=== PATIENT | female | born 1950 | race Caucasian/White ===

== ENCOUNTER 2016-04-24 23:00 | Inpatient (IN) | payer OTHER ==
[2016-04-24] VITALS (7 sets, daily range): BP systolic 108–180; BP diastolic 69–85; PULSE 86–94; RESP 24–28; TEMP 97.3–97.8; O2SAT 80–100
[~2016-04-24] VITALS: Ht 157.5 cm; Wt 78.2 kg
[~2016-04-24 23:00] MED LIST: FOLI1 PO; GABA300C3 PO; LACT20SO4 PO; LORA0.5T PO; MIDO5TAB PO; ULTR50TA PO
[2016-04-24] MEDS ORDERED: RESP: ALBUTEROL 2.5 MG/IPRATROPIUM 0.5 MG NEB (SCH) NEB ONE (23:15)
[2016-04-24] MEDS ORDERED: SODIUM CHLORIDE 0.9% FLUSH 5 ML FLUSH IVF PRN (23:15)
[2016-04-24 23:43] LABS: APTT (PATIENT) 22.6 SEC (24.3-30.1); INTERNATIONAL NORMALIZED RATIO 1.2 RATIO; PROTHROMBIN TIME - PATIENT 13.3 SEC (9.8-11.6)
[2016-04-25] VITALS (17 sets, daily range): BP systolic 95–133; BP diastolic 5–82; PULSE 76–107; RESP 16–30; TEMP 94–97.7; O2SAT 89–100
[2016-04-25 00:04] LABS: AUTOMATED NEUTROPHIL # 23.5 TH/MM3 (1.8-7.7); BASOPHIL # 0.1 TH/MM3 (0-0.2); BASOPHIL % 0.3 % (0.0-2.0); BLOOD UREA NITROGEN 73 MG/DL (7-18); GLOMERULAR FILTRATION RATE 8 ML/MIN (>89); HEMATOCRIT 33.3 % (35.0-46.0); LYMPH % 4.1 % (9.0-44.0); LYMPHOCYTE # 1.1 TH/MM3 (1.0-4.8); MEAN CELL VOLUME 67.3 FL (80.0-100.0); MEAN CORPUSCULAR HGB CONC 31.2 % (32.0-36.0); MONO % 7.9 % (0.0-8.0); NEUT % 87.7 % (16.0-70.0); PLATELET COUNT 374 TH/MM3 (150-450); RED BLOOD COUNT 4.95 MIL/MM3 (4.00-5.30); RED CELL DISTRIBUTION WIDTH 20.5 % (11.6-17.2); WHITE BLOOD COUNT 26.8 TH/MM3 (4.0-11.0)
[2016-04-25 00:05] LABS: ALKALINE PHOSPHATASE 140 U/L (45-117); ALT (GPT) 110 U/L (10-53); AST (GOT) 242 U/L (15-37); CHLORIDE 96 MEQ/L (98-107); MAGNESIUM 2.5 MG/DL (1.5-2.5); POTASSIUM 5.9 MEQ/L (3.5-5.1); SODIUM (NA) 130 MEQ/L (136-145); TOTAL BILIRUBIN ADULT 0.4 MG/DL (0.2-1.0)
--- NOTE | 2016-04-25 00:05 | RADRPT ---
EXAM DATE/TIME: 04/24/2016 23:34 [facility] COMPARISON: CHEST SINGLE AP, May 10, 2013, 3:57. CHEST SINGLE AP, May 17, 2013, 2:09. INDICATIONS : Shortness of breath. MEDICAL HISTORY : Carcinoma, breast. Ascitis SURGICAL HISTORY : Tonsillectomy. Cholecystectomy. Right lumpectomy, Infusaport ENCOUNTER: Initial ACUITY: 1 day PAIN SCORE: 0/10 LOCATION: Bilateral chest FINDINGS: A single view of the chest demonstrates the lungs to be symmetrically aerated without evidence of mas s, confluent infiltrate or effusion. Hazy interstitial scarring is again noted. The left subclavian i mplantable port catheter remains in place. There are overlying electrocardiogram leads. The cardiomed iastinal contours are unremarkable. Osseous structures are intact. CONCLUSION: Coarse interstitial opacities most consistent with chronic fibrosis and/or scarring. Sebas Roberts MD on April 25, 2016 at 0:03 Board Certified Radiologist. This report was verified electronically.
[2016-04-25 00:06] LABS: ANION GAP 17 MEQ/L (5-15); BICARBONATE 16.9 MEQ/L (21.0-32.0)
[2016-04-25 00:09] LABS: HEMO FLAGS AUTO DIFF
[2016-04-25 01:22] LABS: BLOOD GAS BASE EXCESS -7.7 mmol/L (-2-2); BLOOD GAS CARBOXYHEMOGLOBIN 4.4 % (0-4); BLOOD GAS HCO3 18 mmol/L (22-26); BLOOD GAS METHEMOGLOBIN 1.6 % (0-2); BLOOD GAS O2 HGB SATURATION 71 % (90-100); BLOOD GAS OXYGEN CONTENT 10.5 Vol % (12.0-20.0); BLOOD GAS PCO2 36 mmHg (38-42); BLOOD GAS PO2 46 mmHG (61-120); BLOOD GAS TOTAL HGB 10.5 G/DL (12.0-16.0); TEMP CORR TO 98.6
[2016-04-25 01:23] LABS: CRITICAL VALUE YES; DRAW SITE RT FEMORAL; FIO2 21 %; NUMBER OF ARTERIAL PUNCTURES 1; OXYGEN DEVICE ROOM AIR; STAT YES
--- NOTE | 2016-04-25 01:27 | PD ---
HPI Chief Complaint: Respiratory Distress Time Seen by Provider: 23:08 Travel History International Travel<30 days: No Contact w/Intl Traveler<30days: No Traveled to known affect area: No History of Present Illness HPI Patient is 65-year-old female presents to emergency department today with shortness of breath. She had apparently has a history of pulmonary fibrosis. EMS was called because she was short of breath at home, greatest at the had in the field was at 70% though unclear as to whether or not it was a good waveform. Patient on arrival is hard of hearing and appears somewhat altered. She is able to follow commands in all 4 extremities. Her history is limited secondary to mental status. PFSH Past Medical History Blood Disorders: No Anxiety: Yes Cancer: Yes (RIGHT BREAST) Cardiovascular Problems: No Chemotherapy: Yes Diminished Hearing: No Endocrine: No Gastrointestinal Disorders: Yes (acsitis) Genitourinary: No Immune Disorder: No Implanted Vascular Access Dvce: Yes Musculoskeletal: No Neurologic: No Psychiatric: Yes Reproductive: No Respiratory: No Radiation Therapy: Yes Past Surgical History Abdominal Surgery: Yes (cholecystectomy) Cardiac Surgery: No Cholecystectomy: Yes Ear Surgery: No Endocrine Surgery: No Eye Surgery: No Genitourinary Surgery: No Gynecologic Surgery: Yes (RT LUMPECTOMY) Oral Surgery: No Thoracic Surgery: No Tonsillectomy: Yes Other Surgery: Yes (INFUSAPORT nonfunctioning) Social History Alcohol Use: No Tobacco Use: Yes (1PPD) Substance Use: No Allergies-Medications (Allergen,Severity, Reaction): Coded Allergies: Morphine (Verified Allergy, Mild, Itching, 04/24/16) pt denies Reported Meds & Prescriptions Reported Meds & Active Scripts Active Lactulose 30 Ml Syrp 30 Ml PO DAILY 10 Days Midodrine Hcl (Midodrine) 5 Mg Tab 5 Mg PO TID 30 Days Reported Folate 1 Mg Tab (Folic Acid) 1 Mg Tab 1 Mg PO DAILY Gabapentin 300 Mg Cap 300 Mg PO TID Ultram (Tramadol HCl) 50 Mg Tab 50 Mg PO Q4H PRN Lorazepam 0.5 Mg Tab 0.5 Mg PO BID Review of Systems ROS Limitations: Altered Mental Status Physical Exam Narrative GENERAL: Well-developed well-nourished, pale and cool. No obvious respiratory distress. SKIN: Warm and dry. HEAD: Atraumatic. Normocephalic. EYES: Pupils equal and round. No scleral icterus. No injection or drainage. ENT: No nasal bleeding or discharge. Mucous membranes pink and moist. NECK: Trachea midline. No JVD. CARDIOVASCULAR: Regular rate and rhythm. No murmur appreciated. RESPIRATORY: No accessory muscle use. Clear to auscultation. Inspiratory and x- ray wheezing throughout all lung oneil. GASTROINTESTINAL: Abdomen soft, non-tender, nondistended. Hepatic and splenic margins not palpable. MUSCULOSKELETAL: No obvious deformities. No clubbing. No cyanosis. No edema. NEUROLOGICAL: Awake and alert. No obvious cranial nerve deficits. Motor grossly within normal limits. Normal speech.Slightly altered, difficult of hearing. PSYCHIATRIC: Unable to assess. Data Data Last Documented VS Vital Signs Date Time Temp Pulse Resp B/P Pulse Ox O2 Delivery O2 Flow Rate FiO2 04/25/16 01:00 80 16 133/82 100 BiPAP 04/25/16 00:00 50 04/24/16 23:39 97.3 04/24/16 23:13 3 Orders Electrocardiogram (04/24/16 23:08) B-Type Natriuretic Peptide (04/24/16 23:08) Complete Blood Count With Diff (04/24/16 23:08) Comprehensive Metabolic Panel (04/24/16 23:08) Magnesium (Mg) (04/24/16 23:08) Prothrombin Time / Inr (Pt) (04/24/16 23:08) Act Partial Throm Time (Ptt) (04/24/16 23:08) Troponin I (04/24/16 23:08) Chest, Single Ap (04/24/16 23:08) Ecg Monitoring (04/24/16 23:08) Bilateral Bp Monitoring (04/24/16 23:08) Iv Access Insert/Monitor (04/24/16 23:08) Oximetry (04/24/16 23:08) Oxygen Administration (04/24/16 23:08) Sodium Chloride 0.9% Flush (Ns Flush) (04/24/16 23:15) Phosphorus (Po4) (04/24/16 23:08) Blood Culture (04/24/16 23:08) Lactic Acid (04/24/16 23:08) Albuterol-Ipratropium Neb (Duoneb Neb) (04/24/16 23:15) Arterial Blood Gas (Abg) (04/24/16 ) Ammonia (04/24/16 23:19) Vancomycin Inj (Vancomycin Inj) (04/25/16 01:30) Arterial Blood Gas (Abg) (04/25/16 01:15) Piperacil-Tazo 2.25 Gm Premix (Zosyn 2.2 (04/25/16 01:30) Sodium Chlor 0.9% 1000 Ml Inj (Ns 1000 M (04/25/16 01:30) Sodium Chlor 0.9% 1000 Ml Inj (Ns 1000 M (04/25/16 01:30) Admit Order (Ed Use Only) (04/25/16 ) Labs Laboratory Tests Test 04/24/16 04/24/16 04/25/16 23:18 23:20 01:15 Prothrombin Time 13.3 SEC Prothromb Time International 1.2 RATIO Ratio Activated Partial 22.6 SEC Thromboplast Time White Blood Count 26.8 TH/MM3 Red Blood Count 4.95 MIL/MM3 Hemoglobin 10.4 GM/DL Hematocrit 33.3 % Mean Corpuscular Volume 67.3 FL Mean Corpuscular Hemoglobin 21.0 PG Mean Corpuscular Hemoglobin 31.2 % Concent Red Cell Distribution Width 20.5 % Platelet Count 374 TH/MM3 Mean Platelet Volume 8.3 FL Neutrophils (%) (Auto) 87.7 % Lymphocytes (%) (Auto) 4.1 % Monocytes (%) (Auto) 7.9 % Eosinophils (%) (Auto) 0.0 % Basophils (%) (Auto) 0.3 % Neutrophils # (Auto) 23.5 TH/MM3 Lymphocytes # (Auto) 1.1 TH/MM3 Monocytes # (Auto) 2.1 TH/MM3 Eosinophils # (Auto) 0.0 TH/MM3 Basophils # (Auto) 0.1 TH/MM3 CBC Comment AUTO DIFF Differential Total Cells 100 Counted Neutrophils % (Manual) 75 % Band Neutrophils % 11 % Lymphocytes % 7 % Monocytes % 5 % Neutrophils # (Manual) 23.6 TH/MM3 Metamyelocytes 2 % Nucleated Red Blood Cells 1 /100 WBC Differential Comment FINAL DIFF MANUAL Platelet Estimate NORMAL Platelet Morphology Comment NORMAL Sodium Level 130 MEQ/L Potassium Level 5.9 MEQ/L Chloride Level 96 MEQ/L Carbon Dioxide Level 16.9 MEQ/L Anion Gap 17 MEQ/L Blood Urea Nitrogen 73 MG/DL Creatinine 5.56 MG/DL Estimat Glomerular Filtration 8 ML/MIN Rate Random Glucose 140 MG/DL Lactic Acid Level 3.8 mmol/L Calcium Level 9.5 MG/DL Phosphorus Level 8.0 MG/DL Magnesium Level 2.5 MG/DL Total Bilirubin 0.4 MG/DL Aspartate Amino Transf 242 U/L (AST/SGOT) Alanine Aminotransferase 110 U/L (ALT/SGPT) Alkaline Phosphatase 140 U/L Ammonia 28 MCMOL/L Troponin I 0.16 NG/ML B-Type Natriuretic Peptide 2812 PG/ML Total Protein 7.9 GM/DL Albumin 3.1 GM/DL Blood Gas Puncture Site RT FEMORAL LT BRACHIAL Blood Gas Patient Temperature 98.6 98.6 Blood Gas HCO3 18 mmol/L 19 mmol/L Blood Gas Base Excess -7.7 mmol/L -6.2 mmol/L Blood Gas Oxygen Saturation 71 % 93 % Arterial Blood pH 7.31 7.33 Arterial Blood Partial 36 mmHg 36 mmHg Pressure CO2 Arterial Blood Partial 46 mmHG 105 mmHg Pressure O2 Arterial Blood Oxygen Content 10.5 Vol % 13.7 Vol % Arterial Blood 4.4 % 3.2 % Carboxyhemoglobin Arterial Blood Methemoglobin 1.6 % 0.8 % Blood Gas Hemoglobin 10.5 G/DL 10.3 G/DL Oxygen Delivery Device ROOM AIR BIPAP Blood Gas Inspired Oxygen 21 % 50 % Blood Gas Ventilator Setting IPAP20/12PS/EPAP8 [facility] Medical Decision Making Medical Screen Exam Complete: Yes Emergency Medical Condition: Yes Differential Diagnosis Hypoxic respiratory failure, ammonia, pulmonary fibrosis, sepsis. Narrative Course Patient was roomed in the emergency department, she is placed on pulse oximetry and telemetry monitoring P she is not tachycardic nor tachypneic. She is pale and cool. Multiple tests were made to obtain saturation monitoring. Finally waveform for only a few moments showed a saturation of 70%. Patient was placed on BiPAP which saturations quickly bethany with good waveform. ABG was obtained prior to placing on BiPAP which confirms a low saturation. PO2 of 45. White blood cell count significant bili elevated, lactic acid of 3.8. Troponin elevated to 0.16 was equivocal value, BNP of 2800, potassium 5.9 sodium 1:30, creatinine of 5.56. Patient is in severe sepsis, she was given multiple fluid boluses, creatinine is significantly elevated over her previous, she is given vancomycin and Zosyn to cover for severe sepsis. She did show some improvement in mental status was still unable to give further history. No family is at bedside in the emergency department. She was discussed with Dr. Mandel for admission to the ICU. Critical Care Narrative Aggregate critical care time was 35 minutes minutes. Time to perform other separately billable procedures was not included in the critical care time. My time did not include minutes spent treating any other patients simultaneously or on activities that did not directly contribute to the patient's treatment. The services I provided to this patient were to treat and/or prevent clinically significant deterioration that could result in: , disability, organ failure. I provided critical care services requiring my management, as noted below: Chart data review, documentation time, medication orders and management, vital sign assessments/reviewing monitor data, ordering and reviewing lab tests, ordering and interpreting/reviewing x-rays and diagnostic studies, care of the patient (including titrating BiPAP) and discussion of the patient with the admitting physicians. Diagnosis Primary Impression: Severe sepsis Additional Impressions: Multi-organ failure with heart failure Pulmonary fibrosis Acute respiratory failure with hypoxia Encephalopathy Admitting Information Admitting Physician Requests: Admit Condition: Delon Crespo MD Apr 25, 2016 01:27
[2016-04-25 01:29] LABS: BANDS 11 % (0-6); CORRECTED NUCLEATED RBC 1 /100 WBC (0-0); METAMYELOCYTES 2 % (0-1); NEUTROPHIL # MANUAL DIFF 23.6 TH/MM3 (1.8-7.7); POLYS (SEG NEUTROPHILS) 75 % (16-70); SCAN/DIFF FINAL DIFF MANUAL; WBC DIFF SAMPLE 100
[2016-04-25 01:30] LABS: PLATELET ESTIMATE SMEAR NORMAL (NORMAL); PLATELET MORPHOLOGY NORMAL (NORMAL)
[2016-04-25] MEDS ORDERED: SODIUM CHLOR 0.9% 1000 ML INJ 1,000 ML IV ONE ×4 (01:30→17:15)
[2016-04-25] MEDS ORDERED: PIPERACIL-TAZO 2.25 GM PREMIX 50 ML IV ONE (01:30)
[2016-04-25] MEDS ORDERED: VANCOMYCIN INJ 1,000 MG in SODIUM CHLOR 0.9% 250 ML INJ 250 ML IV ONE (01:30)
[2016-04-25 01:31] LABS: BLOOD GAS BASE EXCESS -6.2 mmol/L (-2-2); BLOOD GAS CARBOXYHEMOGLOBIN 3.2 % (0-4); BLOOD GAS HCO3 19 mmol/L (22-26); BLOOD GAS METHEMOGLOBIN 0.8 % (0-2); BLOOD GAS O2 HGB SATURATION 93 % (90-100); BLOOD GAS OXYGEN CONTENT 13.7 Vol % (12.0-20.0); BLOOD GAS PCO2 36 mmHg (38-42); BLOOD GAS PO2 105 mmHg (61-120); BLOOD GAS TOTAL HGB 10.3 G/DL (12.0-16.0); CRITICAL VALUE NO; OXYGEN DEVICE BIPAP; TEMP CORR TO 98.6
[2016-04-25 01:32] LABS: DRAW SITE LT BRACHIAL; FIO2 50 %; NUMBER OF ARTERIAL PUNCTURES 2; STAT NO; ULNAR PULSE PRESENT; VENT SETTINGS IPAP20/12PS/EPAP8
[2016-04-25] MEDS ORDERED: ZOLPIDEM TARTRATE 5 MG TAB PO PRN (03:00)
[2016-04-25] MEDS ORDERED: MORPHINE SULFATE 4 MG/ML INJ IV PRN (03:00)
[2016-04-25] MEDS ORDERED: METOCLOPRAMIDE HCL 10 MG/2 ML VIAL IV PRN (03:00)
[2016-04-25] MEDS ORDERED: ONDANSETRON HCL 4 MG/2 ML VIAL IV PRN (03:00)
[2016-04-25] MEDS ORDERED: CHLORHEXIDINE GLUCONATE 2 % 1 PACK (2 CLOTHS) TOP PRN (03:00)
[2016-04-25] MEDS ORDERED: oxyCODONE/ACETAMINOPHEN 5 MG/325 MG TAB PO PRN (03:00)
[2016-04-25] MEDS ORDERED: MISCELLANEOUS NURSING INFORMATION XX SCH (03:00)
[2016-04-25] MEDS ORDERED: SODIUM CHLORIDE 0.9% FLUSH 5 ML FLUSH IV FLUSH PRN (03:00)
--- NOTE | 2016-04-25 03:12 | HHI.HP ---
HPI Service Critical Care Medicine Primary Care Physician Artur Smalls MD Admission Diagnosis Hypoxic Respiratory Failure Diagnosis: Travel History International Travel<30 Days: No Contact w/Intl Traveler <30 Da: No Traveled to Known Affected Are: No History of Present Illness 65 year old female with history of alcohol abuse, history of breast cancer status post lumpectomy radiation and chemotherapy presents with progressively worsening shortness of breath. EMS was called because she was short of breath at home, and was found to have pals oxygen at 70%. Patient is on a BiPAP, seems to be comfortable in no distress. She is able to follow commands in all 4 extremities. Her history is limited secondary to FM BiPAP. Review of Systems ROS Unable to obtain, patient is on a FM BiPAP Past Family Social History Allergies: Coded Allergies: Morphine (Verified Allergy, Mild, Itching, 04/24/16) pt denies Past Medical History Alcoholism History of breast cancer status post lumpectomy radiation and chemotherapy Anxiety Past Surgical History [id number] Laparoscopic cholecystectomy Active Ordered Medications Current Medications Medications (Trade) Dose Ordered Sig/Antione Route PRN Reason Start Time Stop Time Status Last Admin Dose Admin Sodium Chloride (NS 1000 ml Inj) 1,000 ml @ 84 mls/hr [id number] IV 04/25/16 02:56 04/25/16 04:00 IV Flush (NS Flush) 2 ml UNSCH PRN IV FLUSH FLUSH AFTER USING IV ACCESS 04/25/16 03:00 IV Flush (NS Flush) 2 ml BID IV FLUSH 04/25/16 09:00 Acetaminophen (Tylenol) 650 mg Q6H PRN PO PAIN 1-10 AND/OR FEVER >101F 04/25/16 03:00 Oxycodone/ Acetaminophen (Percocet 5-325 Mg) 1 tab Q4H PRN PO PAIN SCALE 1 TO 5 04/25/16 03:00 Morphine Sulfate (Morphine Inj) 2 mg Q2H PRN IV PAIN SCALE 6 TO 10 04/25/16 03:00 Famotidine (Pepcid Inj) 20 mg Q12HR IV PUSH 04/25/16 09:00 Midazolam HCl (Versed Inj) 2 mg Q1H PRN IV SEDATION 04/25/16 03:00 Lorazepam (Ativan Inj) 1 mg Q1H PRN IV Agitation/Sedation 04/25/16 03:00 Ondansetron HCl (Zofran Inj) 4 mg Q6H PRN IV NAUSEA OR VOMITING 04/25/16 03:00 Metoclopramide HCl (Reglan Inj) 10 mg Q6H PRN IV NAUSEA OR VOMITING 04/25/16 03:00 Docusate Sodium (Colace) 100 mg BID PO 04/25/16 09:00 Zolpidem Tartrate (Ambien) 5 mg HS PRN PO INSOMNIA 04/25/16 03:00 Heparin Sodium (Porcine) (Heparin Inj) 5,000 units Q12H SQ 04/25/16 03:00 04/25/16 03:35 Miscellaneous Information 1 [id number] XX 04/25/16 03:00 04/25/16 03:00 Chlorhexidine Gluconate (Chlorhexidine 2% Cloth) 3 pack Taper DAILY@04 TOP 04/25/16 04:00 04/21/17 03:59 04/25/16 04:30 Chlorhexidine Gluconate (Chlorhexidine 2% Cloth) 3 pack UNSCH PRN [facility] 04/25/16 03:00 Folic Acid (Folate) 1 mg DAILY PO 04/25/16 09:00 Gabapentin (Neurontin) 300 mg TID PO 04/25/16 09:00 Tramadol HCl (Ultram) 50 mg Q4H PRN PO PAIN SCALE 1 TO 10 04/25/16 03:15 Lactulose (Lactulose Liq) 30 ml DAILY PO cirrhosis 04/25/16 09:00 Methylprednisolone Sodium Succinate (SoluMEDROL INJ) 60 mg Q12HR IV PUSH 04/25/16 09:00 Family History Noncontributory Social History Smoker Former Drinker Physical Exam Vital Signs Vital Signs Date Time Temp Pulse Resp B/P Pulse Ox O2 Delivery O2 Flow Rate FiO2 04/25/16 03:00 90 18 130/65 99 Non-Rebreather 04/25/16 02:00 90 19 125/62 99 Non-Rebreather 04/25/16 01:52 100 Non-Rebreather 04/25/16 01:30 95 Non-Rebreather 12.00 04/25/16 01:00 80 16 133/82 100 BiPAP 04/25/16 00:00 81 18 131/81 100 BiPAP 50 04/24/16 23:47 86 24 108/71 99 BiPAP 50 04/24/16 23:39 97.3 04/24/16 23:36 87 28 123/69 100 BiPAP 50 04/24/16 23:36 98 BiPAP 50 04/24/16 23:20 97 50 04/24/16 23:14 94 04/24/16 23:13 83 Nasal Cannula 3 04/24/16 23:02 97.8 90 28 180/85 80 Physical Exam GENERAL: Well-nourished, well-developed patient. SKIN: Warm and dry. HEAD: Normocephalic. EYES: No scleral icterus. No injection or drainage. NECK: Supple, trachea midline. No JVD or lymphadenopathy. CARDIOVASCULAR: Regular rate and rhythm without murmurs, gallops, or rubs. RESPIRATORY: Breath sounds equal bilaterally. No accessory muscle use. GASTROINTESTINAL: Abdomen soft, non-tender, nondistended. MUSCULOSKELETAL: No cyanosis, or edema. BACK: Nontender without obvious deformity. No CVA tenderness. Laboratory Laboratory Tests Test 04/24/16 04/24/16 04/25/16 23:18 23:20 01:15 Prothrombin Time 13.3 Prothromb Time International 1.2 Ratio Activated Partial 22.6 Thromboplast Time White Blood Count 26.8 Red Blood Count 4.95 Hemoglobin 10.4 Hematocrit 33.3 Mean Corpuscular Volume 67.3 Mean Corpuscular Hemoglobin 21.0 Mean Corpuscular Hemoglobin 31.2 Concent Red Cell Distribution Width 20.5 Platelet Count 374 Mean Platelet Volume 8.3 Neutrophils (%) (Auto) 87.7 Lymphocytes (%) (Auto) 4.1 Monocytes (%) (Auto) 7.9 Eosinophils (%) (Auto) 0.0 Basophils (%) (Auto) 0.3 Neutrophils # (Auto) 23.5 Lymphocytes # (Auto) 1.1 Monocytes # (Auto) 2.1 Eosinophils # (Auto) 0.0 Basophils # (Auto) 0.1 CBC Comment AUTO DIFF Differential Total Cells 100 Counted Neutrophils % (Manual) 75 Band Neutrophils % 11 Lymphocytes % 7 Monocytes % 5 Neutrophils # (Manual) 23.6 Metamyelocytes 2 Nucleated Red Blood Cells 1 Differential Comment FINAL DIFF MANUAL Platelet Estimate NORMAL Platelet Morphology Comment NORMAL Sodium Level 130 Potassium Level 5.9 Chloride Level 96 Carbon Dioxide Level 16.9 Anion Gap 17 Blood Urea Nitrogen 73 Creatinine 5.56 Estimat Glomerular Filtration 8 Rate Random Glucose 140 Lactic Acid Level 3.8 Calcium Level 9.5 Phosphorus Level 8.0 Magnesium Level 2.5 Total Bilirubin 0.4 Aspartate Amino Transf 242 (AST/SGOT) Alanine Aminotransferase 110 (ALT/SGPT) Alkaline Phosphatase 140 Ammonia 28 Troponin I 0.16 B-Type Natriuretic Peptide 2812 Total Protein 7.9 Albumin 3.1 Blood Gas Puncture Site RT FEMORAL LT BRACHIAL Blood Gas Patient Temperature 98.6 98.6 Blood Gas HCO3 18 19 Blood Gas Base Excess -7.7 -6.2 Blood Gas Oxygen Saturation 71 93 Arterial Blood pH 7.31 7.33 Arterial Blood Partial 36 36 Pressure CO2 Arterial Blood Partial 46 105 Pressure O2 Arterial Blood Oxygen Content 10.5 13.7 Arterial Blood 4.4 3.2 Carboxyhemoglobin Arterial Blood Methemoglobin 1.6 0.8 Blood Gas Hemoglobin 10.5 10.3 Oxygen Delivery Device ROOM AIR BIPAP Blood Gas Inspired Oxygen 21 50 Blood Gas Ventilator Setting IPAP20/12PS/EPAP8 Date/Time Procedure Status Source Growth 04/24/16 23:15 Aerobic Blood Culture Received Blood Peripheral Pending 04/24/16 23:15 Anaerobic Blood Culture Received Blood Peripheral Pending Result Diagram: 04/24/168 04/24/162317 Imaging Last 24 hours Impressions Chest X-Ray 04/24/162307 Signed Impressions: Service Date/Time: Sunday, April 24, 2016 23:34 - CONCLUSION: Coarse interstitial opacities most consistent with chronic fibrosis and/or scarring. Sebas Roberts MD Septic Shock Reassessment Peripheral Pulses: Bounding Right Radial Bounding Left Radial Assessment and Plan Problem List: (1) Acute respiratory failure with hypoxia ICD Code: J96.01 Status: Acute (2) Tobacco use disorder ICD Code: F17.200 Status: Acute (3) HOME (acute kidney injury) ICD Code: N17.9 Status: Acute Assessment and Plan Respiratory failure - underlying pulmonary disease - post-radiation - tobacco use - Steroids - Aerosols - Empiric ATB - improving with BiPAP COPD - exacerbation - i.v. steroids - Empiric Azythro/Zosyn - F/U urine AG and Blood cultures - Duonebs - BiPAP - Repeat ABG History Alcoholism - monitor for withdrawal - CIWA History of breast cancer - status post lumpectomy radiation and chemotherapy - now in remission - supportive care Anxiety - Benzos PRN HOME - volume depletion - aggressive i.v. fluids - monitor electrolytes - strict I&O DVT/GI prophylaxis - Heparin SubQ/Pepcid Critical Care: The total critical care time was 35 minutes. Time to perform other separately billable procedures was not included in the critical care time. Allan Mandel MD Apr 25, 2016 03:11
[2016-04-25] MEDS ORDERED: methylPREDNISolone SOD SUCC 125 MG/2 ML VIAL IV PUSH ONE (03:15)
[2016-04-25] MEDS ORDERED: traMADol HCL 50 MG TAB PO PRN (03:15)
[2016-04-25] MEDS: HEPARIN SODIUM - SQ 10,000 UNITS/ML VIAL SQ SCH ×2 (03:35→14:48)
[2016-04-25] MEDS: RESP: ALBUTEROL 2.5 MG/IPRATROPIUM 0.5 MG NEB (SCH) INH ×6 (03:52→23:40)
[2016-04-25] MEDS: SODIUM CHLOR 0.9% 1000 ML INJ 1,000 ML IV SCH ×3 (04:00→23:35)
[2016-04-25] MEDS: CHLORHEXIDINE GLUCONATE 2 % 1 PACK (2 CLOTHS) TOP SCH (04:30)
[2016-04-25] MEDS: SODIUM CHLORIDE 0.9% FLUSH 5 ML FLUSH IV FLUSH SCH (08:33)
[2016-04-25] MEDS: FOLIC ACID 1 MG TAB PO SCH (08:33)
[2016-04-25] MEDS: DOCUSATE SODIUM 100 MG CAP PO SCH ×2 (08:33→20:48)
[2016-04-25] MEDS: methylPREDNISolone SOD SUCC 125 MG/2 ML VIAL IV PUSH SCH ×2 (08:33→20:48)
[2016-04-25] MEDS: AZITHROMYCIN INJ 500 MG in SODIUM CHLOR 0.9% 250 ML INJ 250 ML IV SCH (08:33)
[2016-04-25] MEDS: LACTULOSE SYRUP 20 GM/30 ML CUP PO SCH (08:33)
[2016-04-25] MEDS ORDERED: FAMOTIDINE 20 MG/2 ML VIAL IV PUSH SCH (09:00)
[2016-04-25] MEDS ORDERED: GABAPENTIN 300 MG CAP PO SCH (09:00)
[2016-04-25] MEDS ORDERED: AMBI5TAB PO (10:33)
[2016-04-25] MEDS ORDERED: VICOTAB4 PO (10:33)
[2016-04-25] MEDS ORDERED: SERT-129 PO (10:33)
[2016-04-25] MEDS ORDERED: SPIR100T PO (10:33)
[2016-04-25] MEDS ORDERED: ROPI5TAB PO (10:33)
[2016-04-25] MEDS ORDERED: FURO1TAB60 PO (10:33)
[2016-04-25] MEDS: PIPERACIL-TAZO 2.25 GM PREMIX 50 ML IV SCH ×2 (11:38→20:48)
[2016-04-25 12:00] LABS: HEMATOCRIT 30.1 % (35.0-46.0); MEAN CELL VOLUME 66.1 FL (80.0-100.0); MEAN CORPUSCULAR HEMOGLOBIN 21.2 PG (27.0-34.0); PLATELET COUNT 300 TH/MM3 (150-450); RED BLOOD COUNT 4.56 MIL/MM3 (4.00-5.30); RED CELL DISTRIBUTION WIDTH 20.7 % (11.6-17.2); WHITE BLOOD COUNT 22.7 TH/MM3 (4.0-11.0)
[2016-04-25 12:03] LABS: REVIEW FLAG FINAL
[2016-04-25] MEDS: LORazepam 2 MG/ML VIAL IV PRN (12:16)
[2016-04-25 13:00] LABS: BICARBONATE 17.5 MEQ/L (21.0-32.0); MAGNESIUM 2.3 MG/DL (1.5-2.5); POTASSIUM 5.5 MEQ/L (3.5-5.1)
[2016-04-25] MEDS: PROPOFOL 1000 MG/100 ML INJ 100 ML IV SCH ×2 (13:00→20:48)
[2016-04-25] MEDS ORDERED: ETOMIDATE 20 MG/10 ML VIAL ONE (13:08)
[2016-04-25] MEDS ORDERED: ROCURONIUM INJ 50 MG/5 ML VIAL ONE (13:08)
--- NOTE | 2016-04-25 13:34 | PD.PROCEDR ---
Procedure Note Procedure Endotracheal Intubation Diagnosis: Hypoxic respiratory failure Indications: Continued hypoxic respiratory failure Consent: Emergent Anesthesia: Etomidate and Rocuronium Description of the Procedure: The patient was positioned in the sniffing position. Pre-oxygenation was performed using a 100% ambu. Anesthesia was induced via rapid sequence. A Glidescope 4 was used for laryngoscopy and a Grade 1 view was obtained. A cuffed endotracheal tube was inserted atraumatically through the vocal cords. Confirmation of correct endotracheal tube placement was made by equal and bilateral breath sounds and colorimetric CO2 detection. The endotracheal tube was secured at 20 cm at the teeth. There were no immediate complications noted. The patient remained hemodynamically stable throughout the procedure. A chest x-ray has been ordered. I personally performed the procedure. Karmen Ferreira MD Apr 25, 2016 13:34
--- NOTE | 2016-04-25 14:20 | RADRPT ---
EXAM DATE/TIME: 04/25/2016 13:47 [facility] COMPARISON: CHEST SINGLE AP, April 24, 2016, 23:34. INDICATIONS : Post Intubation. MEDICAL HISTORY : Carcinoma, breast. Ascitis SURGICAL HISTORY : Tonsillectomy. Cholecystectomy. Right lumpectomy, Infusaport ENCOUNTER: Subsequent ACUITY: 3 days PAIN SCORE: Non-responsive. LOCATION: Bilateral chest FINDINGS: A single portable frontal view of the chest shows coarse bilateral interstitial markings throughout b oth lungs. They are unchanged. No effusions. No intralobular opacities. Heart is normal in size. Endo tracheal tube tip is 4 cm proximal to the ulises. A left-sided Port-A-Cath. CONCLUSION: 1. Bilateral interstitial opacities potentially chronic interstitial fibrotic in nature. 2. Endotracheal tube. Bart Suarez Jr., MD on April 25, 2016 at 14:17 Board Certified Radiologist. This report was verified electronically.
--- NOTE | 2016-04-25 14:49 | PD.PROCEDR ---
Procedure Note Procedure Procedure: Arterial Line Placement Left radial Diagnosis: Hypoxic respiratory failure Indications: Same Consent: Obtained Description of the Procedure: The left wrist was prepped and draped sterilely. 1 % lidocaine was used for local anesthesia. The pulse was located and a needle was advanced into the artery. A 20-gauge gauge, 1/3/4 cm catheter was advanced into the artery using a modified Seldinger technique. The catheter was sutured to the skin and a sterile dressing was applied. The catheter was connected to a pressure transducer and an arterial waveform was noted. There were no immediate complications noted. There was minimal EBL. I personally performed the procedure. Karmen Ferreira MD Apr 25, 2016 14:49
[2016-04-25 15:03] LABS: BLOOD GAS BASE EXCESS -10.4 mmol/L (-2-2); BLOOD GAS CARBOXYHEMOGLOBIN 1.3 % (0-4); BLOOD GAS HCO3 16 mmol/L (22-26); BLOOD GAS METHEMOGLOBIN 0.8 % (0-2); BLOOD GAS O2 HGB SATURATION 83 % (90-100); BLOOD GAS OXYGEN CONTENT 11.1 Vol % (12.0-20.0); BLOOD GAS PCO2 44 mmHg (38-42); BLOOD GAS PO2 65 mmHg (61-120); BLOOD GAS TOTAL HGB 9.5 G/DL (12.0-16.0); TEMP CORR TO 98.6
[2016-04-25 15:05] LABS: CRITICAL VALUE YES; OXYGEN DEVICE VENTILATOR
[2016-04-25 15:06] LABS: DRAW SITE RT RADIAL; FIO2 50 %; NUMBER OF ARTERIAL PUNCTURES 1; STAT NO; ULNAR PULSE PRESENT
[2016-04-25 15:10] LABS: BLOOD GAS BASE EXCESS -10.7 mmol/L (-2-2); BLOOD GAS CARBOXYHEMOGLOBIN 1.3 % (0-4); BLOOD GAS HCO3 16 mmol/L (22-26); BLOOD GAS METHEMOGLOBIN 0.9 % (0-2); BLOOD GAS O2 HGB SATURATION 89 % (90-100); BLOOD GAS OXYGEN CONTENT 12.1 Vol % (12.0-20.0); BLOOD GAS PCO2 44 mmHg (38-42); BLOOD GAS PO2 79 mmHg (61-120); BLOOD GAS TOTAL HGB 9.6 G/DL (12.0-16.0); CRITICAL VALUE YES; DRAW SITE RT RADIAL; FIO2 100 %; LITER FLOW 15 L/M; NUMBER OF ARTERIAL PUNCTURES 1; STAT YES; TEMP CORR TO 98.6; ULNAR PULSE PRESENT
[2016-04-25] MEDS ORDERED: MIDAZOLAM HCL 5 MG/ML VIAL (1 ML) ONE (15:39)
[2016-04-25] MEDS ORDERED: MIDAZOLAM HCL 5 MG/5 ML VIAL IV PUSH ONE (15:45)
[2016-04-25] MEDS: RESP: ALBUTEROL 2.5 MG/IPRATROPIUM 0.5 MG NEB (PRN) INH (16:15)
--- NOTE | 2016-04-25 16:16 | PD.PROCEDR ---
Central Line Procedure REASON FOR PROCEDURE Central venous access PROCEDURE PERFORMED Central line placement: Left IJ CONSENT Informed consent for procedure was obtained from sister, ANTIONE. The risks and benefits of the procedure were discussed to include but limited to bleeding, clot formation, infection, and even . ANESTHESIA Local injection of 1% Lidocaine DESCRIPTION OF THE PROCEDURE The patient was placed in supine, mild Trendelenburg position. The area was exposed and cleansed with ChloraPrep, times two. Large sterile drape was used to cover the patient, with the site exposed, under sterile conditions including cap, face mask, sterile gown, and sterile gloves. On single attempt, the introducer needle was inserted with negative pressure in syringe and venous flash was obtained. The guide wire was then advanced without any restriction and the needle was removed. The dilator was used without any complications. Using Seldinger technique the 7Fcatheter was advanced over the guide wire to a depth of 18 centimeters. The guide wire was removed. All ports were aspirated with dark venous blood return and flushed easily with sterile saline. All ports were capped. Antibiotic disc was placed around central line at puncture site. The central line was secured to the skin with two interrupted 2.0 silk sutures. The area was bandaged with sterile see-through central line bandage. RADIOLOGICAL DATA Ultrasound guidance was used to locate left IJ. Doppler/color flow was used to confirm venous flow. COMPLICATIONS: No apparent complications ESTIMATED BLOOD LOSS: Less than 1 cc. Karmen Ferreira MD Apr 25, 2016 16:16
--- NOTE | 2016-04-25 17:01 | RADRPT ---
EXAM DATE/TIME: 04/25/2016 16:18 [facility] COMPARISON: CHEST SINGLE AP, April 25, 2016, 13:47. INDICATIONS : Right jugular line placement. MEDICAL HISTORY : Carcinoma, breast. ascites, anxiety, SURGICAL HISTORY : Tonsillectomy. Cholecystectomy. right breast lumpectomy ENCOUNTER: Initial ACUITY: 1 day PAIN SCORE: Non-responsive. LOCATION: Bilateral chest FINDINGS: Single view of the chest shows bilateral mixed interstitial opacities. These are unchanged from the p rior study. No effusions. Heart is normal in size. Endotracheal tube tip is 4 cm cephalad to the stan na. Left sided Port-A-Cath. Right-sided central line. Tip is at the cavoatrial junction. No pneumotho rax. Nasogastric tube courses off the inferior margin of the film. CONCLUSION: 1. Right internal jugular vein central venous line in good position without pneumothorax. 2. Unchanged interstitial infiltrates. Potentially chronic in nature. Bart Suarez Jr., MD on April 25, 2016 at 16:55 Board Certified Radiologist. This report was verified electronically.
[2016-04-25 17:16] LABS: BLOOD GAS BASE EXCESS -11.7 mmol/L (-2-2); BLOOD GAS CARBOXYHEMOGLOBIN 1.3 % (0-4); BLOOD GAS HCO3 14 mmol/L (22-26); BLOOD GAS METHEMOGLOBIN 0.7 % (0-2); BLOOD GAS O2 HGB SATURATION 97 % (90-100); BLOOD GAS OXYGEN CONTENT 12.3 Vol % (12.0-20.0); BLOOD GAS PCO2 31 mmHg (38-42); BLOOD GAS PO2 204 mmHg (61-120); BLOOD GAS TOTAL HGB 8.7 G/DL (12.0-16.0); CRITICAL VALUE YES; OXYGEN DEVICE VENTILATOR; TEMP CORR TO 98.6
[2016-04-25 17:17] LABS: DRAW SITE ART LINE; FIO2 65 %; NUMBER OF ARTERIAL PUNCTURES 0; STAT NO; ULNAR PULSE PRESENT; VENT SETTINGS PRVC/AC
[2016-04-25] MEDS: fentaNYL DRIP 250 ML IV SCH (17:25)
[2016-04-25 18:45] LABS: BLOOD, URINE NEG (NEG); COMMENT (UR) CULT NOT INDICATED; CULTURE IF INDICATED CULT NOT INDICATED; GLUCOSE,URINE NEG (NEG); HYALINE CAST, URINE 2 /lpf (RARE); KETONE, URINE NEG (NEG); MUCUS URINE FEW /lpf (OCC); NITRITE,URINE NEG (NEG); PH, URINE 5.5 (5.0-8.5); SQUAMOUS EPITHELIAL CELL URINE <1 /hpf (0-5); URINE COLOR YELLOW (YELLW/STRAW)
[2016-04-25] MEDS: FAMOTIDINE 20 MG/2 ML VIAL IV PUSH SCH (20:48)
[2016-04-25] MEDS: GABAPENTIN 300 MG CAP PO SCH (20:48)
[2016-04-25] MEDS ORDERED: ALBUMIN HUMAN 5% 25 GM/500 ML BOTTLE IV ONE (22:45)
[2016-04-25] MEDS ORDERED: TERBUTALINE INJ 1 MG/ML AMP SQ PRN (22:45)
[2016-04-25] MEDS: NOREPINEPHRINE-DEXTROSE DRIP 250 ML IV SCH (23:03)
[2016-04-26] VITALS (14 sets, daily range): BP systolic 98–110; BP diastolic 50–64; PULSE 85–95; RESP 18–19; TEMP 97.5–98.8; O2SAT 95–100
[2016-04-26] MEDS: SODIUM CHLORIDE 0.9% FLUSH 5 ML FLUSH IV FLUSH SCH ×3 (01:29→20:56)
[2016-04-26] MEDS: CHLORHEXIDINE GLUCONATE 2 % 1 PACK (2 CLOTHS) TOP SCH (03:12)
[2016-04-26] MEDS: PIPERACIL-TAZO 2.25 GM PREMIX 50 ML IV SCH ×3 (03:12→20:55)
[2016-04-26] MEDS: HEPARIN SODIUM - SQ 10,000 UNITS/ML VIAL SQ SCH ×2 (03:12→14:41)
[2016-04-26] MEDS: RESP: ALBUTEROL 2.5 MG/IPRATROPIUM 0.5 MG NEB (SCH) INH ×5 (03:27→20:50)
[2016-04-26 03:49] LABS: AUTOMATED NEUTROPHIL # 18.1 TH/MM3 (1.8-7.7); BASOPHIL # 0.1 TH/MM3 (0-0.2); BASOPHIL % 0.3 % (0.0-2.0); HEMATOCRIT 27.5 % (35.0-46.0); LYMPHOCYTE # 0.2 TH/MM3 (1.0-4.8); MEAN CELL VOLUME 66.4 FL (80.0-100.0); MEAN CORPUSCULAR HEMOGLOBIN 20.8 PG (27.0-34.0); MEAN CORPUSCULAR HGB CONC 31.3 % (32.0-36.0); MONO % 4.3 % (0.0-8.0); NEUT % 94.4 % (16.0-70.0); PLATELET COUNT 282 TH/MM3 (150-450); RED BLOOD COUNT 4.14 MIL/MM3 (4.00-5.30); RED CELL DISTRIBUTION WIDTH 21.9 % (11.6-17.2); WHITE BLOOD COUNT 19.2 TH/MM3 (4.0-11.0)
[2016-04-26 04:09] LABS: HEMO FLAGS AUTO DIFF
[2016-04-26 04:24] LABS: ALKALINE PHOSPHATASE 102 U/L (45-117); ALT (GPT) 77 U/L (10-53); ANION GAP 13 MEQ/L (5-15); AST (GOT) 92 U/L (15-37); BICARBONATE 15.5 MEQ/L (21.0-32.0); BLOOD UREA NITROGEN 71 MG/DL (7-18); CHLORIDE 110 MEQ/L (98-107); GLOMERULAR FILTRATION RATE 13 ML/MIN (>89); MAGNESIUM 2.1 MG/DL (1.5-2.5); POTASSIUM 5.1 MEQ/L (3.5-5.1); SODIUM (NA) 138 MEQ/L (136-145); TOTAL BILIRUBIN ADULT 0.4 MG/DL (0.2-1.0)
--- NOTE | 2016-04-26 05:24 | RADRPT ---
EXAM DATE/TIME: 04/26/2016 04:15 [facility] COMPARISON: CHEST SINGLE AP, April 25, 2016, 16:18. INDICATIONS : Respiratory disease MEDICAL HISTORY : Carcinoma, breast. ascites, anxiety SURGICAL HISTORY : Cholecystectomy. Infus a port ENCOUNTER: Subsequent ACUITY: 3 days PAIN SCORE: Non-responsive. LOCATION: Bilateral chest FINDINGS: 2 AP semierect views of the chest were obtained and again demonstrated an endotracheal tube in place with the tip approximately 4 cm above the ulises. A nasogastric tube is seen coursing through the eso phagus into the stomach. The right internal jugular central venous line remains in place. The left armando bclavian implantable port catheter remains in place as well. Mild interstitial opacities are again no jose with no focal consolidation or effusion. The heart size is at the upper limits of normal. CONCLUSION: No significant change. Sebas Roberts MD on April 26, 2016 at 5:21 Board Certified Radiologist. This report was verified electronically.
--- NOTE | 2016-04-26 07:55 | EKG ---
Date Performed: 04/24/2016 Time Performed: 23:31:10 PTAGE: 65 years EKG: Sinus rhythm RIGHT BUNDLE BRANCH BLOCK ABNORMAL ECG PREVIOUS TRACING : 01/27/2015 17.57 DOCTOR: Miguel Frey Interpretating Date/Time 04/26/2016 07:49:07
[2016-04-26] MEDS: AZITHROMYCIN INJ 500 MG in SODIUM CHLOR 0.9% 250 ML INJ 250 ML IV SCH (08:00)
[2016-04-26 08:56] LABS: CALCIUM-PROTEIN CORRECTED 8.1 MG/DL (8.5-10.1)
[2016-04-26 09:03] LABS: KERATOCYTES OCC (NORMAL); SCAN/DIFF AUTO DIFF CONFIRMED
[2016-04-26] MEDS: DOCUSATE SODIUM 100 MG CAP PO SCH ×2 (09:06→20:55)
[2016-04-26] MEDS: methylPREDNISolone SOD SUCC 125 MG/2 ML VIAL IV PUSH SCH ×2 (09:06→20:55)
[2016-04-26] MEDS: FOLIC ACID 1 MG TAB PO SCH (09:06)
[2016-04-26] MEDS: LACTULOSE SYRUP 20 GM/30 ML CUP PO SCH (09:06)
[2016-04-26] MEDS: SODIUM CHLOR 0.9% 1000 ML INJ 1,000 ML IV SCH (11:00)
[2016-04-26] MEDS: fentaNYL DRIP 250 ML IV SCH ×2 (12:48→21:14)
--- NOTE | 2016-04-26 14:36 | HHI.CCPN ---
Subjective Remarks/Hospital Course 65 year old female with history of alcohol abuse, history of breast cancer status post lumpectomy radiation and chemotherapy presents with progressively worsening shortness of breath. EMS was called because she was short of breath at home, and was found to have pals oxygen at 70%. Patient is on a BiPAP, seems to be comfortable in no distress. She is able to follow commands in all 4 extremities. Her history is limited secondary to FM BiPAP. 04/26 The patient acutely had respiratory decompensation yesterday afternoon. Discussion with family, sister power of [place] attorney regarding intubation in patient 's current respiratory status, family requesting intubation. She required intubation, central line placement and an arterial line placement to monitor oxygenation levels. The patient became hypoxic and hypotensive requiring vasopressor support. Currently the patient is on levophed infusion at 5 mcgs. Objective Vital Signs Date Time Temp Pulse Resp B/P Pulse Ox O2 Delivery O2 Flow Rate FiO2 04/26/16 12:00 98.5 91 18 98/50 99 04/26/16 08:14 55 04/25/16 12:16 Simple Mask 12.00 Intake and Output 04/25/16 04/25/16 04/26/16 08:00 16:00 00:00 Intake Total 2000 ml 1322 ml 2630 ml Output Total 75 ml 175 ml 650 ml Balance 1925 ml 1147 ml 1980 ml Result Diagram: 04/26/16 0330 04/26/16 0330 Other Results Laboratory Tests Test 04/25/16 04/25/16 14:55 17:06 Blood Gas Puncture Site RT RADIAL ART LINE Blood Gas Patient Temperature 98.6 98.6 Blood Gas HCO3 16 mmol/L 14 mmol/L (22-26) (22-26) Blood Gas Base Excess -10.4 mmol/L -11.7 mmol/L (-2-2) (-2-2) Blood Gas Oxygen Saturation 83 % (90-100) 97 % (90-100) Arterial Blood pH 7.19 7.27 (7.380-7.420) (7.380-7.420) Arterial Blood Partial 44 mmHg (38-42) 31 mmHg (38-42) Pressure CO2 Arterial Blood Partial 65 mmHg 204 mmHg Pressure O2 (61-120) (61-120) Arterial Blood Oxygen Content 11.1 Vol % 12.3 Vol % (12.0-20.0) (12.0-20.0) Arterial Blood 1.3 % (0-4) 1.3 % (0-4) Carboxyhemoglobin Arterial Blood Methemoglobin 0.8 % (0-2) 0.7 % (0-2) Blood Gas Hemoglobin 9.5 G/DL 8.7 G/DL (12.0-16.0) (12.0-16.0) Oxygen Delivery Device VENTILATOR VENTILATOR Blood Gas Ventilator Setting PRVC/AC Blood Gas Inspired Oxygen 50 % 65 % Imaging Last Impressions Chest X-Ray 04/26/16 0600 Signed Impressions: Service Date/Time: Tuesday, April 26, 2016 04:15 - CONCLUSION: No significant change. Sebas Roberts MD Last 24 hours Impressions Chest X-Ray 04/24/16 2308 Signed Impressions: Service Date/Time: Sunday, April 24, 2016 23:34 - CONCLUSION: Coarse interstitial opacities most consistent with chronic fibrosis and/or scarring. Sebas Roberts MD Objective Remarks GENERAL: Well-nourished, well-developed patient, asleep intubated and sedated. GCS 3T SKIN: Warm and dry. HEAD: Normocephalic. EYES: No scleral icterus. No injection or drainage. NECK: Supple, trachea midline. No JVD or lymphadenopathy. Orotracheally intubated, OGT in situ CARDIOVASCULAR: Regular rate and rhythm without murmurs, gallops, or rubs. RESPIRATORY: Breath sounds equal bilaterally. Expiratory wheezing noted GASTROINTESTINAL: Abdomen soft, non-tender, nondistended. MUSCULOSKELETAL: No cyanosis, or edema. BACK: Nontender without obvious deformity. No CVA tenderness. 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 steroids - Empiric Azythro/Zosyn (Day 2) - urine AG pending -Blood [id number] NGTD - Duonebs scheduled every 4 hours, and 2 hours when necessary - Intubated mechanical vent settings 18/500/0.55/5 - History Alcoholism - monitor for withdrawal - CIWA History of breast cancer - status post lumpectomy radiation and chemotherapy - now in remission - supportive care Anxiety - Benzos PRN HOME - volume depletion -ABG 7.19/19.7/76.8/14.9/- 7.8, 2 amps NaHCO3 IVP, Begin infusion - aggressive i.v. fluids -Creatinine decreasing, renal consult -Obtain urine sodium, osmo, creatinine - monitor electrolytes - strict I&O GI Mild protein calorie malnutrition -Begin tubefeeds- Nepro - Bowel regimen DVT/GI prophylaxis - Heparin SubQ/Protonix This patient remains critically ill with one or more organ systems which are or may become a threat to life. I have spent in excess of 36 minutes discontinuously in the care and management of this patient. This time is exclusive of procedures, and includes, but is not limited to, evaluation of the patient, review of the medical record, discussions with family, consultants, nursing staff, or respiratory therapy, and documentation in the medical record. Physician Karmen Martines MD Apr 26, 2016 14:36
--- NOTE | 2016-04-26 15:40 | PD.CONS ---
HPI Service Nephrology Consult Requested By Dr. Ferreira Reason for Consult Acute renal failure Primary Care Physician Artur Smalls MD History of Present Illness Patient is a 65-year-old the white female with history of cirrhosis of the liver , alcoholism, Cancer of the breast status post lumpectomy and chemotherapy and radiation who had the not been feeling well and had increasing shortness of breath, she was intubated and is on ventilator now, her creatinine from last year was 0.6, at time of presentation was 5.5 declined to 4.9 and further declination to 3.5 today, she is passing urine and she has 550 cc of urine today getting IV fluid NS at 150 cc an hour she is on 2 mics of Levophed Review of Systems ROS Limitations: Clinical Condition Past Family Social History Allergies: Coded Allergies: Morphine (Verified Allergy, Mild, Itching, 04/24/16) pt denies Past Medical History Cirrhosis of the liver Alcoholism Ca breast Past Surgical History Laparoscopy cholecystectomy Lumpectomy [id number] Reported Medications Reported Meds & Active Scripts Active Enulose 30 Ml Syrp 30 Ml PO DAILY 10 Days Midodrine Hcl (Midodrine) 5 Mg Tab 5 Mg PO TID 30 Days Reported Ropinirole 5 Mg Tab 10 Mg PO DAILY Spironolactone 100 Mg Tab 100 Mg PO DAILY Sertraline (Sertraline HCl) 100 Mg Tab 100 Mg PO DAILY Lasix (Furosemide) 40 Mg Tab 40 Mg PO DAILY Vicoprofen (Hydrocodone-Ibuprofen) 7.5-200 Mg Tab 1 Tab PO Q8HR PRN Ambien (Zolpidem Tartrate) 5 Mg Tab 5 Mg PO HS Folate 1 Mg Tab (Folic Acid) 1 Mg Tab 1 Mg PO DAILY Gabapentin 300 Mg Cap 300 Mg PO TID Ultram (Tramadol HCl) 50 Mg Tab 50 Mg PO Q4H PRN Lorazepam 0.5 Mg Tab 0.5 Mg PO BID Active Ordered Medications Current Medications Medications (Trade) Dose Ordered Sig/Antione Route Start Time Stop Time Status Last Admin (NS 1000 ml Inj) 1,000 ml @ 150 mls/hr Q6H40M IV 04/25/16 02:56 04/25/16 19:30 (NS Flush) 2 ml UNSCH PRN IV FLUSH 04/25/16 03:00 (NS Flush) 2 ml BID IV FLUSH 04/25/16 09:00 04/26/16 09:00 (Tylenol) 650 mg Q6H PRN PO 04/25/16 03:00 (Percocet 5-325 Mg) 1 tab Q4H PRN PO 04/25/16 03:00 (Versed Inj) 2 mg Q1H PRN IV 04/25/16 03:00 (Ativan Inj) 1 mg Q1H PRN IV 04/25/16 03:00 04/25/16 12:16 (Zofran Inj) 4 mg Q6H PRN IV 04/25/16 03:00 (Reglan Inj) 10 mg Q6H PRN IV 04/25/16 03:00 (Colace) 100 mg BID PO 04/25/16 09:00 04/26/16 09:06 (Ambien) 5 mg HS PRN PO 04/25/16 03:00 (Heparin Inj) 5,000 units Q12H SQ 04/25/16 03:00 04/26/16 14:41 Miscellaneous Information 1 Q361D XX 04/25/16 03:00 04/25/16 03:00 (Chlorhexidine 2% Cloth) 3 pack Taper DAILY@04 TOP 04/25/16 04:00 04/21/17 03:59 04/26/16 03:12 (Chlorhexidine 2% Cloth) 3 pack UNSCH PRN TOP 04/25/16 03:00 (Folate) 1 mg DAILY PO 04/25/16 09:00 04/26/16 09:06 (Ultram) 50 mg Q4H PRN PO 04/25/16 03:15 (Lactulose Liq) 30 ml DAILY PO 04/25/16 09:00 04/26/16 09:06 Methylprednisolone Sodium Succinate 60 mg 60 mg Q12HR IV PUSH 04/25/16 09:00 04/26/16 09:06 Azithromycin 500 mg/Sodium Chloride 250 ml @ 250 mls/hr Q24H IV 04/25/16 08:00 04/26/16 08:00 (Zosyn 2.25 Gm Premix) 50 ml @ 100 mls/hr Q8H IV 04/25/16 12:00 04/26/16 12:00 (Neurontin) 300 mg HS PO 04/25/16 21:00 04/25/16 20:48 Famotidine 10 mg 10 mg Q12HR IV PUSH 04/25/16 21:00 04/25/16 20:48 Propofol 100 ml @ 0 mls/hr TITRATE IV 04/25/16 14:15 04/25/16 20:48 Fentanyl Citrate 250 ml @ 0 mls/hr TITRATE IV 04/25/16 15:45 04/26/16 12:48 (Levophed-Dextrose Drip) 250 ml @ 0 mls/hr TITRATE IV 04/25/16 22:45 04/25/16 23:03 (Brethine Inj) 1 mg UNSCH PRN SQ 04/25/16 22:45 (Peridex 0.12% Liq) 15 ml BID@08,20 MT 04/26/16 20:00 Family History Noncontributory Social History History of smoking/alcoholism Physical Exam Vital Signs Vital Signs Date Time Temp Pulse Resp B/P Pulse Ox O2 Delivery O2 Flow Rate FiO2 04/26/16 12:00 98.5 91 18 98/50 99 04/26/16 12:00 91 04/26/16 08:14 99 55 04/26/16 08:00 93 04/26/16 08:00 55 04/26/16 08:00 98.0 93 18 107/56 98 04/26/16 06:00 95 04/26/16 04:25 100 55 04/26/16 04:00 93 04/26/16 04:00 55 04/26/16 04:00 98.8 93 18 102/50 99 04/26/16 02:00 95 04/26/16 01:16 99 55 04/26/16 01:15 55 04/26/16 00:00 65 04/26/16 00:00 93 04/26/16 00:00 97.5 04/26/16 00:00 97.5 93 18 107/55 99 04/25/16 22:00 85 04/25/16 21:56 99 65 04/25/16 20:00 94.0 86 18 95/53 100 04/25/16 20:00 94.0 04/25/16 20:00 65 04/25/16 20:00 86 04/25/16 19:49 100 65 04/25/16 18:00 65 04/25/16 16:16 100 65 12/27/16 16:00 65 04/25/16 16:00 96 04/25/16 16:00 97.3 96 18 101/62 99 Automatic Cuff Physical Exam GENERAL: Well-nourished, well-developed intubated patient. SKIN: Warm and dry. HEAD: Normocephalic. EYES: No scleral icterus. No injection or drainage. NECK: Supple, trachea midline. No JVD or lymphadenopathy. CARDIOVASCULAR: Regular rate and rhythm without murmurs, gallops, or rubs. RESPIRATORY: Breath sounds equal bilaterally. No accessory muscle use. GASTROINTESTINAL: Abdomen soft, non-tender, nondistended. EXTREMITIES: No cyanosis, or edema. NEUROLOGICAL: Sedated Laboratory Laboratory Tests Test 04/25/16 04/25/16 04/25/16 04/25/16 16:55 17:06 17:56 21:45 Urine Color YELLOW Urine Turbidity CLEAR Urine pH 5.5 Urine Specific [place] 1.012 Urine Protein NEG Urine Glucose (UA) NEG Urine Ketones NEG Urine Occult Blood NEG Urine Nitrite NEG Urine Bilirubin NEG Urine Urobilinogen LESS THAN 2.0 Urine Leukocyte Esterase NEG Urine RBC 1 Urine WBC LESS THAN 1 Urine Squamous Epithelial <1 Cells Urine Hyaline Casts 2 Urine Mucus FEW Microscopic Urinalysis Comment CULT NOT INDICATED Blood Gas Puncture Site ART LINE Blood Gas Patient Temperature 98.6 Blood Gas HCO3 14 Blood Gas Base Excess -11.7 Blood Gas Oxygen Saturation 97 Arterial Blood pH 7.27 Arterial Blood Partial 31 Pressure CO2 Arterial Blood Partial 204 Pressure O2 Arterial Blood Oxygen Content 12.3 Arterial Blood 1.3 Carboxyhemoglobin Arterial Blood Methemoglobin 0.7 Blood Gas Hemoglobin 8.7 Oxygen Delivery Device VENTILATOR Blood Gas Ventilator Setting PRVC/AC Blood Gas Inspired Oxygen 65 Ammonia 44 Troponin I 0.36 Test 04/26/16 03:30 White Blood Count 19.2 Red Blood Count 4.14 Hemoglobin 8.6 Hematocrit 27.5 Mean Corpuscular Volume 66.4 Mean Corpuscular Hemoglobin 20.8 Mean Corpuscular Hemoglobin 31.3 Concent Red Cell Distribution Width 21.9 Platelet Count 282 Mean Platelet Volume 8.1 Neutrophils (%) (Auto) 94.4 Lymphocytes (%) (Auto) 1.0 Monocytes (%) (Auto) 4.3 Eosinophils (%) (Auto) 0.0 Basophils (%) (Auto) 0.3 Neutrophils # (Auto) 18.1 Lymphocytes # (Auto) 0.2 Monocytes # (Auto) 0.8 Eosinophils # (Auto) 0.0 Basophils # (Auto) 0.1 CBC Comment AUTO DIFF Differential Comment AUTO DIFF CONFIRMED Keratocytes OCC Sodium Level 138 Potassium Level 5.1 Chloride Level 110 Carbon Dioxide Level 15.5 Anion Gap 13 Blood Urea Nitrogen 71 Creatinine 3.53 Estimat Glomerular Filtration 13 Rate Random Glucose 139 Lactic Acid Level 0.5 Calcium Level 7.7 Protein Corrected Calcium 8.1 Phosphorus Level 4.9 Magnesium Level 2.1 Total Bilirubin 0.4 Aspartate Amino Transf 92 (AST/SGOT) Alanine Aminotransferase 77 (ALT/SGPT) Alkaline Phosphatase 102 Total Protein 6.5 Albumin 3.0 Date/Time Procedure Status Source Growth 04/25/16 16:57 Gram Stain - Final Resulted Sputum Endotracheal 04/25/16 16:57 Sputum Culture - Preliminary Resulted Sputum Endotracheal NO GROWTH IN 24 HOURS. 04/25/16 16:55 Legionella Antigen Received Urine Catheterized Urine Pending 04/25/16 16:55 Streptococcus pneumoniae Antigen (M Received Urine Catheterized Urine Pending 04/24/16 23:15 Aerobic Blood Culture - Preliminary Resulted Blood Peripheral NO GROWTH IN 2 DAYS 04/24/16 23:15 Anaerobic Blood Culture - Preliminary Resulted Blood Peripheral NO GROWTH IN 2 DAYS Result Diagram: 04/26/16 0330 04/26/16 0330 Imaging Last Impressions Chest X-Ray 04/26/16 0600 Signed Impressions: Service Date/Time: Tuesday, April 26, 2016 04:15 - CONCLUSION: No significant change. Sebas Roberts MD Assessment and Plan Problem List: (1) HOME (acute kidney injury) Plan: Patient appears to have the resolution of acute renal failure with a declining creatinine we will continue to hydrate and I will add albumin 25 mg IV every 12 continue supportive care check urine sodium and creatinine Avoid nephrotoxins Follow BMP (2) Severe sepsis Plan: Due to possible pneumonia (3) Acute respiratory failure with hypoxia Plan: On ventilator Marilee Bazan MD Apr 26, 2016 15:40
[2016-04-26] MEDS: ALBUMIN HUMAN 25% 25 GM/100 ML BAGP IV SCH (15:56)
[2016-04-26] MEDS: LORazepam 2 MG/ML VIAL IV PRN (16:50)
[2016-04-26 17:03] LABS: BLOOD GAS BASE EXCESS -13.9 mmol/L (-2-2); BLOOD GAS HCO3 13 mmol/L (22-26); BLOOD GAS O2 HGB SATURATION 90 % (90-100); BLOOD GAS OXYGEN CONTENT 11.5 Vol % (12.0-20.0); BLOOD GAS PCO2 39 mmHg (38-42); BLOOD GAS PO2 83 mmHg (61-120); TEMP CORR TO 98.6
[2016-04-26 17:04] LABS: CRITICAL VALUE YES; OXYGEN DEVICE VENTILATOR
[2016-04-26 17:06] LABS: DRAW SITE ART LINE; FIO2 40 %; STAT NO; ULNAR PULSE PRESENT; VENT SETTINGS SEE COMMENTS
[2016-04-26] MEDS ORDERED: SODIUM BICARBONATE 8.4% INJ 50 MEQ/50 ML SYR IV PUSH ONE (17:15)
[2016-04-26] MEDS: SODIUM BICARBONATE 8.4% INJ 150 MEQ in DEXTROSE 5% IN WATE 1000ML INJ 850 ML IV SCH ×2 (18:01)
[2016-04-26] MEDS: NOREPINEPHRINE-DEXTROSE DRIP 250 ML IV SCH (18:47)
--- NOTE | 2016-04-26 19:25 | MB ---
cc: ROD YOUNG DATE OF CONSULTATION 04/26/[address] Allan Mandel REASON FOR CONSULTATION Respiratory failure. HISTORY OF PRESENT ILLNESS Ms. Alfredo is a 65-year-old white female with history of COPD, cirrhosis of the liver, alcohol use, history of CA of the breast, status post chemo and radiation treatment. The patient came to the hospital with worsening of her shortness of breath. She was evaluated in the emergency room and she was put on BiPap but while she was in the intensive care unit her respiratory status got worse and she required emergent intubation. Currently, she is on pressure control ventilation with FIO2 55%, PEEP of 5. She is sedated with Diprivan. She is on Levophed 2 micrograms. LABORATORY DATA Her CBC shows WBC count 19.2, hemoglobin 8.6, hematocrit 27.5, MCV 66, platelet count 282, sodium 130, potassium 5.1, chloride 110, CO2 13, BUN 71, creatinine 3.53. Blood gas on ventilator, pH 7.16, pCO2 39, pO2 83. IMAGING STUDIES Her chest x-ray shows coarse interstitial opacities consistent with chronic fibrosis. PAST MEDICAL HISTORY Significant history of cirrhosis of the liver, alcohol. CA of the breast status post chemotherapy and radiation therapy. History of lumpectomy and cholecystectomy. MEDICATIONS She is currently takin. Sodium bicarbonate IV. 2. Albumin IV. 3. Levophed 2 micrograms. 4. Neurontin 300 milligrams. 5. Famotidine 10 milligrams. 6. Fentanyl and propofol for sedation. 7. Zosyn IV. 8. Folic acid 1 milligrams. 9. Solu-Medrol 60 milligrams q.12 hours. 10. Zithromax 500 milligrams a day. 11. Albuterol/Atrovent nebulizer treatment. ALLERGIES ALLERGIC TO MORPHINE. SOCIAL HISTORY/ FAMILY HISTORY Not available. REVIEW OF SYSTEMS Can not assess. PHYSICAL EXAMINATION GENERAL: Elderly female. She is intubated and sedated. VITAL SIGNS: Her blood pressure 110/64, heart rate 85, respiration 18, temperature 97.5. HEENT: Examination pupils react to light. She is orally intubated. NECK: Supple. JVP not raised. CHEST: She has bilateral expiratory rhonchi. CV: S1-S2 normal. ABDOMEN: Soft, nondistended. Bowel sounds are present. EXTREMITIES: No edema. IMPRESSION 1. Acute respiratory failure. 2. Metabolic acidosis. 3. Renal failure. 4. COPD. 5. Cirrhosis of the liver. 6. CA of the breast status post radiation and chemotherapy. PLAN We will maintain her on ventilator, pressure control mode, FIO2 55%, keep saturation greater than 90. She is on sodium bicarb drip and renal service is evaluating the patient. Continue antibiotic, aerosol treatment, IV Solu-Medrol. Monitor her electrolytes. Further treatment will depend on the course in the hospital. Thank you Dr. Mandel for this consultation. MD ROSALVA Bishop/NOLA /6:16 PM /7:07 PM
[2016-04-26] MEDS: GABAPENTIN 300 MG CAP PO SCH (20:55)
[2016-04-26] MEDS: CHLORHEXIDINE 0.12% (ORAL KIT) 15 ML CUP MT SCH (20:55)
[2016-04-26] MEDS: FAMOTIDINE 20 MG/2 ML VIAL IV PUSH SCH (20:55)
[2016-04-26 22:29] LABS: BLOOD GAS BASE EXCESS -11.5 mmol/L (-2-2); BLOOD GAS HCO3 16 mmol/L (22-26); BLOOD GAS METHEMOGLOBIN 0.7 % (0-2); BLOOD GAS O2 HGB SATURATION 95 % (90-100); BLOOD GAS PCO2 46 mmHg (38-42); BLOOD GAS PO2 113 mmHg (61-120); BLOOD GAS TOTAL HGB 8.9 G/DL (12.0-16.0); TEMP CORR TO 98.6
[2016-04-26 22:31] LABS: CRITICAL VALUE YES; OXYGEN DEVICE VENTILATOR
[2016-04-26 22:35] LABS: DRAW SITE ART LINE; FIO2 55 %; STAT NO; ULNAR PULSE PRESENT; VENT SETTINGS SEE COMMENTS
[2016-04-27] VITALS (18 sets, daily range): BP systolic 103–118; BP diastolic 53–64; PULSE 89–148; RESP 16–20; TEMP 97.8–98.6; O2SAT 91–100
[2016-04-27] MEDS: CHLORHEXIDINE GLUCONATE 2 % 1 PACK (2 CLOTHS) TOP SCH (01:00)
[2016-04-27] MEDS: LACTATED RINGER'S 1000 ML INJ 1,000 ML IV SCH ×2 (02:00→10:00)
[2016-04-27] MEDS: HEPARIN SODIUM - SQ 10,000 UNITS/ML VIAL SQ SCH ×2 (02:51→15:14)
[2016-04-27] MEDS: ALBUMIN HUMAN 25% 25 GM/100 ML BAGP IV SCH ×2 (02:52→15:14)
[2016-04-27] MEDS: PIPERACIL-TAZO 2.25 GM PREMIX 50 ML IV SCH (04:22)
[2016-04-27 04:31] LABS: MEAN CELL VOLUME 66.4 FL (80.0-100.0); MEAN CORPUSCULAR HEMOGLOBIN 21.1 PG (27.0-34.0); MEAN CORPUSCULAR HGB CONC 31.8 % (32.0-36.0); PLATELET COUNT 241 TH/MM3 (150-450); RED BLOOD COUNT 3.91 MIL/MM3 (4.00-5.30); RED CELL DISTRIBUTION WIDTH 20.6 % (11.6-17.2); WHITE BLOOD COUNT 22.3 TH/MM3 (4.0-11.0)
[2016-04-27 04:38] LABS: REVIEW FLAG FINAL
[2016-04-27 04:43] LABS: BICARBONATE 18.1 MEQ/L (21.0-32.0); MAGNESIUM 2.2 MG/DL (1.5-2.5); POTASSIUM 5.2 MEQ/L (3.5-5.1)
--- NOTE | 2016-04-27 04:52 | RADRPT ---
EXAM DATE/TIME: 04/27/2016 03:46 [facility] COMPARISON: CHEST SINGLE AP, April 26, 2016, 4:15. INDICATIONS : Shortness of breath, possible pulmonary disease. MEDICAL HISTORY : Carcinoma, breast. SURGICAL HISTORY : Cholecystectomy. Infusaport ENCOUNTER: Subsequent ACUITY: 4 - 6 days PAIN SCORE: Non-responsive. LOCATION: Bilateral chest FINDINGS: A single AP semierect view the chest was obtained and again demonstrates an endotracheal tube in plac e with the tip approximately 4 cm above the ulises. Nasogastric tube is again seen coursing through t he esophagus into the stomach. The left subclavian implantable port catheter remains in place. Mild h azy interstitial opacities are again noted in both lungs with no focal consolidation. The heart size is within normal limits. There is no definite effusion. Multiple overlying electrical leads are prese nt. CONCLUSION: 1. No significant change. 2. Interstitial opacities remain in both lungs. Sebas Roberts MD on April 27, 2016 at 4:49 Board Certified Radiologist. This report was verified electronically.
[2016-04-27] MEDS: fentaNYL DRIP 250 ML IV SCH ×2 (05:26→15:13)
[2016-04-27] MEDS: RESP: ALBUTEROL 2.5 MG/IPRATROPIUM 0.5 MG NEB (SCH) INH ×5 (05:41→20:00)
[2016-04-27 06:28] LABS: BLOOD GAS BASE EXCESS -10.3 mmol/L (-2-2); BLOOD GAS CARBOXYHEMOGLOBIN 1.2 % (0-4); BLOOD GAS HCO3 17 mmol/L (22-26); BLOOD GAS O2 HGB SATURATION 92 % (90-100); BLOOD GAS OXYGEN CONTENT 10.8 Vol % (12.0-20.0); BLOOD GAS PCO2 47 mmHg (38-42); BLOOD GAS PO2 86 mmHg (61-120); BLOOD GAS TOTAL HGB 8.3 G/DL (12.0-16.0); TEMP CORR TO 98.6
[2016-04-27 06:29] LABS: CRITICAL VALUE YES; OXYGEN DEVICE VENTILATOR
[2016-04-27 06:30] LABS: DRAW SITE ART LINE; FIO2 55 %; VENT SETTINGS PRVC
[2016-04-27 06:31] LABS: STAT NO
[2016-04-27] MEDS: CHLORHEXIDINE 0.12% (ORAL KIT) 15 ML CUP MT SCH ×2 (08:00→20:00)
[2016-04-27] MEDS: DOCUSATE SODIUM 100 MG CAP PO SCH ×2 (08:12→21:27)
[2016-04-27] MEDS: AZITHROMYCIN INJ 500 MG in SODIUM CHLOR 0.9% 250 ML INJ 250 ML IV SCH (08:12)
[2016-04-27] MEDS: FAMOTIDINE 20 MG/2 ML VIAL IV PUSH SCH (08:12)
[2016-04-27] MEDS: methylPREDNISolone SOD SUCC 125 MG/2 ML VIAL IV PUSH SCH ×2 (08:12→21:26)
[2016-04-27] MEDS: SODIUM CHLORIDE 0.9% FLUSH 5 ML FLUSH IV FLUSH SCH ×2 (08:12→20:51)
[2016-04-27] MEDS: LACTULOSE SYRUP 20 GM/30 ML CUP PO SCH ×4 (08:13→21:26)
[2016-04-27] MEDS: FOLIC ACID 1 MG TAB PO SCH (08:13)
[2016-04-27] MEDS ORDERED: SODIUM BICARBONATE 8.4% INJ 50 MEQ/50 ML SYR IV PUSH ONE (10:15)
[2016-04-27] MEDS: RESP: ACETYLCYSTEINE 20% 30 ML NEB NEB SCH ×2 (10:45→22:00)
[2016-04-27] MEDS: PANTOPRAZOLE SODIUM 40 MG VIAL IV PUSH SCH (11:00)
[2016-04-27] MEDS: SODIUM BICARBONATE 8.4% INJ 150 MEQ in DEXTROSE 5% IN WATE 1000ML INJ 850 ML IV SCH ×4 (11:09→17:56)
--- NOTE | 2016-04-27 11:24 | HHI.CCPN ---
Subjective Remarks/Hospital Course 65 year old female with history of alcohol abuse, history of breast cancer status post lumpectomy radiation and chemotherapy presents with progressively worsening shortness of breath. EMS was called because she was short of breath at home, and was found to have pals oxygen at 70%. Patient is on a BiPAP, seems to be comfortable in no distress. She is able to follow commands in all 4 extremities. Her history is limited secondary to FM BiPAP. 04/26 The patient acutely had respiratory decompensation yesterday afternoon. Discussion with family, sister power of consumer attorney regarding intubation in patient 's current respiratory status, family requesting intubation. She required intubation, central line placement and an arterial line placement to monitor oxygenation levels. The patient became hypoxic and hypotensive requiring vasopressor support. Currently the patient is on levophed infusion at 5 mcgs. 04/27 Afebrile. The patient continues on mechanical ventilation, overnight FiO2 requirements were increased, currently attempting to wean back to 55%. Sodium bicarbonate infusion at 150 cc/hour. Ammonia level slightly increased, lactulose dosage increased. Pulmonology consulted. The patient's last therapeutic paracentesis was 02/21/16, WBC count elevated, patient is currently on Zosyn and azithromycin, will begin coverage for spontaneous bacterial peritonitis. Objective Vital Signs Date Time Temp Pulse Resp B/P Pulse Ox O2 Delivery O2 Flow Rate FiO2 04/27/16 10:00 65 04/27/16 09:45 92 04/27/16 08:00 97.8 97 18 103/58 04/25/16 12:16 Simple Mask 12.00 Intake and Output 04/26/16 04/26/16 04/27/16 08:00 16:00 00:00 Intake Total 1653 ml 1689 ml 1639 ml Output Total 455 ml 550 ml 350 ml Balance 1198 ml 1139 ml 1289 ml Result Diagram: 04/27/16 0400 04/27/16 0400 Other Results Microbiology Date/Time Procedure Status Source Growth 04/25/16 16:55 Legionella Antigen - Final Complete Urine Catheterized Urine PRESUMPTIVE NEGATIVE FOR LEGIONELLA P... 04/25/16 16:55 Streptococcus pneumoniae Antigen (M - Final Complete Urine Catheterized Urine PRESUMPTIVE NEGATIVE FOR STREPTOCOCCU... 04/25/16 16:57 Gram Stain - Final Complete Sputum Endotracheal 04/25/16 16:57 Sputum Culture - Final Complete Sputum Endotracheal RARE GROWTH NORMAL RESPIRATORY EMIL Laboratory Tests Test 04/26/16 04/26/16 04/27/16 16:58 22:23 06:15 Blood Gas Puncture Site ART LINE ART LINE ART LINE Blood Gas Patient Temperature 98.6 98.6 98.6 Blood Gas HCO3 13 mmol/L 16 mmol/L 17 mmol/L (22-26) (22-26) (22-26) Blood Gas Base Excess -13.9 mmol/L -11.5 mmol/L -10.3 mmol/L (-2-2) (-2-2) (-2-2) Blood Gas Oxygen Saturation 90 % (90-100) 95 % (90-100) 92 % (90-100) Arterial Blood pH 7.16 7.16 7.17 (7.380-7.420) (7.380-7.420) (7.380-7.420) Arterial Blood Partial 39 mmHg (38-42) 46 mmHg (38-42) 47 mmHg (38-42) Pressure CO2 Arterial Blood Partial 83 mmHg 113 mmHg 86 mmHg Pressure O2 (61-120) (61-120) (61-120) Arterial Blood Oxygen Content 11.5 Vol % 12.0 Vol % 10.8 Vol % (12.0-20.0) (12.0-20.0) (12.0-20.0) Arterial Blood 1.0 % (0-4) 1.0 % (0-4) 1.2 % (0-4) Carboxyhemoglobin Arterial Blood Methemoglobin 1.0 % (0-2) 0.7 % (0-2) 1.0 % (0-2) Blood Gas Hemoglobin 9.0 G/DL 8.9 G/DL 8.3 G/DL (12.0-16.0) (12.0-16.0) (12.0-16.0) Oxygen Delivery Device VENTILATOR VENTILATOR VENTILATOR Blood Gas Ventilator Setting SEE COMMENTS SEE COMMENTS [facility] Blood Gas Inspired Oxygen 40 % 55 % 55 % Imaging Last Impressions Chest X-Ray 04/27/16 0600 Signed Impressions: Service Date/Time: March 03:46 - CONCLUSION: 1. No significant change. 2. Interstitial opacities remain in both lungs. Sebas Roberts MD Last Impressions Chest X-Ray 04/26/16 0600 Signed Impressions: Service Date/Time: Tuesday, April 26, 2016 04:15 - CONCLUSION: No significant change. Sebas Roberts MD Last 24 hours Impressions Chest X-Ray 04/24/16 2308 Signed Impressions: Service Date/Time: Sunday, April 24, 2016 23:34 - CONCLUSION: Coarse interstitial opacities most consistent with chronic fibrosis and/or scarring. Sebas Roberts MD Objective Remarks GENERAL: Well-nourished, well-developed patient, asleep intubated and sedated, fentanyl 250 minus. GCS 3T SKIN: Warm and dry. HEAD: Normocephalic. EYES: No scleral icterus. No injection or drainage. NECK: Supple, trachea midline. No JVD or lymphadenopathy. Orotracheally intubated, OGT in situ CARDIOVASCULAR: Regular rate and rhythm without murmurs, gallops, or rubs. RESPIRATORY: Breath sounds equal bilaterally. Coarse breath sounds. GASTROINTESTINAL: Abdomen soft, non-tender, nondistended. MUSCULOSKELETAL: No cyanosis, or edema. BACK: Nontender without obvious deformity. No CVA tenderness. Urinary Catheter: Yes Schultz insert reason: Measure Accurate Output Date of Insertion: Apr 25, 2016 Vascular Central Line Catheter: Yes Date of Insertion: Apr 25, 2016 Side: Right Location: Internal, Jugular A/P Problem List: (1) Acute respiratory failure with hypoxia ICD Code: J96.01 Status: Acute (2) Tobacco use disorder ICD Code: F17.200 Status: Acute (3) HOME (acute kidney injury) ICD Code: N17.9 Status: Acute Assessment and Plan Acute Hypoxic Respiratory failure COPD exacerbation Tobacco abuse Pulmonary fibrosis S/P radiation therapy-breast cancer - Pulmonology on board- follow-up recommendations - Continue methylprednisolone - DuoNeb's scheduled every 4hr, every 2hr PRN - 04/25 urine Legionella, streptococcal antigen negative -04/25 Sputum -No growth -Empiric antibiotics-azithromycin, Zosyn (day 3) -Intubated 04/26 18/ 500/0.55/5 History of breast cancer - status post lumpectomy radiation and chemotherapy - now in remission- left SC port (nonfunctional) per old records - supportive care Neuro: Alcoholism H/O seizure Hepatic encephalopathy Anxiety disorder Hyperammonemia -GCS 3T, remains on sedation for ventilator synchrony currently fentanyl 250 mcgs/hour - monitor for withdrawal- Ativan PRN -Ammonia level 54, increased frequency of lactulose to QID History of breast cancer - status post lumpectomy radiation and chemotherapy - now in remission - supportive care Cardiovascular: Hypotension -Maintain MAP greater than 65mmHg -Levophed 2 mcgs Renal HOME -Initially volume depletion 04/25 -NaHCO3 IVP, and infusion 150cc/hr - Albumin 25 g every 12 hours -Renal on [id number] recommendations -FENA 2.03 -Creatinine improved 3.53-> 2.56 today - Monitor BMP - strict I&O GI Moderate protein calorie malnutrition Ascites Hepatitis C -Begin tubefeeds- Nepro -Patient's last therapeutic paracentesis 02/21/2016, bedside US assessment of ascites approximated minimal - moderate,not significant amount for bedside paracentesis -Gi consulted- appreciate recommendations - Bowel regimen -F/U hepatic panel Heme/ ID: Suspected SBP Leukocytosis -Monitor CBC. WBC 19-> 22 today -Provide SBP coverage dc Zosyn, begin Cefepime -F/U cultures -MSK -PT evaluate and treat-functional maintenance DVT/GI prophylaxis - Heparin SubQ/Protonix This patient remains critically ill with one or more organ systems which are or may become a threat to life. I have spent in excess of 49 minutes discontinuously in the care and management of this patient. This time is exclusive of procedures, and includes, but is not limited to, evaluation of the patient, review of the medical record, discussions with family, consultants, nursing staff, or respiratory therapy, and documentation in the medical record. Physician Karmen Martines MD Apr 27, 2016 11:24
[2016-04-27 11:45] LABS: INTERNATIONAL NORMALIZED RATIO 1.2 RATIO; PROTHROMBIN TIME - PATIENT 13.1 SEC (9.8-11.6)
[2016-04-27 11:54] LABS: INDIRECT BILIRUBIN 0.3 MG/DL (0.0-0.8); TOTAL BILIRUBIN ADULT 0.6 MG/DL (0.2-1.0)
[2016-04-27 12:13] LABS: BLOOD GAS CARBOXYHEMOGLOBIN 1.1 % (0-4); BLOOD GAS HCO3 21 mmol/L (22-26); BLOOD GAS METHEMOGLOBIN 0.8 % (0-2); BLOOD GAS O2 HGB SATURATION 92 % (90-100); BLOOD GAS OXYGEN CONTENT 10.7 Vol % (12.0-20.0); BLOOD GAS PCO2 59 mmHg (38-42); BLOOD GAS PO2 85 mmHg (61-120); BLOOD GAS TOTAL HGB 8.2 G/DL (12.0-16.0); TEMP CORR TO 98.6
[2016-04-27 12:14] LABS: CRITICAL VALUE YES; OXYGEN DEVICE VENTILATOR
[2016-04-27 12:15] LABS: DRAW SITE ART LINE; FIO2 65 %; STAT NO
[2016-04-27 12:15] LABS: CALCIUM-PROTEIN CORRECTED 9.3 MG/DL (8.5-10.1)
[2016-04-27] MEDS: CEFEPIME INJ 1,000 MG in SODIUM CHLORIDE 0.9% INJ 100 ML IV SCH (12:30)
[2016-04-27] MEDS ORDERED: METOPROLOL TARTRATE 5 MG/5 ML VIAL ONE (12:58)
--- NOTE | 2016-04-27 12:58 | RADRPT ---
EXAM DATE/TIME: 04/27/2016 10:35 [place] COMPARISON: No previous studies available for comparison. INDICATIONS : Increased BUN/Creatinine. MEDICAL HISTORY : Carcinoma, breast. Hepatitis C. Ascites. Chemotherapy. Pulmonary fibrosis. Anxiety. SURGICAL HISTORY : Tonsillectomy. Cholecystectomy. Right breast lumpectomy. Left infusaport. Multiple paracentesis. ENCOUNTER: Subsequent ACUITY: 1 day PAIN SCORE: Nonresponsive. LOCATION: Bilateral flank MEASUREMENTS: RIGHT KIDNEY: 8.0 x 4.9 x 4.7 cm LEFT KIDNEY: 8.7 x 4.2 x 4.3 cm FINDINGS: RIGHT KIDNEY: Renal cortex is thinned.. No hydronephrosis, stone, or mass. LEFT KIDNEY: Renal cortex is thinned.. No hydronephrosis, stone, or mass. BLADDER: Not visualized. Schultz catheter in place. There is some ascites in the abdomen. CONCLUSION: 1. Both kidneys are small in size. 2. No hydronephrosis. 3. There is some ascites in the abdomen. Aureliano Rayo MD on April 27, 2016 at 12:55 Board Certified Radiologist. This report was verified electronically.
[2016-04-27 14:07] LABS: BLOOD GAS BASE EXCESS -4.5 mmol/L (-2-2); BLOOD GAS CARBOXYHEMOGLOBIN 1.5 % (0-4); BLOOD GAS HCO3 20 mmol/L (22-26); BLOOD GAS O2 HGB SATURATION 96 % (90-100); BLOOD GAS OXYGEN CONTENT 10.6 Vol % (12.0-20.0); BLOOD GAS PCO2 36 mmHg (38-42); BLOOD GAS PO2 125 mmHg (61-120); BLOOD GAS TOTAL HGB 7.7 G/DL (12.0-16.0); CRITICAL VALUE NO; OXYGEN DEVICE VENTILATOR; TEMP CORR TO 98.6; VENT SETTINGS PCAC/R18/IT.80/IP35
[2016-04-27 14:08] LABS: DRAW SITE ART LINE; FIO2 60 %; STAT NO
--- NOTE | 2016-04-27 14:57 | HHI.NPPN ---
Subjective Renal Failure: Acute History of Present Illness 65 Year old female with breast cancer, Respiratory failure, cirrhosis Objective Data Data 04/26/16 04/27/16 18:59 06:59 Intake Total 1689 ml 3268 ml Output Total 550 ml 600 ml Balance 1139 ml 2668 ml IV Total 1589 ml 3168 ml Albumin 100 ml 100 ml Output Urine Total 550 ml 600 ml Gastric Drainage Total 0 ml 0 ml # Bowel Movements 0 0 Vital Signs Date Time Temp Pulse Resp B/P Pulse Ox O2 Delivery O2 Flow Rate FiO2 04/27/16 14:00 96 04/27/16 13:12 60 04/27/16 13:00 148 04/27/16 12:19 65 04/27/16 12:19 95 65 04/27/16 12:00 108 04/27/16 12:00 98.6 108 16 104/53 92 04/27/16 10:00 65 04/27/16 09:45 92 60 04/27/16 09:45 60 04/27/16 08:00 97.8 97 18 103/58 97 04/27/16 08:00 97 04/27/16 08:00 92 65 04/27/16 08:00 65 04/27/16 06:00 93 04/27/16 05:41 91 55 04/27/16 04:00 55 04/27/16 04:00 93 04/27/16 04:00 97.8 93 20 109/55 93 04/27/16 02:00 96 04/27/16 00:45 100 55 04/27/16 00:00 97.9 96 18 108/59 94 04/27/16 00:00 96 04/27/16 00:00 55 04/26/16 22:00 95 04/26/16 20:50 95 55 04/26/16 20:00 97.9 88 19 106/58 95 04/26/16 20:00 88 04/26/16 20:00 55 04/26/16 16:53 55 04/26/16 16:40 45 04/26/16 16:04 99 55 04/26/16 16:00 85 04/26/16 16:00 97.5 85 18 110/64 99 -: 04/27/16 0400 04/27/16 0400 Physical Exam General Appearance: Well Developed Neck Neck Exam: Neck Supple Pulmonary Resp Exam: Decreased Bases Cardiology CV Exam: Tachycardia Gastrointestinal/Abdomen GI Exam: Soft, Distended Extremeties Extremities Exam: Moderate Edema Assessment/Plan Problem List: (1) HOME (acute kidney injury) Plan: Patient ARF persists although creatinine declined 2.5 I will give Bumex as UOP dropped continue with bicarbonate drip may back down the rate as getting edema (2) Severe sepsis Plan: Due to possible pneumonia (3) Acute respiratory failure with hypoxia Plan: On ventilator Marilee Bazan MD Apr 27, 2016 14:57
[2016-04-27] MEDS ORDERED: BUMETANIDE INJ 1 MG/4 ML VIAL IV PUSH ONE (15:00)
--- NOTE | 2016-04-27 16:18 | PD.CONS ---
HPI History of Present Illness This is a 65 year old female patient with a hx of liver cirrhosis secondary to ETOH abuse. She was diagnosed liver cirrhosis in November 2014. She was previously evaluated a tertiary for possible liver transplant in May of 2015, but at that time was only 8 weeks free from alcohol and therefore deemed not a candidate. She is requiring frequent paracentesis for recurrent ascites. She was last seen in our office back in January 2016 at which time she was referred back to tertiary for possible TIPS procedure. She is currently sedated and I am not sure if she has been seen, but there is no note regarding this in the outpatient EMR. EGD/colonoscopy (06/10/15) revealed a regular Z line, gastritis, flattened mucosa was found in the duodenum, biopsies were taken to rule out celiac disease, examination was otherwise normal; examined portion of the ileum was normal, one 6 mm polyp in the sigmoid colon resected and retrieved , distal rectum and anal verge are normal on retroflexion view, examination was otherwise normal. Pathology with small bowel mucosa without diagnostic abnormality, erosive gastritis, tubular adenoma in the sigmoid colon. She presented t to the ER on 04/24/16 with worsening shortness of breath and was subsequently admitted to the ICU for acute respiratory failure with hypoxia , acute kidney injury, COPD. GI was consulted for ascites. She is currently sedated on the ventilator and unable to provide any history and therefore the history has been obtained from the EMR. She has recurrent ascites requiring frequent paracentesis. She last underwent an ultrasound guided paracentesis on 02/21/16. She is on spironolactone 100 mg by mouth daily, Lasix 40 mg by mouth daily at home. On admission, she had significant leukocytosis with a WBC of 26.8. CXR revealed interstitial opacities remain in both lungs. Sputum culture with rare growth of normal respiratory luther, urine was negative for legionella pneumonia/streptococcus. BCX with no growth x 3 days. Urinalysis was unremarkable. She does have some ascites, although this is not tense ascites. (Kim Olea) PFSH Past Medical History Recurrent ascites Liver cirrhosis secondary to alcohol abuse Anemia Anxiety Constipation Interstitial fibrosis Peripheral neuropathy History of breast cancer Past Surgical History Multiple abdominal paracentesis is Cholecystectomy Complete colonoscopy EGD History of infusaport placement Radiation therapy Right breast lumpectomy History of tonsillectomy (Kim Olea) Coded Allergies: Morphine (Verified Allergy, Mild, Itching, 04/24/16) pt denies Medications Allergies Coded Allergies Type Severity Reaction Last Updated Verified Morphine Allergy Mild Itching 04/24/16 Yes Active Scripts Medications Dose Route/Sig Days Date Category Ropinirole 5 Mg Tab 10 Mg PO DAILY 04/25/16 Reported Spironolactone 100 Mg Tab 100 Mg PO DAILY 04/25/16 Reported Sertraline (Sertraline HCl) 100 Mg Tab 100 Mg PO DAILY 04/25/16 Reported Lasix (Furosemide) 40 Mg Tab 40 Mg PO DAILY 04/25/16 Reported Vicoprofen (Hydrocodone-Ibuprofen) 7.5-200 Mg Tab 1 Tab PO Q8HR PRN 04/25/16 Reported Ambien (Zolpidem Tartrate) 5 Mg Tab 5 Mg PO HS 04/25/16 Reported Enulose 30 Ml Syrp 30 Ml PO DAILY 10 01/28/15 Rx Folate 1 Mg Tab (Folic Acid) 1 Mg Tab 1 Mg PO DAILY 01/27/15 Reported Gabapentin 300 Mg Cap 300 Mg PO TID 01/27/15 Reported Ultram (Tramadol HCl) 50 Mg Tab 50 Mg PO Q4H PRN 01/27/15 Reported Lorazepam 0.5 Mg Tab 0.5 Mg PO BID 01/27/15 Reported Midodrine Hcl (Midodrine) 5 Mg Tab 5 Mg PO TID 30 11/26/14 Rx Family History History of cardiac disease and father Social History 1 PPD Unclear if she is still drinking. According to our office note in February 12 , she was occasionally drinking ETOH. According to ER note, she denied ETOH use. (Kim Olea) Review of Systems ROS Unable to obtain (Kim Olea) GI Exam Vitals I&O Vital Signs Date Time Temp Pulse Resp B/P Pulse Ox O2 Delivery O2 Flow Rate FiO2 04/27/16 15:00 91 04/27/16 14:00 96 04/27/16 13:12 60 04/27/16 13:00 148 04/27/16 12:19 65 04/27/16 12:19 95 65 04/27/16 12:00 108 04/27/16 12:00 98.6 108 16 104/53 92 04/27/16 10:00 65 12/29/16 09:45 92 60 04/27/16 09:45 60 04/27/16 08:00 97.8 97 18 103/58 97 04/27/16 08:00 97 04/27/16 08:00 92 65 04/27/16 08:00 65 04/27/16 06:00 93 04/27/16 05:41 91 55 04/27/16 04:00 55 04/27/16 04:00 93 04/27/16 04:00 97.8 93 20 109/55 93 04/27/16 02:00 96 04/27/16 00:45 100 55 04/27/16 00:00 97.9 96 18 108/59 94 04/27/16 00:00 96 04/27/16 00:00 55 04/26/16 22:00 95 04/26/16 20:50 95 55 04/26/16 20:00 97.9 88 19 106/58 95 04/26/16 20:00 88 04/26/16 20:00 55 04/26/16 16:53 55 04/26/16 16:40 45 04/26/16 16:04 99 55 04/26/16 16:00 85 04/26/16 16:00 97.5 85 18 110/64 99 I/O 04/26/16 04/26/16 04/26/16 04/27/16 04/27/16 04/27/16 06:59 14:59 22:59 06:59 14:59 22:59 Intake Total 1653 ml 1589 ml 1739 ml 1629 ml 1772 ml Output Total 455 ml 550 ml 350 ml 250 ml 250 ml Balance 1198 ml 1039 ml 1389 ml 1379 ml 1522 ml IV Total 1153 ml 1589 ml 1639 ml 1529 ml 1772 ml Albumin 500 ml 100 ml 100 ml Output Urine Total 455 ml 550 ml 350 ml 250 ml 250 ml Gastric Drainage Total 0 ml 0 ml 0 ml 0 ml # Bowel Movements 0 0 0 0 0 Imaging Last Impressions Chest X-Ray 04/27/16 0600 Signed Impressions: Service Date/Time: March 03:46 - CONCLUSION: 1. No significant change. 2. Interstitial opacities remain in both lungs. Sebas Roberts MD Renal Ultrasound 04/27/16 0000 Signed Impressions: Service Date/Time: March 10:35 - CONCLUSION: 1. Both kidneys are small in size. 2. No hydronephrosis. 3. There is some ascites in the abdomen. Aureliano Rayo MD Laboratory Test 04/26/16 04/26/16 04/27/16 04/27/16 16:58 22:23 04:00 06:15 Blood Gas Puncture Site ART LINE ART LINE ART LINE Blood Gas Patient Temperature 98.6 98.6 98.6 Blood Gas HCO3 13 mmol/L 16 mmol/L 17 mmol/L Blood Gas Base Excess -13.9 mmol/L -11.5 mmol/L -10.3 mmol/L Blood Gas Oxygen Saturation 90 % 95 % 92 % Arterial Blood pH 7.16 7.16 7.17 Arterial Blood Partial 39 mmHg 46 mmHg 47 mmHg Pressure CO2 Arterial Blood Partial 83 mmHg 113 mmHg 86 mmHg Pressure O2 Arterial Blood Oxygen Content 11.5 Vol % 12.0 Vol % 10.8 Vol % Arterial Blood 1.0 % 1.0 % 1.2 % Carboxyhemoglobin Arterial Blood Methemoglobin 1.0 % 0.7 % 1.0 % Blood Gas Hemoglobin 9.0 G/DL 8.9 G/DL 8.3 G/DL Oxygen Delivery Device VENTILATOR VENTILATOR VENTILATOR Blood Gas Ventilator Setting SEE COMMENTS SEE COMMENTS [facility] Blood Gas Inspired Oxygen 40 % 55 % 55 % White Blood Count 22.3 TH/MM3 Red Blood Count 3.91 MIL/MM3 Hemoglobin 8.3 GM/DL Hematocrit 26.0 % Mean Corpuscular Volume 66.4 FL Mean Corpuscular Hemoglobin 21.1 PG Mean Corpuscular Hemoglobin 31.8 % Concent Red Cell Distribution Width 20.6 % Platelet Count 241 TH/MM3 Mean Platelet Volume 7.7 FL Sodium Level 143 MEQ/L Potassium Level 5.2 MEQ/L Chloride Level 113 MEQ/L Carbon Dioxide Level 18.1 MEQ/L Anion Gap 12 MEQ/L Blood Urea Nitrogen 66 MG/DL Creatinine 2.56 MG/DL Estimat Glomerular Filtration 19 ML/MIN Rate Random Glucose 149 MG/DL Calcium Level 8.0 MG/DL Phosphorus Level 4.7 MG/DL Magnesium Level 2.2 MG/DL Ammonia 53 MCMOL/L Test 04/27/16 04/27/16 04/27/16 11:13 12:00 13:35 Prothrombin Time 13.1 SEC Prothromb Time International 1.2 RATIO Ratio Calcium Level 8.9 MG/DL Protein Corrected Calcium 9.3 MG/DL Total Bilirubin 0.6 MG/DL Direct Bilirubin 0.3 MG/DL Indirect Bilirubin 0.3 MG/DL Aspartate Amino Transf 51 U/L (AST/SGOT) Alanine Aminotransferase 52 U/L (ALT/SGPT) Alkaline Phosphatase 102 U/L Total Protein 6.5 GM/DL Albumin 3.3 GM/DL Blood Gas Puncture Site ART LINE ART LINE Blood Gas Patient Temperature 98.6 98.6 Blood Gas HCO3 21 mmol/L 20 mmol/L Blood Gas Base Excess -6.0 mmol/L -4.5 mmol/L Blood Gas Oxygen Saturation 92 % 96 % Arterial Blood pH 7.18 7.37 Arterial Blood Partial 59 mmHg 36 mmHg Pressure CO2 Arterial Blood Partial 85 mmHg 125 mmHg Pressure O2 Arterial Blood Oxygen Content 10.7 Vol % 10.6 Vol % Arterial Blood 1.1 % 1.5 % Carboxyhemoglobin Arterial Blood Methemoglobin 0.8 % 1.0 % Blood Gas Hemoglobin 8.2 G/DL 7.7 G/DL Oxygen Delivery Device VENTILATOR VENTILATOR Blood Gas Ventilator Setting [id number]/R18/IT.80/IP35 Blood Gas Inspired Oxygen 65 % 60 % Date/Time Procedure Status Source Growth 04/25/16 16:57 Gram Stain - Final Complete Sputum Endotracheal 04/25/16 16:57 Sputum Culture - Final Complete Sputum Endotracheal RARE GROWTH NORMAL RESPIRATORY LUTHER 04/25/16 16:55 Legionella Antigen - Final Complete Urine Catheterized Urine PRESUMPTIVE NEGATIVE FOR LEGIONELLA P... 04/25/16 16:55 Streptococcus pneumoniae Antigen (M - Final Complete Urine Catheterized Urine PRESUMPTIVE NEGATIVE FOR STREPTOCOCCU... 04/24/16 23:15 Aerobic Blood Culture - Preliminary Resulted Blood Peripheral NO GROWTH IN 3 DAYS 04/24/16 23:15 Anaerobic Blood Culture - Preliminary Resulted Blood Peripheral NO GROWTH IN 3 DAYS Physical Examination HEENT: Normocephalic; atraumatic; no jaundice. CHEST: OETT to vent. Diminished bases. CARDIAC: RRR ABDOMEN: Soft, mildly distended, hepatosplenomegaly; bowel sounds are present in all four quadrants. Moderate amount of ascites EXTREMITIES: Trace edema. SKIN: Normal; no rash; no jaundice. FIELD SUPPORT REPRESENTATIVE: Sedated on vent. (Kim Olea) Assessment and Plan Plan ASSESSMENT: - Ascites. She is requiring frequent paracentesis for recurrent ascites. She was last seen in our office back in January 2016 at which time she was referred back to tertiary for possible TIPS procedure. She is currently sedated and I am not sure if she has been seen, but there is no note regarding this in the outpatient EMR. Last paracentesis January of 2016. She is on spironolactone 100 mg by mouth daily and Lasix 40 mg by mouth daily at home. These are now on hold because of HOME/ hyperkalemia. Albumin. Will see if there is enough fluid for both therapeutic/diagnostic paracentesis. - Leukocytosis. WBC 22.3. CXR revealed interstitial opacities remain in both lungs. Sputum culture with rare growth of normal respiratory luther, urine was negative for legionella pneumonia/streptococcus. BCX with no growth x 3 days. Urinalysis was unremarkable. She does have some ascites, although this is not tense ascites. Cefepime, Azithromycin. - Acute respiratory failure, PNA. Cefepime, Azithromycin, nebs, steroids. - Anemia. 8.3/26.0. No active blood loss. EGD/colonoscopy at [place] (06/10/15) revealed a regular Z line, gastritis, flattened mucosa was found in the duodenum, biopsies were taken to rule out celiac disease, examination was otherwise normal; examined portion of the ileum was normal, one 6 mm polyp in the sigmoid colon resected and retrieved, distal rectum and anal verge are normal on retroflexion view, examination was otherwise normal. Pathology with small bowel mucosa without diagnostic abnormality, erosive gastritis, tubular adenoma in the sigmoid colon. 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 Hepatitis panel negative, COURTNEY negative , AMA negative, asma negative, alpha 1 antitrypsin 226, Ceruloplasmin 25, Dx in November of 2014. She was previously evaluated a tertiary for possible liver transplant in May of 2015, but according to January 2016 office note, deemed not be a candidate. LFTs T. Bili 0.4, 92, 77, 102. - HOME, Electrolyte abnormalities. PLAN: - Nepro - US Guided paracentesis, diagnostic and therapeutic- send fluid for studies - Stool for CDiff - Cont. Albumin - Cont. Lactulose - Cont. PPI - Cont. Abx - Await final cultures - Monitor labs - Supportive care - FUrther recommendations to follow based on results of above - Pt seen and examined by Dr. Beth and myself and this note is written on his behalf (Kim Olae) Physician Comments Seen and examined, plan as above, will follow up with you. (Noemy Beth MD) Kim Olea Apr 27, 2016 16:18 Noemy Beth MD Apr 27, 2016 22:55
--- NOTE | 2016-04-27 19:41 | HHI.PR ---
Subjective Remarks 65 YOWF with COPD, Cirhosis, renal failure, VDRF On PCV, Fi02 55% Sedated with Fentanyl Desaturates No fever Objective Vital Signs Vital Signs Date Time Temp Pulse Resp B/P Pulse Ox O2 Delivery O2 Flow Rate FiO2 04/27/16 16:00 98.3 96 18 107/54 94 04/27/16 16:00 96 04/27/16 15:55 92 60 04/27/16 15:00 91 04/27/16 14:00 96 04/27/16 13:12 60 04/27/16 13:00 148 04/27/16 12:19 65 04/27/16 12:19 95 65 04/27/16 12:00 108 04/27/16 12:00 98.6 108 16 104/53 92 04/27/16 10:00 65 04/27/16 09:45 92 60 04/27/16 09:45 60 04/27/16 08:00 97.8 97 18 103/58 97 04/27/16 08:00 97 04/27/16 08:00 92 65 04/27/16 08:00 65 04/27/16 06:00 93 04/27/16 05:41 91 55 04/27/16 04:00 55 04/27/16 04:00 93 04/27/16 04:00 97.8 93 20 109/55 93 04/27/16 02:00 96 04/27/16 00:45 100 55 04/27/16 00:00 97.9 96 18 108/59 94 04/27/16 00:00 96 04/27/16 00:00 55 04/26/16 22:00 95 04/26/16 20:50 95 55 04/26/16 20:00 97.9 88 19 106/58 95 04/26/16 20:00 88 04/26/16 20:00 55 I/O 04/26/16 04/26/16 04/26/16 04/27/16 04/27/16 04/27/16 07:00 15:00 23:00 07:00 15:00 23:00 Intake Total 1653 ml 1589 ml 1739 ml 1629 ml 1772 ml 100 ml Output Total 455 ml 550 ml 350 ml 250 ml 250 ml Balance 1198 ml 1039 ml 1389 ml 1379 ml 1522 ml 100 ml IV Total 1153 ml 1589 ml 1639 ml 1529 ml 1772 ml Albumin 500 ml 100 ml 100 ml 100 ml Output Urine Total 455 ml 550 ml 350 ml 250 ml 250 ml Gastric Drainage Total 0 ml 0 ml 0 ml 0 ml # Bowel Movements 0 0 0 0 0 Result Diagram: 04/27/1639904/27/16399 Objective Remarks GENERAL: MBMN WF on Vent, sedated SKIN: Warm and dry. HEAD: Normocephalic. EYES: No scleral icterus. No injection or drainage. NECK: Supple, trachea midline. No JVD or lymphadenopathy. CARDIOVASCULAR: Regular rate and rhythm without murmurs, gallops, or rubs. RESPIRATORY: Breath sounds equal bilaterally. No accessory muscle use. GASTROINTESTINAL: Abdomen soft, non-tender, nondistended. MUSCULOSKELETAL: No cyanosis, or edema. BACK: Nontender without obvious deformity. No CVA tenderness. A/P Assessment and Plan VDRF Metabolic acidosis improved Renal insuff COPD Cirrhosis of liver PLAN: Vent support with PCV, Fi02 55% Abx Cefepime and Zithro Bicarb drip Levophed to Keep MAP>65 Fentanyl for sedation. Uli Ramos MD Apr 27, 2016 19:41
[2016-04-27] MEDS: LORazepam 2 MG/ML VIAL IV PRN ×2 (20:49→22:44)
[2016-04-27 23:39] LABS: ALKALINE PHOSPHATASE 89 U/L (45-117); ALT (GPT) 43 U/L (10-53); ANION GAP 7 MEQ/L (5-15); AST (GOT) 42 U/L (15-37); BICARBONATE 29.7 MEQ/L (21.0-32.0); BLOOD UREA NITROGEN 60 MG/DL (7-18); CHLORIDE 109 MEQ/L (98-107); GLOMERULAR FILTRATION RATE 23 ML/MIN (>89); POTASSIUM 4.1 MEQ/L (3.5-5.1); SODIUM (NA) 146 MEQ/L (136-145); TOTAL BILIRUBIN ADULT 0.6 MG/DL (0.2-1.0)
[2016-04-28] VITALS (17 sets, daily range): BP systolic 109–128; BP diastolic 46–61; PULSE 74–100; RESP 18–19; TEMP 97.5–98.1; O2SAT 90–100
[2016-04-28] MEDS: CEFEPIME INJ 1,000 MG in SODIUM CHLORIDE 0.9% INJ 100 ML IV SCH ×2 (00:22→23:26)
[2016-04-28] MEDS: SODIUM BICARBONATE 8.4% INJ 150 MEQ in DEXTROSE 5% IN WATE 1000ML INJ 850 ML IV SCH ×4 (00:22→08:08)
[2016-04-28] MEDS: RESP: ALBUTEROL 2.5 MG/IPRATROPIUM 0.5 MG NEB (SCH) INH ×6 (01:13→20:41)
[2016-04-28] MEDS: fentaNYL DRIP 250 ML IV SCH ×3 (02:11→20:31)
[2016-04-28] MEDS: LORazepam 2 MG/ML VIAL IV PRN (02:11)
[2016-04-28] MEDS: HEPARIN SODIUM - SQ 10,000 UNITS/ML VIAL SQ SCH ×2 (02:12→15:00)
[2016-04-28] MEDS: ALBUMIN HUMAN 25% 25 GM/100 ML BAGP IV SCH ×2 (04:00→17:28)
[2016-04-28] MEDS: CHLORHEXIDINE GLUCONATE 2 % 1 PACK (2 CLOTHS) TOP SCH (04:00)
[2016-04-28 05:05] LABS: BLOOD GAS BASE EXCESS 5.4 mmol/L (-2-2); BLOOD GAS CARBOXYHEMOGLOBIN 1.9 % (0-4); BLOOD GAS HCO3 29 mmol/L (22-26); BLOOD GAS METHEMOGLOBIN 1.1 % (0-2); BLOOD GAS O2 HGB SATURATION 90 % (90-100); BLOOD GAS OXYGEN CONTENT 10.1 Vol % (12.0-20.0); BLOOD GAS PCO2 44 mmHg (38-42); BLOOD GAS PO2 65 mmHg (61-120); BLOOD GAS TOTAL HGB 7.9 G/DL (12.0-16.0); TEMP CORR TO 98.6
[2016-04-28 05:06] LABS: CRITICAL VALUE NO; OXYGEN DEVICE VENTILATOR
[2016-04-28 05:07] LABS: DRAW SITE ART LINE; FIO2 70 %; STAT NO; VENT SETTINGS PC/AC
[2016-04-28 05:37] LABS: AUTOMATED NEUTROPHIL # 14.6 TH/MM3 (1.8-7.7); BASOPHIL % 0.1 % (0.0-2.0); HEMATOCRIT 23.6 % (35.0-46.0); LYMPH % 1.2 % (9.0-44.0); LYMPHOCYTE # 0.2 TH/MM3 (1.0-4.8); MEAN CELL VOLUME 64.7 FL (80.0-100.0); MEAN CORPUSCULAR HEMOGLOBIN 21.1 PG (27.0-34.0); MEAN CORPUSCULAR HGB CONC 32.6 % (32.0-36.0); MONO % 4.7 % (0.0-8.0); PLATELET COUNT 174 TH/MM3 (150-450); RED BLOOD COUNT 3.65 MIL/MM3 (4.00-5.30); WHITE BLOOD COUNT 15.5 TH/MM3 (4.0-11.0)
[2016-04-28 05:42] LABS: HEMO FLAGS AUTO DIFF
[2016-04-28 06:03] LABS: ALT (GPT) 38 U/L (10-53); ANION GAP 8 MEQ/L (5-15); AST (GOT) 38 U/L (15-37); BICARBONATE 30.8 MEQ/L (21.0-32.0); BLOOD UREA NITROGEN 58 MG/DL (7-18); CHLORIDE 107 MEQ/L (98-107); GLOMERULAR FILTRATION RATE 25 ML/MIN (>89); MAGNESIUM 1.9 MG/DL (1.5-2.5); POTASSIUM 3.7 MEQ/L (3.5-5.1); SODIUM (NA) 146 MEQ/L (136-145)
[2016-04-28 06:05] LABS: ALKALINE PHOSPHATASE 83 U/L (45-117); TOTAL BILIRUBIN ADULT 0.6 MG/DL (0.2-1.0)
--- NOTE | 2016-04-28 06:28 | RADRPT ---
EXAM DATE/TIME: 04/28/2016 05:03 [facility] COMPARISON: CHEST SINGLE AP, April 27, 2016, 3:46. INDICATIONS : Please evaluate after respiratory distress. MEDICAL HISTORY : Carcinoma, breast. SURGICAL HISTORY : Cholecystectomy. Infusaport ENCOUNTER: Subsequent ACUITY: 1 week PAIN SCORE: Non-responsive. LOCATION: Bilateral chest FINDINGS: A single view of the chest demonstrates mild worsening of diffuse bilateral airspace disease which is greatest in the right perihilar region. Endotracheal tube, left subclavian central line, right jugul ar central line and nasogastric tube are unchanged in position. The cardiomediastinal contours are un remarkable. Osseous structures are intact. CONCLUSION: 1. Mild worsening of diffuse bilateral airspace disease. 2. Support lines and tubes are unchanged. Shan Gustafson MD on April 28, 2016 at 6:25 Board Certified Radiologist. This report was verified electronically.
[2016-04-28] MEDS: MIDAZOLAM HCL 2 MG/2 ML VIAL IV PRN (07:42)
[2016-04-28] MEDS: RESP: ACETYLCYSTEINE 20% 30 ML NEB NEB SCH ×2 (08:00→20:00)
[2016-04-28] MEDS: AZITHROMYCIN INJ 500 MG in SODIUM CHLOR 0.9% 250 ML INJ 250 ML IV SCH (08:07)
[2016-04-28] MEDS: CHLORHEXIDINE 0.12% (ORAL KIT) 15 ML CUP MT SCH ×2 (08:08→20:00)
[2016-04-28] MEDS: LACTULOSE SYRUP 20 GM/30 ML CUP PO SCH ×4 (08:09→20:30)
[2016-04-28] MEDS: DOCUSATE SODIUM 100 MG CAP PO SCH ×2 (08:09→20:31)
[2016-04-28] MEDS: methylPREDNISolone SOD SUCC 125 MG/2 ML VIAL IV PUSH SCH ×2 (08:09→20:31)
[2016-04-28] MEDS: SODIUM CHLORIDE 0.9% FLUSH 5 ML FLUSH IV FLUSH SCH ×2 (08:09→20:31)
[2016-04-28] MEDS: FOLIC ACID 1 MG TAB PO SCH (08:10)
[2016-04-28] MEDS ORDERED: PROPOFOL 1000 MG/100 ML INJ 100 ML ONE (08:34)
[2016-04-28] MEDS: PROPOFOL 1000 MG/100 ML INJ 100 ML IV SCH ×3 (08:49→23:26)
[2016-04-28 09:27] LABS: KERATOCYTES OCC (NORMAL); PLATELET ESTIMATE SMEAR NORMAL (NORMAL); PLATELET MORPHOLOGY NORMAL (NORMAL); SCAN/DIFF AUTO DIFF CONFIRMED
--- NOTE | 2016-04-28 09:47 | HHI.CCPN ---
Subjective Remarks/Hospital Course 65 year old female with history of alcohol abuse, history of breast cancer status post lumpectomy radiation and chemotherapy presents with progressively worsening shortness of breath. EMS was called because she was short of breath at home, and was found to have pals oxygen at 70%. Patient is on a BiPAP, seems to be comfortable in no distress. She is able to follow commands in all 4 extremities. Her history is limited secondary to FM BiPAP. 04/26 The patient acutely had respiratory decompensation yesterday afternoon. Discussion with family, sister power of trust and estates attorney regarding intubation in patient 's current respiratory status, family requesting intubation. She required intubation, central line placement and an arterial line placement to monitor oxygenation levels. The patient became hypoxic and hypotensive requiring vasopressor support. Currently the patient is on levophed infusion at 5 mcgs. 04/27 Afebrile. The patient continues on mechanical ventilation, overnight FiO2 requirements were increased, currently attempting to wean back to 55%. Sodium bicarbonate infusion at 150 cc/hour. Ammonia level slightly increased, lactulose dosage increased. Pulmonology consulted. The patient's last therapeutic paracentesis was 02/21/16, WBC count elevated, patient is currently on Zosyn and azithromycin, will begin coverage for spontaneous bacterial peritonitis. 04/28 Tmax 98.6 Overnight patient required increasing oxygen requirements, currently FiO2 0.75, vasopressor Levophed has been off since 2 AM. Yesterday the patient had one episode of sinus tach heart rate in the 150s received metoprolol 2.5 mg with resolution. The patient has been maintained on a sodium bicarbonate drip which was discontinued this a.m.. GI was consulted the patient was planned to go to IR for diagnostic and therapeutic paracentesis this a.m., currently on hold secondary to respiratory compromise. Planned for later this afternoon, if respiratory status stabilizes. Objective Vital Signs Date Time Temp Pulse Resp B/P Pulse Ox O2 Delivery O2 Flow Rate FiO2 04/28/16 09:04 93 90 04/28/16 08:00 98.1 82 19 109/54 04/25/16 12:16 Simple Mask 12.00 Intake and Output 04/27/16 04/27/16 04/27/16 07:59 15:59 23:59 Intake Total 1629 ml 1772 ml 1537 ml Output Total 250 ml 250 ml 500 ml Balance 1379 ml 1522 ml 1037 ml Result Diagram: 04/28/16 0519 04/28/16 0519 Other Results Microbiology Date/Time Procedure Status Source Growth 04/25/16 16:55 Legionella Antigen - Final Complete Urine Catheterized Urine PRESUMPTIVE NEGATIVE FOR LEGIONELLA P... 04/25/16 16:55 Streptococcus pneumoniae Antigen (M - Final Complete Urine Catheterized Urine PRESUMPTIVE NEGATIVE FOR STREPTOCOCCU... 04/25/16 16:57 Gram Stain - Final Complete Sputum Endotracheal 04/25/16 16:57 Sputum Culture - Final Complete Sputum Endotracheal RARE GROWTH NORMAL RESPIRATORY EMIL Laboratory Tests Test 04/27/16 04/27/16 04/28/16 12:00 13:35 04:55 Blood Gas Puncture Site ART LINE ART LINE ART LINE Blood Gas Patient Temperature 98.6 98.6 98.6 Blood Gas HCO3 21 mmol/L 20 mmol/L 29 mmol/L (22-26) (22-26) (22-26) Blood Gas Base Excess -6.0 mmol/L -4.5 mmol/L 5.4 mmol/L (-2-2) (-2-2) (-2-2) Blood Gas Oxygen Saturation 92 % (90-100) 96 % (90-100) 90 % (90-100) Arterial Blood pH 7.18 7.37 7.45 (7.380-7.420) (7.380-7.420) (7.380-7.420) Arterial Blood Partial 59 mmHg (38-42) 36 mmHg (38-42) 44 mmHg (38-42) Pressure CO2 Arterial Blood Partial 85 mmHg 125 mmHg 65 mmHg Pressure O2 (61-120) (61-120) (61-120) Arterial Blood Oxygen Content 10.7 Vol % 10.6 Vol % 10.1 Vol % (12.0-20.0) (12.0-20.0) (12.0-20.0) Arterial Blood 1.1 % (0-4) 1.5 % (0-4) 1.9 % (0-4) Carboxyhemoglobin Arterial Blood Methemoglobin 0.8 % (0-2) 1.0 % (0-2) 1.1 % (0-2) Blood Gas Hemoglobin 8.2 G/DL 7.7 G/DL 7.9 G/DL (12.0-16.0) (12.0-16.0) (12.0-16.0) Oxygen Delivery Device VENTILATOR VENTILATOR VENTILATOR Blood Gas Ventilator Setting PCAC/R18/IT.80/IP35 PC/AC Blood Gas Inspired Oxygen 65 % 60 % 70 % Imaging Last Impressions Chest X-Ray 04/28/16 0430 Signed Impressions: Service Date/Time: Thursday, April 28, 2016 05:03 - CONCLUSION: 1. Mild worsening of diffuse bilateral airspace disease. 2. Support lines and tubes are unchanged. Shan Gustafson MD Renal Ultrasound 04/27/16 0000 Signed Impressions: Service Date/Time: March 10:35 - CONCLUSION: 1. Both kidneys are small in size. 2. No hydronephrosis. 3. There is some ascites in the abdomen. Aureliano Rayo MD Last Impressions Chest X-Ray 04/27/16 0600 Signed Impressions: Service Date/Time: March 03:46 - CONCLUSION: 1. No significant change. 2. Interstitial opacities remain in both lungs. Sebas Roberts MD Last Impressions Chest X-Ray 04/26/16 0600 Signed Impressions: Service Date/Time: Tuesday, April 26, 2016 04:15 - CONCLUSION: No significant change. Sebas Roberts MD Last 24 hours Impressions Chest X-Ray 04/24/16 2308 Signed Impressions: Service Date/Time: Sunday, April 24, 2016 23:34 - CONCLUSION: Coarse interstitial opacities most consistent with chronic fibrosis and/or scarring. Sebas Roberts MD Objective Remarks GENERAL: Well-nourished, well-developed patient, asleep intubated and sedated, fentanyl 250 minus. GCS 3T SKIN: Warm and dry. HEAD: Normocephalic. EYES: No scleral icterus. No injection or drainage. NECK: Supple, trachea midline. No JVD or lymphadenopathy. Orotracheally intubated, OGT in situ, CARDIOVASCULAR: Regular rate and rhythm without murmurs, gallops, or rubs. RESPIRATORY: Breath sounds equal bilaterally. Coarse breath sounds. GASTROINTESTINAL: Abdomen soft, non-tender, slight distention noted this a.m., umbilical hernia noted MUSCULOSKELETAL: No cyanosis, 1+ pitting edema noted bilateral extremities BACK: Nontender without obvious deformity. No CVA tenderness. Urinary Catheter: Yes Schultz insert reason: Measure Accurate Output Date of Insertion: Apr 25, 2016 Date of Insertion: Apr 25, 2016 Side: Right Location: Internal, Jugular Reason for Continuation Vasoactive medications and CVP monitoring A/P Problem List: (1) Acute respiratory failure with hypoxia ICD Code: J96.01 Status: Acute (2) Tobacco use disorder ICD Code: F17.200 Status: Acute (3) HOME (acute kidney injury) ICD Code: N17.9 Status: Acute Assessment and Plan Acute Hypoxic Respiratory failure COPD exacerbation Tobacco abuse Pulmonary fibrosis S/P radiation therapy-breast cancer - Pulmonology on board- follow-up recommendations - Continue methylprednisolone - DuoNeb's scheduled every 4hr, every 2hr PRN - 04/25 urine Legionella, streptococcal antigen negative -04/25 Sputum -No growth -Empiric antibiotics-azithromycin, Zosyn (day 4) -Intubated 04/26 18/ 500/0.55/5 -04/28 CXR worsening History of breast cancer - status post lumpectomy radiation and chemotherapy - now in remission- left SC port (nonfunctional) per old records - supportive care Neuro: Alcoholism H/O seizure Hepatic encephalopathy Anxiety disorder Hyperammonemia -GCS 3T, remains on sedation for ventilator synchrony currently fentanyl 250 mcgs/hour, propofol added - monitor for withdrawal- Ativan PRN -Lactulose to QID, monitor ammonia level History of breast cancer - status post lumpectomy radiation and chemotherapy - now in remission - supportive care Cardiovascular: Hypotension -Maintain MAP greater than 65mmHg -Normotensive -Levophed off 04/28 2am, Renal HOME -Initially volume depletion 04/25 -NaHCO3 discontinued - Albumin 25 g every 12 hours -Renal on [id number] recommendations -FENA 2.03 -Creatinine improved 3.53-> 2.56 today - Monitor BMP - strict I&O GI Moderate protein calorie malnutrition Ascites -Begin tubefeeds- Nepro -Patient's last therapeutic paracentesis 02/21/2016, bedside US assessment of ascites approximated minimal - moderate,not significant amount for bedside paracentesis -GI on [id number] recommendations -Albumin level 3.0 - Bowel regimen -Abdomen mildly distended, plan for IR, for diagnostic/therapeutic paracentesis today -Monitor hepatic panel -Hepatitis panel-negative, previous old records, one entry reveals diagnosis of hepatitis C Heme/ ID: Suspected SBP Leukocytosis -Monitor CBC. WBC improved 22->15 today -Provide SBP coverage dc Zosyn, Cefepime -F/U cultures -MSK -PT evaluate and treat-functional maintenance DVT/GI prophylaxis - Heparin SubQ/Protonix This patient remains critically ill with one or more organ systems which are or may become a threat to life. I have spent in excess of 41 minutes discontinuously in the care and management of this patient. This time is exclusive of procedures, and includes, but is not limited to, evaluation of the patient, review of the medical record, discussions with family, consultants, nursing staff, or respiratory therapy, and documentation in the medical record. Addendum 12:30 - patient has had 3 episodes acute hypoxia associated with movement. Sedated patient. The present time we are planning on paralyzed the patient for vent synchrony adding Flolan for supportive care. Will discuss with family once available. Physician Karmen Martines MD Apr 28, 2016 09:47 Rom Parnell MD Apr 28, 2016 12:34
[2016-04-28] MEDS: PANTOPRAZOLE SODIUM 40 MG VIAL IV PUSH SCH (10:31)
[2016-04-28 12:36] LABS: BLOOD GAS BASE EXCESS 5.5 mmol/L (-2-2); BLOOD GAS CARBOXYHEMOGLOBIN 1.6 % (0-4); BLOOD GAS HCO3 30 mmol/L (22-26); BLOOD GAS METHEMOGLOBIN 0.9 % (0-2); BLOOD GAS O2 HGB SATURATION 97 % (90-100); BLOOD GAS OXYGEN CONTENT 11.7 Vol % (12.0-20.0); BLOOD GAS PCO2 47 mmHg (38-42); BLOOD GAS PO2 178 mmHg (61-120); BLOOD GAS TOTAL HGB 8.3 G/DL (12.0-16.0); CRITICAL VALUE NO; OXYGEN DEVICE VENTILATOR; TEMP CORR TO 98.6
[2016-04-28 12:37] LABS: DRAW SITE ART LINE; FIO2 100 %; NUMBER OF ARTERIAL PUNCTURES 0; STAT YES; ULNAR PULSE PRESENT; VENT SETTINGS PC/AC
--- NOTE | 2016-04-28 13:02 | HHI.NPPN ---
Subjective Renal Failure: Acute History of Present Illness 65 Year old female with breast cancer, Respiratory failure, cirrhosis Objective Data Data 04/27/16 04/28/16 18:59 06:59 Intake Total 1872 ml 3248 ml Output Total 250 ml 1030 ml Balance 1622 ml 2218 ml IV Total 1772 ml 3148 ml Albumin 100 ml 100 ml Output Urine Total 250 ml 1030 ml Gastric Drainage Total 0 ml 0 ml # Bowel Movements 0 0 Vital Signs Date Time Temp Pulse Resp B/P Pulse Ox O2 Delivery O2 Flow Rate FiO2 04/28/16 12:39 100 30 04/28/16 10:00 80 04/28/16 09:04 93 90 04/28/16 08:00 98.1 82 19 109/54 90 04/28/16 08:00 70 04/28/16 08:00 82 04/28/16 06:00 88 04/28/16 04:18 94 80 04/28/16 04:00 97.5 85 18 123/58 100 04/28/16 04:00 100 04/28/16 04:00 60 04/28/16 02:00 98 04/28/16 01:28 93 90 04/28/16 00:00 98 04/28/16 00:00 97.6 92 18 128/59 96 121/55 04/28/16 00:00 60 04/27/16 22:20 90 04/27/16 22:06 100 90 04/27/16 22:00 95 04/27/16 20:30 100 04/27/16 20:00 60 04/27/16 20:00 97.8 89 19 118/64 94 04/27/16 20:00 89 04/27/16 16:00 98.3 96 18 107/54 94 04/27/16 16:00 96 04/27/16 15:55 92 60 04/27/16 15:00 91 04/27/16 14:00 96 04/27/16 13:12 60 -: 04/28/16 0519 04/28/16 0519 Physical Exam General Appearance: Well Developed Neck Neck Exam: Neck Supple Pulmonary Resp Exam: Decreased Bases Cardiology CV Exam: Tachycardia Gastrointestinal/Abdomen GI Exam: Soft, Distended Extremeties Extremities Exam: Moderate Edema Assessment/Plan Problem List: (1) HOME (acute kidney injury) Plan: Patient ARF persists although creatinine declined 2.01 continue with Bumex as UOP did improved after this cr declined paracentesis planned august dc bicarbonate drip (2) Severe sepsis Plan: Due to possible pneumonia (3) Acute respiratory failure with hypoxia Plan: On ventilator Marilee Bazan MD Apr 28, 2016 13:02
--- NOTE | 2016-04-28 13:08 | RADRPT ---
EXAM DATE/TIME: 04/28/2016 12:42 [facility] COMPARISON: CHEST SINGLE AP, April 28, 2016, 5:03. INDICATIONS : Short of breath, respiratory failure MEDICAL HISTORY : Carcinoma, breast. SURGICAL HISTORY : Cholecystectomy. infusaport ENCOUNTER: Subsequent ACUITY: 4 - 6 days PAIN SCORE: Non-responsive. LOCATION: Bilateral chest FINDINGS: ET tube is in place terminating above the ulises a nasogastric tube in place terminating to the midli ne in the stomach a right jugular catheter are unchanged as well as left subclavian venous catheter. Bilateral pulmonary infiltrates a great degree interstitial with some groundglass airspace disease in the right middle and lower lung field is apparent unchanged. CONCLUSION: Stable chest. ET tube above the ulises. Pulmonary infiltrates unchanged Anup Copeland MD on April 28, 2016 at 13:05 Board Certified Radiologist. This report was verified electronically.
[2016-04-28] MEDS: CISATRACURIUM INJ 100 MG in SODIUM CHLOR 0.9% 250 ML INJ 240 ML IV SCH ×2 (13:09→21:47)
[2016-04-28] MEDS: RESP: ALBUTEROL 2.5 MG/IPRATROPIUM 0.5 MG NEB (PRN) INH ×2 (13:12→13:13)
[2016-04-28] MEDS: BUMETANIDE INJ 1 MG/4 ML VIAL IV PUSH SCH ×2 (13:15→17:27)
--- NOTE | 2016-04-28 13:40 | EKG ---
Date Performed: 04/27/2016 Time Performed: 12:49:04 PTAGE: 65 years EKG: Sinus tachycardia with PAC(s) Poor R wave progression - probable normal variant Generalized low QRS voltages Run of supraventricular tachycardia is noted at the end of the tracing, clinical co rrelation recommended. Borderline ECG PREVIOUS TRACING : 04/24/2016 23.31 DOCTOR: Hoang Fisher Interpretating Date/Time 04/28/2016 13:33:48
--- NOTE | 2016-04-28 14:06 | HHI.GIFU ---
Subjective Remarks Sedated in bed. No distress. Spoke to US- states that [facility] is planning on doing the paracentesis at bedside. (Kim Olea) Objective Vitals I&O Vital Signs Date Time Temp Pulse Resp B/P Pulse Ox O2 Delivery O2 Flow Rate FiO2 04/28/16 12:39 100 30 04/28/16 12:00 80 04/28/16 12:00 87 04/28/16 10:00 80 04/28/16 09:04 93 90 04/28/16 08:00 98.1 82 19 109/54 90 04/28/16 08:00 70 04/28/16 08:00 82 04/28/16 06:00 88 04/28/16 04:18 94 80 04/28/16 04:00 97.5 85 18 123/58 100 04/28/16 04:00 100 04/28/16 04:00 60 04/28/16 02:00 98 04/28/16 01:28 93 90 04/28/16 00:00 98 04/28/16 00:00 97.6 92 18 128/59 96 121/55 04/28/16 00:00 60 04/27/16 22:20 90 04/27/16 22:06 100 90 04/27/16 22:00 95 04/27/16 20:30 100 04/27/16 20:00 60 04/27/16 20:00 97.8 89 19 118/64 94 04/27/16 20:00 89 04/27/16 16:00 98.3 96 18 107/54 94 04/27/16 16:00 96 04/27/16 15:55 92 60 04/27/16 15:00 91 04/27/16 14:00 96 I/O 04/27/16 04/27/16 04/27/16 04/28/16 04/28/16 04/28/16 07:00 15:00 23:00 07:00 15:00 23:00 Intake Total 1629 ml 1772 ml 1537 ml 1811 ml Output Total 250 ml 250 ml 500 ml 530 ml Balance 1379 ml 1522 ml 1037 ml 1281 ml IV Total 1529 ml 1772 ml 1437 ml 1711 ml Albumin 100 ml 100 ml 100 ml Output Urine Total 250 ml 250 ml 500 ml 530 ml Gastric Drainage Total 0 ml 0 ml 0 ml # Bowel Movements 0 0 0 0 Laboratory Laboratory Tests Test 04/27/16 04/28/16 04/28/16 04/28/16 22:39 04:55 05:19 12:30 Sodium Level 146 146 Potassium Level 4.1 3.7 Chloride Level 109 107 Carbon Dioxide Level 29.7 30.8 Anion Gap 7 8 Blood Urea Nitrogen 60 58 Creatinine 2.19 2.01 Estimat Glomerular Filtration 23 25 Rate Random Glucose 127 206 Calcium Level 7.9 8.5 Total Bilirubin 0.6 0.6 Aspartate Amino Transf 42 38 (AST/SGOT) Alanine Aminotransferase 43 38 (ALT/SGPT) Alkaline Phosphatase 89 83 Total Protein 6.1 5.9 Albumin 3.4 3.5 Blood Gas Puncture Site ART LINE ART LINE Blood Gas Patient Temperature 98.6 98.6 Blood Gas HCO3 29 30 Blood Gas Base Excess 5.4 5.5 Blood Gas Oxygen Saturation 90 97 Arterial Blood pH 7.45 7.42 Arterial Blood Partial 44 47 Pressure CO2 Arterial Blood Partial 65 178 Pressure O2 Arterial Blood Oxygen Content 10.1 11.7 Arterial Blood 1.9 1.6 Carboxyhemoglobin Arterial Blood Methemoglobin 1.1 0.9 Blood Gas Hemoglobin 7.9 8.3 Oxygen Delivery Device VENTILATOR VENTILATOR Blood Gas Ventilator Setting PC/AC PC/AC Blood Gas Inspired Oxygen 70 100 White Blood Count 15.5 Red Blood Count 3.65 Hemoglobin 7.7 Hematocrit 23.6 Mean Corpuscular Volume 64.7 Mean Corpuscular Hemoglobin 21.1 Mean Corpuscular Hemoglobin 32.6 Concent Red Cell Distribution Width 20.0 Platelet Count 174 Mean Platelet Volume 8.2 Neutrophils (%) (Auto) 94.0 Lymphocytes (%) (Auto) 1.2 Monocytes (%) (Auto) 4.7 Eosinophils (%) (Auto) 0.0 Basophils (%) (Auto) 0.1 Neutrophils # (Auto) 14.6 Lymphocytes # (Auto) 0.2 Monocytes # (Auto) 0.7 Eosinophils # (Auto) 0.0 Basophils # (Auto) 0.0 CBC Comment AUTO DIFF Differential Comment AUTO DIFF CONFIRMED Platelet Estimate NORMAL Platelet Morphology Comment NORMAL Basophilic Stippling FAINT Keratocytes OCC Phosphorus Level 2.7 Magnesium Level 1.9 Date/Time Procedure Status Source Growth 04/25/16 16:57 Gram Stain - Final Complete Sputum Endotracheal 04/25/16 16:57 Sputum Culture - Final Complete Sputum Endotracheal RARE GROWTH NORMAL RESPIRATORY LUTHER 04/25/16 16:55 Legionella Antigen - Final Complete Urine Catheterized Urine PRESUMPTIVE NEGATIVE FOR LEGIONELLA P... 04/25/16 16:55 Streptococcus pneumoniae Antigen (M - Final Complete Urine Catheterized Urine PRESUMPTIVE NEGATIVE FOR STREPTOCOCCU... 04/24/16 23:15 Aerobic Blood Culture - Preliminary Resulted Blood Peripheral NO GROWTH IN 4 DAYS 04/24/16 23:15 Anaerobic Blood Culture - Preliminary Resulted Blood Peripheral NO GROWTH IN 4 DAYS Imaging Last Impressions Chest X-Ray 04/28/16 0430 Signed Impressions: Service Date/Time: Thursday, April 28, 2016 05:03 - CONCLUSION: 1. Mild worsening of diffuse bilateral airspace disease. 2. Support lines and tubes are unchanged. Shan Gustafson MD Renal Ultrasound 04/27/16 0000 Signed Impressions: Service Date/Time: March 10:35 - CONCLUSION: 1. Both kidneys are small in size. 2. No hydronephrosis. 3. There is some ascites in the abdomen. Aureliano Rayo MD Physical Exam HEENT: Normocephalic; atraumatic; no jaundice. CHEST: OETT to vent. Diminished bases. CARDIAC: RRR ABDOMEN: Soft, mildly distended, umbilical hernia, reducible hepatosplenomegaly ; bowel sounds are present in all four quadrants. Moderate amount of ascites EXTREMITIES: Trace edema. SKIN: Normal; no rash; no jaundice. 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 (Kim Olea) Assessment and Plan Plan ASSESSMENT: - Ascites. She is requiring frequent paracentesis for recurrent ascites. She was last seen in our office back in January 2016 at which time she was referred back to tertiary for possible TIPS procedure. She is currently sedated and I am not sure if she has been seen, but there is no note regarding this in the outpatient EMR. Last paracentesis January of 2016. She is on spironolactone 100 mg by mouth daily and Lasix 40 mg by mouth daily at home. These are now on hold because of HOME/ hyperkalemia. Albumin. Therapeutic/diagnostic paracentesis. - Leukocytosis. CXR revealed interstitial opacities remain in both lungs. Sputum culture with rare growth of normal respiratory luther, urine was negative for legionella pneumonia/streptococcus. BCX with no growth x 4 days. Urinalysis was unremarkable. She does have some ascites, although this is not tense ascites. WBC improved 15.5. Cefepime, Azithromycin. - Acute respiratory failure, PNA. Cefepime, Azithromycin, nebs, steroids. - Anemia. 7.7/23.6. No active blood loss. EGD/colonoscopy at [place] (06/10/15) revealed a regular Z line, gastritis, flattened mucosa was found in the duodenum, biopsies were taken to rule out celiac disease, examination was otherwise normal; examined portion of the ileum was normal, one 6 mm polyp in the sigmoid colon resected and retrieved, distal rectum and anal verge are normal on retroflexion view, examination was otherwise normal. Pathology with small bowel mucosa without diagnostic abnormality, erosive gastritis, tubular adenoma in the sigmoid colon. 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 Hepatitis panel negative, COURTNEY negative , AMA negative, asma negative, alpha 1 antitrypsin 226, Ceruloplasmin 25, Dx in November of 2014. She was previously evaluated a tertiary for possible liver transplant in May of 2015, but according to January 2016 office note, deemed not be a candidate. LFTs T. Bili 0.6, 38, 38, 83. - HOME, Electrolyte abnormalities. PLAN: - Nepro - Paracentesis, diagnostic and therapeutic- send fluid for studies - Stool for CDiff - Cont. Albumin - Cont. Lactulose - Cont. PPI - Cont. Abx - Await final cultures - Monitor labs - Supportive care - FUrther recommendations to follow based on results of above - Pt seen and examined by Dr. Beth and myself and this note is written on his behalf (Kim Olea) Physician Comments Seen and examined, plan as above, further recommendations to follow. (Noemy Beth MD) Kim Olea Apr 28, 2016 14:06 Noemy Beth MD Apr 28, 2016 15:44
--- NOTE | 2016-04-28 17:33 | PD.PROCEDR ---
Procedure Note Procedure DATE: 04/28/2016 Paracentesis procedure note: Ultrasound-guided marked INDICATION: Ascites CONSENT Informed consent for procedure was obtained. DESCRIPTION OF THE PROCEDURE A timeout was performed. The area was cleansed and draped in the usual sterile fashion using chlorhexidine scrub. Anesthesia was achieved with 1% lidocaine. The left lower quadrant was prepped and draped in a sterile fashion. The paracentesis catheter was inserted and advanced with negative pressure until yellow fluid was aspirated. Approximately 60 cc's of ascitic fluid was collected and sent for laboratory analysis. The catheter was connected to Vacutainer and 2.3 L of additional ascitic fluid was drained. The catheter was removed with minimal ascitic leaking was noted. A pressure dressing was placed over the puncture wound. The patient tolerated the procedure well without any immediate complications. ESTIMATED BLOOD LOSS: Minimal COMPLICATIONS: No apparent complications. Rom Parnell MD Apr 28, 2016 17:33
[2016-04-28 18:16] LABS: LIPASE-PERITONEAL FLUID 179 U/L
--- NOTE | 2016-04-28 19:46 | HHI.PR ---
Subjective Remarks 65 YOWF with COPD, Cirhosis, renal failure, VDRF On PCV, Fi02 100%, PEEP 15 Sedated with Fentanyl No fever Had episode of desaturation Started on Nimbex Had a dose of Bumex, started diureasing. Objective Vital Signs Vital Signs Date Time Temp Pulse Resp B/P Pulse Ox O2 Delivery O2 Flow Rate FiO2 04/28/16 18:00 74 04/28/16 16:00 74 04/28/16 16:00 100 04/28/16 14:00 82 04/28/16 12:39 100 30 04/28/16 12:00 80 04/28/16 12:00 87 04/28/16 10:00 80 04/28/16 09:04 93 90 04/28/16 08:00 98.1 82 19 109/54 90 04/28/16 08:00 70 04/28/16 08:00 82 04/28/16 06:00 88 04/28/16 04:18 94 80 04/28/16 04:00 97.5 85 18 123/58 100 04/28/16 04:00 100 04/28/16 04:00 60 04/28/16 02:00 98 04/28/16 01:28 93 90 04/28/16 00:00 98 04/28/16 00:00 97.6 92 18 128/59 96 121/55 04/28/16 00:00 60 04/27/16 22:20 90 04/27/16 22:06 100 90 04/27/16 22:00 95 04/27/16 20:30 100 04/27/16 20:00 60 04/27/16 20:00 97.8 89 19 118/64 94 04/27/16 20:00 89 I/O 04/27/16 04/27/16 04/27/16 04/28/16 04/28/16 04/28/16 06:59 14:59 22:59 06:59 14:59 22:59 Intake Total 1629 ml 1772 ml 1537 ml 1811 ml 1294 ml Output Total 250 ml 250 ml 500 ml 530 ml 600 ml 2300 ml Balance 1379 ml 1522 ml 1037 ml 1281 ml 694 ml -2300 ml IV Total 1529 ml 1772 ml 1437 ml 1711 ml 1199 ml Tube Feeding 35 ml Albumin 100 ml 100 ml 100 ml Tube Irrigant 60 ml Output Urine Total 250 ml 250 ml 500 ml 530 ml 600 ml Gastric Drainage Total 0 ml 0 ml 0 ml 0 ml Drainage Total 2300 ml # Bowel Movements 0 0 0 0 1 Result Diagram: 04/28/1651804/28/16518 Objective Remarks GENERAL: MBMN WF on Vent, sedated SKIN: Warm and dry. HEAD: Normocephalic. EYES: No scleral icterus. No injection or drainage. NECK: Supple, trachea midline. No JVD or lymphadenopathy. CARDIOVASCULAR: Regular rate and rhythm without murmurs, gallops, or rubs. RESPIRATORY: Breath sounds equal bilaterally. No accessory muscle use. GASTROINTESTINAL: Abdomen soft, non-tender, nondistended. MUSCULOSKELETAL: No cyanosis, or edema. BACK: Nontender without obvious deformity. No CVA tenderness. A/P Assessment and Plan VDRF Metabolic acidosis improved Renal insuff COPD Cirrhosis of liver PLAN: Vent support with PCV, Fi02 100% Abx Cefepime and Zithro Bicarb drip On Nimbex Off Pressors Fentanyl for sedation. Uli Ramos MD Apr 28, 2016 19:46
[2016-04-28 22:16] LABS: PERITONEAL HISTIOCYTES 19 %; PERITONEAL LYMPHS 52 %; PERITONEAL MESOTHELIAL 7 %; PERITONEAL POLYS(SEGS) 22 %; PERITONEAL WBC 24 /MM3 (0-10)
[2016-04-28 22:37] LABS: ALKALINE PHOSPHATASE 89 U/L (45-117); ALT (GPT) 33 U/L (10-53); ANION GAP 9 MEQ/L (5-15); AST (GOT) 38 U/L (15-37); BLOOD UREA NITROGEN 49 MG/DL (7-18); CHLORIDE 106 MEQ/L (98-107); GLOMERULAR FILTRATION RATE 30 ML/MIN (>89); POTASSIUM 3.2 MEQ/L (3.5-5.1); SODIUM (NA) 150 MEQ/L (136-145)
[2016-04-29] VITALS (17 sets, daily range): BP systolic 104–142; BP diastolic 54–62; PULSE 68–89; RESP 14–18; TEMP 97.5–98.8; O2SAT 97–100
[2016-04-29] MEDS: POTASSIUM CHLOR 40 MEQ PREMIX 100 ML IV SCH ×2 (01:01→04:16)
[2016-04-29] MEDS: RESP: ALBUTEROL 2.5 MG/IPRATROPIUM 0.5 MG NEB (SCH) INH (01:12)
[2016-04-29] MEDS: HEPARIN SODIUM - SQ 10,000 UNITS/ML VIAL SQ SCH ×2 (03:05→14:54)
[2016-04-29] MEDS: ALBUMIN HUMAN 25% 25 GM/100 ML BAGP IV SCH ×2 (03:05→16:48)
[2016-04-29] MEDS: CHLORHEXIDINE GLUCONATE 2 % 1 PACK (2 CLOTHS) TOP SCH (03:06)
[2016-04-29 03:41] LABS: AUTOMATED NEUTROPHIL # 15.6 TH/MM3 (1.8-7.7); BASOPHIL # 0.1 TH/MM3 (0-0.2); BASOPHIL % 0.8 % (0.0-2.0); EOSINOPHIL % 0.1 % (0.0-4.0); HEMATOCRIT 26.1 % (35.0-46.0); LYMPH % 1.6 % (9.0-44.0); LYMPHOCYTE # 0.3 TH/MM3 (1.0-4.8); MEAN CELL VOLUME 63.9 FL (80.0-100.0); MEAN CORPUSCULAR HEMOGLOBIN 21.2 PG (27.0-34.0); MEAN CORPUSCULAR HGB CONC 33.2 % (32.0-36.0); MONO % 5.3 % (0.0-8.0); NEUT % 92.2 % (16.0-70.0); PLATELET COUNT 194 TH/MM3 (150-450); RED BLOOD COUNT 4.08 MIL/MM3 (4.00-5.30); RED CELL DISTRIBUTION WIDTH 20.7 % (11.6-17.2); WHITE BLOOD COUNT 16.9 TH/MM3 (4.0-11.0)
[2016-04-29 03:51] LABS: HEMO FLAGS AUTO DIFF
[2016-04-29] MEDS: fentaNYL DRIP 250 ML IV SCH ×2 (04:14→14:54)
[2016-04-29] MEDS: PROPOFOL 1000 MG/100 ML INJ 100 ML IV SCH ×4 (04:15→23:48)
[2016-04-29] MEDS: RESP: ALBUTEROL 2.5 MG/IPRATROPIUM 0.5 MG NEB (PRN) INH ×2 (04:50→08:20)
[2016-04-29 04:59] LABS: KERATOCYTES OCC (NORMAL); PLATELET ESTIMATE SMEAR NORMAL (NORMAL); PLATELET MORPHOLOGY NORMAL (NORMAL); SCAN/DIFF AUTO DIFF CONFIRMED
[2016-04-29 05:00] LABS: TARGET CELLS 1+ (NORMAL)
--- NOTE | 2016-04-29 05:47 | RADRPT ---
EXAM DATE/TIME: 04/29/2016 03:57 [facility] COMPARISON: CHEST SINGLE AP, April 28, 2016, 12:42. INDICATIONS : Shortness of breath. MEDICAL HISTORY : Carcinoma, breast. SURGICAL HISTORY : Infusaport. ENCOUNTER: Subsequent ACUITY: 4 - 6 days PAIN SCORE: Non-responsive. LOCATION: Bilateral chest FINDINGS: A single view of the chest demonstrates diffuse bilateral airspace disease, minimally improved in the upper lobes. Heart normal in size. Endotracheal tube, nasogastric tube, left subclavian and right ju gular central line in stable positions.. The cardiomediastinal contours are unremarkable. Osseous st ructures are intact. CONCLUSION: Diffuse pulmonary opacities are slightly improved in the upper lobes otherwise no significant interva l change. Shan Gustafson MD on April 29, 2016 at 5:44 Board Certified Radiologist. This report was verified electronically.
[2016-04-29 06:02] LABS: BLOOD GAS CARBOXYHEMOGLOBIN 1.7 % (0-4); BLOOD GAS HCO3 33 mmol/L (22-26); BLOOD GAS METHEMOGLOBIN 0.8 % (0-2); BLOOD GAS O2 HGB SATURATION 97 % (90-100); BLOOD GAS OXYGEN CONTENT 11.6 Vol % (12.0-20.0); BLOOD GAS PCO2 32 mmHg (38-42); BLOOD GAS PO2 115 mmHg (61-120); BLOOD GAS TOTAL HGB 8.4 G/DL (12.0-16.0); TEMP CORR TO 98.6
[2016-04-29 06:04] LABS: OXYGEN DEVICE VENTILATOR
[2016-04-29 06:06] LABS: FIO2 40 %; VENT SETTINGS PC AC
[2016-04-29 06:07] LABS: CRITICAL VALUE YES; DRAW SITE ART LINE; STAT NO
[2016-04-29] MEDS: CHLORHEXIDINE 0.12% (ORAL KIT) 15 ML CUP MT SCH ×2 (08:00→20:00)
[2016-04-29] MEDS: RESP: ACETYLCYSTEINE 20% 30 ML NEB NEB SCH ×2 (08:20→21:02)
[2016-04-29 08:31] LABS: BICARBONATE 35.1 MEQ/L (21.0-32.0); MAGNESIUM 1.5 MG/DL (1.5-2.5); POTASSIUM 4.7 MEQ/L (3.5-5.1)
[2016-04-29] MEDS: LACTULOSE SYRUP 20 GM/30 ML CUP PO SCH ×4 (09:18→20:16)
[2016-04-29] MEDS: BUMETANIDE INJ 1 MG/4 ML VIAL IV PUSH SCH (09:18)
[2016-04-29] MEDS: SODIUM CHLORIDE 0.9% FLUSH 5 ML FLUSH IV FLUSH SCH ×2 (09:18→20:17)
[2016-04-29] MEDS: FOLIC ACID 1 MG TAB PO SCH (09:18)
[2016-04-29] MEDS: AZITHROMYCIN INJ 500 MG in SODIUM CHLOR 0.9% 250 ML INJ 250 ML IV SCH (09:19)
[2016-04-29] MEDS: DOCUSATE SODIUM 100 MG CAP PO SCH ×2 (09:19→20:16)
[2016-04-29] MEDS: methylPREDNISolone SOD SUCC 125 MG/2 ML VIAL IV PUSH SCH ×2 (09:19→20:16)
[2016-04-29] MEDS: CISATRACURIUM INJ 100 MG in SODIUM CHLOR 0.9% 250 ML INJ 240 ML IV SCH ×2 (10:02→16:50)
[2016-04-29] MEDS: PANTOPRAZOLE SODIUM 40 MG VIAL IV PUSH SCH (10:11)
[2016-04-29] MEDS: MAGNESIUM SULFATE 1 GM PREMIX 100 ML IV SCH ×2 (10:13→11:07)
[2016-04-29] MEDS ORDERED: SODIUM PHOSPHATE INJ 30 MMOL in SODIUM CHLOR 0.9% 250 ML INJ 250 ML IV ONE (11:00)
--- NOTE | 2016-04-29 14:47 | HHI.NPPN ---
Subjective Renal Failure: Acute History of Present Illness 65 Year old female with breast cancer, Respiratory failure, cirrhosis Objective Data Data 04/28/16 04/29/16 19:00 07:00 Intake Total 1294 ml 1587 ml Output Total 2900 ml 3002 ml Balance -1606 ml -1415 ml Intake Oral 0 ml IV Total 1199 ml 1486 ml Tube Feeding 35 ml 101 ml Tube Irrigant 60 ml Output Urine Total 600 ml 3000 ml Stool Total 2 ml Gastric Drainage Total 0 ml Drainage Total 2300 ml # Bowel Movements 1 Vital Signs Date Time Temp Pulse Resp B/P Pulse Ox O2 Delivery O2 Flow Rate FiO2 04/29/16 12:00 75 04/29/16 12:00 97.6 75 14 115/60 100 04/29/16 11:48 98 40 04/29/16 08:13 100 40 04/29/16 08:00 97.5 74 14 124/57 100 Automatic Cuff 04/29/16 08:00 40 04/29/16 08:00 74 04/29/16 06:24 100 40 04/29/16 06:00 40 04/29/16 06:00 70 04/29/16 04:50 100 40 04/29/16 04:00 40 04/29/16 04:00 68 04/29/16 04:00 97.5 68 18 126/54 100 04/29/16 02:00 71 04/29/16 01:12 100 50 04/29/16 00:00 97.8 69 18 142/62 100 04/29/16 00:00 60 04/29/16 00:00 69 04/28/16 22:00 79 04/28/16 20:42 100 60 04/28/16 20:00 74 04/28/16 20:00 97.6 74 18 122/61 100 122/46 04/28/16 20:00 60 04/28/16 18:00 74 04/28/16 16:00 74 04/28/16 16:00 100 -: 04/29/16 0327 04/29/16 0738 Microbiology 04/28/16 Gram Stain - Final, Resulted 04/28/16 Body Fluid Culture - Preliminary, Resulted NO GROWTH IN 24 HOURS. Physical Exam General Appearance: Well Developed Neck Neck Exam: Neck Supple Pulmonary Resp Exam: Decreased Bases Cardiology CV Exam: Tachycardia Gastrointestinal/Abdomen GI Exam: Soft, Distended Extremeties Extremities Exam: Moderate Edema Assessment/Plan Problem List: (1) HOME (acute kidney injury) Plan: Patient ARF persists although creatinine declined 1.52 continue with Bumex as UOP did improved after this cr declined paracentesis done 2.3 L removed Na 149 decrease Bumex to once daily (2) Severe sepsis Plan: Due to possible pneumonia (3) Acute respiratory failure with hypoxia Plan: On ventilator Marilee Bazan MD Apr 29, 2016 14:46
[2016-04-29] MEDS ORDERED: RESP: ALBUTEROL 2.5 MG/IPRATROPIUM 0.5 MG NEB (PRN) NEB (15:45)
--- NOTE | 2016-04-29 16:03 | HHI.CCPN ---
Subjective Remarks/Hospital Course 65 year old female with history of alcohol abuse, history of breast cancer status post lumpectomy radiation and chemotherapy presents with progressively worsening shortness of breath. EMS was called because she was short of breath at home, and was found to have pals oxygen at 70%. Patient is on a BiPAP, seems to be comfortable in no distress. She is able to follow commands in all 4 extremities. Her history is limited secondary to FM BiPAP. 04/26 The patient acutely had respiratory decompensation yesterday afternoon. Discussion with family, sister power of defense attorney regarding intubation in patient 's current respiratory status, family requesting intubation. She required intubation, central line placement and an arterial line placement to monitor oxygenation levels. The patient became hypoxic and hypotensive requiring vasopressor support. Currently the patient is on levophed infusion at 5 mcgs. 04/27 Afebrile. The patient continues on mechanical ventilation, overnight FiO2 requirements were increased, currently attempting to wean back to 55%. Sodium bicarbonate infusion at 150 cc/hour. Ammonia level slightly increased, lactulose dosage increased. Pulmonology consulted. The patient's last therapeutic paracentesis was 02/21/16, WBC count elevated, patient is currently on Zosyn and azithromycin, will begin coverage for spontaneous bacterial peritonitis. 04/28 Tmax 98.6 Overnight patient required increasing oxygen requirements, currently FiO2 0.75, vasopressor Levophed has been off since 2 AM. Yesterday the patient had one episode of sinus tach heart rate in the 150s received metoprolol 2.5 mg with resolution. The patient has been maintained on a sodium bicarbonate drip which was discontinued this a.m.. GI was consulted the patient was planned to go to IR for diagnostic and therapeutic paracentesis this a.m., currently on hold secondary to respiratory compromise. Planned for later this afternoon, if respiratory status stabilizes. 04/29: Currently afebrile. Patient was placed on Nimbex drip yesterday secondary to multiple Desaturations the 60s with any movement. Unable to properly sedate for vent synchrony. Flolan was initiated in this is currently being weaned down today. Repeat ABG after ventilator setting adjustments currently pending. Objective Vital Signs Date Time Temp Pulse Resp B/P Pulse Ox O2 Delivery O2 Flow Rate FiO2 04/29/16 15:31 97 50 04/29/16 12:00 75 04/29/16 12:00 97.6 14 115/60 04/25/16 12:16 Simple Mask 12.00 Intake and Output 04/28/16 04/28/16 04/28/16 07:59 15:59 23:59 Intake Total 1811 ml 1294 ml 874 ml Output Total 530 ml 600 ml 4301 ml Balance 1281 ml 694 ml -3427 ml Result Diagram: 04/29/16 0327 04/29/16 0738 Other Results Microbiology Date/Time Procedure Status Source Growth 04/28/16 17:00 Gram Stain - Final Resulted Fluid Peritoneal Fluid 04/28/16 17:00 Body Fluid Culture - Preliminary Resulted Fluid Peritoneal Fluid NO GROWTH IN 24 HOURS. 04/25/16 16:55 Legionella Antigen - Final Complete Urine Catheterized Urine PRESUMPTIVE NEGATIVE FOR LEGIONELLA P... 04/25/16 16:55 Streptococcus pneumoniae Antigen (M - Final Complete Urine Catheterized Urine PRESUMPTIVE NEGATIVE FOR STREPTOCOCCU... 04/24/16 23:15 Aerobic Blood Culture - Final Complete Blood Peripheral NO GROWTH IN 5 DAYS 04/24/16 23:15 Anaerobic Blood Culture - Final Complete Blood Peripheral NO GROWTH IN 5 DAYS Imaging Last Impressions Chest X-Ray 04/29/16 0600 Signed Impressions: Service Date/Time: Friday, April 29, 2016 03:57 - CONCLUSION: Diffuse pulmonary opacities are slightly improved in the upper lobes otherwise no significant interval change. Shan Gustafson MD Renal Ultrasound 04/27/16 0000 Signed Impressions: Service Date/Time: March 10:35 - CONCLUSION: 1. Both kidneys are small in size. 2. No hydronephrosis. 3. There is some ascites in the abdomen. Aureliano Rayo MD Objective Remarks GENERAL: 62-year-old female, critically ill currently orotracheally intubated and paralyzed SKIN: Warm and dry. No rash HEAD: Normocephalic. EYES: No scleral icterus. No injection or drainage. NECK: Supple, trachea midline. No JVD or lymphadenopathy. Orotracheally intubated, OGT in situ, CARDIOVASCULAR: Regular rate and rhythm S1, S2. No S4. Currently without murmurs, gallops, or rubs. RESPIRATORY: Breath sounds equal bilaterally. Coarse breath sounds. Positive inspiratory and expiratory wheezing appreciated GASTROINTESTINAL: Abdomen soft, non-tender, less distention noted this a.m after paracentesis., umbilical hernia noted MUSCULOSKELETAL: No cyanosis, 1+ pitting edema noted bilateral extremities BACK: Nontender without obvious deformity. No CVA tenderness. Urinary Catheter: Yes Assessment to: Continue Schultz insert reason: ICU Pt Getting Diuretics Date of Insertion: Apr 25, 2016 Vascular Central Line Catheter: Yes Assessment to: Continue Date of Insertion: Apr 25, 2016 Side: Right Location: Internal, Jugular A/P Problem List: (1) Acute respiratory failure with hypoxia ICD Code: J96.01 Status: Acute (2) Tobacco use disorder ICD Code: F17.200 Status: Acute (3) HOME (acute kidney injury) ICD Code: N17.9 Status: Acute Assessment and Plan Respiratory Acute Hypoxic Respiratory failure COPD exacerbation Tobacco abuse Pulmonary fibrosis S/P radiation therapy-breast cancer - Pulmonology on board- follow-up recommendations - Continue methylprednisolone 60 every 12 - DuoNeb's scheduled every 4hr, every 2hr PRN -Intubated 04/26 14//550/1.2/ -04/29 CXR worsening Noted placed on paralytics secondary ventilator asynchrony/diffuse hypoxemia requiring manual bagging 4. Unable to properly sedated. Will reassess for discontinued Nimbex in a.m. Neuro: Alcoholism H/O seizure Hepatic encephalopathy Anxiety disorder Hyperammonemia -GCS 3T, remains on sedation for ventilator synchrony currently fentanyl 200 mcgs/hour, propofol at 40 mcg/kg per minute and Nimbex drip at 8 mcg/kg/min - monitor for withdrawal- Ativan PRN -Lactulose to QID, monitor ammonia level Cardiovascular: Hypotension -Maintain MAP greater than 65mmHg -Normotensive -Levophed on for about 20 minutes today. Currently off Renal/FEN HOME Hypernatremia Hypophosphatemia Hypo-magnesium -Initially volume depletion 04/25 -NaHCO3 discontinued - Albumin 25 g every 12 hours -Renal on [id number] recommendations -FENA 2.03 -Creatinine improved 1.52 today - Monitor BMP - strict I&O - Bumex 1 mg IV twice a day switch to 1 mg IV daily per Dr. Bazan - 2 grams mag sulfate and 15 mmol sodium phosphorus. Noted potassium 4.7. Recheck in a.m. GI Moderate protein calorie malnutrition Ascites -Begin tubefeeds-Suplena 35 cc/hour per nutrition's recommendations -Patient's last therapeutic paracentesis 02/21/2016, bedside US assessment of ascites approximated minimal - moderate,not significant amount for bedside paracentesis -GI on [id number] recommendations -Albumin level 3.0 - Bowel regimen -Abdomen mildly distended, plan for IR, for diagnostic/therapeutic paracentesis today Removal of 2.3 L. Clear yellow. 24 WBCs -Monitor hepatic panel -Hepatitis panel-negative, previous old records, one entry reveals diagnosis of hepatitis C Noted status post ID: Pneumonia? Leukocytosis -Monitor CBC. WBC improved 22->15 today - 04/25 urine Legionella, streptococcal antigen negative -04/25 Sputum -No growth -Empiric antibiotics-azithromycin, Zosyn (day 5) -F/U cultures No signs of peritonitis on paracentesis Heme Microcytic anemia - status post lumpectomy radiation and chemotherapy - now in remission- left SC port (nonfunctional) per old records - supportive care - Follow-up CBC in a.m. History of breast cancer - status post lumpectomy radiation and chemotherapy - now in remission - supportive care -MSK -PT evaluate and treat-functional maintenance DVT/GI prophylaxis - Heparin SubQ/Protonix Critical Care: The total critical care time was 35 minutes. Time to perform other separately billable procedures was not included in the critical care time. Rom Parnell MD Apr 29, 2016 16:03
--- NOTE | 2016-04-29 16:18 | HHI.PR ---
Subjective Remarks 65 YOWF with COPD, Cirhosis, renal failure, VDRF On PCV, Fi02 Decreased to 50%, PEEP 15 Sedated with Fentanyl,Diprivan No fever Had episode of desaturation on Nimbex On low dose Levophed Objective Vital Signs Vital Signs Date Time Temp Pulse Resp B/P Pulse Ox O2 Delivery O2 Flow Rate FiO2 04/29/16 15:31 97 50 04/29/16 12:00 75 04/29/16 12:00 97.6 75 14 115/60 100 04/29/16 11:48 98 40 04/29/16 08:13 100 40 04/29/16 08:00 97.5 74 14 124/57 100 Automatic Cuff 04/29/16 08:00 40 04/29/16 08:00 74 04/29/16 06:24 100 40 04/29/16 06:00 40 04/29/16 06:00 70 04/29/16 04:50 100 40 04/29/16 04:00 40 04/29/16 04:00 68 04/29/16 04:00 97.5 68 18 126/54 100 04/29/16 02:00 71 04/29/16 01:12 100 50 04/29/16 00:00 97.8 69 18 142/62 100 04/29/16 00:00 60 04/29/16 00:00 69 04/28/16 22:00 79 04/28/16 20:42 100 60 04/28/16 20:00 74 04/28/16 20:00 97.6 74 18 122/61 100 122/46 04/28/16 20:00 60 04/28/16 18:00 74 I/O 04/28/16 04/28/16 04/28/16 04/29/16 04/29/16 04/29/16 07:00 15:00 23:00 07:00 15:00 23:00 Intake Total 1811 ml 1294 ml 874 ml 713 ml 1279 ml Output Total 530 ml 600 ml 4301 ml 1001 ml 940.0 ml Balance 1281 ml 694 ml -3427 ml -288 ml 339.0 ml Intake Oral 0 ml IV Total 1711 ml 1199 ml 825 ml 661 ml 1145 ml Tube Feeding 35 ml 49 ml 52 ml 134 ml Albumin 100 ml Tube Irrigant 60 ml Output Urine Total 530 ml 600 ml 2000 ml 1000 ml 900 ml Stool Total 1 ml 1 ml Gastric Drainage Total 0 ml 0 ml Tube Feeding Residual Discard 40.0 ml Drainage Total 2300 ml # Bowel Movements 0 1 1 Result Diagram: 04/29/16 0327 04/29/16 0738 Objective Remarks GENERAL: MBMN WF on Vent, sedated SKIN: Warm and dry. HEAD: Normocephalic. EYES: No scleral icterus. No injection or drainage. NECK: Supple, trachea midline. No JVD or lymphadenopathy. CARDIOVASCULAR: Regular rate and rhythm without murmurs, gallops, or rubs. RESPIRATORY: Breath sounds equal bilaterally. No accessory muscle use. GASTROINTESTINAL: Abdomen soft, non-tender, nondistended. MUSCULOSKELETAL: No cyanosis, or edema. BACK: Nontender without obvious deformity. No CVA tenderness. A/P Assessment and Plan VDRF Metabolic acidosis improved Renal insuff COPD Cirrhosis of liver PLAN: Vent support with PCV, Fi02 100% Abx Cefepime and Zithro Bicarb drip On Nimbex Levophed to keep MAP >65 Fentanyl , Diprivan for sedation. Uli Ramos MD Apr 29, 2016 16:18
[2016-04-29 17:06] LABS: BLOOD GAS BASE EXCESS 6.3 mmol/L (-2-2); BLOOD GAS CARBOXYHEMOGLOBIN 1.6 % (0-4); BLOOD GAS HCO3 31 mmol/L (22-26); BLOOD GAS METHEMOGLOBIN 0.9 % (0-2); BLOOD GAS O2 HGB SATURATION 96 % (90-100); BLOOD GAS OXYGEN CONTENT 12.8 Vol % (12.0-20.0); BLOOD GAS PCO2 48 mmHg (38-42); BLOOD GAS PO2 123 mmHg (61-120); BLOOD GAS TOTAL HGB 9.3 G/DL (12.0-16.0); CRITICAL VALUE NO; TEMP CORR TO 98.6
[2016-04-29 17:08] LABS: DRAW SITE ALINE; FIO2 50 %; STAT NO; VENT SETTINGS PC/AC/14/25IP/1.2IT/
[2016-04-29] MEDS: NOREPINEPHRINE-DEXTROSE DRIP 250 ML IV SCH ×2 (17:13→23:48)
[2016-04-29] MEDS: RESP: ALBUTEROL 2.5 MG/IPRATROPIUM 0.5 MG NEB (SCH) NEB (21:02)
[2016-04-29] MEDS: CEFEPIME INJ 1,000 MG in SODIUM CHLORIDE 0.9% INJ 100 ML IV SCH (23:48)
[2016-04-30] VITALS (18 sets, daily range): BP systolic 85–135; BP diastolic 42–62; PULSE 78–103; RESP 14–17; TEMP 98.2–100; O2SAT 92–99
[2016-04-30] MEDS: RESP: ALBUTEROL 2.5 MG/IPRATROPIUM 0.5 MG NEB (SCH) NEB ×7 (01:57→23:50)
[2016-04-30] MEDS: HEPARIN SODIUM - SQ 10,000 UNITS/ML VIAL SQ SCH ×2 (03:14→15:14)
[2016-04-30] MEDS: ALBUMIN HUMAN 25% 25 GM/100 ML BAGP IV SCH (03:14)
[2016-04-30] MEDS: CHLORHEXIDINE GLUCONATE 2 % 1 PACK (2 CLOTHS) TOP SCH (03:15)
[2016-04-30] MEDS: PROPOFOL 1000 MG/100 ML INJ 100 ML IV SCH ×3 (04:23→21:43)
[2016-04-30] MEDS: fentaNYL DRIP 250 ML IV SCH ×2 (04:23→21:43)
[2016-04-30 04:36] LABS: AUTOMATED NEUTROPHIL # 23.2 TH/MM3 (1.8-7.7); BASOPHIL % 0.1 % (0.0-2.0); EOSINOPHIL % 0.1 % (0.0-4.0); HEMATOCRIT 27.4 % (35.0-46.0); LYMPH % 2.4 % (9.0-44.0); LYMPHOCYTE # 0.6 TH/MM3 (1.0-4.8); MEAN CELL VOLUME 65.4 FL (80.0-100.0); MEAN CORPUSCULAR HEMOGLOBIN 20.5 PG (27.0-34.0); MEAN CORPUSCULAR HGB CONC 31.4 % (32.0-36.0); MONO % 4.4 % (0.0-8.0); PLATELET COUNT 251 TH/MM3 (150-450); RED BLOOD COUNT 4.19 MIL/MM3 (4.00-5.30); RED CELL DISTRIBUTION WIDTH 21.3 % (11.6-17.2)
[2016-04-30 05:00] LABS: BICARBONATE 31.6 MEQ/L (21.0-32.0); MAGNESIUM 2.3 MG/DL (1.5-2.5); POTASSIUM 4.7 MEQ/L (3.5-5.1)
--- NOTE | 2016-04-30 05:13 | RADRPT ---
EXAM DATE/TIME: 04/30/2016 03:29 [facility] COMPARISON: CHEST SINGLE AP, April 29, 2016, 3:57. CHEST SINGLE AP, April 28, 2016, 12:42. CHEST SINGLE A P, April 28, 2016, 5:03. INDICATIONS : Shortness of breath. MEDICAL HISTORY : Carcinoma, breast. SURGICAL HISTORY : Infusaport. ENCOUNTER: Subsequent ACUITY: 1 week PAIN SCORE: Non-responsive. LOCATION: Bilateral chest FINDINGS: A single view of the chest demonstrates the right IJ central line, nasogastric tube, endotracheal tub e and left clavian [id number] are in good position. Diffuse interstitial prominence throughout the lungs is unchanged. The cardiomediastinal contours are unremarkable. Osseous structures are intact . CONCLUSION: Prominent interstitial markings throughout the lungs. Unchanged tubes and catheters are in good posi tion. Stephon Adan MD on April 30, 2016 at 5:10 Board Certified Radiologist. This report was verified electronically.
[2016-04-30 05:34] LABS: HEMO FLAGS AUTO DIFF
[2016-04-30] MEDS: CISATRACURIUM INJ 100 MG in SODIUM CHLOR 0.9% 250 ML INJ 240 ML IV SCH ×2 (05:38→17:18)
[2016-04-30 07:21] LABS: BLOOD GAS BASE EXCESS 5.6 mmol/L (-2-2); BLOOD GAS CARBOXYHEMOGLOBIN 1.6 % (0-4); BLOOD GAS HCO3 30 mmol/L (22-26); BLOOD GAS O2 HGB SATURATION 97 % (90-100); BLOOD GAS OXYGEN CONTENT 11.5 Vol % (12.0-20.0); BLOOD GAS PCO2 47 mmHg (38-42); BLOOD GAS PO2 148 mmHg (61-120); BLOOD GAS TOTAL HGB 8.3 G/DL (12.0-16.0); CRITICAL VALUE NO; OXYGEN DEVICE VENTILATOR; TEMP CORR TO 98.6
[2016-04-30 07:22] LABS: FIO2 50 %; VENT SETTINGS PCAC/14/IP25/IT1.20
[2016-04-30 07:23] LABS: DRAW SITE ART LINE; STAT NO
[2016-04-30] MEDS: RESP: ACETYLCYSTEINE 20% 30 ML NEB NEB SCH (08:42)
[2016-04-30] MEDS: CHLORHEXIDINE 0.12% (ORAL KIT) 15 ML CUP MT SCH ×2 (08:46→21:42)
[2016-04-30] MEDS: AZITHROMYCIN INJ 500 MG in SODIUM CHLOR 0.9% 250 ML INJ 250 ML IV SCH (08:46)
[2016-04-30] MEDS: BUMETANIDE INJ 1 MG/4 ML VIAL IV PUSH SCH (08:46)
[2016-04-30] MEDS: SODIUM CHLORIDE 0.9% FLUSH 5 ML FLUSH IV FLUSH SCH ×2 (08:46→21:42)
[2016-04-30] MEDS: methylPREDNISolone SOD SUCC 125 MG/2 ML VIAL IV PUSH SCH ×2 (08:47→21:42)
[2016-04-30] MEDS: FOLIC ACID 1 MG TAB PO SCH (08:47)
[2016-04-30] MEDS: DOCUSATE SODIUM 100 MG CAP PO SCH ×2 (08:47→21:42)
[2016-04-30] MEDS: LACTULOSE SYRUP 20 GM/30 ML CUP PO SCH ×4 (08:47→21:43)
[2016-04-30] MEDS: CEFEPIME 2000 MG/NS 100 ML IV SCH ×4 (10:45→23:35)
[2016-04-30] MEDS: PANTOPRAZOLE SODIUM 40 MG VIAL IV PUSH SCH (11:18)
[2016-04-30 11:25] LABS: OVALOCYTES 1+ (NORMAL); SCAN/DIFF AUTO DIFF CONFIRMED; TEARDROP RBCS 1+ (NORMAL)
--- NOTE | 2016-04-30 14:09 | HHI.PR ---
Subjective Remarks 65 YOWF with COPD, Cirhosis, renal failure, VDRF On PCV, Fi02 Decreased to 40%, PEEP 15 Sedated with Fentanyl,Diprivan No fever Had episode of desaturation on Nimbex Still requiring low dose Levophed Objective Vital Signs Vital Signs Date Time Temp Pulse Resp B/P Pulse Ox O2 Delivery O2 Flow Rate FiO2 04/30/16 12:00 87 04/30/16 12:00 98.2 87 14 110/62 98 04/30/16 12:00 50 04/30/16 10:00 85 04/30/16 08:44 99 50 04/30/16 08:00 78 04/30/16 08:00 50 04/30/16 08:00 98.4 78 14 135/62 99 04/30/16 06:00 79 04/30/16 04:00 50 04/30/16 04:00 98.6 90 14 121/54 97 118/55 04/30/16 04:00 90 04/30/16 03:44 97 50 04/30/16 02:00 81 04/30/16 01:53 97 50 04/30/16 00:00 85 04/30/16 00:00 50 04/30/16 00:00 98.4 85 14 85/42 95 04/29/16 22:33 98 50 04/29/16 22:00 85 04/29/16 21:03 98 50 04/29/16 20:00 89 04/29/16 20:00 98.3 89 14 104/56 97 124/58 04/29/16 20:00 50 04/29/16 16:00 82 04/29/16 16:00 98.8 82 14 113/56 97 04/29/16 15:31 97 50 04/29/16 15:18 50 I/O 04/29/16 04/29/16 04/29/16 04/30/16 04/30/16 04/30/16 07:00 15:00 23:00 07:00 15:00 23:00 Intake Total 713 ml 1279 ml 1296 ml 936 ml Output Total 1001 ml 940.0 ml 690.0 ml 265 ml Balance -288 ml 339.0 ml 606.0 ml 671 ml IV Total 661 ml 1145 ml 912 ml 654 ml Tube Feeding 52 ml 134 ml 284 ml 182 ml Albumin 100 ml 100 ml Output Urine Total 1000 ml 900 ml 550 ml 265 ml Stool Total 1 ml Gastric Drainage Total 0 ml Tube Feeding Residual Discard 40.0 ml 140.0 ml 0 ml # Bowel Movements 1 0 1 Result Diagram: 04/30/1640904/30/16409 Objective Remarks GENERAL: MBMN WF on Vent, sedated SKIN: Warm and dry. HEAD: Normocephalic. EYES: No scleral icterus. No injection or drainage. NECK: Supple, trachea midline. No JVD or lymphadenopathy. CARDIOVASCULAR: Regular rate and rhythm without murmurs, gallops, or rubs. RESPIRATORY: Breath sounds equal bilaterally. No accessory muscle use. GASTROINTESTINAL: Abdomen soft, non-tender, nondistended. MUSCULOSKELETAL: No cyanosis, or edema. BACK: Nontender without obvious deformity. No CVA tenderness. A/P Assessment and Plan VDRF Metabolic acidosis improved Renal insuff COPD Cirrhosis of liver PLAN: Vent support with PCV, Fi02 100% Abx Cefepime and Zithro On Nimbex Levophed to keep MAP >65 Fentanyl , Diprivan for sedation. Monitor Uli Cantu MD Apr 30, 2016 14:09
--- NOTE | 2016-04-30 14:56 | HHI.NPPN ---
Subjective Renal Failure: Acute History of Present Illness 65 Year old female with breast cancer, Respiratory failure, cirrhosis Objective Data Data 04/29/16 04/30/16 19:00 07:00 Intake Total 1379 ml 2132 ml Output Total 1080.0 ml 815.0 ml Balance 299.0 ml 1317.0 ml IV Total 1145 ml 1566 ml Tube Feeding 134 ml 466 ml Albumin 100 ml 100 ml Output Urine Total 900 ml 815 ml Gastric Drainage Total 0 ml Tube Feeding Residual Discard 180.0 ml 0 ml # Bowel Movements 1 1 Vital Signs Date Time Temp Pulse Resp B/P Pulse Ox O2 Delivery O2 Flow Rate FiO2 04/30/16 14:00 93 04/30/16 12:00 87 04/30/16 12:00 98.2 87 14 110/62 98 04/30/16 12:00 50 04/30/16 10:00 85 04/30/16 08:44 99 50 04/30/16 08:00 78 04/30/16 08:00 50 04/30/16 08:00 98.4 78 14 135/62 99 04/30/16 06:00 79 04/30/16 04:00 50 04/30/16 04:00 98.6 90 14 121/54 97 118/55 04/30/16 04:00 90 04/30/16 03:44 97 50 04/30/16 02:00 81 04/30/16 01:53 97 50 04/30/16 00:00 85 04/30/16 00:00 50 04/30/16 00:00 98.4 85 14 85/42 95 04/29/16 22:33 98 50 04/29/16 22:00 85 04/29/16 21:03 98 50 04/29/16 20:00 89 04/29/16 20:00 98.3 89 14 104/56 97 124/58 04/29/16 20:00 50 04/29/16 16:00 82 04/29/16 16:00 98.8 82 14 113/56 97 04/29/16 15:31 97 50 04/29/16 15:18 50 -: 04/30/16 0410 04/30/16 0410 Physical Exam General Appearance: Well Developed Neck Neck Exam: Neck Supple Pulmonary Resp Exam: Decreased Bases Cardiology CV Exam: Tachycardia Gastrointestinal/Abdomen GI Exam: Soft, Distended Extremeties Extremities Exam: Moderate Edema Assessment/Plan Problem List: (1) HOME (acute kidney injury) Plan: Patient ARF is nonoliguric and responding to diuretic creatinine 1.61 continue with Bumex 1 mg daily Stop albumin Phosphorus was replaced yesterday (2) Severe sepsis Plan: Due to possible pneumonia (3) Acute respiratory failure with hypoxia Plan: On ventilator Marilee Bazan MD Apr 30, 2016 14:56
--- NOTE | 2016-04-30 17:01 | HHI.CCPN ---
Subjective Remarks/Hospital Course 65 year old female with history of alcohol abuse, history of breast cancer status post lumpectomy radiation and chemotherapy presents with progressively worsening shortness of breath. EMS was called because she was short of breath at home, and was found to have pals oxygen at 70%. Patient is on a BiPAP, seems to be comfortable in no distress. She is able to follow commands in all 4 extremities. Her history is limited secondary to FM BiPAP. 04/26 The patient acutely had respiratory decompensation yesterday afternoon. Discussion with family, sister power of transactional attorney regarding intubation in patient 's current respiratory status, family requesting intubation. She required intubation, central line placement and an arterial line placement to monitor oxygenation levels. The patient became hypoxic and hypotensive requiring vasopressor support. Currently the patient is on levophed infusion at 5 mcgs. 04/27 Afebrile. The patient continues on mechanical ventilation, overnight FiO2 requirements were increased, currently attempting to wean back to 55%. Sodium bicarbonate infusion at 150 cc/hour. Ammonia level slightly increased, lactulose dosage increased. Pulmonology consulted. The patient's last therapeutic paracentesis was 02/21/16, WBC count elevated, patient is currently on Zosyn and azithromycin, will begin coverage for spontaneous bacterial peritonitis. 04/28 Tmax 98.6 Overnight patient required increasing oxygen requirements, currently FiO2 0.75, vasopressor Levophed has been off since 2 AM. Yesterday the patient had one episode of sinus tach heart rate in the 150s received metoprolol 2.5 mg with resolution. The patient has been maintained on a sodium bicarbonate drip which was discontinued this a.m.. GI was consulted the patient was planned to go to IR for diagnostic and therapeutic paracentesis this a.m., currently on hold secondary to respiratory compromise. Planned for later this afternoon, if respiratory status stabilizes. 04/29: Currently afebrile. Patient was placed on Nimbex drip yesterday secondary to multiple desaturations the 60s with any movement. Unable to properly sedate for vent synchrony. Flolan was initiated in this is currently being weaned down today. Repeat ABG after ventilator setting adjustments currently pending. 04/30: Flolan discontinued yesterday. Patient continues to be completely on muscle relaxation/paralytic to maintain ventilator synchrony. ABGs improved. Objective Vital Signs Date Time Temp Pulse Resp B/P Pulse Ox O2 Delivery O2 Flow Rate FiO2 04/30/16 16:12 95 40 04/30/16 14:00 93 04/30/16 12:00 98.2 14 110/62 Intake and Output 04/29/16 04/29/16 04/30/16 08:00 16:00 00:00 Intake Total 713 ml 1279 ml 1296 ml Output Total 1001.0 ml 1080.0 ml 550.0 ml Balance -288.0 ml 199.0 ml 746.0 ml Result Diagram: 04/30/16 0410 04/30/16 0410 Other Results Laboratory Tests Test 04/30/16 07:11 Blood Gas Puncture Site ART LINE Blood Gas Patient Temperature 98.6 Blood Gas HCO3 30 mmol/L (22-26) Blood Gas Base Excess 5.6 mmol/L (-2-2) Blood Gas Oxygen Saturation 97 % (90-100) Arterial Blood pH 7.43 (7.380-7.420) Arterial Blood Partial 47 mmHg (38-42) Pressure CO2 Arterial Blood Partial 148 mmHg Pressure O2 (61-120) Arterial Blood Oxygen Content 11.5 Vol % (12.0-20.0) Arterial Blood 1.6 % (0-4) Carboxyhemoglobin Arterial Blood Methemoglobin 1.0 % (0-2) Blood Gas Hemoglobin 8.3 G/DL (12.0-16.0) Oxygen Delivery Device VENTILATOR Blood Gas Ventilator Setting PCAC/14/IP25/IT1.20 Blood Gas Inspired Oxygen 50 % Imaging Last Impressions Chest X-Ray 04/29/16 0600 Signed Impressions: Service Date/Time: Friday, April 29, 2016 03:57 - CONCLUSION: Diffuse pulmonary opacities are slightly improved in the upper lobes otherwise no significant interval change. Shan Gustafson MD Renal Ultrasound 04/27/16 0000 Signed Impressions: Service Date/Time: March 10:35 - CONCLUSION: 1. Both kidneys are small in size. 2. No hydronephrosis. 3. There is some ascites in the abdomen. Aureliano Rayo MD Objective Remarks GENERAL: 62-year-old female, critically ill currently orotracheally intubated and paralyzed SKIN: Warm and dry. No rash HEAD: Normocephalic. EYES: No scleral icterus. No injection or drainage. NECK: Supple, trachea midline. No JVD or lymphadenopathy. Orotracheally intubated, OGT in situ, seating tube feeds CARDIOVASCULAR: Regular rate and rhythm S1, S2. No S4. Currently without murmurs, gallops, or rubs. RESPIRATORY: Breath sounds equal bilaterally. Coarse breath sounds. GASTROINTESTINAL: Abdomen soft, non-tender, less distention noted this a.m after paracentesis., umbilical hernia noted MUSCULOSKELETAL: No cyanosis, 1+ pitting edema noted bilateral extremities BACK: Nontender without obvious deformity. No CVA tenderness. Urinary Catheter: Yes Date of Insertion: Apr 25, 2016 Vascular Central Line Catheter: Yes (vasoactive medication administration) Date of Insertion: Apr 25, 2016 Side: Right Location: Internal, Jugular A/P Problem List: (1) Acute respiratory failure with hypoxia ICD Code: J96.01 Status: Acute (2) Tobacco use disorder ICD Code: F17.200 Status: Acute (3) HOME (acute kidney injury) ICD Code: N17.9 Status: Acute Assessment and Plan Respiratory Acute Hypoxic Respiratory failure COPD exacerbation Tobacco abuse Pulmonary fibrosis S/P radiation therapy-breast cancer - Pulmonology on board- follow-up recommendations - Continue methylprednisolone 60 every 12 - DuoNeb's scheduled every 4hr, every 2hr PRN -Paralytic for ventilator synchrony, will attempt to wean -ABG 7.43/47/148/30/5.6 -Intubated 04/26 14/20/550/1.2/15/50 -04/30 chest x-ray unchanged-fibrosis Noted placed on paralytics secondary ventilator asynchrony/diffuse hypoxemia requiring manual bagging 4. Unable to properly sedated. Will reassess for discontinued Nimbex in a.m. Neuro: Alcoholism H/O seizure Hepatic encephalopathy Anxiety disorder Hyperammonemia -GCS 3T, remains on sedation for ventilator synchrony currently fentanyl 200 mcgs/hour, propofol at 40 mcg/kg per minute and Nimbex drip at 8 mcg/kg/min- will attempt to wean him back - monitor for withdrawal- Ativan PRN -Lactulose to QID, monitor ammonia level Cardiovascular: Hypotension -Maintain MAP greater than 65mmHg -Normotensive -Levophed infusion 2 mcgs. Renal/FEN HOME Hypernatremia Hypophosphatemia Hypo-magnesium -Initially volume depletion 04/25 -NaHCO3 [id number]/30 - Albumin 25 g every 12 hours -Renal on qfqlv-qdkigb-ng recommendations -FENA 2.03 -Creatinine 1.6 - Monitor BMP - strict I&O - Bumex 1 mg IV twice a day switch to 1 mg IV daily per Dr. Bazan . GI Moderate protein calorie malnutrition Ascites -Begin tubefeeds-Suplena 35 cc/hour per nutrition's recommendations -Patient's last therapeutic paracentesis 02/21/2016, bedside US assessment of ascites approximated minimal - moderate,not significant amount for bedside paracentesis -GI on nhtmw-wbajxw-kr recommendations -Albumin level 3.0 - Bowel regimen -Abdomen mildly distended, plan for IR, for diagnostic/therapeutic paracentesis , 04/29 Removal of 2.3 L. Clear yellow. 24 WBCs -Monitor hepatic panel -Hepatitis panel-negative, previous old records, one entry reveals diagnosis of hepatitis C Noted status post ID: Pneumonia? Leukocytosis -Monitor CBC. WBC improved 22->15 today - 04/25 urine Legionella, streptococcal antigen negative -04/25 Sputum -No growth -Empiric antibiotics-azithromycin, Zosyn (day 6) -F/U cultures No signs of peritonitis on paracentesis Heme Microcytic anemia - status post lumpectomy radiation and chemotherapy - now in remission- left SC port (nonfunctional) per old records - supportive care - Follow-up CBC in a.m. History of breast cancer - status post lumpectomy radiation and chemotherapy - now in remission - supportive care -MSK -PT evaluate and treat-functional maintenance DVT/GI prophylaxis - Heparin SubQ/Protonix Critical Care: This patient remains critically ill with one or more organ systems which are or may become a threat to life. I have spent in excess of 43 minutes discontinuously in the care and management of this patient. This time is exclusive of procedures, and includes, but is not limited to, evaluation of the patient, review of the medical record, discussions with family, consultants, nursing staff, or respiratory therapy, and documentation in the medical record. Physician Karmen Martines MD Apr 30, 2016 17:01
[2016-04-30] MEDS: MIDAZOLAM HCL 2 MG/2 ML VIAL IV PRN (21:51)
[2016-04-30] MEDS: LORazepam 2 MG/ML VIAL IV PRN (23:42)
[2016-05-01] VITALS (18 sets, daily range): BP systolic 91–164; BP diastolic 42–79; PULSE 64–88; RESP 14–25; TEMP 97.6–98.5; O2SAT 90–100
[2016-05-01] MEDS: PROPOFOL 1000 MG/100 ML INJ 100 ML IV SCH ×2 (01:53→08:47)
[2016-05-01] MEDS: HEPARIN SODIUM - SQ 10,000 UNITS/ML VIAL SQ SCH ×2 (01:54→13:32)
[2016-05-01] MEDS: LORazepam 2 MG/ML VIAL IV PRN ×4 (03:36→23:25)
[2016-05-01] MEDS: RESP: ALBUTEROL 2.5 MG/IPRATROPIUM 0.5 MG NEB (SCH) NEB ×5 (03:43→19:42)
[2016-05-01] MEDS: CHLORHEXIDINE GLUCONATE 2 % 1 PACK (2 CLOTHS) TOP SCH (04:00)
[2016-05-01 05:34] LABS: BLOOD GAS HCO3 28 mmol/L (22-26); BLOOD GAS O2 HGB SATURATION 95 % (90-100); BLOOD GAS OXYGEN CONTENT 11.2 Vol % (12.0-20.0); BLOOD GAS PCO2 45 mmHg (38-42); BLOOD GAS PO2 110 mmHg (61-120); BLOOD GAS TOTAL HGB 8.2 G/DL (12.0-16.0); CRITICAL VALUE NO; OXYGEN DEVICE VENTILATOR; TEMP CORR TO 98.6
[2016-05-01 05:35] LABS: DRAW SITE ART LINE; FIO2 45 %; STAT NO; VENT SETTINGS PC/AC
[2016-05-01 05:39] LABS: HEMATOCRIT 26.7 % (35.0-46.0); MEAN CELL VOLUME 66.1 FL (80.0-100.0); MEAN CORPUSCULAR HEMOGLOBIN 20.7 PG (27.0-34.0); MEAN CORPUSCULAR HGB CONC 31.2 % (32.0-36.0); PLATELET COUNT 206 TH/MM3 (150-450); RED BLOOD COUNT 4.04 MIL/MM3 (4.00-5.30); RED CELL DISTRIBUTION WIDTH 21.8 % (11.6-17.2); WHITE BLOOD COUNT 21.5 TH/MM3 (4.0-11.0)
[2016-05-01 05:45] LABS: REVIEW FLAG FINAL
[2016-05-01 06:16] LABS: BICARBONATE 31.1 MEQ/L (21.0-32.0); POTASSIUM 4.1 MEQ/L (3.5-5.1)
[2016-05-01] MEDS: SODIUM CHLORIDE 0.9% FLUSH 5 ML FLUSH IV FLUSH SCH ×2 (07:46→21:17)
[2016-05-01] MEDS: methylPREDNISolone SOD SUCC 125 MG/2 ML VIAL IV PUSH SCH ×2 (08:46→21:16)
[2016-05-01] MEDS: AZITHROMYCIN INJ 500 MG in SODIUM CHLOR 0.9% 250 ML INJ 250 ML IV SCH (08:46)
[2016-05-01] MEDS: CHLORHEXIDINE 0.12% (ORAL KIT) 15 ML CUP MT SCH ×2 (08:46→21:17)
[2016-05-01] MEDS: BUMETANIDE INJ 1 MG/4 ML VIAL IV PUSH SCH (08:46)
[2016-05-01] MEDS: LACTULOSE SYRUP 20 GM/30 ML CUP PO SCH ×4 (08:46→21:16)
[2016-05-01] MEDS: FOLIC ACID 1 MG TAB PO SCH (08:47)
[2016-05-01] MEDS: DOCUSATE SODIUM 100 MG CAP PO SCH ×2 (08:47→21:16)
[2016-05-01] MEDS: DEXMEDETOMIDINE INJ 50 ML IV SCH ×8 (09:18→23:26)
[2016-05-01] MEDS ORDERED: METOCLOPRAMIDE HCL 10 MG/2 ML VIAL IM SCH (10:00)
--- NOTE | 2016-05-01 10:01 | HHI.CCPN ---
Subjective Remarks/Hospital Course 65 year old female with history of alcohol abuse, history of breast cancer status post lumpectomy radiation and chemotherapy presents with progressively worsening shortness of breath. EMS was called because she was short of breath at home, and was found to have pals oxygen at 70%. Patient is on a BiPAP, seems to be comfortable in no distress. She is able to follow commands in all 4 extremities. Her history is limited secondary to FM BiPAP. 04/26 The patient acutely had respiratory decompensation yesterday afternoon. Discussion with family, sister power of [place] attorney regarding intubation in patient 's current respiratory status, family requesting intubation. She required intubation, central line placement and an arterial line placement to monitor oxygenation levels. The patient became hypoxic and hypotensive requiring vasopressor support. Currently the patient is on levophed infusion at 5 mcgs. 04/27 Afebrile. The patient continues on mechanical ventilation, overnight FiO2 requirements were increased, currently attempting to wean back to 55%. Sodium bicarbonate infusion at 150 cc/hour. Ammonia level slightly increased, lactulose dosage increased. Pulmonology consulted. The patient's last therapeutic paracentesis was 02/21/16, WBC count elevated, patient is currently on Zosyn and azithromycin, will begin coverage for spontaneous bacterial peritonitis. 04/28 Tmax 98.6 Overnight patient required increasing oxygen requirements, currently FiO2 0.75, vasopressor Levophed has been off since 2 AM. Yesterday the patient had one episode of sinus tach heart rate in the 150s received metoprolol 2.5 mg with resolution. The patient has been maintained on a sodium bicarbonate drip which was discontinued this a.m.. GI was consulted the patient was planned to go to IR for diagnostic and therapeutic paracentesis this a.m., currently on hold secondary to respiratory compromise. Planned for later this afternoon, if respiratory status stabilizes. 04/29: Currently afebrile. Patient was placed on Nimbex drip yesterday secondary to multiple desaturations the 60s with any movement. Unable to properly sedate for vent synchrony. Flolan was initiated in this is currently being weaned down today. Repeat ABG after ventilator setting adjustments currently pending. 04/30: Flolan discontinued yesterday. Patient continues to be completely on muscle relaxation/paralytic to maintain ventilator synchrony. ABGs improved. 05/01: Patient was weaned off of the relaxation Nimbex last night. O2 saturation remained 98% on FiO2 of 4045%. Plan today for CPAP trials. Objective Vital Signs Date Time Temp Pulse Resp B/P Pulse Ox O2 Delivery O2 Flow Rate FiO2 05/01/16 08:00 97.6 88 14 99/43 90 05/01/16 08:00 50 Intake and Output 04/30/16 04/30/16 05/01/16 08:00 16:00 00:00 Intake Total 936 ml 1206 ml 730 ml Output Total 265 ml 1450 ml 480 ml Balance 671 ml -244 ml 250 ml Result Diagram: 05/01/16 0520 05/01/16 0520 Other Results Microbiology Date/Time Procedure Status Source Growth 04/28/16 17:00 Gram Stain - Final Complete Fluid Peritoneal Fluid 04/28/16 17:00 Body Fluid Culture - Final Complete Fluid Peritoneal Fluid NO GROWTH IN 72 HRS.--AEROBICALLY OR ... Laboratory Tests Test 05/01/16 05:23 Blood Gas Puncture Site ART LINE Blood Gas Patient Temperature 98.6 Blood Gas HCO3 28 mmol/L (22-26) Blood Gas Base Excess 4.0 mmol/L (-2-2) Blood Gas Oxygen Saturation 95 % (90-100) Arterial Blood pH 7.42 (7.380-7.420) Arterial Blood Partial 45 mmHg (38-42) Pressure CO2 Arterial Blood Partial 110 mmHg Pressure O2 (61-120) Arterial Blood Oxygen Content 11.2 Vol % (12.0-20.0) Arterial Blood 2.0 % (0-4) Carboxyhemoglobin Arterial Blood Methemoglobin 1.0 % (0-2) Blood Gas Hemoglobin 8.2 G/DL (12.0-16.0) Oxygen Delivery Device VENTILATOR Blood Gas Ventilator Setting PC/AC Blood Gas Inspired Oxygen 45 % Imaging Last Impressions Chest X-Ray 04/29/16 0600 Signed Impressions: Service Date/Time: Friday, April 29, 2016 03:57 - CONCLUSION: Diffuse pulmonary opacities are slightly improved in the upper lobes otherwise no significant interval change. Shan Gustafson MD Renal Ultrasound 04/27/16 0000 Signed Impressions: Service Date/Time: March 10:35 - CONCLUSION: 1. Both kidneys are small in size. 2. No hydronephrosis. 3. There is some ascites in the abdomen. Aureliano J. Siragusa, MD Objective Remarks GENERAL: 62-year-old female, critically ill currently orotracheally intubated and paralyzed SKIN: Warm and dry. No rash HEAD: Normocephalic. EYES: No scleral icterus. No injection or drainage. NECK: Supple, trachea midline. No JVD or lymphadenopathy. Orotracheally intubated, OGT in situ, seating tube feeds CARDIOVASCULAR: Regular rate and rhythm S1, S2. No S4. Currently without murmurs, gallops, or rubs. RESPIRATORY: Breath sounds equal bilaterally. Coarse breath sounds. GASTROINTESTINAL: Abdomen soft, non-tender, less distention noted this a.m after paracentesis., umbilical hernia noted MUSCULOSKELETAL: No cyanosis, 1+ pitting edema noted bilateral extremities BACK: Nontender without obvious deformity. No CVA tenderness. Urinary Catheter: Yes Date of Insertion: Apr 25, 2016 Vascular Central Line Catheter: Yes (CVP monitoring) Date of Insertion: Apr 25, 2016 Side: Right Location: Internal, Jugular A/P Problem List: (1) Acute respiratory failure with hypoxia ICD Code: J96.01 Status: Acute (2) Tobacco use disorder ICD Code: F17.200 Status: Acute (3) HOME (acute kidney injury) ICD Code: N17.9 Status: Acute Assessment and Plan Respiratory Acute Hypoxic Respiratory failure COPD exacerbation Tobacco abuse Pulmonary fibrosis S/P radiation therapy-breast cancer - Pulmonology on board- follow-up recommendations - Continue methylprednisolone 60 every 12hr - DuoNeb's scheduled every 4hr, every 2hr PRN -Paralytic discontinued 04/30 -Current ventilator settings -PC 25/RR14/PEEP8/.45 -Intubated 04/26 -04/30 chest x-ray unchanged-fibrosis -CPAP trials today Neuro: Alcoholism H/O seizure Hepatic encephalopathy Anxiety disorder Hyperammonemia -GCS 11T, becomes agitated, propofol Versed infusion discontinued, Precedex infusion initiated - monitor for withdrawal- Ativan PRN -Lactulose to QID, monitor ammonia level Cardiovascular: Hypotension-resolved -Maintain MAP greater than 65mmHg -Normotensive -Levophed 0ff 05/01 am Renal/FEN HOME Hypernatremia-resolved Hypophosphatemia-resolved Ilaw-xnoqggvnd-oniygcsb -Initially volume depletion 04/25 -NaHCO3 yduosgiqqolo69/30 - Albumin 25 g every 12 hours discontinued 04/30 -Renal on oqads-ebnghn-zk recommendations -FENA 2.03 -Improved Creatinine 1.6->1.29 today - Monitor BMP - strict I&O - Bumex [address] IV daily per Dr[address] Bazan . GI Moderate protein calorie malnutrition Ascites -Begin tubefeeds-Suplena 35 cc/hour per nutrition's recommendations -Patient's last therapeutic paracentesis 02/21/2016, bedside US assessment of ascites approximated minimal - moderate,not significant amount for bedside paracentesis -GI on xsvvm-qlgfxl-uh recommendations -Albumin level 3.0 - Bowel regimen -Diagnostic/therapeutic paracentesis , 04/29 Removal of 2.3 L. Clear yellow. 24 WBCs -Monitor hepatic panel -Hepatitis panel-negative, previous old records, one entry reveals diagnosis of hepatitis C ID: Pneumonia? Leukocytosis -Monitor CBC. WBC improved 22->15 today - 04/25 urine Legionella, streptococcal antigen negative -04/25 Sputum -No growth -Empiric antibiotics-azithromycin, Zosyn (day 6) -04/28 Peritoneal cultures- NGTD No signs of peritonitis on paracentesis Heme Microcytic anemia - status post lumpectomy radiation and chemotherapy - now in remission- left SC port (nonfunctional) per old records - supportive care -Monitor CBC History of breast cancer - status post lumpectomy radiation and chemotherapy - now in remission - supportive care -MSK -PT evaluate and treat-functional maintenance DVT/GI prophylaxis - Heparin SubQ/Protonix Critical Care: This patient remains critically ill with one or more organ systems which are or may become a threat to life. I have spent in excess of 32 minutes discontinuously in the care and management of this patient. This time is exclusive of procedures, and includes, but is not limited to, evaluation of the patient, review of the medical record, discussions with family, consultants, nursing staff, or respiratory therapy, and documentation in the medical record. Physician Karmen Martines MD May 01, 2016 10:01
[2016-05-01] MEDS: PANTOPRAZOLE SODIUM 40 MG VIAL IV PUSH SCH (10:27)
[2016-05-01] MEDS: CEFEPIME 2000 MG/NS 100 ML IV SCH ×4 (10:27→23:26)
--- NOTE | 2016-05-01 11:35 | RADRPT ---
EXAM DATE/TIME: 05/01/2016 10:49 [facility] COMPARISON: No previous studies available for comparison. INDICATIONS : Confirm nasogastric tube placement. MEDICAL HISTORY : Carcinoma, breast. Hepatitis C. ascites SURGICAL HISTORY : Cholecystectomy. right breast lumpectomy, left infusaport, multiple paracentesis ENCOUNTER: Initial ACUITY: 2 days PAIN SCORE: Non-responsive. LOCATION: Bilateral abdomen FINDINGS: NG tube and Dobbhoff feeding tube catheter tips overlie the expected location of the distal stomach. No dilated loops of bowel are seen. Osseous structures are intact. CONCLUSION: Catheter tips as described above. Akira Washington MD on May 01, 2016 at 11:33 Board Certified Radiologist. This report was verified electronically.
[2016-05-01] MEDS: MIDAZOLAM HCL 2 MG/2 ML VIAL IV PRN (13:32)
--- NOTE | 2016-05-01 14:56 | HHI.NPPN ---
Subjective Renal Failure: Acute History of Present Illness 65 Year old female with breast cancer, Respiratory failure, cirrhosis Objective Data Data 04/30/16 05/01/16 19:00 07:00 Intake Total 1206 ml 1374 ml Output Total 1645 ml 595.0 ml Balance -439 ml 779.0 ml Intake Oral 0 ml IV Total 936 ml 883 ml Tube Feeding 245 ml 491 ml Tube Irrigant 25 ml Output Urine Total 1645 ml 595 ml Stool Total 0 ml Tube Feeding Residual Discard 0 ml # Bowel Movements 1 Vital Signs Date Time Temp Pulse Resp B/P Pulse Ox O2 Delivery O2 Flow Rate FiO2 05/01/16 14:00 80 05/01/16 12:00 60 05/01/16 12:00 75 05/01/16 12:00 98.3 75 21 164/79 92 05/01/16 11:20 100 40 05/01/16 10:00 73 05/01/16 09:55 50 05/01/16 09:45 50 05/01/16 09:37 97 50 05/01/16 08:00 97.6 88 14 99/43 90 05/01/16 08:00 88 05/01/16 08:00 50 05/01/16 06:00 64 05/01/16 04:00 71 05/01/16 04:00 45 05/01/16 04:00 98.2 71 14 91/42 92 05/01/16 03:43 94 45 05/01/16 02:00 65 05/01/16 01:03 92 45 05/01/16 01:00 45 05/01/16 00:00 75 05/01/16 00:00 97.8 75 14 92 110/51 05/01/16 00:00 40 04/30/16 22:05 95 40 04/30/16 22:00 78 04/30/16 20:24 94 40 04/30/16 20:00 100.0 87 14 115/53 92 111/53 04/30/16 20:00 40 04/30/16 20:00 103 04/30/16 18:00 102 04/30/16 16:12 95 40 04/30/16 16:00 94 04/30/16 16:00 98.4 94 17 126/57 95 04/30/16 16:00 50 -: 05/01/16 0520 05/01/16 0520 Physical Exam General Appearance: Well Developed Neck Neck Exam: Neck Supple Pulmonary Resp Exam: Decreased Bases Cardiology CV Exam: Tachycardia Gastrointestinal/Abdomen GI Exam: Soft, Distended Extremeties Extremities Exam: Moderate Edema Assessment/Plan Problem List: (1) HOME (acute kidney injury) Plan: Patient ARF is nonoliguric and responding to diuretic creatinine 1.29 continue with Bumex 1 mg daily on CPAP 50% (2) Severe sepsis Plan: Due to possible pneumonia (3) Acute respiratory failure with hypoxia Plan: On ventilator Marilee Bazan MD May 01, 2016 14:56
[2016-05-01] MEDS: SERTRALINE HCL 100 MG TAB PO SCH (15:04)
--- NOTE | 2016-05-01 17:25 | HHI.PR ---
Subjective Remarks 65 YOWF with COPD, Cirhosis, renal failure, VDRF No fever Weaned to Nc, 50% Fi02 Off Nimbex,Levophed On Fentanyl and Precedex Does't follow commands Objective Vital Signs Vital Signs Date Time Temp Pulse Resp B/P Pulse Ox O2 Delivery O2 Flow Rate FiO2 05/01/16 16:00 60 05/01/16 16:00 98.2 78 25 136/68 96 05/01/16 16:00 78 05/01/16 15:38 92 50 05/01/16 14:00 80 05/01/16 12:00 60 05/01/16 12:00 75 05/01/16 12:00 98.3 75 21 164/79 92 05/01/16 11:20 100 40 05/01/16 10:00 73 05/01/16 09:55 50 05/01/16 09:45 50 05/01/16 09:37 97 50 05/01/16 08:00 97.6 88 14 99/43 90 05/01/16 08:00 88 05/01/16 08:00 50 05/01/16 06:00 64 05/01/16 04:00 71 05/01/16 04:00 45 05/01/16 04:00 98.2 71 14 91/42 92 05/01/16 03:43 94 45 05/01/16 02:00 65 05/01/16 01:03 92 45 05/01/16 01:00 45 05/01/16 00:00 75 05/01/16 00:00 97.8 75 14 92 110/51 05/01/16 00:00 40 04/30/16 22:05 95 40 04/30/16 22:00 78 04/30/16 20:24 94 40 04/30/16 20:00 100.0 87 14 115/53 92 111/53 04/30/16 20:00 40 04/30/16 20:00 103 04/30/16 18:00 102 I/O 04/30/16 04/30/16 04/30/16 05/01/16 05/01/16 05/01/16 07:00 15:00 23:00 07:00 15:00 23:00 Intake Total 936 ml 1206 ml 730 ml 644 ml 1057 ml Output Total 265 ml 1375 ml 495 ml 370.0 ml 2000.0 ml 255 ml Balance 671 ml -169 ml 235 ml 274.0 ml -943.0 ml -255 ml Intake Oral 0 ml IV Total 654 ml 936 ml 487 ml 396 ml 1057 ml Tube Feeding 182 ml 245 ml 243 ml 248 ml Albumin 100 ml Tube Irrigant 25 ml Output Urine Total 265 ml 1375 ml 495 ml 370 ml 1400 ml 255 ml Stool Total 0 ml Gastric Drainage Total 100 ml Tube Feeding Residual Discard 0 ml 0 ml 500.0 ml # Bowel Movements 1 1 4 Result Diagram: 05/01/1651905/01/16519 Objective Remarks GENERAL: MBMN WF on Vent, sedated SKIN: Warm and dry. HEAD: Normocephalic. EYES: No scleral icterus. No injection or drainage. NECK: Supple, trachea midline. No JVD or lymphadenopathy. CARDIOVASCULAR: Regular rate and rhythm without murmurs, gallops, or rubs. RESPIRATORY: Breath sounds equal bilaterally. No accessory muscle use. GASTROINTESTINAL: Abdomen soft, non-tender, nondistended. MUSCULOSKELETAL: No cyanosis, or edema. BACK: Nontender without obvious deformity. No CVA tenderness. A/P Assessment and Plan VDRF Metabolic acidosis improved Renal insuff COPD Cirrhosis of liver PLAN: CPAP trial Abx Cefepime and Zithro. Monitor lytes fentanyl and Precedex Uli Ramos MD May 01, 2016 17:24
[2016-05-02] VITALS (19 sets, daily range): BP systolic 114–155; BP diastolic 36–74; PULSE 68–111; RESP 14–24; TEMP 98.2–102.6; O2SAT 94–100
[2016-05-02] MEDS: RESP: ALBUTEROL 2.5 MG/IPRATROPIUM 0.5 MG NEB (SCH) NEB ×7 (00:08→23:42)
[2016-05-02] MEDS: DEXMEDETOMIDINE INJ 50 ML IV SCH ×10 (01:17→22:32)
[2016-05-02] MEDS: MIDAZOLAM HCL 2 MG/2 ML VIAL IV PRN (02:02)
[2016-05-02] MEDS: HEPARIN SODIUM - SQ 10,000 UNITS/ML VIAL SQ SCH ×2 (03:02→14:05)
[2016-05-02] MEDS: CHLORHEXIDINE GLUCONATE 2 % 1 PACK (2 CLOTHS) TOP SCH (04:00)
[2016-05-02 04:33] LABS: AUTOMATED NEUTROPHIL # 17.5 TH/MM3 (1.8-7.7); BASOPHIL % 0.2 % (0.0-2.0); EOSINOPHIL # 0.2 TH/MM3 (0-0.4); EOSINOPHIL % 0.8 % (0.0-4.0); HEMATOCRIT 27.7 % (35.0-46.0); LYMPH % 3.8 % (9.0-44.0); LYMPHOCYTE # 0.7 TH/MM3 (1.0-4.8); MEAN CELL VOLUME 65.9 FL (80.0-100.0); MEAN CORPUSCULAR HEMOGLOBIN 20.6 PG (27.0-34.0); MEAN CORPUSCULAR HGB CONC 31.3 % (32.0-36.0); MONO % 5.4 % (0.0-8.0); NEUT % 89.8 % (16.0-70.0); PLATELET COUNT 182 TH/MM3 (150-450); RED BLOOD COUNT 4.21 MIL/MM3 (4.00-5.30); RED CELL DISTRIBUTION WIDTH 21.6 % (11.6-17.2); WHITE BLOOD COUNT 19.4 TH/MM3 (4.0-11.0)
[2016-05-02 04:34] LABS: HEMO FLAGS AUTO DIFF
[2016-05-02 04:41] LABS: ALKALINE PHOSPHATASE 71 U/L (45-117); ALT (GPT) 30 U/L (10-53); ANION GAP 8 MEQ/L (5-15); AST (GOT) 33 U/L (15-37); BLOOD UREA NITROGEN 35 MG/DL (7-18); CHLORIDE 107 MEQ/L (98-107); GLOMERULAR FILTRATION RATE 51 ML/MIN (>89); MAGNESIUM 1.8 MG/DL (1.5-2.5); SODIUM (NA) 146 MEQ/L (136-145); TOTAL BILIRUBIN ADULT 0.8 MG/DL (0.2-1.0)
[2016-05-02] MEDS: LORazepam 2 MG/ML VIAL IV PRN (04:59)
[2016-05-02 05:38] LABS: BLOOD GAS BASE EXCESS 4.5 mmol/L (-2-2); BLOOD GAS CARBOXYHEMOGLOBIN 2.5 % (0-4); BLOOD GAS HCO3 28 mmol/L (22-26); BLOOD GAS METHEMOGLOBIN 0.8 % (0-2); BLOOD GAS O2 HGB SATURATION 94 % (90-100); BLOOD GAS OXYGEN CONTENT 11.5 Vol % (12.0-20.0); BLOOD GAS PCO2 40 mmHg (38-42); BLOOD GAS PO2 86 mmHg (61-120); BLOOD GAS TOTAL HGB 8.6 G/DL (12.0-16.0); CRITICAL VALUE NO; DRAW SITE ALINE; TEMP CORR TO 98.6; VENT SETTINGS VENT
[2016-05-02] MEDS: CHLORHEXIDINE 0.12% (ORAL KIT) 15 ML CUP MT SCH ×2 (08:00→20:00)
[2016-05-02 08:16] LABS: KERATOCYTES OCC (NORMAL); PLATELET ESTIMATE SMEAR NORMAL (NORMAL); PLATELET MORPHOLOGY NORMAL (NORMAL); SCAN/DIFF AUTO DIFF CONFIRMED
--- NOTE | 2016-05-02 08:35 | RADRPT ---
EXAM DATE/TIME: 05/02/2016 07:54 [facility] COMPARISON: CHEST SINGLE AP, April 30, 2016, 3:29. INDICATIONS : Infiltrate. MEDICAL HISTORY : Carcinoma, breast. Hepatitis C. Ascites. SURGICAL HISTORY : Cholecystectomy. Right breast lumpectomy, Left infusaport, Multiple paracentesis ENCOUNTER: Subsequent ACUITY: 1 day PAIN SCORE: Non-responsive. LOCATION: Bilateral chest FINDINGS: The support devices remain in place. There is no pneumothorax. There continues to be bilateral inters titial and air space pulmonary infiltrates. The infiltrates are about the same or very slightly incre ased in the right lower lung compared to the prior exam. No significant pleural effusions. The heart size is stable. The bony structures are stable. CONCLUSION: Slight increase in the interstitial infiltrates in the right lung base. Otherwise no significant murray ge compared to the prior study. Aureliano Rayo MD on May 02, 2016 at 8:32 Board Certified Radiologist. This report was verified electronically.
[2016-05-02] MEDS: DOCUSATE SODIUM 100 MG CAP PO SCH ×2 (09:00→22:32)
[2016-05-02] MEDS: AZITHROMYCIN INJ 500 MG in SODIUM CHLOR 0.9% 250 ML INJ 250 ML IV SCH (09:11)
[2016-05-02] MEDS: SODIUM CHLORIDE 0.9% FLUSH 5 ML FLUSH IV FLUSH SCH ×2 (09:11→21:00)
[2016-05-02] MEDS: BUMETANIDE INJ 1 MG/4 ML VIAL IV PUSH SCH (09:11)
[2016-05-02] MEDS: methylPREDNISolone SOD SUCC 125 MG/2 ML VIAL IV PUSH SCH ×2 (09:12→22:33)
[2016-05-02] MEDS: FOLIC ACID 1 MG TAB PO SCH (09:12)
[2016-05-02] MEDS: SERTRALINE HCL 100 MG TAB PO SCH (09:12)
[2016-05-02] MEDS: LACTULOSE SYRUP 20 GM/30 ML CUP PO SCH ×4 (09:12→22:32)
[2016-05-02] MEDS: fentaNYL DRIP 250 ML IV SCH (10:01)
[2016-05-02] MEDS: CEFEPIME 2000 MG/NS 100 ML IV SCH ×2 (11:36)
[2016-05-02] MEDS: PANTOPRAZOLE SODIUM 40 MG VIAL IV PUSH SCH (11:40)
--- NOTE | 2016-05-02 12:16 | HHI.CCPN ---
Subjective Remarks/Hospital Course 65 year old female with history of alcohol abuse, history of breast cancer status post lumpectomy radiation and chemotherapy presents with progressively worsening shortness of breath. EMS was called because she was short of breath at home, and was found to have pals oxygen at 70%. Patient is on a BiPAP, seems to be comfortable in no distress. She is able to follow commands in all 4 extremities. Her history is limited secondary to FM BiPAP. 04/26 The patient acutely had respiratory decompensation yesterday afternoon. Discussion with family, sister power of cordwood cutter helper regarding intubation in patient 's current respiratory status, family requesting intubation. She required intubation, central line placement and an arterial line placement to monitor oxygenation levels. The patient became hypoxic and hypotensive requiring vasopressor support. Currently the patient is on levophed infusion at 5 mcgs. 04/27 Afebrile. The patient continues on mechanical ventilation, overnight FiO2 requirements were increased, currently attempting to wean back to 55%. Sodium bicarbonate infusion at 150 cc/hour. Ammonia level slightly increased, lactulose dosage increased. Pulmonology consulted. The patient's last therapeutic paracentesis was 02/21/16, WBC count elevated, patient is currently on Zosyn and azithromycin, will begin coverage for spontaneous bacterial peritonitis. 04/28 Tmax 98.6 Overnight patient required increasing oxygen requirements, currently FiO2 0.75, vasopressor Levophed has been off since 2 AM. Yesterday the patient had one episode of sinus tach heart rate in the 150s received metoprolol 2.5 mg with resolution. The patient has been maintained on a sodium bicarbonate drip which was discontinued this a.m.. GI was consulted the patient was planned to go to IR for diagnostic and therapeutic paracentesis this a.m., currently on hold secondary to respiratory compromise. Planned for later this afternoon, if respiratory status stabilizes. 04/29: Currently afebrile. Patient was placed on Nimbex drip yesterday secondary to multiple desaturations the 60s with any movement. Unable to properly sedate for vent synchrony. Flolan was initiated in this is currently being weaned down today. Repeat ABG after ventilator setting adjustments currently pending. 04/30: Flolan discontinued yesterday. Patient continues to be completely on muscle relaxation/paralytic to maintain ventilator synchrony. ABGs improved. 05/01: Patient was weaned off of the relaxation Nimbex last night. O2 saturation remained 98% on FiO2 of 4045%. Plan today for CPAP trials. 05/02: The patient continues on Precedex and fentanyl infusion for sedation with adequate ventilator synchrony. CPAP trials successful for approximately 6 hours yesterday .Patient still does not follow any commands, benzodiazepines or discontinued. Patient tolerating tube feeds today. Will continue CPAP trials today. Objective Vital Signs Date Time Temp Pulse Resp B/P Pulse Ox O2 Delivery O2 Flow Rate FiO2 05/02/16 09:28 99 60 05/02/16 06:00 150/68 155/74 05/02/16 06:00 69 05/02/16 04:00 98.3 14 Intake and Output 05/01/16 05/01/16 05/01/16 07:59 15:59 23:59 Intake Total 644 ml 1057 ml 403 ml Output Total 370.0 ml 2000.0 ml 855 ml Balance 274.0 ml -943.0 ml -452 ml Result Diagram: 05/02/16 0405 05/02/16 0405 Other Results Laboratory Tests Test 05/02/16 05:32 Blood Gas Puncture Site THOMPSON Blood Gas Patient Temperature 98.6 Blood Gas HCO3 28 mmol/L (22-26) Blood Gas Base Excess 4.5 mmol/L (-2-2) Blood Gas Oxygen Saturation 94 % (90-100) Arterial Blood pH 7.46 (7.380-7.420) Arterial Blood Partial 40 mmHg (38-42) Pressure CO2 Arterial Blood Partial 86 mmHg Pressure O2 (61-120) Arterial Blood Oxygen Content 11.5 Vol % (12.0-20.0) Arterial Blood 2.5 % (0-4) Carboxyhemoglobin Arterial Blood Methemoglobin 0.8 % (0-2) Blood Gas Hemoglobin 8.6 G/DL (12.0-16.0) Blood Gas Ventilator Setting [facility] Imaging Last Impressions Chest X-Ray 05/02/16 0000 Signed Impressions: Service Date/Time: Monday, May 02, 2016 07:54 - CONCLUSION: Slight increase in the interstitial infiltrates in the right lung base. Otherwise no significant change compared to the prior study. Aureliano Rayo MD Abdomen X-Ray 05/01/16 0000 Signed Impressions: Service Date/Time: Sunday, May 01, 2016 10:49 - CONCLUSION: Catheter tips as described above. Akira Washington MD Renal Ultrasound 04/27/16 0000 Signed Impressions: Service Date/Time: March 10:35 - CONCLUSION: 1. Both kidneys are small in size. 2. No hydronephrosis. 3. There is some ascites in the abdomen. Aureliano Rayo MD Last Impressions Chest X-Ray 04/29/16 0600 Signed Impressions: Service Date/Time: Friday, April 29, 2016 03:57 - CONCLUSION: Diffuse pulmonary opacities are slightly improved in the upper lobes otherwise no significant interval change. Shan Gustafson MD Renal Ultrasound 04/27/16 0000 Signed Impressions: Service Date/Time: March 10:35 - CONCLUSION: 1. Both kidneys are small in size. 2. No hydronephrosis. 3. There is some ascites in the abdomen. Aureliano Rayo MD Objective Remarks GENERAL: 62-year-old female, critically ill currently orotracheally intubated, agitated, not following commands. SKIN: Warm and dry. HEAD: Normocephalic. EYES: No scleral icterus. No injection or drainage. NECK: Supple, trachea midline. No JVD or lymphadenopathy. Orotracheally intubated, NG tube in place CARDIOVASCULAR: Regular rate and rhythm S1, S2. No S4. Currently without murmurs, gallops, or rubs. RESPIRATORY: Breath sounds equal bilaterally. GASTROINTESTINAL: Abdomen soft, protuberant non-tender, umbilical hernia MUSCULOSKELETAL: No cyanosis, 1+ pitting edema noted bilateral upper and lower extremities BACK: Nontender without obvious deformity. No CVA tenderness. Urinary Catheter: Yes Schultz insert reason: ICU Pt Getting Diuretics Date of Insertion: Apr 25, 2016 Vascular Central Line Catheter: Yes Date of Insertion: Apr 25, 2016 Side: Right Location: Internal, Jugular A/P Problem List: (1) Acute respiratory failure with hypoxia ICD Code: J96.01 Status: Acute (2) Tobacco use disorder ICD Code: F17.200 Status: Acute (3) HOME (acute kidney injury) ICD Code: N17.9 Status: Acute Assessment and Plan Respiratory Acute Hypoxic Respiratory failure COPD exacerbation Tobacco abuse Pulmonary fibrosis S/P radiation therapy-breast cancer Failure to wean - Pulmonology on board- follow-up recommendations -Continue Precedex and fentanyl for sedation/CPAP trials - Continue methylprednisolone 60 every 12hr - DuoNeb's scheduled every 4hr, every 2hr PRN -Paralytic discontinued 04/30 -Current ventilator settings -PC 25/RR14/PEEP8/.45 -Intubated 04/26 -05/02 chest x-ray -slight increased infiltrates -Continue to attempt CPAP trials today Neuro: Alcoholism H/O seizure Hepatic encephalopathy Anxiety disorder Hyperammonemia -GCS 11T, agitated, Precedex and fentanyl infusion -Obtain head CT -Lactulose to QID, monitor ammonia level -Seroquel home med continued -Discontinue benzodiazepines Cardiovascular: Hypotension-resolved -Maintain MAP greater than 65mmHg -CVP 8 -Normotensive -Levophed dc'd 05/01 am Renal/FEN HOME Hypernatremia-resolved Hypophosphatemia-resolved Rint-xndkejshg-zneggjiw -Initially volume depletion 04/25 -NaHCO3 zsrczhkikvce53/30 - Albumin 25 g every 12 hours discontinued 04/30 -Renal on qygmb-ldhhxo-gl recommendations -FENA 2.03 -Improved Creatinine 1.08 - Monitor BMP - strict I&O - Bumex 1 mg IV daily per Dr[address] Bazan . GI Moderate protein calorie malnutrition Ascites - Tubefeeds-Suplena 35 cc/hour per nutrition's recommendations@goal -Patient's last therapeutic paracentesis 02/21/2016, bedside US assessment of ascites approximated minimal - moderate,not significant amount for bedside paracentesis -GI on hhnox-aznodf-pa recommendations -Albumin level 3.0 - Bowel regimen -Diagnostic/therapeutic paracentesis , 04/29 Removal of 2.3 L. Clear yellow. 24 WBCs -Continue to monitor, abdomen for therapeutic paracentesis -Monitor hepatic panel -Hepatitis panel-negative, previous old records, one entry reveals diagnosis of hepatitis C ID: Pneumonia? Persistent Leukocytosis -Monitor CBC. WBC - 04/25 urine Legionella, streptococcal antigen negative -04/25 Sputum -No growth -Empiric antibiotics-azithromycin, Zosyn (day 7), Cefepime -04/28 Peritoneal cultures- NGTD - D/C central line -ID consult-appreciate recommendations No signs of peritonitis on paracentesis Heme Microcytic anemia - status post lumpectomy radiation and chemotherapy - now in remission- left SC port (nonfunctional) per old records - supportive care -Monitor CBC History of breast cancer - status post lumpectomy radiation and chemotherapy - now in remission - supportive care -MSK -PT evaluate and treat-functional maintenance DVT/GI prophylaxis - Heparin SubQ/Protonix Critical Care: This patient remains critically ill with one or more organ systems which are or may become a threat to life. I have spent in excess of 41 minutes discontinuously in the care and management of this patient. This time is exclusive of procedures, and includes, but is not limited to, evaluation of the patient, review of the medical record, discussions with family, consultants, nursing staff, or respiratory therapy, and documentation in the medical record. Physician Karmen Martines MD May 02, 2016 12:16
--- NOTE | 2016-05-02 13:52 | PD.ID.CON ---
History of Present Illness Service ID Consult Requested By Dr Ferreira Reason for Consult leukocytosis Primary Care Physician Artur Smalls MD Diagnoses: History of Present Illness Chart reviewed \ 65 yo female with h/o ETOH induced liver cirrhosis, COPD, active tobaccoism breast ca sp chemo presetned with SOB diagnosed with COPD exacrbation, placed on BIPAP and sterroids but coont to have progressive resp failure and ended up on vent SHe is currently on 75% FiO2 going up on vent reqiurements and having abundant secreions SHe also was noted to have a fever of 103 today current ly on IV solumedrol 60 q 12 = all cuultures negative (blood clx @ 4 days x2, UA, sputum with rare nl resp luther), she aslo has ascites and it was tapped; WBC just 24 and clx negative ( final) Pt remains afebrile, biut has persistent leukocytosis, though it is trending down Pt is on cefepime, azithromycin Review of Systems ROS Limitations: Clinical Condition, Intubated, Altered Mental Status Past Family Social History Allergies: Coded Allergies: Morphine (Verified Allergy, Mild, Itching, 04/24/16) pt denies Past Medical History Alcoholism History of breast cancer status post lumpectomy radiation and chemotherapy Anxiety Past Surgical History Zebjgd-p-Mtqw (non functioning) Laparoscopic cholecystectomy Active Ordered Medications Medications where reviewed in EMR Antibiotics Include: cefepime azithro Family History Noncontributory Social History Smoker Former Drinker no drugs Physical Exam Vital Signs Vital Signs Date Time Temp Pulse Resp B/P Pulse Ox O2 Delivery O2 Flow Rate FiO2 05/02/16 12:45 100 100 05/02/16 12:13 94 60 05/02/16 09:28 99 60 05/02/16 06:00 150/68 155/74 05/02/16 06:00 69 05/02/16 04:00 50 05/02/16 04:00 75 05/02/16 04:00 98.3 75 14 131/36 97 05/02/16 03:48 96 50 05/02/16 02:00 68 05/02/16 00:09 100 50 05/02/16 00:00 50 05/02/16 00:00 98.2 69 14 143/72 99 05/02/16 00:00 69 05/01/16 22:00 79 05/01/16 20:00 72 05/01/16 20:00 147/69 141/69 05/01/16 20:00 50 05/01/16 20:00 98.5 72 14 141/69 95 147/65 05/01/16 19:45 96 50 05/01/16 18:00 75 05/01/16 17:30 50 05/01/16 16:00 60 05/01/16 16:00 98.2 78 25 136/68 96 05/01/16 16:00 78 05/01/16 15:38 92 50 05/01/16 14:00 80 Physical Exam CONSTITUTIONAL/GENERAL: This is an adequately nourished patient, agitated LINES: R IJ in place, site wo e/o infx SKIN: No jaundice, rashes, or lesions. Skin temperature appropriate. Not diaphoretic. HEAD: Atraumatic. Normocephalic. EYES: Pupils equal and round and reactive. Extraocular motions intact. No scleral icterus. No injection or drainage. Fundi not examined. ENT: Nose without bleeding or purulent drainage. Oral mucosae without visible erythema, exudates, masses, or lesions. Dentition is poor orally intubated NECK: Trachea midline. Supple, nontender. CARDIOVASCULAR: Regular rate and rhythm without murmurs, gallops, or rubs. No JVD. Peripheral pulses symmetric. RESPIRATORY/CHEST: Symmetric, labored respirations. Diffuse rhonchi to auscultation. Breath sounds equal bilaterally. . GASTROINTESTINAL: Abdomen soft, non-tender, nondistended. No hepato-splenomegaly , or palpable masses. No guarding. Bowel sounds present. GENITOURINARY: Without palpable bladder distension. Schultz catheter in place with clear yellow urine MUSCULOSKELETAL: Extremities without clubbing, cyanosis, + trace edema. No mottling or clubbing. LYMPHATICS: No palpable cervical or supraclavicular adenopathy. NEUROLOGICAL: Awake and agitated. MOves vigourously all 4 extremeties. Not follows commands. PSYCHIATRIC: unable to assess Laboratory Laboratory Tests Test 05/02/16 05/02/16 04:05 05:32 White Blood Count 19.4 Red Blood Count 4.21 Hemoglobin 8.7 Hematocrit 27.7 Mean Corpuscular Volume 65.9 Mean Corpuscular Hemoglobin 20.6 Mean Corpuscular Hemoglobin 31.3 Concent Red Cell Distribution Width 21.6 Platelet Count 182 Mean Platelet Volume 8.1 Neutrophils (%) (Auto) 89.8 Lymphocytes (%) (Auto) 3.8 Monocytes (%) (Auto) 5.4 Eosinophils (%) (Auto) 0.8 Basophils (%) (Auto) 0.2 Neutrophils # (Auto) 17.5 Lymphocytes # (Auto) 0.7 Monocytes # (Auto) 1.0 Eosinophils # (Auto) 0.2 Basophils # (Auto) 0.0 CBC Comment AUTO DIFF Differential Comment AUTO DIFF CONFIRMED Platelet Estimate NORMAL Platelet Morphology Comment NORMAL Basophilic Stippling FAINT Keratocytes OCC Sodium Level 146 Potassium Level 4.0 Chloride Level 107 Carbon Dioxide Level 31.0 Anion Gap 8 Blood Urea Nitrogen 35 Creatinine 1.08 Estimat Glomerular Filtration 51 Rate Random Glucose 165 Calcium Level 9.0 Phosphorus Level 3.2 Magnesium Level 1.8 Total Bilirubin 0.8 Aspartate Amino Transf 33 (AST/SGOT) Alanine Aminotransferase 30 (ALT/SGPT) Alkaline Phosphatase 71 Total Protein 5.9 Albumin 3.1 Blood Gas Puncture Site THOM[facility]ON Blood Gas Patient Temperature 98.6 Blood Gas HCO3 28 Blood Gas Base Excess 4.5 Blood Gas Oxygen Saturation 94 Arterial Blood pH 7.46 Arterial Blood Partial 40 Pressure CO2 Arterial Blood Partial 86 Pressure O2 Arterial Blood Oxygen Content 11.5 Arterial Blood 2.5 Carboxyhemoglobin Arterial Blood Methemoglobin 0.8 Blood Gas Hemoglobin 8.6 Blood Gas Ventilator Setting VENT Date/Time Procedure Status Source Growth 04/28/16 17:00 Gram Stain - Final Complete Fluid Peritoneal Fluid 04/28/16 17:00 Body Fluid Culture - Final Complete Fluid Peritoneal Fluid NO GROWTH IN 72 HRS.--AEROBICALLY OR ... Result Diagram: 05/02/16 0405 05/02/16 0405 Imaging Last Impressions Head CT 05/02/16 0000 Signed Impressions: Service Date/Time: Monday, May 02, 2016 12:49 - CONCLUSION: 1. Stable CT scan of the brain compared to the prior exam from 2013. 2. No focal or acute intracranial hemorrhage. Aureliano Rayo MD Chest X-Ray 05/02/16 0000 Signed Impressions: Service Date/Time: Monday, May 02, 2016 07:54 - CONCLUSION: Slight increase in the interstitial infiltrates in the right lung base. Otherwise no significant change compared to the prior study. Aureliano Rayo MD Abdomen X-Ray 05/01/16 0000 Signed Impressions: Service Date/Time: Sunday, May 01, 2016 10:49 - CONCLUSION: Catheter tips as described above. Akira Washington MD Renal Ultrasound 04/27/16 0000 Signed Impressions: Service Date/Time: March 10:35 - CONCLUSION: 1. Both kidneys are small in size. 2. No hydronephrosis. 3. There is some ascites in the abdomen. Aureliano Rayo MD Assessment and Plan Assessment and Plan VDRF Initially COPD exacrbation Culture negative PNA ? New PNA: - new fever, leukocytosis and c=increasing nathaniel O2 requirements - start zosyn, add vanco - dc zithro - start levquine - blood clx - sputum clx Radha Borja MD May 02, 2016 13:52
--- NOTE | 2016-05-02 14:25 | HHI.NPPN ---
Subjective Renal Failure: Acute History of Present Illness 65 Year old female with breast cancer, Respiratory failure, cirrhosis Objective Data Data 05/01/16 05/02/16 19:00 07:00 Intake Total 1057 ml 688 ml Output Total 2380.0 ml 1150 ml Balance -1323.0 ml -462 ml IV Total 1057 ml 597 ml Tube Feeding 91 ml Output Urine Total 1780 ml 1150 ml Gastric Drainage Total 100 ml Tube Feeding Residual Discard 500.0 ml # Bowel Movements 4 Vital Signs Date Time Temp Pulse Resp B/P Pulse Ox O2 Delivery O2 Flow Rate FiO2 05/02/16 12:45 100 100 05/02/16 12:13 94 60 05/02/16 09:28 99 60 05/02/16 06:00 150/68 155/74 05/02/16 06:00 69 05/02/16 04:00 50 05/02/16 04:00 75 05/02/16 04:00 98.3 75 14 131/36 97 05/02/16 03:48 96 50 05/02/16 02:00 68 05/02/16 00:09 100 50 05/02/16 00:00 50 05/02/16 00:00 98.2 69 14 143/72 99 05/02/16 00:00 69 05/01/16 22:00 79 05/01/16 20:00 72 05/01/16 20:00 147/69 141/69 05/01/16 20:00 50 05/01/16 20:00 98.5 72 14 141/69 95 147/65 05/01/16 19:45 96 50 05/01/16 18:00 75 05/01/16 17:30 50 05/01/16 16:00 60 05/01/16 16:00 98.2 78 25 136/68 96 05/01/16 16:00 78 05/01/16 15:38 92 50 -: 05/02/16 0405 05/02/16 0405 Physical Exam General Appearance: Well Developed Neck Neck Exam: Neck Supple Pulmonary Resp Exam: Decreased Bases Cardiology CV Exam: Tachycardia Gastrointestinal/Abdomen GI Exam: Soft, Distended Extremeties Extremities Exam: Moderate Edema Assessment/Plan Problem List: (1) HOME (acute kidney injury) Plan: Patient ARF is nonoliguric and responding to diuretic creatinine 1.08 continue with Bumex 1 mg daily UOP 2.9 L will follow intermittently (2) Severe sepsis Plan: Due to possible pneumonia (3) Acute respiratory failure with hypoxia Plan: On ventilator Marilee Bazan MD May 02, 2016 14:25
--- NOTE | 2016-05-02 15:30 | RADRPT ---
EXAM DATE/TIME: 05/02/2016 12:49 [facility] COMPARISON: CT BRAIN W/O CONTRAST, February 04, 2014, 17:46. INDICATIONS : Altered mental status today. RADIATION DOSE: 38.97 CTDIvol (mGy) MEDICAL HISTORY : Cirrhosis. Carcinoma, breast. SURGICAL HISTORY : Cholecystectomy. rt lumpectomy ENCOUNTER: Initial ACUITY: 1 day PAIN SCALE: Non-responsive LOCATION: cranial TECHNIQUE: Multiple contiguous axial images were obtained of the head. Using automated exposure control and adj ustment of the mA and/or kV according to patient size, radiation dose was kept as low as reasonably a chievable to obtain optimal diagnostic quality images. Limited study due to motion artifact. FINDINGS: CEREBRUM: The ventricles are normal for age. Stable bilateral cortical atrophy and chronic white matter changes . No evidence of midline shift, mass lesion, hemorrhage or acute infarction. No extra-axial fluid co llections are seen. POSTERIOR FOSSA: The cerebellum and brainstem are intact. The 4th ventricle is midline. The cerebellopontine angle i s unremarkable. EXTRACRANIAL: The visualized portion of the orbits is intact. SKULL: The calvaria is intact. No evidence of skull fracture. No significant change compared to prior study. CONCLUSION: 1. Stable CT scan of the brain compared to the prior exam from 2013. 2. No focal or acute intracranial hemorrhage. Aureliano Rayo MD on May 02, 2016 at 15:27 Board Certified Radiologist. This report was verified electronically.
[2016-05-02] MEDS: ACETAMINOPHEN 325 MG TAB PO PRN ×2 (15:52→22:32)
[2016-05-02] MEDS ORDERED: Vancomycin Consult Pharmacy 1 EA IV SCH (16:15)
--- NOTE | 2016-05-02 16:58 | HHI.GIFU ---
Subjective Remarks Resting in bed. Restless, on Precedex. Tolerating TF. Nurse reports that she has been having fevers and she is drawing cultures. (Kim Olea) Objective Vitals I&O Vital Signs Date Time Temp Pulse Resp B/P Pulse Ox O2 Delivery O2 Flow Rate FiO2 05/02/16 12:45 100 100 05/02/16 12:13 94 60 05/02/16 09:28 99 60 05/02/16 06:00 150/68 155/74 05/02/16 06:00 69 05/02/16 04:00 50 05/02/16 04:00 75 05/02/16 04:00 98.3 75 14 131/36 97 05/02/16 03:48 96 50 05/02/16 02:00 68 05/02/16 00:09 100 50 05/02/16 00:00 50 05/02/16 00:00 98.2 69 14 143/72 99 05/02/16 00:00 69 05/01/16 22:00 79 05/01/16 20:00 72 05/01/16 20:00 147/69 141/69 05/01/16 20:00 50 05/01/16 20:00 98.5 72 14 141/69 95 147/65 05/01/16 19:45 96 50 05/01/16 18:00 75 05/01/16 17:30 50 I/O 05/01/16 05/01/16 05/01/16 05/02/16 05/02/16 05/02/16 07:00 15:00 23:00 07:00 15:00 23:00 Intake Total 644 ml 1057 ml 403 ml 285 ml Output Total 370.0 ml 2000.0 ml 855 ml 675 ml Balance 274.0 ml -943.0 ml -452 ml -390 ml IV Total 396 ml 1057 ml 359 ml 238 ml Tube Feeding 248 ml 44 ml 47 ml Output Urine Total 370 ml 1400 ml 855 ml 675 ml Gastric Drainage Total 100 ml Tube Feeding Residual Discard 0 ml 500.0 ml # Bowel Movements 4 Laboratory Laboratory Tests Test 05/02/16 05/02/16 04:05 05:32 White Blood Count 19.4 Red Blood Count 4.21 Hemoglobin 8.7 Hematocrit 27.7 Mean Corpuscular Volume 65.9 Mean Corpuscular Hemoglobin 20.6 Mean Corpuscular Hemoglobin 31.3 Concent Red Cell Distribution Width 21.6 Platelet Count 182 Mean Platelet Volume 8.1 Neutrophils (%) (Auto) 89.8 Lymphocytes (%) (Auto) 3.8 Monocytes (%) (Auto) 5.4 Eosinophils (%) (Auto) 0.8 Basophils (%) (Auto) 0.2 Neutrophils # (Auto) 17.5 Lymphocytes # (Auto) 0.7 Monocytes # (Auto) 1.0 Eosinophils # (Auto) 0.2 Basophils # (Auto) 0.0 CBC Comment AUTO DIFF Differential Comment AUTO DIFF CONFIRMED Platelet Estimate NORMAL Platelet Morphology Comment NORMAL Basophilic Stippling FAINT Keratocytes OCC Sodium Level 146 Potassium Level 4.0 Chloride Level 107 Carbon Dioxide Level 31.0 Anion Gap 8 Blood Urea Nitrogen 35 Creatinine 1.08 Estimat Glomerular Filtration 51 Rate Random Glucose 165 Calcium Level 9.0 Phosphorus Level 3.2 Magnesium Level 1.8 Total Bilirubin 0.8 Aspartate Amino Transf 33 (AST/SGOT) Alanine Aminotransferase 30 (ALT/SGPT) Alkaline Phosphatase 71 Total Protein 5.9 Albumin 3.1 Blood Gas Puncture Site THOMPSON Blood Gas Patient Temperature 98.6 Blood Gas HCO3 28 Blood Gas Base Excess 4.5 Blood Gas Oxygen Saturation 94 Arterial Blood pH 7.46 Arterial Blood Partial 40 Pressure CO2 Arterial Blood Partial 86 Pressure O2 Arterial Blood Oxygen Content 11.5 Arterial Blood 2.5 Carboxyhemoglobin Arterial Blood Methemoglobin 0.8 Blood Gas Hemoglobin 8.6 Blood Gas Ventilator Setting VENT Date/Time Procedure Status Source Growth 04/28/16 17:00 Gram Stain - Final Complete Fluid Peritoneal Fluid 04/28/16 17:00 Body Fluid Culture - Final Complete Fluid Peritoneal Fluid NO GROWTH IN 72 HRS.--AEROBICALLY OR ... Imaging Last Impressions Head CT 05/02/16 0000 Signed Impressions: Service Date/Time: Monday, May 02, 2016 12:49 - CONCLUSION: 1. Stable CT scan of the brain compared to the prior exam from 2013. 2. No focal or acute intracranial hemorrhage. Aureliano Rayo MD Chest X-Ray 05/02/16 0000 Signed Impressions: Service Date/Time: Monday, May 02, 2016 07:54 - CONCLUSION: Slight increase in the interstitial infiltrates in the right lung base. Otherwise no significant change compared to the prior study. Aureliano Rayo MD Abdomen X-Ray 05/01/16 0000 Signed Impressions: Service Date/Time: Sunday, May 01, 2016 10:49 - CONCLUSION: Catheter tips as described above. Akira Washington MD Renal Ultrasound 04/27/16 0000 Signed Impressions: Service Date/Time: March 10:35 - CONCLUSION: 1. Both kidneys are small in size. 2. No hydronephrosis. 3. There is some ascites in the abdomen. Aureliano Rayo MD Physical Exam HEENT: Normocephalic; atraumatic; no jaundice. CHEST: OETT to vent. Course breath sounds. Diminished bases. CARDIAC: RRR ABDOMEN: Soft, nondistended, hepatosplenomegaly; bowel sounds are present in all four quadrants. EXTREMITIES: Trace edema. SKIN: Normal; no rash; no jaundice. PLASTERER STUCCO: Sedated on vent, but still restless. (Kim Olea) Assessment and Plan Plan ASSESSMENT: - Ascites. She is requiring frequent paracentesis for recurrent ascites. She was last seen in our office back in January 2016 at which time she was referred back to tertiary for possible TIPS procedure. She is currently sedated and I am not sure if she has been seen, but there is no note regarding this in the outpatient EMR. She is on spironolactone 100 mg by mouth daily and Lasix 40 mg by mouth daily at home. S/P Bedside Paracentesis (04/28/16) with removal of 2.3 Liters of fluid removed. Peritoneal cx with no growth x 72 hours. Cytology pending. SAAG 2.0, indicating portal hypertension. On Bumex per [facility] - Leukocytosis, persistent. Nurse reports fevers. Sputum culture with rare growth of normal respiratory luther, urine was negative for legionella pneumonia/streptococcus. BCX with no growth x 5 days. Urinalysis was unremarkable. She does have some ascites, although this is not tense ascites. WBC improved 19.4. Rpt. Blood Cx, Sputum cx, and Urine cx ordered. Vanco, Zosyn, Levaquin. - Acute respiratory failure, PNA. Cefepime, Azithromycin, nebs, steroids. - Anemia. 8.7/27.7. No active blood loss. EGD/colonoscopy at [facility] (06/10/15) revealed a regular Z line, gastritis, flattened mucosa was found in the duodenum, biopsies were taken to rule out celiac disease, examination was otherwise normal; examined portion of the ileum was normal, one 6 mm polyp in the sigmoid colon resected and retrieved, distal rectum and anal verge are normal on retroflexion view, examination was otherwise normal. Pathology with small bowel mucosa without diagnostic abnormality, erosive gastritis, tubular adenoma in the sigmoid colon. 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 Hepatitis panel negative, COURTNEY negative , AMA negative, asma negative, alpha 1 antitrypsin 226, Ceruloplasmin 25, Dx in November of 2014. She was previously evaluated a tertiary for possible liver transplant in May of 2015, but according to January 2016 office note, deemed not be a candidate. - HOME, Electrolyte abnormalities. PLAN: - Suplena at 35cc/hr - Send stool for Cdiff - Cont. PPI - Cont. Abx per ID - Await final cultures - Monitor labs - Supportive care - Further recommendations to follow based on results of above - Pt seen and examined by Dr. Barger and myself and this note is written on his behalf (Kim Olea) Physician Comments Patient was seen and examined, agree with above note. we will check labs, continue supportive care. (Noe Barger MD) Kim Olea May 02, 2016 16:58 Noe Barger MD May 02, 2016 21:58
[2016-05-02 18:27] LABS: BLOOD, URINE MOD (NEG); COMMENT (UR) CULT NOT INDICATED; CULTURE IF INDICATED CULT NOT INDICATED; GLUCOSE,URINE NEG (NEG); KETONE, URINE NEG (NEG); NITRITE,URINE NEG (NEG); PH, URINE 5.5 (5.0-8.5); URINE COLOR YELLOW (YELLW/STRAW)
[2016-05-02] MEDS: PIPERACIL-TAZO 4.5 GM PREMIX 100 ML IV SCH ×2 (19:16→23:33)
--- NOTE | 2016-05-02 19:39 | HHI.PR ---
Subjective Remarks 65 YOWF with COPD, Cirhosis, renal failure, VDRF No fever Weaned to N[place], 50% Fi02 On Fentanyl and Precedex Does't follow commands Started on Zosyn, Levaquin per ID Objective Vital Signs Vital Signs Date Time Temp Pulse Resp B/P Pulse Ox O2 Delivery O2 Flow Rate FiO2 05/02/16 17:33 99 65 05/02/16 12:45 100 100 05/02/16 12:13 94 60 05/02/16 09:28 99 60 05/02/16 06:00 150/68 155/74 05/02/16 06:00 69 05/02/16 04:00 50 05/02/16 04:00 75 05/02/16 04:00 98.3 75 14 131/36 97 05/02/16 03:48 96 50 05/02/16 02:00 68 05/02/16 00:09 100 50 05/02/16 00:00 50 05/02/16 00:00 98.2 69 14 143/72 99 05/02/16 00:00 69 05/01/16 22:00 79 05/01/16 20:00 72 05/01/16 20:00 147/69 141/69 05/01/16 20:00 50 05/01/16 20:00 98.5 72 14 141/69 95 147/65 05/01/16 19:45 96 50 I/O 05/01/16 05/01/16 05/01/16 05/02/16 05/02/16 05/02/16 07:00 15:00 23:00 07:00 15:00 23:00 Intake Total 644 ml 1057 ml 403 ml 285 ml Output Total 370.0 ml 2000.0 ml 855 ml 675 ml Balance 274.0 ml -943.0 ml -452 ml -390 ml IV Total 396 ml 1057 ml 359 ml 238 ml Tube Feeding 248 ml 44 ml 47 ml Output Urine Total 370 ml 1400 ml 855 ml 675 ml Gastric Drainage Total 100 ml Tube Feeding Residual Discard 0 ml 500.0 ml # Bowel Movements 4 Result Diagram: 05/02/1640405/02/16404 Objective Remarks GENERAL: MBMN WF on Vent, sedated SKIN: Warm and dry. HEAD: Normocephalic. EYES: No scleral icterus. No injection or drainage. NECK: Supple, trachea midline. No JVD or lymphadenopathy. CARDIOVASCULAR: Regular rate and rhythm without murmurs, gallops, or rubs. RESPIRATORY: Breath sounds equal bilaterally. No accessory muscle use. GASTROINTESTINAL: Abdomen soft, non-tender, nondistended. MUSCULOSKELETAL: No cyanosis, or edema. BACK: Nontender without obvious deformity. No CVA tenderness. A/P Assessment and Plan VDRF Metabolic acidosis improved Renal insuff COPD Cirrhosis of liver PLAN: CPAP trial Abx Zosyn, Levaquin and Zithro. Monitor lytes fentanyl and Precedex Uli Ramos MD May 02, 2016 19:39
[2016-05-02] MEDS: LEVOFLOXACIN 750 MG PREMIX INJ 150 ML IV SCH (21:31)
[2016-05-02] MEDS: VANCOMYCIN 1,000 MG/NS 250 ML IV SCH ×2 (21:31)
[2016-05-02] MEDS ORDERED: HALOPERIDOL LACTATE 5 MG/ML AMP IV ONE (23:00)
[2016-05-03] VITALS (19 sets, daily range): BP systolic 76–127; BP diastolic 35–60; PULSE 91–144; RESP 14–31; TEMP 98.4–101.2; O2SAT 89–100
[2016-05-03] MEDS ORDERED: PROPOFOL 1000 MG/100 ML INJ 100 ML IV SCH (00:45)
[2016-05-03] MEDS: RESP: ALBUTEROL 2.5 MG/IPRATROPIUM 0.5 MG NEB (SCH) NEB ×6 (03:54→23:41)
[2016-05-03] MEDS: CHLORHEXIDINE GLUCONATE 2 % 1 PACK (2 CLOTHS) TOP SCH (04:00)
[2016-05-03] MEDS: PIPERACIL-TAZO 4.5 GM PREMIX 100 ML IV SCH ×4 (04:03→22:46)
[2016-05-03] MEDS: HEPARIN SODIUM - SQ 10,000 UNITS/ML VIAL SQ SCH ×2 (04:04→14:02)
[2016-05-03] MEDS ORDERED: LACTATED RINGER'S 1000 ML INJ 500 ML IV ONE (04:30)
[2016-05-03 04:52] LABS: INTERNATIONAL NORMALIZED RATIO 1.3 RATIO
[2016-05-03 04:55] LABS: HEMATOCRIT 23.1 % (35.0-46.0); MEAN CELL VOLUME 66.6 FL (80.0-100.0); MEAN CORPUSCULAR HEMOGLOBIN 20.7 PG (27.0-34.0); MEAN CORPUSCULAR HGB CONC 31.1 % (32.0-36.0); PLATELET COUNT 156 TH/MM3 (150-450); RED BLOOD COUNT 3.47 MIL/MM3 (4.00-5.30); RED CELL DISTRIBUTION WIDTH 21.8 % (11.6-17.2); WHITE BLOOD COUNT 26.8 TH/MM3 (4.0-11.0)
[2016-05-03 04:56] LABS: REVIEW FLAG FINAL
[2016-05-03 05:13] LABS: BICARBONATE 26.8 MEQ/L (21.0-32.0); MAGNESIUM 1.7 MG/DL (1.5-2.5); POTASSIUM 3.6 MEQ/L (3.5-5.1)
[2016-05-03] MEDS: fentaNYL DRIP 250 ML IV SCH ×2 (05:18→14:02)
[2016-05-03] MEDS ORDERED: MIDAZOLAM HCL 2 MG/2 ML VIAL IV PUSH ONE (05:45)
[2016-05-03] MEDS ORDERED: MIDAZOLAM HCL 5 MG/ML VIAL (1 ML) ONE (06:18)
--- NOTE | 2016-05-03 07:34 | HHI.CCPN ---
Subjective Remarks/Hospital Course 65 year old female with history of alcohol abuse, history of breast cancer status post lumpectomy radiation and chemotherapy presents with progressively worsening shortness of breath. EMS was called because she was short of breath at home, and was found to have pals oxygen at 70%. Patient is on a BiPAP, seems to be comfortable in no distress. She is able to follow commands in all 4 extremities. Her history is limited secondary to FM BiPAP. 04/26 The patient acutely had respiratory decompensation yesterday afternoon. Discussion with family, sister power of research attorney regarding intubation in patient 's current respiratory status, family requesting intubation. She required intubation, central line placement and an arterial line placement to monitor oxygenation levels. The patient became hypoxic and hypotensive requiring vasopressor support. Currently the patient is on levophed infusion at 5 mcgs. 04/27 Afebrile. The patient continues on mechanical ventilation, overnight FiO2 requirements were increased, currently attempting to wean back to 55%. Sodium bicarbonate infusion at 150 cc/hour. Ammonia level slightly increased, lactulose dosage increased. Pulmonology consulted. The patient's last therapeutic paracentesis was 02/21/16, WBC count elevated, patient is currently on Zosyn and azithromycin, will begin coverage for spontaneous bacterial peritonitis. 04/28 Tmax 98.6 Overnight patient required increasing oxygen requirements, currently FiO2 0.75, vasopressor Levophed has been off since 2 AM. Yesterday the patient had one episode of sinus tach heart rate in the 150s received metoprolol 2.5 mg with resolution. The patient has been maintained on a sodium bicarbonate drip which was discontinued this a.m.. GI was consulted the patient was planned to go to IR for diagnostic and therapeutic paracentesis this a.m., currently on hold secondary to respiratory compromise. Planned for later this afternoon, if respiratory status stabilizes. 04/29: Currently afebrile. Patient was placed on Nimbex drip yesterday secondary to multiple desaturations the 60s with any movement. Unable to properly sedate for vent synchrony. Flolan was initiated in this is currently being weaned down today. Repeat ABG after ventilator setting adjustments currently pending. 04/30: Flolan discontinued yesterday. Patient continues to be completely on muscle relaxation/paralytic to maintain ventilator synchrony. ABGs improved. 05/01: Patient was weaned off of the relaxation Nimbex last night. O2 saturation remained 98% on FiO2 of 4045%. Plan today for CPAP trials. 05/02: The patient continues on Precedex and fentanyl infusion for sedation with adequate ventilator synchrony. CPAP trials successful for approximately 6 hours yesterday .Patient still does not follow any commands, benzodiazepines or discontinued. Patient tolerating tube feeds today. Will continue CPAP trials today. 05/03: Tmax 102.6. The patient came hypotensive this a.m., received 1 L bolus. Yesterday the patient secondary to persistent leukocytosis central line was discontinued, repeat blood and sputum cultures were ordered. ID was consulted antibiotics were ordered per ID. The patient continues to be agitated on Precedex, received Haldol 1 dose, and was placed on a propofol infusion during the night. The patient continues to be agitated plan for Versed infusion with fentanyl, his continuation of Precedex. The patient has not been able to be weaned from ventilator, plans for discussion with family today regarding tracheostomy. Objective Vital Signs Date Time Temp Pulse Resp B/P Pulse Ox O2 Delivery O2 Flow Rate FiO2 05/03/16 05:24 100 100 05/03/16 04:00 98.4 100 19 100/35 Intake and Output 05/02/16 05/02/16 05/03/16 08:00 16:00 00:00 Intake Total 392 ml 1066 ml 1277 ml Output Total 680 ml 1160.0 ml 425 ml Balance -288 ml -94.0 ml 852 ml Result Diagram: 05/03/16 0412 05/03/16 0412 Imaging Last Impressions Head CT 05/02/16 0000 Signed Impressions: Service Date/Time: Monday, May 02, 2016 12:49 - CONCLUSION: 1. Stable CT scan of the brain compared to the prior exam from 2013. 2. No focal or acute intracranial hemorrhage. Aureliano Rayo MD Chest X-Ray 05/02/16 0000 Signed Impressions: Service Date/Time: Monday, May 02, 2016 07:54 - CONCLUSION: Slight increase in the interstitial infiltrates in the right lung base. Otherwise no significant change compared to the prior study. Aureliano Rayo MD Abdomen X-Ray 05/01/16 0000 Signed Impressions: Service Date/Time: Sunday, May 01, 2016 10:49 - CONCLUSION: Catheter tips as described above. Akira Washington MD Renal Ultrasound 04/27/16 0000 Signed Impressions: Service Date/Time: March 10:35 - CONCLUSION: 1. Both kidneys are small in size. 2. No hydronephrosis. 3. There is some ascites in the abdomen. Aureliano Rayo MD Last Impressions Chest X-Ray 05/02/16 0000 Signed Impressions: Service Date/Time: Monday, May 02, 2016 07:54 - CONCLUSION: Slight increase in the interstitial infiltrates in the right lung base. Otherwise no significant change compared to the prior study. Aureliano Rayo MD Abdomen X-Ray 05/01/16 0000 Signed Impressions: Service Date/Time: Sunday, May 01, 2016 10:49 - CONCLUSION: Catheter tips as described above. Akira Washington MD Renal Ultrasound 04/27/16 0000 Signed Impressions: Service Date/Time: March 10:35 - CONCLUSION: 1. Both kidneys are small in size. 2. No hydronephrosis. 3. There is some ascites in the abdomen. Aureliano Rayo MD Last Impressions Chest X-Ray 04/29/16 0600 Signed Impressions: Service Date/Time: Friday, April 29, 2016 03:57 - CONCLUSION: Diffuse pulmonary opacities are slightly improved in the upper lobes otherwise no significant interval change. Shan Gustafson MD Renal Ultrasound 04/27/16 0000 Signed Impressions: Service Date/Time: March 10:35 - CONCLUSION: 1. Both kidneys are small in size. 2. No hydronephrosis. 3. There is some ascites in the abdomen. Aureliano Rayo MD Objective Remarks GENERAL: 62-year-old female, critically ill currently orotracheally intubated, agitated, not following commands. SKIN: Warm and dry. HEAD: Normocephalic. EYES: No scleral icterus. No injection or drainage. NECK: Supple, trachea midline. No JVD or lymphadenopathy. Orotracheally intubated, NG tube in place CARDIOVASCULAR: Regular rate and rhythm S1, S2. No S4. Currently without murmurs, gallops, or rubs. RESPIRATORY: Breath sounds equal bilaterally. GASTROINTESTINAL: Abdomen soft, protuberant non-tender, umbilical hernia MUSCULOSKELETAL: No cyanosis, 1+ pitting edema noted bilateral upper and lower extremities BACK: Nontender without obvious deformity. No CVA tenderness. Urinary Catheter: Yes Schultz insert reason: ICU Pt Getting Diuretics Date of Insertion: Apr 25, 2016 Vascular Central Line Catheter: No Date of Insertion: Apr 25, 2016 Date of Removal: May 02, 2016 Side: Right Location: Internal, Jugular A/P Problem List: (1) Acute respiratory failure with hypoxia ICD Code: J96.01 Status: Acute (2) Tobacco use disorder ICD Code: F17.200 Status: Acute (3) HOME (acute kidney injury) ICD Code: N17.9 Status: Acute Assessment and Plan Respiratory Acute Hypoxic Respiratory failure COPD exacerbation Tobacco abuse Pulmonary fibrosis S/P radiation therapy-breast cancer - Pulmonology on board- follow-up recommendations -Continue Precedex and fentanyl for sedation/CPAP trials- - Continue methylprednisolone 60 every 12hr - DuoNeb's scheduled every 4hr, every 2hr PRN -Paralytic discontinued 04/30 -Current ventilator settings -PC 25/RR14/PEEP8/.45 -Intubated 04/26 -Inability to wean, plan for tracheostomy will discuss with POA Neuro: Alcoholism H/O seizure Hepatic encephalopathy Anxiety disorder Hyperammonemia -GCS 11T, agitated, DC Precedex infusion began Midazolam with fentanyl -CT05/02-no intracranial abnormality -Lactulose to QID, monitor ammonia level -Seroquel home med Cardiovascular: Hypotension-secondary to sepsis -Maintain MAP greater than 65mmHg, currently low 60's -Volume resuscitation bolused 1 L -Levophed dc'd 05/01 am Renal/FEN HOME Hypernatremia-resolved Hypophosphatemia-resolved [id number] -Initially volume depletion 04/25 -NaHCO3 [id number]/30 - Albumin 25 g every 12 hours discontinued 04/30 -Renal on iodsy-azsflh-qg recommendations -FENA 2.03 - Monitor BMP - strict I&O - Bumex 1 mg IV daily per Dr. Bazan . GI Moderate protein calorie malnutrition Ascites -Tubefeeds-Suplena 35 cc/hour per nutrition's recommendations -Patient's last therapeutic paracentesis 02/21/2016, bedside US assessment of ascites approximated minimal - moderate,not significant amount for bedside paracentesis -GI on itsns-bpshue-dx recommendations -Albumin level 3.0 - Bowel regimen -Diagnostic/therapeutic paracentesis , 04/29 Removal of 2.3 L. Clear yellow. 24 WBCs -Continue to monitor, abdomen for therapeutic paracentesis -Monitor hepatic panel -Hepatitis panel-negative, previous old records, one entry reveals diagnosis of hepatitis C ID: Pneumonia? Persistent Leukocytosis Sepsis -Monitor CBC. WBC 19->26 today - 04/25 urine Legionella, streptococcal antigen negative -04/25 Sputum -No growth -04/28 Peritoneal cultures- NGTD -04/24 Blood cultures -NGTD -05/02 UA- neg -05/02 Blood cultures-pending -05/02 Sputum cultures-pending - Central line discontinued 05/02 -Antibiotics per ID-Dr. Borja -Monitor serial lactate levels Heme Microcytic anemia - status post lumpectomy radiation and chemotherapy - now in remission- left SC port (nonfunctional) per old records - supportive care -Monitor CBC Hgb 7.2 -Will transfuse if hemoglobin less than 7.0 History of breast cancer - status post lumpectomy radiation and chemotherapy - now in remission - supportive care -MSK -PT evaluate and treat-functional maintenance DVT/GI prophylaxis - Heparin SubQ/Protonix Dispo: Discussed with Allan Ge sister ANTIONE, the need for tracheostomy, inability to wean at this time. POPretty states the patient has a living will would like to discuss goals of care with palliative team before making a decision regarding a tracheostomy. Critical Care: This patient remains critically ill with one or more organ systems which are or may become a threat to life. I have spent in excess of 54 minutes discontinuously in the care and management of this patient. This time is exclusive of procedures, and includes, but is not limited to, evaluation of the patient, review of the medical record, discussions with family, consultants, nursing staff, or respiratory therapy, and documentation in the medical record. Physician Karmen Martines MD May 03, 2016 07:34
[2016-05-03] MEDS: CHLORHEXIDINE 0.12% (ORAL KIT) 15 ML CUP MT SCH ×2 (08:00→20:44)
[2016-05-03] MEDS: MIDAZOLAM 100 MG/ML INJ 100 ML IV SCH ×2 (08:20→22:46)
[2016-05-03] MEDS: ACETAMINOPHEN 325 MG TAB PO PRN ×2 (08:25→14:04)
[2016-05-03] MEDS: DOCUSATE SODIUM 100 MG CAP PO SCH ×2 (09:00→20:45)
[2016-05-03] MEDS: SERTRALINE HCL 100 MG TAB PO SCH (09:00)
[2016-05-03] MEDS: FOLIC ACID 1 MG TAB PO SCH (09:00)
[2016-05-03] MEDS: BUMETANIDE INJ 1 MG/4 ML VIAL IV PUSH SCH (09:00)
[2016-05-03] MEDS: methylPREDNISolone SOD SUCC 125 MG/2 ML VIAL IV PUSH SCH ×2 (09:00→20:45)
[2016-05-03] MEDS: SODIUM CHLORIDE 0.9% FLUSH 5 ML FLUSH IV FLUSH SCH ×2 (09:00→20:44)
[2016-05-03] MEDS: LACTULOSE SYRUP 20 GM/30 ML CUP PO SCH ×4 (09:00→20:44)
[2016-05-03] MEDS ORDERED: ALBUMIN HUMAN 5% 12.5 GM/250 ML BOTTLE IV ONE ×3 (09:33→17:10)
[2016-05-03] MEDS: PANTOPRAZOLE SODIUM 40 MG VIAL IV PUSH SCH (11:00)
--- NOTE | 2016-05-03 12:19 | PD.CONS ---
Consult Service Palliative Care Consult Requested By Dr. Karmen Ferreira MD. . Primary Care Physician Artur Smalls MD. . Reason for Consultation a. To assist with evaluation and management of symptoms including: debility and shortness of breath. b. To assist medical decision maker(s) with: better understanding of current medical conditions; weighing benefits/burdens of medical treatment options; making medical treatment decisions. . (Zuleyka Kasper) HPI History of Present Illness Mrs. Alfredo is a 65 y/o female with a medical history significant for alcoholic liver cirrhosis, pulmonary fibrosis, and breast cancer s/p lumpectomy, radiation and chemotherapy in 2008. Patient was previously evaluated for liver transplant at [facility] in May 2015, but was deemed not a candidate secondary to history of ETOH use/abuse and pulmonary fibrosis. She was being followed by GI as outpatient and required frequent paracentesis for recurrent ascites. Last paracentesis completed on 02/21/16. Patient presented to the ED on 04/24/16 with complains of progressive shortness of breath. She was placed on BiPAP and admitted to the ICU for hypoxic respiratory failure, severe sepsis and acute kidney injury. On 04/25/16 upon ICU admission, patient continued to have respiratory decompensation and confusion requiring emergent intubation and mechanical ventilation. Workup as follow: * ED workup: WBC 26.8, lactic acid of 3.8. Troponin I 0.1, BNP of 2812, potassium 5.9, sodium 130, BUN/creatinine 73/5.56. * ED CXR coarse interstitial opacities most consistent with chronic fibrosis and /or scarring. * 04/27/16 renal US with no sign of hydronephrosis. * 05/01/[address] with no focal or acute process. * Panculture negative thus far. While in the ICU post intubation, patient became hypotensive requiring vasopressor support. On 04/26/16 Nephrology, Dr. Bazan, and pulm Dr. Ramos were consulted for acute renal failure and respiratory failure respectively. GI, Dr. Beth consulted on 04/27/16 secondary to chronic liver disease. Bedside paracentesis performed on 04/29/16 with 1.3L output. Patient continued requiring increased FiO2 requirements and on 04/29/16 was placed on Nimbex secondary to multiple desaturations/ventilator dyssynchrony. Patient was weaned off Nimbex on 04/30/16 with plans for CPAP since 05/01/16. Central line discontinued on 05/01/16 secondary to persistent leukocytosis. As of today, patient has been unable to be weaned from ventilator support secondary to increased oxygen requirements. She had an episode of hypotension this morning requiring fluid bolus, as well as episodes of agitation requiring Precedex infusion and Haldol as needed. Palliative care has been consulted in the setting of her critical state and low likelihood of a meaningful recovery/wean off vent support. Met with sister Allan. She tells me that patient's health has been progressively declining for the past 3 years. Patient was diagnosed of right breast cancer in 2008, she underwent lumpectomy and subsequently radiation and chemotherapy. She was on Tamoxifen for a few years but stopped around 2013. she is no longer being f/u by oncology as she was deemed cured. Sister tells me that at the beginning of April 2014, patient was reporting shortness of breath and abdominal distention but refused to f/u with a doctor until when her liver disease was diagnosed. Patient was previously evaluated for liver transplant at [facility] in May 2015, but was deemed not a candidate secondary to history of ETOH use/abuse and pulmonary fibrosis. She was being followed by GI as outpatient and required frequent paracentesis for recurrent ascites. Last paracentesis completed on 02/21/16. Sister tells me that after pt' s liver transplant was denied, patient continued to rapidly decline requiring more assistance at home with ADL's and a walker for ambulation. Sister provided copy of living will completed on April 2015. reviewed patient' s health history and decline within the past 3 years and most recently within the past 6 months. Medical update provided. Discussed patient's critical state involving lungs secondary to pulmonary fibrosis, liver secondary to chronic liver failure/cirrhosis, kidneys secondary to HOME and sepsis. Discussed patient' s worsening condition including inability to wean off vent support and increased oxygen demand. Discussed CPR and tracheostomy in the setting of her critical and likely terminal condition, including risks and limitations of procedure. Sister tells me that patient was very clear on her wishes and that she would NOT want to live attached to a machine or her life prolonged by machines. Discussed the above with HCS -sister Svetlana over the phone. Both sisters in agreement of NO CODE and to cont attempting medical extubation today. Discussed with family that the likelihood of medical extubation/clinical implement are low in the setting of her multiple acute/chronic comorbidities/ events. Reviewed that in the setting of no improvement or worsening clinical condition, we will discuss withdrawal of support and to allow a natural , following pt's wishes as stated in her living will. Sister appropriately tearful but with a good understanding of pt's critical state. Active listening and ongoing emotional support provided. . Function/Cognitive Trajectory Poor performance status at baseline. Progressive physical decline for the past 3 years. Requiring walker 50% of the time, easily fatigued. Requiring assistance with ADL's. O2 at home recommended by primary physician but never used. . (Zuleyka Kasper) Review of Systems ROS Limitations: Clinical Condition, Altered Mental Status Constitutional: COMPLAINS OF: Fatigue Endocrine: DENIES: Heat/cold intolerance Respiratory: COMPLAINS OF: Cough, Shortness of breath Cardiovascular: COMPLAINS OF: Dyspnea on Exertion, DENIES: Chest pain Gastrointestinal: DENIES: Abdominal pain Musculoskeletal: DENIES: Joint Swelling Integumentary: DENIES: Pruritus, Rash Neurologic: COMPLAINS OF: Abnormal gait (secondary to weakness), DENIES: Seizures, Speech Problems Psychiatric: COMPLAINS OF: Anxiety Other ROS: Limited ROS secondary to clinical condition. Patient sedated, intubated on mechanical ventilation. ROS obtained from medical records, sister Allan and clinical presentation. (Zuleyka Kasper) Past Family Social History Coded Allergies: Morphine (Verified Allergy, Mild, Itching, 04/24/16) pt denies Past Medical History Liver cirrhosis secondary to alcohol abuse Recurrent ascites Interstitial fibrosis Anemia Anxiety Constipation Peripheral neuropathy History of breast cancer, s/p lumpectomy, radiation and chemotherapy Former tobacco use . Past Surgical History Multiple abdominal paracentesis Cholecystectomy Complete colonoscopy EGD History of infusaport placement Radiation therapy Right breast lumpectomy History of tonsillectomy . Reported Medications Lactulose 30 Ml Syrp 30 Ml PO DAILY 10 Days Midodrine Hcl (Midodrine) 5 Mg Tab 5 Mg PO TID 30 Days Folate 1 Mg Tab (Folic Acid) 1 Mg Tab 1 Mg PO DAILY Gabapentin 300 Mg Cap 300 Mg PO TID Ultram (Tramadol HCl) 50 Mg Tab 50 Mg PO Q4H PRN Lorazepam 0.5 Mg Tab 0.5 Mg PO BID . Current Medications Medications (Trade) Dose Ordered Sig/Antione Route Start Time Stop Time Status Last Admin (NS Flush) 2 ml UNSCH PRN IV FLUSH 04/25/16 03:00 (NS Flush) 2 ml BID IV FLUSH 04/25/16 09:00 05/03/16 09:00 (Tylenol) 650 mg Q6H PRN PO 04/25/16 03:00 05/02/16 22:32 (Percocet 5-325 Mg) 1 tab Q4H PRN PO 04/25/16 03:00 (Zofran Inj) 4 mg Q6H PRN IV 04/25/16 03:00 (Colace) 100 mg BID PO 04/25/16 09:00 05/03/16 09:00 (Heparin Inj) 5,000 units Q12H SQ 04/25/16 03:00 05/03/16 04:04 Miscellaneous Information 1 Q361D XX 04/25/16 03:00 04/25/16 03:00 (Chlorhexidine 2% Cloth) Taper DAILY@04 TOP 04/25/16 04:00 04/21/17 03:59 04/30/16 03:15 (Chlorhexidine 2% Cloth) 3 pack UNSCH PRN TOP 04/25/16 03:00 (Folate) 1 mg DAILY PO 04/25/16 09:00 05/03/16 09:00 (SoluMEDROL INJ) 60 mg Q12HR IV PUSH 04/25/16 09:00 05/03/16 09:00 Gabapentin 300 mg 300 mg HS PO 04/25/16 21:00 04/26/16 20:55 Fentanyl Citrate 250 ml @ 0 mls/hr TITRATE IV 04/25/16 15:45 05/03/16 05:18 (Levophed-Dextrose Drip) 250 ml @ 0 mls/hr TITRATE IV 04/25/16 22:45 04/29/16 23:48 (Brethine Inj) 1 mg UNSCH PRN SQ 04/25/16 22:45 (Peridex 0.12% Liq) 15 ml BID@08,20 MT 04/26/16 20:00 05/03/16 08:00 (Protonix Inj) 40 mg Q24H IV PUSH 04/27/16 11:00 05/03/16 11:00 (Lactulose Liq) 30 ml QID PO 04/27/16 13:00 05/03/16 09:00 (Bumex Inj) 1 mg DAILY IV PUSH 04/30/16 09:00 05/03/16 09:00 Sertraline HCl 100 mg 100 mg DAILY PO 05/01/16 14:00 05/03/16 09:00 Piperacillin Sod/ Tazobactam Sod 100 ml @ 200 mls/hr Q6H IV 05/02/16 17:00 05/03/16 11:00 Levofloxacin/ Dextrose 150 ml @ 100 mls/hr Q48H IV 05/02/16 17:00 05/02/16 21:31 Pharmacy Profile Note 0 ml @ 0 mls/hr UNSCH IV 05/02/16 16:15 (Vancomycin Inj/ NS 250 ml Inj) 250 ml @ 250 mls/hr Q24H IV 05/02/16 18:00 05/02/16 21:31 Miscellaneous Information SPECIFIC LAB TO BE DRAWN:VANCO TROUGH DATE TO BE DRJordy.. ONCE ONCE XX 05/05/16 17:45 05/05/16 17:46 (Versed Inj) 100 ml @ 0 mls/hr TITRATE IV 05/03/16 07:30 05/03/16 08:20 Family History History of cardiac disease in father. Father in his 70's of acute PR. . Substance Use Tobacco: Former smoker. 30 year pack history. Alcohol: 3 to 4 drinks daily for over 30 years. Quit in August 2014 after discovering liver disease. Prescription med abuse: None reported. Illicits: None reported. . 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 Retired in 2012 due to health issues. High school diploma. and 3 times. No children. Resides with sister Allan. Additional sister Sevtlana in [place]. Mother alive and well in [place]. . Spiritual/Cultural Factors Religion. Not mandaeism affiliation. . (Zuleyka Kasper) Living Will: Copy in medical record Health Care Surrogate: Copy in medical record Durable Power of Doll Wigs Hackler: Completed, but not made available Date completed: 05/29/2015. . Health Care Surrogate(s): HCS listed as Sister Svetlana Salazar. . Documented care wishes: Living will provided by sister Allan. Patient wishing that in the event of a terminal condition, end-stage condition or persistent vegetative state, she wishes for NO CPR, NO breathing machine, NO artificial nutrition, NO surgery unless for comfort, NO ICU admission, NO medications that can prolong her dying , such as antibiotics, NO pacemaker or defibrillator, NO HD and YES to hospice care at the earliest opportunity. . Today's verbally stated goals: Patient unable to participate in GOC conversation secondary to clinical condition. . Family/friends goals: NO CODE. Cont with attempts at medical extubation. NO TRACH if unable to extubate. . Ethical and Legal Issues None identified. Living will completed. . (Zuleyka Kasper) Physical Exam Vital Signs Date Time Temp Pulse Resp B/P Pulse Ox O2 Delivery O2 Flow Rate FiO2 05/03/16 11:09 92 95 05/03/16 10:00 95 05/03/16 08:54 90 85 05/03/16 08:00 101.0 144 25 122/60 92 05/03/16 08:00 144 05/03/16 08:00 85 05/03/16 07:25 90 90 05/03/16 06:00 100 05/03/16 05:24 100 100 05/03/16 04:00 98.4 100 19 100/35 96 05/03/16 04:00 100 05/03/16 04:00 60 05/03/16 03:00 96 05/03/16 01:38 100 50 05/03/16 00:00 60 05/03/16 00:00 100.8 106 31 127/56 100 05/03/16 00:00 106 05/02/16 22:00 104 05/02/16 21:04 99 60 05/02/16 20:00 102.6 102 24 124/40 98 05/02/16 20:00 102 05/02/16 20:00 60 05/02/16 18:00 99.4 05/02/16 18:00 111 05/02/16 17:33 99 65 05/02/16 16:00 86 05/02/16 16:00 102.3 86 15 114/58 98 05/02/16 16:00 75 05/02/16 14:00 90 05/02/16 12:45 100 100 05/02/16 12:13 94 60 05/02/16 12:00 75 05/02/16 12:00 99.4 75 14 143/65 95 Arterial Line 05/02/16 12:00 60 05/02/16 05/03/16 18:59 06:59 Intake Total 1354 ml 2619 ml Output Total 1420.0 ml 592 ml Balance -66.0 ml 2027 ml IV Total 897 ml 2237 ml Tube Feeding 277 ml 382 ml Other 180 ml Output Urine Total 1420 ml 592 ml Stool Total 0 ml 0 ml Tube Feeding Residual Discard 0 ml Exam CONSTITUTIONAL/GENERAL: This is an adequately nourished patient, in moderate distress. Restless in bed. TUBES/LINES/DRAINS: ETT, NG tube, Schultz cath, PIV's, SCD's. SKIN: No jaundice, rashes, or lesions. Ecchymoses on upper extremities and right side of neck. No wounds seen anteriorly. Skin temperature appropriate. Not diaphoretic. HEAD: Atraumatic. Normocephalic. EYES: Pupils equal and round and reactive. No scleral icterus. No injection or drainage. Fundi not examined. ENT: Unable to assess hearing. Nose without bleeding or purulent drainage. Unable to visualize throat due to ETT. NECK: Trachea midline. Supple, nontender. No palpable thyroid enlargement or nodularity. CARDIOVASCULAR: Regular rate and rhythm without murmurs, gallops, or rubs. No JVD. Peripheral pulses symmetric. RESPIRATORY/CHEST: Symmetric, unlabored respirations. Breath sounds equal bilaterally. Coarse rhonchi bilaterally. GASTROINTESTINAL: Abdomen soft, mildly distended. Bowel sounds present. GENITOURINARY: Without palpable bladder distension. Schultz catheter in place. MUSCULOSKELETAL: Extremities without clubbing, cyanosis. No mottling or clubbing. NEUROLOGICAL: sedated. Not following commands. PSYCHIATRIC: anxious/restless. . (Zuleyka Kasper) Diagnostic Tests Laboratory Laboratory Tests Test 05/01/16 05/01/16 05/02/16 05/02/16 05:20 05:23 04:05 05:32 White Blood Count 21.5 TH/MM3 19.4 TH/MM3 (4.0-11.0) (4.0-11.0) Red Blood Count 4.04 MIL/MM3 4.21 MIL/MM3 (4.00-5.30) (4.00-5.30) Hemoglobin 8.3 GM/DL 8.7 GM/DL (11.6-15.3) (11.6-15.3) Hematocrit 26.7 % 27.7 % (35.0-46.0) (35.0-46.0) Mean Corpuscular Volume 66.1 FL 65.9 FL (80.0-100.0) (80.0-100.0) Mean Corpuscular Hemoglobin 20.7 PG 20.6 PG (27.0-34.0) (27.0-34.0) Mean Corpuscular Hemoglobin 31.2 % 31.3 % Concent (32.0-36.0) (32.0-36.0) Red Cell Distribution Width 21.8 % 21.6 % (11.6-17.2) (11.6-17.2) Platelet Count 206 TH/MM3 182 TH/MM3 (150-450) (150-450) Mean Platelet Volume 8.3 FL 8.1 FL (7.0-11.0) (7.0-11.0) Sodium Level 147 MEQ/L 146 MEQ/L (136-145) (136-145) Potassium Level 4.1 MEQ/L 4.0 MEQ/L (3.5-5.1) (3.5-5.1) Chloride Level 110 MEQ/L 107 MEQ/L (98-107) (98-107) Carbon Dioxide Level 31.1 MEQ/L 31.0 MEQ/L (21.0-32.0) (21.0-32.0) Anion Gap 6 MEQ/L (5-15) 8 MEQ/L (5-15) Blood Urea Nitrogen 39 MG/DL (7-18) 35 MG/DL (7-18) Creatinine 1.29 MG/DL 1.08 MG/DL (0.50-1.00) (0.50-1.00) Estimat Glomerular Filtration 42 ML/MIN (>89) 51 ML/MIN (>89) Rate Random Glucose 144 MG/DL 165 MG/DL (74-106) (74-106) Calcium Level 8.7 MG/DL 9.0 MG/DL (8.5-10.1) (8.5-10.1) Phosphorus Level 3.9 MG/DL 3.2 MG/DL (2.5-4.9) (2.5-4.9) Magnesium Level 2.0 MG/DL 1.8 MG/DL (1.5-2.5) (1.5-2.5) Blood Gas Puncture Site ART LINE THOMPSON Blood Gas Patient Temperature 98.6 98.6 Blood Gas HCO3 28 mmol/L 28 mmol/L (22-26) (22-26) Blood Gas Base Excess 4.0 mmol/L 4.5 mmol/L (-2-2) (-2-2) Blood Gas Oxygen Saturation 95 % (90-100) 94 % (90-100) Arterial Blood pH 7.42 7.46 (7.380-7.420) (7.380-7.420) Arterial Blood Partial 45 mmHg (38-42) 40 mmHg (38-42) Pressure CO2 Arterial Blood Partial 110 mmHg 86 mmHg Pressure O2 (61-120) (61-120) Arterial Blood Oxygen Content 11.2 Vol % 11.5 Vol % (12.0-20.0) (12.0-20.0) Arterial Blood 2.0 % (0-4) 2.5 % (0-4) Carboxyhemoglobin Arterial Blood Methemoglobin 1.0 % (0-2) 0.8 % (0-2) Blood Gas Hemoglobin 8.2 G/DL 8.6 G/DL (12.0-16.0) (12.0-16.0) Oxygen Delivery Device VENTILATOR Blood Gas Ventilator Setting PC/AC VENT Blood Gas Inspired Oxygen 45 % Neutrophils (%) (Auto) 89.8 % (16.0-70.0) Lymphocytes (%) (Auto) 3.8 % (9.0-44.0) Monocytes (%) (Auto) 5.4 % (0.0-8.0) Eosinophils (%) (Auto) 0.8 % (0.0-4.0) Basophils (%) (Auto) 0.2 % (0.0-2.0) Neutrophils # (Auto) 17.5 TH/MM3 (1.8-7.7) Lymphocytes # (Auto) 0.7 TH/MM3 (1.0-4.8) Monocytes # (Auto) 1.0 TH/MM3 (0-0.9) Eosinophils # (Auto) 0.2 TH/MM3 (0-0.4) Basophils # (Auto) 0.0 TH/MM3 (0-0.2) CBC Comment AUTO DIFF Differential Comment AUTO DIFF CONFIRMED Platelet Estimate NORMAL (NORMAL) Platelet Morphology Comment NORMAL (NORMAL) Basophilic Stippling FAINT (NORMAL) Keratocytes OCC (NORMAL) Total Bilirubin 0.8 MG/DL (0.2-1.0) Aspartate Amino Transf 33 U/L (15-37) (AST/SGOT) Alanine Aminotransferase 30 U/L (10-53) (ALT/SGPT) Alkaline Phosphatase 71 U/L (45-117) Total Protein 5.9 GM/DL (6.4-8.2) Albumin 3.1 GM/DL (3.4-5.0) Test 05/02/16 05/03/16 05/03/16 16:15 04:12 09:18 Urine Color YELLOW (YELLW/STRAW) Urine Turbidity CLEAR (CLEAR) Urine pH 5.5 (5.0-8.5) Urine Specific [place] 1.013 (1.002-1.035) Urine Protein 30 mg/dL (NEG-TRACE) Urine Glucose (UA) NEG mg/dL (NEG) Urine Ketones NEG mg/dL (NEG) Urine Occult Blood MOD (NEG) Urine Nitrite NEG (NEG) Urine Bilirubin NEG (NEG) Urine Urobilinogen LESS THAN 2.0 MG/DL (LESS THAN 2.0) Urine Leukocyte Esterase NEG (NEG) Urine RBC /hpf (0-3) Urine WBC 2 /hpf (0-5) Microscopic Urinalysis Comment CULT NOT INDICATED White Blood Count 26.8 TH/MM3 (4.0-11.0) Red Blood Count 3.47 MIL/MM3 (4.00-5.30) Hemoglobin 7.2 GM/DL (11.6-15.3) Hematocrit 23.1 % (35.0-46.0) Mean Corpuscular Volume 66.6 FL (80.0-100.0) Mean Corpuscular Hemoglobin 20.7 PG (27.0-34.0) Mean Corpuscular Hemoglobin 31.1 % Concent (32.0-36.0) Red Cell Distribution Width 21.8 % (11.6-17.2) Platelet Count 156 TH/MM3 (150-450) Mean Platelet Volume 8.8 FL (7.0-11.0) Prothrombin Time 14.0 SEC (9.8-11.6) Prothromb Time International 1.3 RATIO Ratio Sodium Level 149 MEQ/L (136-145) Potassium Level 3.6 MEQ/L (3.5-5.1) Chloride Level 110 MEQ/L (98-107) Carbon Dioxide Level 26.8 MEQ/L (21.0-32.0) Anion Gap 12 MEQ/L (5-15) Blood Urea Nitrogen 29 MG/DL (7-18) Creatinine 1.41 MG/DL (0.50-1.00) Estimat Glomerular Filtration 38 ML/MIN (>89) Rate Random Glucose 153 MG/DL (74-106) Calcium Level 9.0 MG/DL (8.5-10.1) Phosphorus Level 2.9 MG/DL (2.5-4.9) Magnesium Level 1.7 MG/DL (1.5-2.5) Ammonia 33 MCMOL/L (11-32) Lactic Acid Level 1.1 mmol/L (0.4-2.0) (Zuleyka Kasper) Result Diagram: 05/03/16 0412 05/03/16 0412 Microbiology Microbiology Date/Time Procedure Status Source Growth 05/02/16 16:07 Aerobic Blood Culture Received Blood Peripheral Pending 05/02/16 16:07 Anaerobic Blood Culture Received Blood Peripheral Pending 05/02/16 16:09 Aerobic Blood Culture - Preliminary Resulted Blood Peripheral NO GROWTH IN 1 DAY 05/02/16 16:09 Anaerobic Blood Culture - Preliminary Resulted Blood Peripheral NO GROWTH IN 1 DAY 05/02/16 16:15 Aerobic Blood Culture - Preliminary Resulted Blood Peripheral NO GROWTH IN 1 DAY 05/02/16 16:15 Anaerobic Blood Culture - Preliminary Resulted Blood Peripheral NO GROWTH IN 1 DAY 05/02/16 17:55 Gram Stain - Final Resulted Sputum Endotracheal 05/02/16 17:55 Sputum Culture Resulted Sputum Endotracheal Pending 05/02/16 20:52 Aerobic Blood Culture - Preliminary Resulted Blood Peripheral NO GROWTH IN 1 DAY 05/02/16 20:52 Anaerobic Blood Culture - Preliminary Resulted Blood Peripheral NO GROWTH IN 1 DAY Imaging Last Impressions Head CT 05/02/16 0000 Signed Impressions: Service Date/Time: Monday, May 02, 2016 12:49 - CONCLUSION: 1. Stable CT scan of the brain compared to the prior exam from 2013. 2. No focal or acute intracranial hemorrhage. Aureliano Rayo MD Chest X-Ray 05/02/16 0000 Signed Impressions: Service Date/Time: Monday, May 02, 2016 07:54 - CONCLUSION: Slight increase in the interstitial infiltrates in the right lung base. Otherwise no significant change compared to the prior study. Aureliano Rayo MD Abdomen X-Ray 05/01/16 0000 Signed Impressions: Service Date/Time: Sunday, May 01, 2016 10:49 - CONCLUSION: Catheter tips as described above. Akira Washington MD Renal Ultrasound 04/27/16 0000 Signed Impressions: Service Date/Time: March 10:35 - CONCLUSION: 1. Both kidneys are small in size. 2. No hydronephrosis. 3. There is some ascites in the abdomen. Aureliano Rayo MD Procedures * 05/02/16 - D/C of left IJ central line * 04/29/16 - paracentesis * 04/25/16 - Left IJ central line placement * 04/25/16 - Arterial line placement * 04/25/16 - Intubation (Zuleyka Kasper) Patient/Family Conference Present at Family Conference: Sister Allan Ge at bedside and sister Svetlana Salazar over the phone. Family Conference Time (mins): 65 Family Conference Location: Bedside Issues Discussed: * Palliative care role, purpose, approach * Additional medical, psychosocial, and spiritual history * Patients general health, functional status, and cognitive changes in the months leading up to the current hospitalization * Patient/family understanding of the current medical problems * Patient/family understanding of prognosis * Patients goals of care as best understood from advance directives and/or conversations and/or values * Current medical treatment options and benefits/burdens of those options * Likely scenarios comparing ongoing aggressive care with a transition to comfort measures only * Questions answered to the best of my ability * Palliative care contact information provided * Living will review and discussion (Zuleyka Kasper) Assessment and Plan Disease Oriented Problem List: (1) Severe sepsis (2) Acute respiratory failure with hypoxia (3) Pulmonary fibrosis (4) Cirrhosis (5) HOME (acute kidney injury) Symptom Scale: (1) Shortness of breath 0-10 Scale: Unable to quantify Comment: secondary to pulm fibrosis, sepsis. Patient intubated on mech vent. (2) Debility 0-10 Scale: Unable to quantify Comment: progressive debility for the past 3 years. (3) Pain 0-10 Scale: Unable to quantify Comment: History of chronic pain. On Fentanyl drip. Pertinent Non-Medical Issues Psychosocial: Retired. . No children. Resides with sister Allan. Spiritual: Taniya. Legal: Living will and [facility] designation completed and in records. Ethical issues impacting care: None identified. . Important Contacts RUFINA Salazar - and . Sister Allan Ge - . . Prognosis Mrs. Alfredo is a 65 y/o female with a medical history significant for alcoholic liver cirrhosis, pulmonary fibrosis, and breast cancer s/p lumpectomy, radiation and chemotherapy in 2008. Patient was previously evaluated for liver transplant at [facility] in May 2015, but was deemed not a candidate secondary to history of ETOH use/abuse and pulmonary fibrosis. Her baseline performance status prior to this hospitalization was poor and required assistance with ADL's. Her overall prognosis is poor given her pre-existing functional status, multiple chronic comorbidities and acute events. She is at high risk for further complications, continue decline and . In the setting of her multiorgan system failure and , increased oxygen demand and inability to wean off ventilator support, her life expectancy is of hours to days if illness runs its normal course. If family wishes for comfort-directed care, patient would be appropriate and eligible for hospice services in the setting of her terminal condition. . Code Status: No Code Plan * NO CODE. * Patient lacks decision-making capacity secondary to clinical condition; encephalopathic, sedated, intubated on mech vent. Unlikely to regain. LW with designation of HCS -sister Svetlana Salazar. * 05/03/15: Plan for today is to cont with attempts at medical extubation. NO TRACH if unable to extubate. Ongoing GOC discussion, likely transition to comfort-directed care in the incoming days if no clinical improvement. Met with sister Allan at bedside and spoke with [facility] Svetlana over the phone. Sister Allan provided copy of living will completed on April 2015. reviewed patient's health history and decline within the past 3 years and most recently within the past 6 months. Medical update provided. Discussed patient's critical state involving lungs secondary to pulmonary fibrosis, liver secondary to chronic liver failure/cirrhosis, kidneys secondary to HOME and sepsis. Discussed patient' s worsening condition including inability to wean off vent support and increased oxygen demand. Discussed CPR and tracheostomy in the setting of her critical and likely terminal condition, including risks and limitations of procedure. Sister tells me that patient was very clear on her wishes and that she would NOT want to live attached to a machine or her life prolonged by machines. Discussed the above with HCS -sister Svetlana over the phone. Both sisters in agreement of NO CODE and to cont attempting medical extubation today. Discussed with family that the likelihood of medical extubation/clinical implement are low in the setting of her multiple acute/chronic comorbidities/ events. Reviewed that in the setting of no improvement or worsening clinical condition, we will discuss withdrawal of support and to allow a natural , following pt's wishes as stated in her living will. Sister appropriately tearful but with a good understanding of pt's critical state. Active listening and ongoing emotional support provided. * Case discussed with Dr. Ferreira. * Palliative care contact information provided to family. * Palliative care will continue to f/u with this patient and family for further clarification of goals and for emotional support. . (Zuleyka Kasper) Time Spent Time Periods: Total time to include review and summarization of available medical records, family meeting from 10:05 to 11:15 and case discussion with Dr[address] Ferreira. Total Floor Time (mins): 115 Face to Face Time (mins): 85 >50% Counseling/Coord of Care: Yes (Zuleyka Kasper) Thank you for the opportunity to participate in the care of Ms. Alfredo. (Zuleyka Kasper) Attestation To help prompt me to consider important information that might be impacting today's encounter and assessment, information from prior notes written by myself or my colleagues may have been "brought forward" into today's note. My signature on this note, however, is an attestation that I personally performed the exam, history, and/or decision-making noted today, and, unless otherwise indicated, the interactions with patient, family, and staff as well as the review of records all occurred today. I also attest that the listed assessment and stated plan reflect my best clinical judgment today based on the combination of historical information, prior notes, and today's exam/ interactions. When time spent is documented, it refers only to time spent today by the signer, or if indicated, combined time spent today by collaborating physician/nurse practitioner. (Zuleyka Kasper) Collaborating MD Comments Chart reviewed. Case discussed with palliative care MAP COMPILER. Above MAP COMPILER note reviewed and I concur. . (Jerry Camargo MD) Zuleyka Kasper May 03, 2016 12:19 Jerry Camargo MD Jun 17, 2016 14:01
--- NOTE | 2016-05-03 13:31 | HHI.NPPN ---
Subjective Renal Failure: Acute History of Present Illness 65 Year old female with breast cancer, Respiratory failure, cirrhosis Objective Data Data 05/02/16 05/03/16 19:00 07:00 Intake Total 1456 ml 2517 ml Output Total 1450.0 ml 562 ml Balance 6.0 ml 1955 ml IV Total 958 ml 2176 ml Tube Feeding 318 ml 341 ml Other 180 ml Output Urine Total 1450 ml 562 ml Stool Total 0 ml 0 ml Tube Feeding Residual Discard 0 ml Vital Signs Date Time Temp Pulse Resp B/P Pulse Ox O2 Delivery O2 Flow Rate FiO2 05/03/16 12:00 101.2 108 14 96/46 91 05/03/16 12:00 91 05/03/16 11:09 92 95 05/03/16 10:00 95 05/03/16 08:54 90 85 05/03/16 08:00 101.0 144 25 122/60 92 05/03/16 08:00 144 05/03/16 08:00 85 05/03/16 07:25 90 90 05/03/16 06:00 100 05/03/16 05:24 100 100 05/03/16 04:00 98.4 100 19 100/35 96 05/03/16 04:00 100 05/03/16 04:00 60 05/03/16 03:00 96 05/03/16 01:38 100 50 05/03/16 00:00 60 05/03/16 00:00 100.8 106 31 127/56 100 05/03/16 00:00 106 05/02/16 22:00 104 05/02/16 21:04 99 60 05/02/16 20:00 102.6 102 24 124/40 98 05/02/16 20:00 102 05/02/16 20:00 60 05/02/16 18:00 99.4 05/02/16 18:00 111 05/02/16 17:33 99 65 05/02/16 16:00 86 05/02/16 16:00 102.3 86 15 114/58 98 05/02/16 16:00 75 05/02/16 14:00 90 -: 05/03/16 0412 05/03/16 0412 Microbiology 05/02/16 Aerobic Blood Culture, Received Pending 05/02/16 Anaerobic Blood Culture, Received Pending 05/02/16 Aerobic Blood Culture - Preliminary, Resulted NO GROWTH IN 1 DAY 05/02/16 Anaerobic Blood Culture - Preliminary, Resulted NO GROWTH IN 1 DAY 05/02/16 Aerobic Blood Culture - Preliminary, Resulted NO GROWTH IN 1 DAY 05/02/16 Anaerobic Blood Culture - Preliminary, Resulted NO GROWTH IN 1 DAY 05/02/16 Gram Stain - Final, Resulted 05/02/16 Sputum Culture, Resulted Pending 05/02/16 Aerobic Blood Culture - Preliminary, Resulted NO GROWTH IN 1 DAY 05/02/16 Anaerobic Blood Culture - Preliminary, Resulted NO GROWTH IN 1 DAY Physical Exam General Appearance: Well Developed Neck Neck Exam: Neck Supple Pulmonary Resp Exam: Decreased Bases Cardiology CV Exam: Tachycardia Gastrointestinal/Abdomen GI Exam: Soft, Distended Extremeties Extremities Exam: Moderate Edema Assessment/Plan Problem List: (1) HOME (acute kidney injury) Plan: Patient ARF is nonoliguric and responding to diuretic creatinine 1.4 discontinue with Bumex 1 mg daily as Na 149 Cr higher UOP remained stable (2) Severe sepsis Plan: Due to possible pneumonia (3) Acute respiratory failure with hypoxia Plan: On ventilator Marilee Bazan MD May 03, 2016 13:31
--- NOTE | 2016-05-03 16:41 | HHI.GIFU ---
Subjective Remarks Resting in bed, sedated on vent in no distress. (Kim Olea) Objective Vitals I&O Vital Signs Date Time Temp Pulse Resp B/P Pulse Ox O2 Delivery O2 Flow Rate FiO2 05/03/16 16:00 100.0 98 24 76/38 92 05/03/16 16:00 98 05/03/16 15:17 90 100 05/03/16 12:00 101.2 108 14 96/46 91 05/03/16 12:00 91 05/03/16 11:09 92 95 05/03/16 10:00 95 05/03/16 08:54 90 85 05/03/16 08:00 101.0 144 25 122/60 92 05/03/16 08:00 144 05/03/16 08:00 85 05/03/16 07:25 90 90 05/03/16 06:00 100 05/03/16 05:24 100 100 05/03/16 04:00 98.4 100 19 100/35 96 05/03/16 04:00 100 05/03/16 04:00 60 05/03/16 03:00 96 05/03/16 01:38 100 50 05/03/16 00:00 60 05/03/16 00:00 100.8 106 31 127/56 100 05/03/16 00:00 106 05/02/16 22:00 104 05/02/16 21:04 99 60 05/02/16 20:00 102.6 102 24 124/40 98 05/02/16 20:00 102 05/02/16 20:00 60 05/02/16 18:00 99.4 05/02/16 18:00 111 05/02/16 17:33 99 65 I/O 05/02/16 05/02/16 05/02/16 05/03/16 05/03/16 05/03/16 06:59 14:59 22:59 06:59 14:59 22:59 Intake Total 285 ml 1044 ml 1406 ml 1523 ml 1679 ml 250 ml Output Total 825 ml 1150 ml 420.0 ml 442 ml 400 ml Balance -540 ml -106 ml 986.0 ml 1081 ml 1279 ml 250 ml IV Total 238 ml 729 ml 1019 ml 1386 ml 1168 ml Tube Feeding 47 ml 225 ml 297 ml 137 ml 261 ml Albumin 250 ml 250 ml Other 90 ml 90 ml Output Urine Total 825 ml 1150 ml 420 ml 442 ml 300 ml Stool Total 0 ml 0 ml 100 ml Gastric Drainage Total 0 ml Tube Feeding Residual Discard 0 ml Laboratory Laboratory Tests Test 05/03/16 05/03/16 05/03/16 04:12 09:18 15:02 White Blood Count 26.8 Red Blood Count 3.47 Hemoglobin 7.2 Hematocrit 23.1 Mean Corpuscular Volume 66.6 Mean Corpuscular Hemoglobin 20.7 Mean Corpuscular Hemoglobin 31.1 Concent Red Cell Distribution Width 21.8 Platelet Count 156 Mean Platelet Volume 8.8 Prothrombin Time 14.0 Prothromb Time International 1.3 Ratio Sodium Level 149 Potassium Level 3.6 Chloride Level 110 Carbon Dioxide Level 26.8 Anion Gap 12 Blood Urea Nitrogen 29 Creatinine 1.41 Estimat Glomerular Filtration 38 Rate Random Glucose 153 Calcium Level 9.0 Phosphorus Level 2.9 Magnesium Level 1.7 Ammonia 33 Lactic Acid Level 1.1 1.5 Date/Time Procedure Status Source Growth 05/02/16 20:52 Aerobic Blood Culture - Preliminary Resulted Blood Peripheral NO GROWTH IN 1 DAY 05/02/16 20:52 Anaerobic Blood Culture - Preliminary Resulted Blood Peripheral NO GROWTH IN 1 DAY 05/02/16 17:55 Gram Stain - Final Resulted Sputum Endotracheal 05/02/16 17:55 Sputum Culture - Preliminary Resulted Sputum Endotracheal LIGHT GROWTH NORMAL RESPIRATORY LUTHER... 05/02/16 16:07 Aerobic Blood Culture Received Blood Peripheral Pending 05/02/16 16:07 Anaerobic Blood Culture Received Blood Peripheral Pending Imaging Last Impressions Head CT 05/02/16 0000 Signed Impressions: Service Date/Time: Monday, May 02, 2016 12:49 - CONCLUSION: 1. Stable CT scan of the brain compared to the prior exam from 2013. 2. No focal or acute intracranial hemorrhage. Aureliano Rayo MD Chest X-Ray 05/02/16 0000 Signed Impressions: Service Date/Time: Monday, May 02, 2016 07:54 - CONCLUSION: Slight increase in the interstitial infiltrates in the right lung base. Otherwise no significant change compared to the prior study. Aureliano Rayo MD Abdomen X-Ray 05/01/16 0000 Signed Impressions: Service Date/Time: Sunday, May 01, 2016 10:49 - CONCLUSION: Catheter tips as described above. Akira Washington MD Renal Ultrasound 04/27/16 0000 Signed Impressions: Service Date/Time: March 10:35 - CONCLUSION: 1. Both kidneys are small in size. 2. No hydronephrosis. 3. There is some ascites in the abdomen. Aureliano Rayo MD Physical Exam HEENT: Normocephalic; atraumatic; no jaundice. CHEST: OETT to vent. Course breath sounds. Diminished bases. CARDIAC: RRR ABDOMEN: Soft, nondistended, hepatosplenomegaly; bowel sounds are present in all four quadrants. Some ascites EXTREMITIES: Generalized edema. SKIN: Normal; no rash; no jaundice. 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 She is requiring frequent paracentesis for recurrent ascites. She was last seen in our office back in January 2016 at which time she was referred back to tertiary for possible TIPS procedure. She is currently sedated and I am not sure if she has been seen, but there is no note regarding this in the outpatient EMR. She is on spironolactone 100 mg by mouth daily and Lasix 40 mg by mouth daily at home. S/P Bedside Paracentesis (04/28/16) with removal of 2.3 Liters of fluid removed. Peritoneal cx with no growth x 72 hours. Cytology pending. SAAG 2.0, indicating portal hypertension. Getting albumin, - Leukocytosis, persistent. Continues to have fevers with T. Max of 101.2. Sputum culture with rare growth of normal respiratory luther, urine was negative for legionella pneumonia/streptococcus. BCX with no growth x 5 days. Urinalysis was unremarkable. Rpt. Blood Cx no growth 1 day, Sputum cx with light growth normal respiratory failure, and Urine cx ordered. WBC 26.8. CDiff still has not been sent. Vanco, Zosyn, Levaquin. - Acute respiratory failure, PNA. Vanco, Zosyn, Levaquin, nebs, steroids. - Anemia. 7.2/23.1. No active blood loss. EGD/colonoscopy at [place] (06/10/15) revealed a regular Z line, gastritis, flattened mucosa was found in the duodenum, biopsies were taken to rule out celiac disease, examination was otherwise normal; examined portion of the ileum was normal, one 6 mm polyp in the sigmoid colon resected and retrieved, distal rectum and anal verge are normal on retroflexion view, examination was otherwise normal. Pathology with small bowel mucosa without diagnostic abnormality, erosive gastritis, tubular adenoma in the sigmoid colon. 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 Hepatitis panel negative, COURTNEY negative , AMA negative, asma negative, alpha 1 antitrypsin 226, Ceruloplasmin 25, Dx in November of 2014. She was previously evaluated a tertiary for possible liver transplant in May of 2015, but according to January 2016 office note, deemed not be a candidate. - HOME, Electrolyte abnormalities. PLAN: - Suplena at 35cc/hr - Please send stool for Cdiff - Cont. PPI - Cont. Abx per ID - Await final cultures - Monitor labs - Supportive care - Further recommendations to follow based on results of above - Pt seen and examined by Dr. Barger and myself and this note is written on his behalf (Kim Olea) Physician Comments Patient was seen and examined, agree with above note and plan, labs for AM, poor prognosis. (Noe Barger MD) Kim Olea May 03, 2016 16:41 Noe Barger MD May 03, 2016 20:58
[2016-05-03 17:08] LABS: BLOOD GAS BASE EXCESS 0.4 mmol/L (-2-2); BLOOD GAS CARBOXYHEMOGLOBIN 2.3 % (0-4); BLOOD GAS HCO3 26 mmol/L (22-26); BLOOD GAS METHEMOGLOBIN 0.8 % (0-2); BLOOD GAS O2 HGB SATURATION 73 % (90-100); BLOOD GAS OXYGEN CONTENT 7.4 Vol % (12.0-20.0); BLOOD GAS PCO2 54 mmHg (38-42); BLOOD GAS PO2 49 mmHg (61-120); BLOOD GAS TOTAL HGB 7.1 G/DL (12.0-16.0); CRITICAL VALUE YES; TEMP CORR TO 98.6
[2016-05-03 17:09] LABS: DRAW SITE RT RADIAL; FIO2 100 %; NUMBER OF ARTERIAL PUNCTURES 1; OXYGEN DEVICE VENTILATOR; STAT YES; ULNAR PULSE PRESENT
[2016-05-03] MEDS: VANCOMYCIN 1,000 MG/NS 250 ML IV SCH ×2 (18:00)
--- NOTE | 2016-05-03 18:39 | HHI.PR ---
Subjective Remarks 65 YOWF with COPD, Cirhosis, renal failure, VDRF No fever On Fentanyl andVersed Does't follow commands on Zosyn, Levaquin per ID Has worsening of oxygenation On PCV, Fi02 100% Objective Vital Signs Vital Signs Date Time Temp Pulse Resp B/P Pulse Ox O2 Delivery O2 Flow Rate FiO2 05/03/16 17:00 100 05/03/16 16:45 93 100 05/03/16 16:00 100.0 98 24 76/38 92 05/03/16 16:00 98 05/03/16 15:17 90 100 05/03/16 12:00 101.2 108 14 96/46 91 05/03/16 12:00 91 05/03/16 11:09 92 95 05/03/16 10:00 95 05/03/16 08:54 90 85 05/03/16 08:00 101.0 144 25 122/60 92 05/03/16 08:00 144 05/03/16 08:00 85 05/03/16 07:25 90 90 05/03/16 06:00 100 05/03/16 05:24 100 100 05/03/16 04:00 98.4 100 19 100/35 96 05/03/16 04:00 100 05/03/16 04:00 60 05/03/16 03:00 96 05/03/16 01:38 100 50 05/03/16 00:00 60 05/03/16 00:00 100.8 106 31 127/56 100 05/03/16 00:00 106 05/02/16 22:00 104 05/02/16 21:04 99 60 05/02/16 20:00 102.6 102 24 124/40 98 05/02/16 20:00 102 05/02/16 20:00 60 I/O 05/02/16 05/02/16 05/02/16 05/03/16 05/03/16 05/03/16 07:00 15:00 23:00 07:00 15:00 23:00 Intake Total 285 ml 1089 ml 1361 ml 1523 ml 1679 ml 500 ml Output Total 675 ml 1260 ml 460.0 ml 292 ml 400 ml Balance -390 ml -171 ml 901.0 ml 1231 ml 1279 ml 500 ml IV Total 238 ml 774 ml 974 ml 1386 ml 1168 ml Tube Feeding 47 ml 225 ml 297 ml 137 ml 261 ml Albumin 250 ml 500 ml Other 90 ml 90 ml Output Urine Total 675 ml 1260 ml 460 ml 292 ml 300 ml Stool Total 0 ml 0 ml 100 ml Gastric Drainage Total 0 ml Tube Feeding Residual Discard 0 ml Result Diagram: 05/03/1641105/03/16411 Objective Remarks GENERAL: MBMN WF on Vent, sedated SKIN: Warm and dry. HEAD: Normocephalic. EYES: No scleral icterus. No injection or drainage. NECK: Supple, trachea midline. No JVD or lymphadenopathy. CARDIOVASCULAR: Regular rate and rhythm without murmurs, gallops, or rubs. RESPIRATORY: Breath sounds equal bilaterally. No accessory muscle use. GASTROINTESTINAL: Abdomen soft, non-tender, nondistended. MUSCULOSKELETAL: No cyanosis, or edema. BACK: Nontender without obvious deformity. No CVA tenderness. A/P Assessment and Plan VDRF Metabolic acidosis improved Renal insuff COPD Cirrhosis of liver PLAN: PCV, Fi02 100% Abx Zosyn, Levaquin and Zithro. Monitor lytes fentanyl and Versed Uli Ramos MD May 03, 2016 18:39
--- NOTE | 2016-05-03 19:25 | HHI.IDPN ---
Subjective Subjective Remarks Delayed entry - pt was seen around [address] Ferreira Pt cont to deteriorate requires higher doses of FiO2 Having high fever Antibiotics levaquine zosyn vancomycin Allergies: Coded Allergies: Morphine (Verified Allergy, Mild, Itching, 04/24/16) pt denies Objective . Vital Signs Date Time Temp Pulse Resp B/P Pulse Ox O2 Delivery O2 Flow Rate FiO2 05/03/16 17:00 100 05/03/16 16:45 93 100 05/03/16 16:00 100.0 98 24 76/38 92 05/03/16 16:00 98 05/03/16 15:17 90 100 05/03/16 12:00 101.2 108 14 96/46 91 05/03/16 12:00 91 05/03/16 11:09 92 95 05/03/16 10:00 95 05/03/16 08:54 90 85 05/03/16 08:00 101.0 144 25 122/60 92 05/03/16 08:00 144 05/03/16 08:00 85 05/03/16 07:25 90 90 05/03/16 06:00 100 05/03/16 05:24 100 100 05/03/16 04:00 98.4 100 19 100/35 96 05/03/16 04:00 100 05/03/16 04:00 60 05/03/16 03:00 96 05/03/16 01:38 100 50 05/03/16 00:00 60 05/03/16 00:00 100.8 106 31 127/56 100 05/03/16 00:00 106 05/02/16 22:00 104 05/02/16 21:04 99 60 05/02/16 20:00 102.6 102 24 124/40 98 05/02/16 20:00 102 05/02/16 20:00 60 05/02/16 05/02/16 05/03/16 14:59 22:59 06:59 Intake Total 1044 ml 1406 ml 1523 ml Output Total 1150 ml 420.0 ml 442 ml Balance -106 ml 986.0 ml 1081 ml IV Total 729 ml 1019 ml 1386 ml Tube Feeding 225 ml 297 ml 137 ml Other 90 ml 90 ml Output Urine Total 1150 ml 420 ml 442 ml Stool Total 0 ml 0 ml Tube Feeding Residual Discard 0 ml . Laboratory Tests Test 05/02/16 05/03/16 04:05 04:12 White Blood Count 19.4 TH/MM3 26.8 TH/MM3 Red Blood Count 4.21 MIL/MM3 3.47 MIL/MM3 Hemoglobin 8.7 GM/DL 7.2 GM/DL Hematocrit 27.7 % 23.1 % Mean Corpuscular Volume 65.9 FL 66.6 FL Mean Corpuscular Hemoglobin 20.6 PG 20.7 PG Mean Corpuscular Hemoglobin 31.3 % 31.1 % Concent Red Cell Distribution Width 21.6 % 21.8 % Platelet Count 182 TH/MM3 156 TH/MM3 Mean Platelet Volume 8.1 FL 8.8 FL Neutrophils (%) (Auto) 89.8 % Lymphocytes (%) (Auto) 3.8 % Monocytes (%) (Auto) 5.4 % Eosinophils (%) (Auto) 0.8 % Basophils (%) (Auto) 0.2 % Neutrophils # (Auto) 17.5 TH/MM3 Lymphocytes # (Auto) 0.7 TH/MM3 Monocytes # (Auto) 1.0 TH/MM3 Eosinophils # (Auto) 0.2 TH/MM3 Basophils # (Auto) 0.0 TH/MM3 CBC Comment AUTO DIFF Differential Comment AUTO DIFF CONFIRMED Platelet Estimate NORMAL Platelet Morphology Comment NORMAL Basophilic Stippling FAINT Keratocytes OCC Laboratory Tests Test 05/02/16 05/03/16 05/03/16 05/03/16 04:05 04:12 09:18 15:02 Sodium Level 146 MEQ/L 149 MEQ/L Potassium Level 4.0 MEQ/L 3.6 MEQ/L Chloride Level 107 MEQ/L 110 MEQ/L Carbon Dioxide Level 31.0 MEQ/L 26.8 MEQ/L Anion Gap 8 MEQ/L 12 MEQ/L Blood Urea Nitrogen 35 MG/DL 29 MG/DL Creatinine 1.08 MG/DL 1.41 MG/DL Estimat Glomerular Filtration 51 ML/MIN 38 ML/MIN Rate Random Glucose 165 MG/DL 153 MG/DL Calcium Level 9.0 MG/DL 9.0 MG/DL Phosphorus Level 3.2 MG/DL 2.9 MG/DL Magnesium Level 1.8 MG/DL 1.7 MG/DL Total Bilirubin 0.8 MG/DL Aspartate Amino Transf 33 U/L (AST/SGOT) Alanine Aminotransferase 30 U/L (ALT/SGPT) Alkaline Phosphatase 71 U/L Total Protein 5.9 GM/DL Albumin 3.1 GM/DL Ammonia 33 MCMOL/L Lactic Acid Level 1.1 mmol/L 1.5 mmol/L Microbiology Date/Time Procedure Status Source Growth 05/02/16 16:07 Aerobic Blood Culture Received Blood Peripheral Pending 05/02/16 16:07 Anaerobic Blood Culture Received Blood Peripheral Pending 05/02/16 16:09 Aerobic Blood Culture - Preliminary Resulted Blood Peripheral NO GROWTH IN 1 DAY 05/02/16 16:09 Anaerobic Blood Culture - Preliminary Resulted Blood Peripheral NO GROWTH IN 1 DAY 05/02/16 16:15 Aerobic Blood Culture - Preliminary Resulted Blood Peripheral NO GROWTH IN 1 DAY 05/02/16 16:15 Anaerobic Blood Culture - Preliminary Resulted Blood Peripheral NO GROWTH IN 1 DAY 05/02/16 17:55 Gram Stain - Final Resulted Sputum Endotracheal 05/02/16 17:55 Sputum Culture - Preliminary Resulted Sputum Endotracheal LIGHT GROWTH NORMAL RESPIRATORY EMIL... 05/02/16 20:52 Aerobic Blood Culture - Preliminary Resulted Blood Peripheral NO GROWTH IN 1 DAY 05/02/16 20:52 Anaerobic Blood Culture - Preliminary Resulted Blood Peripheral NO GROWTH IN 1 DAY Imaging Last Impressions Head CT 05/02/16 0000 Signed Impressions: Service Date/Time: Monday, May 02, 2016 12:49 - CONCLUSION: 1. Stable CT scan of the brain compared to the prior exam from 2013. 2. No focal or acute intracranial hemorrhage. Aureliano Rayo MD Chest X-Ray 05/02/16 0000 Signed Impressions: Service Date/Time: Monday, May 02, 2016 07:54 - CONCLUSION: Slight increase in the interstitial infiltrates in the right lung base. Otherwise no significant change compared to the prior study. Aureliano Rayo MD Abdomen X-Ray 05/01/16 0000 Signed Impressions: Service Date/Time: Sunday, May 01, 2016 10:49 - CONCLUSION: Catheter tips as described above. Akira Washington MD Renal Ultrasound 04/27/16 0000 Signed Impressions: Service Date/Time: March 10:35 - CONCLUSION: 1. Both kidneys are small in size. 2. No hydronephrosis. 3. There is some ascites in the abdomen. Aureliano Rayo MD Physical Exam CONSTITUTIONAL/GENERAL: sedated; + some resp distress LINES: R IJ in place, site wo e/o infx SKIN: No jaundice, rashes, or lesions. Skin temperature appropriate. Not diaphoretic. HEAD: Atraumatic. Normocephalic. EYES: Pupils equal and round and reactive. No scleral icterus. ENT: Nose without bleeding or purulent drainage. Oral mucosae without visible erythema, exudates, masses, or lesions. Dentition is poor orally intubated CARDIOVASCULAR: Regular rate and rhythm without murmurs, gallops, or rubs. RESPIRATORY/CHEST: Symmetric, labored respirations. Diffuse rhonchi to auscultation. Breath sounds equal bilaterally. . GASTROINTESTINAL: Abdomen soft, non-tender, nondistended. No hepato-splenomegaly , or palpable masses. Bowel sounds present. GENITOURINARY: Without palpable bladder distension. Schultz catheter in place with clear yellow urine MUSCULOSKELETAL: Extremities without clubbing, cyanosis, + trace edema. No mottling or clubbing. LYMPHATICS: No palpable cervical or supraclavicular adenopathy. NEUROLOGICAL: Sedated, eyes closed Not follows commands. PSYCHIATRIC: unable to assess Assessment & Plan Remarks VDRF - worsening resp status with rising )2 requirement s Initially COPD exacrbation Culture negative PNA ? New PNA: Poor prognosis, now no code - new fever, leukocytosis and c=increasing nathaniel O2 requirements - cont zosyn, and vanco - cont levquine - fu blood clx - fu sputum clx dw Dr Jhon Borja,Radha Faith MD May 03, 2016 19:25
[2016-05-04] VITALS (18 sets, daily range): BP systolic 82–102; BP diastolic 37–53; PULSE 89–109; RESP 16–19; TEMP 97.9–100.7; O2SAT 90–94
[2016-05-04] MEDS: fentaNYL DRIP 250 ML IV SCH ×3 (00:18→17:02)
[2016-05-04] MEDS: HEPARIN SODIUM - SQ 10,000 UNITS/ML VIAL SQ SCH ×2 (02:57→14:38)
[2016-05-04] MEDS: CHLORHEXIDINE GLUCONATE 2 % 1 PACK (2 CLOTHS) TOP SCH (02:58)
[2016-05-04] MEDS: RESP: ALBUTEROL 2.5 MG/IPRATROPIUM 0.5 MG NEB (SCH) NEB ×6 (03:31→23:37)
[2016-05-04] MEDS: ALBUMIN HUMAN 5% 12.5 GM/250 ML BOTTLE IV ONE (04:19)
[2016-05-04] MEDS: PIPERACIL-TAZO 4.5 GM PREMIX 100 ML IV SCH ×4 (04:31→22:32)
[2016-05-04] MEDS ORDERED: ALBUMIN HUMAN 5% 12.5 GM/250 ML BOTTLE IV PRN (05:00)
[2016-05-04] MEDS ORDERED: ALBUMIN HUMAN 5% 12.5 GM/250 ML BOTTLE IV ONE (05:00)
--- NOTE | 2016-05-04 05:21 | HHI.CCPN ---
Subjective Remarks/Hospital Course 65 year old female with history of alcohol abuse, history of breast cancer status post lumpectomy radiation and chemotherapy presents with progressively worsening shortness of breath. EMS was called because she was short of breath at home, and was found to have pals oxygen at 70%. Patient is on a BiPAP, seems to be comfortable in no distress. She is able to follow commands in all 4 extremities. Her history is limited secondary to FM BiPAP. 04/26 The patient acutely had respiratory decompensation yesterday afternoon. Discussion with family, sister power of senior trial attorney regarding intubation in patient 's current respiratory status, family requesting intubation. She required intubation, central line placement and an arterial line placement to monitor oxygenation levels. The patient became hypoxic and hypotensive requiring vasopressor support. Currently the patient is on levophed infusion at 5 mcgs. 04/27 Afebrile. The patient continues on mechanical ventilation, overnight FiO2 requirements were increased, currently attempting to wean back to 55%. Sodium bicarbonate infusion at 150 cc/hour. Ammonia level slightly increased, lactulose dosage increased. Pulmonology consulted. The patient's last therapeutic paracentesis was 02/21/16, WBC count elevated, patient is currently on Zosyn and azithromycin, will begin coverage for spontaneous bacterial peritonitis. 04/28 Tmax 98.6 Overnight patient required increasing oxygen requirements, currently FiO2 0.75, vasopressor Levophed has been off since 2 AM. Yesterday the patient had one episode of sinus tach heart rate in the 150s received metoprolol 2.5 mg with resolution. The patient has been maintained on a sodium bicarbonate drip which was discontinued this a.m.. GI was consulted the patient was planned to go to IR for diagnostic and therapeutic paracentesis this a.m., currently on hold secondary to respiratory compromise. Planned for later this afternoon, if respiratory status stabilizes. 04/29: Currently afebrile. Patient was placed on Nimbex drip yesterday secondary to multiple desaturations the 60s with any movement. Unable to properly sedate for vent synchrony. Flolan was initiated in this is currently being weaned down today. Repeat ABG after ventilator setting adjustments currently pending. 04/30: Flolan discontinued yesterday. Patient continues to be completely on muscle relaxation/paralytic to maintain ventilator synchrony. ABGs improved. 05/01: Patient was weaned off of the relaxation Nimbex last night. O2 saturation remained 98% on FiO2 of 4045%. Plan today for CPAP trials. 05/02: The patient continues on Precedex and fentanyl infusion for sedation with adequate ventilator synchrony. CPAP trials successful for approximately 6 hours yesterday .Patient still does not follow any commands, benzodiazepines or discontinued. Patient tolerating tube feeds today. Will continue CPAP trials today. 05/03: Tmax 102.6. The patient came hypotensive this a.m., received 1 L bolus. Yesterday the patient secondary to persistent leukocytosis central line was discontinued, repeat blood and sputum cultures were ordered. ID was consulted antibiotics were ordered per ID. The patient continues to be agitated on Precedex, received Haldol 1 dose, and was placed on a propofol infusion during the night. The patient continues to be agitated plan for Versed infusion with fentanyl, his continuation of Precedex. The patient has not been able to be weaned from ventilator, plans for discussion with family today regarding tracheostomy. 05/04: Afebrile. Patient's having increasing oxygen requirement, the majority of the day the patient remained on 90-100%, with PEEP ranging 12-15. Discussed with the family the need for tracheostomy at this time. The family expressed that the patient had a living will and did not want a tracheostomy nor any artificial means of feeding. The patient was made DNR yesterday afternoon. Per palliative medicine the family is deciding when to institute comfort care measures. Overnight the patient remained on FiO2 of 1.0, frequent suctioning and manipulations and bronchodilators, O2 sat remained in the 80s. Chest x-ray pending this a.m. healthcare surrogate notified last night of patient's pulmonary deterioration. Objective Vital Signs Date Time Temp Pulse Resp B/P Pulse Ox O2 Delivery O2 Flow Rate FiO2 05/04/16 04:12 92 100 05/04/16 04:00 96 05/04/16 04:00 98.9 17 82/37 Intake and Output 05/03/16 05/03/16 05/04/16 08:00 16:00 00:00 Intake Total 1523 ml 1929 ml 971 ml Output Total 252 ml 400 ml 290 ml Balance 1271 ml 1529 ml 681 ml Result Diagram: 05/03/16 0412 05/03/16 0412 Other Results Laboratory Tests Test 05/03/16 16:25 Blood Gas Puncture Site RT RADIAL Blood Gas Patient Temperature 98.6 Blood Gas HCO3 26 mmol/L (22-26) Blood Gas Base Excess 0.4 mmol/L (-2-2) Blood Gas Oxygen Saturation 73 % (90-100) Arterial Blood pH 7.30 (7.380-7.420) Arterial Blood Partial 54 mmHg (38-42) Pressure CO2 Arterial Blood Partial 49 mmHg Pressure O2 (61-120) Arterial Blood Oxygen Content 7.4 Vol % (12.0-20.0) Arterial Blood 2.3 % (0-4) Carboxyhemoglobin Arterial Blood Methemoglobin 0.8 % (0-2) Blood Gas Hemoglobin 7.1 G/DL (12.0-16.0) Oxygen Delivery Device VENTILATOR Blood Gas Ventilator Setting Blood Gas Inspired Oxygen 100 % Imaging Last Impressions Head CT 05/02/16 0000 Signed Impressions: Service Date/Time: Monday, May 02, 2016 12:49 - CONCLUSION: 1. Stable CT scan of the brain compared to the prior exam from 2013. 2. No focal or acute intracranial hemorrhage. Aureliano Rayo MD Chest X-Ray 05/02/16 0000 Signed Impressions: Service Date/Time: Monday, May 02, 2016 07:54 - CONCLUSION: Slight increase in the interstitial infiltrates in the right lung base. Otherwise no significant change compared to the prior study. Aureliano Rayo MD Abdomen X-Ray 05/01/16 0000 Signed Impressions: Service Date/Time: Sunday, May 01, 2016 10:49 - CONCLUSION: Catheter tips as described above. Akira Washington MD Renal Ultrasound 04/27/16 0000 Signed Impressions: Service Date/Time: March 10:35 - CONCLUSION: 1. Both kidneys are small in size. 2. No hydronephrosis. 3. There is some ascites in the abdomen. Aureliano Rayo MD Last Impressions Chest X-Ray 05/02/16 0000 Signed Impressions: Service Date/Time: Monday, May 02, 2016 07:54 - CONCLUSION: Slight increase in the interstitial infiltrates in the right lung base. Otherwise no significant change compared to the prior study. Aureliano Rayo MD Abdomen X-Ray 05/01/16 0000 Signed Impressions: Service Date/Time: Sunday, May 01, 2016 10:49 - CONCLUSION: Catheter tips as described above. Akira Washington MD Renal Ultrasound 04/27/16 0000 Signed Impressions: Service Date/Time: March 10:35 - CONCLUSION: 1. Both kidneys are small in size. 2. No hydronephrosis. 3. There is some ascites in the abdomen. Aureliano Rayo MD Last Impressions Chest X-Ray 04/29/16 0600 Signed Impressions: Service Date/Time: Friday, April 29, 2016 03:57 - CONCLUSION: Diffuse pulmonary opacities are slightly improved in the upper lobes otherwise no significant interval change. Shan Gustafson MD Renal Ultrasound 04/27/16 0000 Signed Impressions: Service Date/Time: March 10:35 - CONCLUSION: 1. Both kidneys are small in size. 2. No hydronephrosis. 3. There is some ascites in the abdomen. Aureliano Rayo MD Objective Remarks GENERAL: 62-year-old female, critically ill currently orotracheally intubated and sedated, not following commands. SKIN: Warm and dry. HEAD: Normocephalic. EYES: No scleral icterus. No injection or drainage. NECK: Supple, trachea midline. No JVD or lymphadenopathy. Orotracheally intubated, NG tube in place CARDIOVASCULAR: Regular rate and rhythm S1, S2. No S4. Currently without murmurs, gallops, or rubs. RESPIRATORY: Breath sounds equal bilaterally. GASTROINTESTINAL: Abdomen soft, protuberant non-tender, umbilical hernia MUSCULOSKELETAL: No cyanosis, 1+ pitting edema noted bilateral upper and lower extremities BACK: Nontender without obvious deformity. No CVA tenderness. Urinary Catheter: Yes Date of Insertion: Apr 25, 2016 Vascular Central Line Catheter: No Date of Insertion: Apr 25, 2016 Date of Removal: May 02, 2016 Side: Right Location: Internal, Jugular A/P Problem List: (1) Acute respiratory failure with hypoxia ICD Code: J96.01 Status: Acute (2) Tobacco use disorder ICD Code: F17.200 Status: Acute (3) HOME (acute kidney injury) ICD Code: N17.9 Status: Acute Assessment and Plan Respiratory Acute Hypoxic Respiratory failure COPD exacerbation Tobacco abuse Pulmonary fibrosis S/P radiation therapy-breast cancer Failure to wean - Pulmonology on board- follow-up recommendations -Continue Versed and fentanyl for ventilator dyssynchrony - Continue methylprednisolone 60 every 12hr - DuoNeb's scheduled every 4hr, every 2hr PRN -Paralytic discontinued 04/30 -Current ventilator settings -PC 25/RR14/PEEP15/1.0-unable to wean PEEP, or decrease FiO2 -Intubated 04/26 -CXR-pending -Patient does not want tracheostomy per her living will and family, plan for comfort care measures Neuro: Alcoholism H/O seizure Hepatic encephalopathy Anxiety disorder Hyperammonemia -GCS 11T, agitated, Versed and fentanyl infusion -Obtain head CT -Lactulose to QID, monitor ammonia level -Seroquel home med continued Cardiovascular: Hypotension -Maintain MAP greater than 65mmHg -Systolic blood pressure in the 80s-given albumin, no further vasopressors utilized per instructions of family and patient's living will -Levophed dc'd 05/01 am Renal/FEN HOME Hypernatremia-resolved Hypophosphatemia-resolved [id number] -Initially volume depletion 04/25 -NaHCO3 [id number]/30 - Albumin 25 g every 12 hours discontinued 04/30 -Renal on aaxvn-eogvdc-eo recommendations -FENA 2.03 -Improved Creatinine 1.08 - Monitor BMP - strict I&O - Bumex 1 mg IV daily per Dr[address] Bazan . GI Moderate protein calorie malnutrition Ascites - Tubefeeds-Suplena 35 cc/hour per nutrition's recommendations@goal -Patient's last therapeutic paracentesis 02/21/2016, bedside US assessment of ascites approximated minimal - moderate,not significant amount for bedside paracentesis -GI on xarew-[id number]-nw recommendations -Albumin level 3.0 - Bowel regimen -Diagnostic/therapeutic paracentesis , 04/29 Removal of 2.3 L. Clear yellow. 24 WBCs -Continue to monitor, abdomen for therapeutic paracentesis -Monitor hepatic panel -Hepatitis panel-negative, previous old records, one entry reveals diagnosis of hepatitis C ID: Pneumonia? Persistent Leukocytosis -Monitor CBC. WBC elevated 19-->26.8 today - 04/25 urine Legionella, streptococcal antigen negative -04/25 Sputum -No growth -Empiric antibiotics-azithromycin, Zosyn (day 7), Cefepime -04/28 Peritoneal cultures- NGTD - D/C central line -ID on board-follow recommendation Heme Microcytic anemia - status post lumpectomy radiation and chemotherapy - now in remission- left SC port (nonfunctional) per old records - supportive care -Monitor CBC History of breast cancer - status post lumpectomy radiation and chemotherapy - now in remission - supportive care -MSK -PT evaluate and treat-functional maintenance DVT/GI prophylaxis - Heparin SubQ/Protonix Critical Care: This patient remains critically ill with one or more organ systems which are or may become a threat to life. I have spent in excess of 56 minutes discontinuously in the care and management of this patient. This time is exclusive of procedures, and includes, but is not limited to, evaluation of the patient, review of the medical record, discussions with family, consultants, nursing staff, or respiratory therapy, and documentation in the medical record. Palliative care meeting yesterday resulted in receiving a copy of the patient's living will and discussion with her family 2 sisters. The patient was made DNR , and requested no further interventions other than tube feeds be continued to be instituted. Spoke with Svetlana Salazar, sister and Allan Ge regarding a since declining status during the night. Family plans to make a decision regarding comfort care measures today. Physician Karmen Martines MD May 04, 2016 05:21
[2016-05-04 05:35] LABS: BLOOD GAS BASE EXCESS -1.8 mmol/L (-2-2); BLOOD GAS CARBOXYHEMOGLOBIN 2.3 % (0-4); BLOOD GAS HCO3 24 mmol/L (22-26); BLOOD GAS METHEMOGLOBIN 0.9 % (0-2); BLOOD GAS O2 HGB SATURATION 82 % (90-100); BLOOD GAS OXYGEN CONTENT 7.8 Vol % (12.0-20.0); BLOOD GAS PCO2 52 mmHg (38-42); BLOOD GAS PO2 55 mmHg (61-120); BLOOD GAS TOTAL HGB 6.7 G/DL (12.0-16.0); TEMP CORR TO 98.6
[2016-05-04 05:37] LABS: CRITICAL VALUE YES; OXYGEN DEVICE VENTILATOR
[2016-05-04 05:38] LABS: FIO2 100 %; VENT SETTINGS PRVC/16/500/PEEP12/
[2016-05-04 05:39] LABS: DRAW SITE RT RADIAL; NUMBER OF ARTERIAL PUNCTURES 1; STAT NO; ULNAR PULSE PRESENT
--- NOTE | 2016-05-04 06:41 | RADRPT ---
EXAM DATE/TIME: 05/04/2016 05:32 [facility] COMPARISON: CHEST SINGLE AP, May 02, 2016, 7:54. INDICATIONS : Short of breath. MEDICAL HISTORY : Carcinoma, breast. Hepatitis C. Ascites. SURGICAL HISTORY : Cholecystectomy. Right breast lumpectomy, Left infusaport, Multiple paracentesis ENCOUNTER: Subsequent ACUITY: 3 days PAIN SCORE: Non-responsive. LOCATION: Bilateral chest FINDINGS: A single portable frontal view of the chest shows diffuse bilateral pulmonary infiltrates with no sig nificant change. Tiny effusions are suspected. Heart is normal in size. Left-sided Port-A-Cath and na sogastric tube unchanged. Tip of the endotracheal tube 3 cm cephalad to the ulises. CONCLUSION: Unchanged diffuse bilateral pulmonary infiltrates and tiny effusions. Bart Suarez Jr., MD on May 04, 2016 at 6:39 Board Certified Radiologist. This report was verified electronically.
[2016-05-04] MEDS: SERTRALINE HCL 100 MG TAB PO SCH (08:39)
[2016-05-04] MEDS: methylPREDNISolone SOD SUCC 125 MG/2 ML VIAL IV PUSH SCH ×2 (08:39→20:06)
[2016-05-04] MEDS: DOCUSATE SODIUM 100 MG CAP PO SCH ×2 (08:39→20:08)
[2016-05-04] MEDS: CHLORHEXIDINE 0.12% (ORAL KIT) 15 ML CUP MT SCH ×2 (08:39→20:06)
[2016-05-04] MEDS: SODIUM CHLORIDE 0.9% FLUSH 5 ML FLUSH IV FLUSH SCH ×2 (08:39→20:08)
[2016-05-04] MEDS: FOLIC ACID 1 MG TAB PO SCH (08:39)
[2016-05-04] MEDS: LACTULOSE SYRUP 20 GM/30 ML CUP PO SCH ×4 (08:40→20:08)
[2016-05-04] MEDS: MIDAZOLAM 100 MG/ML INJ 100 ML IV SCH ×2 (08:40→17:27)
--- NOTE | 2016-05-04 09:47 | EKG ---
Date Performed: 05/04/2016 Time Performed: 01:16:28 PTAGE: 65 years EKG: Atrial fibrillation with PVC(s) or aberrant ventricular conduction rSr'(V1) - probable norm al variant Inferior/lateral ST-T changes are nonspecific Abnormal ECG NO PREVIOUS TRACING DOCTOR: Vincenzo Saleh Interpretating Date/Time 05/04/2016 09:45:41
[2016-05-04] MEDS: PANTOPRAZOLE SODIUM 40 MG VIAL IV PUSH SCH (10:20)
--- NOTE | 2016-05-04 11:46 | HHI.HCPN ---
Reason for visit a. To assist with evaluation and management of symptoms including: debility and shortness of breath. b. To assist medical decision maker(s) with: better understanding of current medical conditions; weighing benefits/burdens of medical treatment options; making medical treatment decisions. . (Zuleyka Kasper) Subjective/Interval History Patient seen in ICU. She remains sedated, [facility] Worsening pulmonary function with increased FiO2 settings, 90-100% and increased vent settings. Continues to desaturate. [facility]- sister Svetlana was notified last night by Dr. Ferreira of continue pulmonary worsening Episode of a. fib with PVC's overnight. Afebrile this morning. CXR today with unchanged diffuse bilateral pulmonary infiltrates and effusions. Patient appears comfortable during my visit. Met with sister Allan at bedside. Tearful verbalizing grief over her sister condition. Active listening and ongoing emotional support provided. Sister feels that pt is more comfortable today. She tells me that other sister Svetlana and their mother will be traveling to [place] tomorrow 05/05/16 to visit patient once more and say their good-byes. They plan to be here either Sunday or Sunday. Spoke with RUFINA Mota over the phone. Medical update provided including worsening pulmonary condition and increased oxygen requirements. Sister verbalized her wish to visit patient before any further decisions can be made. Both sister made aware that patient may not survive until this weekend given her worsening critical condition. Sisters verbalized understanding. . Family/friend interactions See interval note. . (Zuleyka Kasper) Advance Directives Living Will: Copy in medical record Health Care Surrogate: Copy in medical record Durable Power of Die Maintenance: Completed, but not made available (Zuleyka Kasper) Advance Directive Specifics Date completed: 05/29/2015. . Health Care Surrogate(s): [facility] listed as Sister Svetlana Salazar. . Documented care wishes: Living will provided by sister Allan. Patient wishing that in the event of a terminal condition, end-stage condition or persistent vegetative state, she wishes for NO CPR, NO breathing machine, NO artificial nutrition, NO surgery unless for comfort, NO ICU admission, NO medications that can prolong her dying , such as antibiotics, NO pacemaker or defibrillator, NO HD and YES to hospice care at the earliest opportunity. . Significant change in goals: NO CODE/NO TRACH/NO HD. Will likely transition to comfort-directed care this weekend after family [place]. (Zuleyka aKsper) Objective Vital Signs Date Time Temp Pulse Resp B/P Pulse Ox O2 Delivery O2 Flow Rate FiO2 05/04/16 11:13 91 100 05/04/16 10:00 89 05/04/16 08:13 92 100 05/04/16 08:00 100 05/04/16 08:00 94 05/04/16 08:00 100.7 94 16 92/50 92 05/04/16 06:00 94 05/04/16 04:12 92 100 05/04/16 04:00 100 05/04/16 04:00 96 05/04/16 04:00 98.9 96 17 82/37 94 05/04/16 03:00 100 05/04/16 02:00 96 05/04/16 01:26 92 100 05/04/16 00:00 99.0 109 19 102/52 92 05/04/16 00:00 100 05/04/16 00:00 105 05/03/16 22:00 107 05/03/16 21:52 90 100 05/03/16 20:00 99.1 107 20 94/49 89 05/03/16 20:00 100 05/03/16 20:00 98 05/03/16 19:45 96 100 05/03/16 19:30 95 100 05/03/16 17:00 100 05/03/16 16:45 93 100 05/03/16 16:00 100.0 98 24 76/38 92 05/03/16 16:00 98 05/03/16 15:17 90 100 05/03/16 12:00 101.2 108 14 96/46 91 05/03/16 12:00 91 Intake & Output 05/04/16 05/04/16 06:59 18:59 Intake Total 1716 ml Output Total 520 ml Balance 1196 ml IV Total 1246 ml Tube Feeding 220 ml Albumin 250 ml Output Urine Total 70 ml Stool Total 450 ml Physical Exam CONSTITUTIONAL/GENERAL: This is an adequately nourished patient, in no acute distress. TUBES/LINES/DRAINS: ETT, DH , Schultz cath, PIV's, SCD's. SKIN: No jaundice, rashes, or lesions. Ecchymoses on upper extremities and right side of neck. No wounds seen anteriorly. Skin temperature appropriate. Not diaphoretic. HEAD: Atraumatic. Normocephalic. EYES: Pupils equal and round and reactive. ENT: Unable to assess hearing. Nose without bleeding or purulent drainage. Unable to visualize throat due to ETT. NECK: Trachea midline. Supple. CARDIOVASCULAR: Tachycardic, HR in the 110's. Regular rate and rhythm without murmurs, gallops, or rubs. No JVD. Peripheral pulses symmetric. RESPIRATORY/CHEST: Symmetric, unlabored respirations. Breath sounds equal bilaterally. Coarse rhonchi bilaterally. GASTROINTESTINAL: Abdomen soft, mildly distended. Bowel sounds present. Umbilical hernia present. GENITOURINARY: Without palpable bladder distension. Schultz catheter in place. MUSCULOSKELETAL: Extremities without clubbing, cyanosis. No mottling or clubbing. NEUROLOGICAL: sedated. Not following commands. PSYCHIATRIC: calm. . (Zuleyka Kasper) Diagnostic Tests Laboratory Laboratory Tests Test 05/02/16 05/02/16 05/02/16 05/03/16 04:05 05:32 16:15 04:12 White Blood Count 19.4 TH/MM3 26.8 TH/MM3 (4.0-11.0) (4.0-11.0) Red Blood Count 4.21 MIL/MM3 3.47 MIL/MM3 (4.00-5.30) (4.00-5.30) Hemoglobin 8.7 GM/DL 7.2 GM/DL (11.6-15.3) (11.6-15.3) Hematocrit 27.7 % 23.1 % (35.0-46.0) (35.0-46.0) Mean Corpuscular Volume 65.9 FL 66.6 FL (80.0-100.0) (80.0-100.0) Mean Corpuscular Hemoglobin 20.6 PG 20.7 PG (27.0-34.0) (27.0-34.0) Mean Corpuscular Hemoglobin 31.3 % 31.1 % Concent (32.0-36.0) (32.0-36.0) Red Cell Distribution Width 21.6 % 21.8 % (11.6-17.2) (11.6-17.2) Platelet Count 182 TH/MM3 156 TH/MM3 (150-450) (150-450) Mean Platelet Volume 8.1 FL 8.8 FL (7.0-11.0) (7.0-11.0) Neutrophils (%) (Auto) 89.8 % (16.0-70.0) Lymphocytes (%) (Auto) 3.8 % (9.0-44.0) Monocytes (%) (Auto) 5.4 % (0.0-8.0) Eosinophils (%) (Auto) 0.8 % (0.0-4.0) Basophils (%) (Auto) 0.2 % (0.0-2.0) Neutrophils # (Auto) 17.5 TH/MM3 (1.8-7.7) Lymphocytes # (Auto) 0.7 TH/MM3 (1.0-4.8) Monocytes # (Auto) 1.0 TH/MM3 (0-0.9) Eosinophils # (Auto) 0.2 TH/MM3 (0-0.4) Basophils # (Auto) 0.0 TH/MM3 (0-0.2) CBC Comment AUTO DIFF Differential Comment AUTO DIFF CONFIRMED Platelet Estimate NORMAL (NORMAL) Platelet Morphology Comment NORMAL (NORMAL) Basophilic Stippling FAINT (NORMAL) Keratocytes OCC (NORMAL) Sodium Level 146 MEQ/L 149 MEQ/L (136-145) (136-145) Potassium Level 4.0 MEQ/L 3.6 MEQ/L (3.5-5.1) (3.5-5.1) Chloride Level 107 MEQ/L 110 MEQ/L (98-107) (98-107) Carbon Dioxide Level 31.0 MEQ/L 26.8 MEQ/L (21.0-32.0) (21.0-32.0) Anion Gap 8 MEQ/L (5-15) 12 MEQ/L (5-15) Blood Urea Nitrogen 35 MG/DL (7-18) 29 MG/DL (7-18) Creatinine 1.08 MG/DL 1.41 MG/DL (0.50-1.00) (0.50-1.00) Estimat Glomerular Filtration 51 ML/MIN (>89) 38 ML/MIN (>89) Rate Random Glucose 165 MG/DL 153 MG/DL (74-106) (74-106) Calcium Level 9.0 MG/DL 9.0 MG/DL (8.5-10.1) (8.5-10.1) Phosphorus Level 3.2 MG/DL 2.9 MG/DL (2.5-4.9) (2.5-4.9) Magnesium Level 1.8 MG/DL 1.7 MG/DL (1.5-2.5) (1.5-2.5) Total Bilirubin 0.8 MG/DL (0.2-1.0) Aspartate Amino Transf 33 U/L (15-37) (AST/SGOT) Alanine Aminotransferase 30 U/L (10-53) (ALT/SGPT) Alkaline Phosphatase 71 U/L (45-117) Total Protein 5.9 GM/DL (6.4-8.2) Albumin 3.1 GM/DL (3.4-5.0) Blood Gas Puncture Site THOMPSON Blood Gas Patient Temperature 98.6 Blood Gas HCO3 28 mmol/L (22-26) Blood Gas Base Excess 4.5 mmol/L (-2-2) Blood Gas Oxygen Saturation 94 % (90-100) Arterial Blood pH 7.46 (7.380-7.420) Arterial Blood Partial 40 mmHg (38-42) Pressure CO2 Arterial Blood Partial 86 mmHg Pressure O2 (61-120) Arterial Blood Oxygen Content 11.5 Vol % (12.0-20.0) Arterial Blood 2.5 % (0-4) Carboxyhemoglobin Arterial Blood Methemoglobin 0.8 % (0-2) Blood Gas Hemoglobin 8.6 G/DL (12.0-16.0) Blood Gas Ventilator Setting VENT Urine Color YELLOW (YELLW/STRAW) Urine Turbidity CLEAR (CLEAR) Urine pH 5.5 (5.0-8.5) Urine Specific [place] 1.013 (1.002-1.035) Urine Protein 30 mg/dL (NEG-TRACE) Urine Glucose (UA) NEG mg/dL (NEG) Urine Ketones NEG mg/dL (NEG) Urine Occult Blood MOD (NEG) Urine Nitrite NEG (NEG) Urine Bilirubin NEG (NEG) Urine Urobilinogen LESS THAN 2.0 MG/DL (LESS THAN 2.0) Urine Leukocyte Esterase NEG (NEG) Urine RBC /hpf (0-3) Urine WBC 2 /hpf (0-5) Microscopic Urinalysis Comment CULT NOT INDICATED Prothrombin Time 14.0 SEC (9.8-11.6) Prothromb Time International 1.3 RATIO Ratio Ammonia 33 MCMOL/L (11-32) Test 05/03/16 05/03/16 05/03/16 05/03/16 09:18 15:02 16:25 19:49 Lactic Acid Level 1.1 mmol/L 1.5 mmol/L 2.0 mmol/L (0.4-2.0) (0.4-2.0) (0.4-2.0) Blood Gas Puncture Site RT RADIAL Blood Gas Patient Temperature 98.6 Blood Gas HCO3 26 mmol/L (22-26) Blood Gas Base Excess 0.4 mmol/L (-2-2) Blood Gas Oxygen Saturation 73 % (90-100) Arterial Blood pH 7.30 (7.380-7.420) Arterial Blood Partial 54 mmHg (38-42) Pressure CO2 Arterial Blood Partial 49 mmHg Pressure O2 (61-120) Arterial Blood Oxygen Content 7.4 Vol % (12.0-20.0) Arterial Blood 2.3 % (0-4) Carboxyhemoglobin Arterial Blood Methemoglobin 0.8 % (0-2) Blood Gas Hemoglobin 7.1 G/DL (12.0-16.0) Oxygen Delivery Device VENTILATOR Blood Gas Ventilator Setting Blood Gas Inspired Oxygen 100 % Test 05/04/16 05:24 Blood Gas Puncture Site RT RADIAL Blood Gas Patient Temperature 98.6 Blood Gas HCO3 24 mmol/L (22-26) Blood Gas Base Excess -1.8 mmol/L (-2-2) Blood Gas Oxygen Saturation 82 % (90-100) Arterial Blood pH 7.29 (7.380-7.420) Arterial Blood Partial 52 mmHg (38-42) Pressure CO2 Arterial Blood Partial 55 mmHg Pressure O2 (61-120) Arterial Blood Oxygen Content 7.8 Vol % (12.0-20.0) Arterial Blood 2.3 % (0-4) Carboxyhemoglobin Arterial Blood Methemoglobin 0.9 % (0-2) Blood Gas Hemoglobin 6.7 G/DL (12.0-16.0) Oxygen Delivery Device VENTILATOR Blood Gas Ventilator Setting PRVC/16/500/PEEP12/ Blood Gas Inspired Oxygen 100 % (Zuleyka Kapser) Result Diagram: 05/03/16 0412 05/03/16 0412 Microbiology Microbiology Date/Time Procedure Status Source Growth 05/02/16 16:07 Aerobic Blood Culture Received Blood Peripheral Pending 05/02/16 16:07 Anaerobic Blood Culture Received Blood Peripheral Pending 05/02/16 16:09 Aerobic Blood Culture - Preliminary Resulted Blood Peripheral NO GROWTH IN 2 DAYS 05/02/16 16:09 Anaerobic Blood Culture - Preliminary Resulted Blood Peripheral NO GROWTH IN 2 DAYS 05/02/16 16:15 Aerobic Blood Culture - Preliminary Resulted Blood Peripheral NO GROWTH IN 2 DAYS 05/02/16 16:15 Anaerobic Blood Culture - Preliminary Resulted Blood Peripheral NO GROWTH IN 2 DAYS 05/02/16 17:55 Gram Stain - Final Complete Sputum Endotracheal 05/02/16 17:55 Sputum Culture - Final Complete Sputum Endotracheal HEAVY GROWTH NORMAL RESPIRATORY EMIL 05/02/16 20:52 Aerobic Blood Culture - Preliminary Resulted Blood Peripheral NO GROWTH IN 2 DAYS 05/02/16 20:52 Anaerobic Blood Culture - Preliminary Resulted Blood Peripheral NO GROWTH IN 2 DAYS Imaging Last Impressions Chest X-Ray 05/04/16 0000 Signed Impressions: Service Date/Time: April 05:32 - CONCLUSION: Unchanged diffuse bilateral pulmonary infiltrates and tiny effusions. Bart Suarez Jr., MD Head CT 05/02/16 0000 Signed Impressions: Service Date/Time: Monday, May 02, 2016 12:49 - CONCLUSION: 1. Stable CT scan of the brain compared to the prior exam from 2013. 2. No focal or acute intracranial hemorrhage. Aureliano Rayo MD Abdomen X-Ray 05/01/16 0000 Signed Impressions: Service Date/Time: Sunday, May 01, 2016 10:49 - CONCLUSION: Catheter tips as described above. Akira Washington MD Renal Ultrasound 04/27/16 0000 Signed Impressions: Service Date/Time: March 10:35 - CONCLUSION: 1. Both kidneys are small in size. 2. No hydronephrosis. 3. There is some ascites in the abdomen. Aureliano Rayo MD Procedures * 05/02/16 - D/C of left IJ central line * 04/29/16 - paracentesis * 04/25/16 - Left IJ central line placement * 04/25/16 - Arterial line placement * 04/25/16 - Intubation (Zuleyka Kasper) Assessment and Plan Disease Oriented Problem List: (1) Severe sepsis (2) Acute respiratory failure with hypoxia (3) Pulmonary fibrosis (4) Cirrhosis (5) HOME (acute kidney injury) Symptom Scale: (1) Shortness of breath 0-10 Scale: Unable to quantify Comment: secondary to pulm fibrosis, sepsis. Patient intubated on mech vent. (2) Debility 0-10 Scale: Unable to quantify Comment: progressive debility for the past 3 years. (3) Pain 0-10 Scale: Unable to quantify Comment: History of chronic pain. On Fentanyl drip. Pertinent Non-Medical Issues Psychosocial: Retired. . No children. Resides with sister Allan. Spiritual: Taniya. Legal: Living will and [facility] designation completed and in records. Ethical issues impacting care: None identified. . Important Contacts [facility] Svetlana Salazar - and . Sister Allan Ge - . . Prognosis Mrs. Alfredo is a 65 y/o female with a medical history significant for alcoholic liver cirrhosis, pulmonary fibrosis, and breast cancer s/p lumpectomy, radiation and chemotherapy in 2008. Patient was previously evaluated for liver transplant at [facility] in May 2015, but was deemed not a candidate secondary to history of ETOH use/abuse and pulmonary fibrosis. Her baseline performance status prior to this hospitalization was poor and required assistance with ADL's. Her overall prognosis is poor given her pre-existing functional status, multiple chronic comorbidities and acute events. She is at high risk for further complications, continue decline and . In the setting of her multiorgan system failure and , increased oxygen demand and inability to wean off ventilator support, her life expectancy is of hours to days if illness runs its normal course. If family wishes for comfort-directed care, patient would be appropriate and eligible for hospice services in the setting of her terminal condition. . Code Status: No Code Plan * NO CODE/ NO TRACH/ NO HD. * Living will completed by patient, wishes for NO CPR, NO breathing machine, NO artificial nutrition, NO surgery unless for comfort, NO ICU admission, NO medications that can prolong her dying, such as antibiotics, NO pacemaker or defibrillator, NO HD and YES to hospice care at the earliest opportunity. * Patient lacks decision-making capacity secondary to clinical condition; encephalopathic, sedated, intubated on mech vent. Unlikely to regain. LW with designation of [facility] -sister Svetlana Salazar. * 05/04/15: Plan for family -sister RUFINA Mota and their mother- to arrive [place] this weekend. Likely withdrawal after visit. Met with sister Allan at bedside. Tearful verbalizing grief over her sister condition. Active listening and ongoing emotional support provided. Sister feels that pt is more comfortable today. She tells me that other sister Svetlana and their mother will be traveling to [place] tomorrow 05/05/16 to visit patient and to say their good-byes. They plan to be here either Sunday or Sunday. Spoke with RUFINA Mota over the phone. Medical update provided including worsening pulmonary condition and increased oxygen requirements. Sister verbalized her wish to visit patient before any further decisions, other than NO CODE can be made. Both sister made aware that patient may not survive until this weekend given her worsening critical condition. Sisters verbalized understanding. * Case discussed with Dr. Parnell. * Palliative care contact information provided to family. * Palliative care will continue to f/u with this patient and family for further clarification of goals and for emotional support. . (Zuleyka Kasper) Time Spent Time Periods: Total time to include bedside conversation with sister Allan, telephone conversation with RUFINA Mota and case discussion with Dr. Parnell and bedside RN. Total Floor Time (mins): 43 Face to Face Time (mins): 30 >50% Counseling/Coord of Care: Yes (Zuleyka Kasper) Attestation To help prompt me to consider important information that might be impacting today's encounter and assessment, information from prior notes written by myself or my colleagues may have been "brought forward" into today's note. My signature on this note, however, is an attestation that I personally performed the exam, history, and/or decision-making noted today, and, unless otherwise indicated, the interactions with patient, family, and staff as well as the review of records all occurred today. I also attest that the listed assessment and stated plan reflect my best clinical judgment today based on the combination of historical information, prior notes, and today's exam/ interactions. When time spent is documented, it refers only to time spent today by the signer, or if indicated, combined time spent today by collaborating physician/nurse practitioner. (Zuleyka Kasper) Collaborating MD Comments Chart reviewed. Case discussed with palliative care LIGHTNING ROD INSTALLER. Above LIGHTNING ROD INSTALLER note reviewed and I concur. . (Jerry Camargo MD) Zuleyka Kasper May 04, 2016 11:46 Jerry Camargo MD Jun 17, 2016 14:11
--- NOTE | 2016-05-04 12:26 | HHI.NPPN ---
Subjective Renal Failure: Acute History of Present Illness 65 Year old female with breast cancer, Respiratory failure, cirrhosis Objective Data Data 05/03/16 05/04/16 19:00 07:00 Intake Total 2179 ml 1716 ml Output Total 400 ml 520 ml Balance 1779 ml 1196 ml IV Total 1168 ml 1246 ml Tube Feeding 261 ml 220 ml Albumin 750 ml 250 ml Output Urine Total 300 ml 70 ml Stool Total 100 ml 450 ml Gastric Drainage Total 0 ml Vital Signs Date Time Temp Pulse Resp B/P Pulse Ox O2 Delivery O2 Flow Rate FiO2 05/04/16 11:13 91 100 05/04/16 10:00 89 05/04/16 08:13 92 100 05/04/16 08:00 100 05/04/16 08:00 94 05/04/16 08:00 100.7 94 16 92/50 92 05/04/16 06:00 94 05/04/16 04:12 92 100 05/04/16 04:00 100 05/04/16 04:00 96 05/04/16 04:00 98.9 96 17 82/37 94 05/04/16 03:00 100 05/04/16 02:00 96 05/04/16 01:26 92 100 05/04/16 00:00 99.0 109 19 102/52 92 05/04/16 00:00 100 05/04/16 00:00 105 05/03/16 22:00 107 05/03/16 21:52 90 100 05/03/16 20:00 99.1 107 20 94/49 89 05/03/16 20:00 100 05/03/16 20:00 98 05/03/16 19:45 96 100 05/03/16 19:30 95 100 05/03/16 17:00 100 05/03/16 16:45 93 100 05/03/16 16:00 100.0 98 24 76/38 92 05/03/16 16:00 98 05/03/16 15:17 90 100 -: 05/03/16 0412 05/03/16 0412 Physical Exam General Appearance: Well Developed Neck Neck Exam: Neck Supple Pulmonary Resp Exam: Decreased Bases Cardiology CV Exam: Tachycardia Gastrointestinal/Abdomen GI Exam: Soft, Distended Extremeties Extremities Exam: Moderate Edema Assessment/Plan Problem List: (1) HOME (acute kidney injury) Plan: Patient ARF is worsening UOP dropped 370 cc I will resume Bumex Fio2 100% comfort measures family refused Trach (2) Severe sepsis Plan: Due to possible pneumonia (3) Acute respiratory failure with hypoxia Plan: On ventilator Marilee Bazan MD May 04, 2016 12:26 Marilee Bazan MD May 04, 2016 12:26
[2016-05-04] MEDS: BUMETANIDE INJ 1 MG/4 ML VIAL IV PUSH SCH ×2 (14:38→17:06)
[2016-05-04] MEDS: LEVOFLOXACIN 750 MG PREMIX INJ 150 ML IV SCH (17:01)
--- NOTE | 2016-05-04 17:01 | HHI.GIFU ---
Subjective Remarks Sedated on vent. No distress. Tolerating TF. (Kim Olea) Objective Vitals I&O Vital Signs Date Time Temp Pulse Resp B/P Pulse Ox O2 Delivery O2 Flow Rate FiO2 05/04/16 16:04 90 100 05/04/16 12:00 100 05/04/16 12:00 99.1 96 16 89/53 91 05/04/16 12:00 96 05/04/16 11:13 91 100 05/04/16 10:00 89 05/04/16 08:13 92 100 05/04/16 08:00 100 05/04/16 08:00 94 05/04/16 08:00 100.7 94 16 92/50 92 05/04/16 06:00 94 05/04/16 04:12 92 100 05/04/16 04:00 100 05/04/16 04:00 96 05/04/16 04:00 98.9 96 17 82/37 94 05/04/16 03:00 100 05/04/16 02:00 96 05/04/16 01:26 92 100 05/04/16 00:00 99.0 109 19 102/52 92 05/04/16 00:00 100 05/04/16 00:00 105 05/03/16 22:00 107 05/03/16 21:52 90 100 05/03/16 20:00 99.1 107 20 94/49 89 05/03/16 20:00 100 05/03/16 20:00 98 05/03/16 19:45 96 100 05/03/16 19:30 95 100 05/03/16 17:00 100 I/O 05/03/16 05/03/16 05/03/16 05/04/16 05/04/16 05/04/16 07:00 15:00 23:00 07:00 15:00 23:00 Intake Total 1523 ml 1679 ml 1221 ml 995 ml 1033 ml Output Total 292 ml 400 ml 290 ml 230 ml 60 ml Balance 1231 ml 1279 ml 931 ml 765 ml 973 ml IV Total 1386 ml 1168 ml 501 ml 745 ml 783 ml Tube Feeding 137 ml 261 ml 220 ml 0 ml Albumin 250 ml 500 ml 250 ml 250 ml Output Urine Total 292 ml 300 ml 40 ml 30 ml 60 ml Stool Total 100 ml 250 ml 200 ml Gastric Drainage Total 0 ml Laboratory Laboratory Tests Test 05/03/16 05/04/16 19:49 05:24 Lactic Acid Level 2.0 Blood Gas Puncture Site RT RADIAL Blood Gas Patient Temperature 98.6 Blood Gas HCO3 24 Blood Gas Base Excess -1.8 Blood Gas Oxygen Saturation 82 Arterial Blood pH 7.29 Arterial Blood Partial 52 Pressure CO2 Arterial Blood Partial 55 Pressure O2 Arterial Blood Oxygen Content 7.8 Arterial Blood 2.3 Carboxyhemoglobin Arterial Blood Methemoglobin 0.9 Blood Gas Hemoglobin 6.7 Oxygen Delivery Device VENTILATOR Blood Gas Ventilator Setting PRVC/16/500/PEEP12/ Blood Gas Inspired Oxygen 100 Date/Time Procedure Status Source Growth 05/02/16 20:52 Aerobic Blood Culture - Preliminary Resulted Blood Peripheral NO GROWTH IN 2 DAYS 05/02/16 20:52 Anaerobic Blood Culture - Preliminary Resulted Blood Peripheral NO GROWTH IN 2 DAYS 05/02/16 17:55 Gram Stain - Final Complete Sputum Endotracheal 05/02/16 17:55 Sputum Culture - Final Complete Sputum Endotracheal HEAVY GROWTH NORMAL RESPIRATORY EMIL 05/02/16 16:07 Aerobic Blood Culture Received Blood Peripheral Pending 05/02/16 16:07 Anaerobic Blood Culture Received Blood Peripheral Pending Imaging Last Impressions Chest X-Ray 05/04/16 0000 Signed Impressions: Service Date/Time: April 05:32 - CONCLUSION: Unchanged diffuse bilateral pulmonary infiltrates and tiny effusions. Bart Suarez Jr., MD Head CT 05/02/16 0000 Signed Impressions: Service Date/Time: Monday, May 02, 2016 12:49 - CONCLUSION: 1. Stable CT scan of the brain compared to the prior exam from 2013. 2. No focal or acute intracranial hemorrhage. Aureliano Rayo MD Abdomen X-Ray 05/01/16 0000 Signed Impressions: Service Date/Time: Sunday, May 01, 2016 10:49 - CONCLUSION: Catheter tips as described above. Akira Washington MD Renal Ultrasound 04/27/16 0000 Signed Impressions: Service Date/Time: March 10:35 - CONCLUSION: 1. Both kidneys are small in size. 2. No hydronephrosis. 3. There is some ascites in the abdomen. Aureliano Rayo MD Physical Exam HEENT: Normocephalic; atraumatic; no jaundice. CHEST: OETT to vent. Course breath sounds. Diminished bases. CARDIAC: RRR ABDOMEN: Soft, nondistended, hepatosplenomegaly; bowel sounds are present in all four quadrants. Some ascites EXTREMITIES: Generalized edema. SKIN: Normal; no rash; no jaundice. 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 She is requiring frequent paracentesis for recurrent ascites. She was last seen in our office back in January 2016 at which time she was referred back to tertiary for possible TIPS procedure. She is currently sedated and I am not sure if she has been seen, but there is no note regarding this in the outpatient EMR. She is on spironolactone 100 mg by mouth daily and Lasix 40 mg by mouth daily at home. S/P Bedside Paracentesis (04/28/16) with removal of 2.3 Liters of fluid removed. Peritoneal cx with no growth x 72 hours. Cytology negative for malignant cells, proteinaceous material only. SAAG 2.0, indicating portal hypertension. Bumex - Leukocytosis, persistent. Still with lowgrade fevers. WBC worsening 26.8 yesterday, no labs today. CDiff not sent- this has been ordered and she continues to have liquid stool and fevers. Vanco, Zosyn, Levaquin - Acute respiratory failure, PNA. Vanco, Zosyn, Levaquin, nebs, steroids. - Anemia. 7.2/23.1 yesterday. No active blood loss. EGD/colonoscopy at [place] () revealed a regular Z line, gastritis, flattened mucosa was found in the duodenum, biopsies were taken to rule out celiac disease, examination was otherwise normal; examined portion of the ileum was normal, one 6 mm polyp in the sigmoid colon resected and retrieved, distal rectum and anal verge are normal on retroflexion view, examination was otherwise normal. Pathology with small bowel mucosa without diagnostic abnormality, erosive gastritis, tubular adenoma in the sigmoid colon. 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 Hepatitis panel negative, COURTNEY negative , AMA negative, asma negative, alpha 1 antitrypsin 226, Ceruloplasmin 25, Dx in November of 2014. She was previously evaluated a tertiary for possible liver transplant in May of 2015, but according to January 2016 office note, deemed not be a candidate. - HOME, Electrolyte abnormalities. PLAN: - Suplena at 35cc/hr - Please send stool for Cdiff- There is liquid stool in bag - Cont. PPI - Cont. Abx per ID - Await final cultures - Monitor labs - Supportive care - Further recommendations to follow based on results of above - Pt seen and examined by Dr. Barger and myself and this note is written on his behalf (Kim Olea) Physician Comments Patient was seen and examined, agree with above note and plan, stool for C diff. (Noe Barger MD) Kim Olea May 04, 2016 17:01 Noe Barger MD May 04, 2016 20:46
[2016-05-04] MEDS: VANCOMYCIN 1,000 MG/NS 250 ML IV SCH ×2 (17:06)
--- NOTE | 2016-05-04 19:19 | HHI.PR ---
Subjective Remarks 65 YOWF with COPD, Cirhosis, renal failure, VDRF No fever On Fentanyl andVersed Does't follow commands on Zosyn, Levaquin per ID Has worsening of oxygenation On PCV, Fi02 100% Still requiring max 02 Objective Vital Signs Vital Signs Date Time Temp Pulse Resp B/P Pulse Ox O2 Delivery O2 Flow Rate FiO2 05/04/16 18:00 95 05/04/16 16:04 90 100 05/04/16 16:00 98.8 106 16 94/46 92 05/04/16 16:00 100 05/04/16 16:00 106 05/04/16 14:00 98 05/04/16 12:00 100 05/04/16 12:00 99.1 96 16 89/53 91 05/04/16 12:00 96 05/04/16 11:13 91 100 05/04/16 10:00 89 05/04/16 08:13 92 100 05/04/16 08:00 100 05/04/16 08:00 94 05/04/16 08:00 100.7 94 16 92/50 92 05/04/16 06:00 94 05/04/16 04:12 92 100 05/04/16 04:00 100 05/04/16 04:00 96 05/04/16 04:00 98.9 96 17 82/37 94 05/04/16 03:00 100 05/04/16 02:00 96 05/04/16 01:26 92 100 05/04/16 00:00 99.0 109 19 102/52 92 05/04/16 00:00 100 05/04/16 00:00 105 05/03/16 22:00 107 05/03/16 21:52 90 100 05/03/16 20:00 99.1 107 20 94/49 89 05/03/16 20:00 100 05/03/16 20:00 98 05/03/16 19:45 96 100 05/03/16 19:30 95 100 I/O 05/03/16 05/03/16 05/03/16 05/04/16 05/04/16 05/04/16 07:00 15:00 23:00 07:00 15:00 23:00 Intake Total 1523 ml 1679 ml 1221 ml 995 ml 1033 ml Output Total 292 ml 400 ml 290 ml 230 ml 60 ml Balance 1231 ml 1279 ml 931 ml 765 ml 973 ml IV Total 1386 ml 1168 ml 501 ml 745 ml 783 ml Tube Feeding 137 ml 261 ml 220 ml 0 ml Albumin 250 ml 500 ml 250 ml 250 ml Output Urine Total 292 ml 300 ml 40 ml 30 ml 60 ml Stool Total 100 ml 250 ml 200 ml Gastric Drainage Total 0 ml Result Diagram: 05/03/1641105/03/16411 Objective Remarks GENERAL: MBMN WF on Vent, sedated SKIN: Warm and dry. HEAD: Normocephalic. EYES: No scleral icterus. No injection or drainage. NECK: Supple, trachea midline. No JVD or lymphadenopathy. CARDIOVASCULAR: Regular rate and rhythm without murmurs, gallops, or rubs. RESPIRATORY: Breath sounds equal bilaterally. No accessory muscle use. GASTROINTESTINAL: Abdomen soft, non-tender, nondistended. MUSCULOSKELETAL: No cyanosis, or edema. BACK: Nontender without obvious deformity. No CVA tenderness. A/P Assessment and Plan VDRF Metabolic acidosis improved Renal insuff COPD Cirrhosis of liver PLAN: PCV, Fi02 100% Abx Zosyn, Levaquin and Zithro. Monitor lytes fentanyl and Versed Family considering palliative care Uli Ramos MD May 04, 2016 19:19
[2016-05-04 19:33] LABS: C. DIFF EPI 027 PRESUMPTIVE NEGATIVE (NEGATIVE); C. DIFF TOXIN PCR NEGATIVE (NEGATIVE)
[2016-05-04 21:11] LABS: MEAN CORPUSCULAR HGB CONC 29.7 % (32.0-36.0)
[2016-05-05] VITALS (25 sets, daily range): BP systolic 87–109; BP diastolic 51–59; PULSE 84–103; RESP 16–17; TEMP 97.5–99.5; O2SAT 87–100
[2016-05-05] MEDS: MIDAZOLAM 100 MG/ML INJ 100 ML IV SCH ×3 (02:49→22:28)
[2016-05-05] MEDS: fentaNYL DRIP 250 ML IV SCH ×3 (02:49→22:30)
[2016-05-05] MEDS: HEPARIN SODIUM - SQ 10,000 UNITS/ML VIAL SQ SCH ×2 (02:49→15:28)
[2016-05-05] MEDS: CHLORHEXIDINE GLUCONATE 2 % 1 PACK (2 CLOTHS) TOP SCH (03:37)
[2016-05-05] MEDS: RESP: ALBUTEROL 2.5 MG/IPRATROPIUM 0.5 MG NEB (SCH) NEB ×5 (03:49→19:21)
[2016-05-05 04:12] LABS: AUTOMATED NEUTROPHIL # 32.5 TH/MM3 (1.8-7.7); BASOPHIL % 0.1 % (0.0-2.0); EOSINOPHIL # 0.1 TH/MM3 (0-0.4); EOSINOPHIL % 0.3 % (0.0-4.0); HEMATOCRIT 21.4 % (35.0-46.0); LYMPH % 0.6 % (9.0-44.0); LYMPHOCYTE # 0.2 TH/MM3 (1.0-4.8); MEAN CELL VOLUME 69.5 FL (80.0-100.0); MEAN CORPUSCULAR HEMOGLOBIN 20.6 PG (27.0-34.0); MONO % 4.5 % (0.0-8.0); NEUT % 94.5 % (16.0-70.0); PLATELET COUNT 120 TH/MM3 (150-450); RED BLOOD COUNT 3.08 MIL/MM3 (4.00-5.30); RED CELL DISTRIBUTION WIDTH 23.1 % (11.6-17.2); WHITE BLOOD COUNT 34.4 TH/MM3 (4.0-11.0)
[2016-05-05 04:17] LABS: HEMO FLAGS AUTO DIFF
[2016-05-05 04:41] LABS: BICARBONATE 21.3 MEQ/L (21.0-32.0); POTASSIUM 3.7 MEQ/L (3.5-5.1); VANCOMYCIN TROUGH 31.6 MCG/ML (5.0-10.0)
[2016-05-05] MEDS: PIPERACIL-TAZO 4.5 GM PREMIX 100 ML IV SCH ×2 (05:25→10:54)
[2016-05-05] MEDS ORDERED: SODIUM CHLOR 0.9% 250 ML INJ 250 ML IV ONE ×2 (05:30→13:00)
[2016-05-05 06:52] LABS: POLYS (SEG NEUTROPHILS) 96 % (16-70); SCAN/DIFF FINAL DIFF MANUAL; WBC DIFF SAMPLE 100
[2016-05-05 06:53] LABS: PLATELET ESTIMATE SMEAR LOW (NORMAL); PLATELET MORPHOLOGY NORMAL (NORMAL)
[2016-05-05 06:54] LABS: ACANTHOCYTES OCC (NORMAL); KERATOCYTES OCC (NORMAL)
[2016-05-05] MEDS: CHLORHEXIDINE 0.12% (ORAL KIT) 15 ML CUP MT SCH ×2 (08:00→22:28)
--- NOTE | 2016-05-05 08:45 | HHI.GIFU ---
Subjective Remarks Resting in bed. Sedated on vent. Afebrile overnight. No obvious active bleeding overnight. (Kim Olea) Objective Vitals I&O Vital Signs Date Time Temp Pulse Resp B/P Pulse Ox O2 Delivery O2 Flow Rate FiO2 05/05/16 07:43 95 100 05/05/16 06:00 99 05/05/16 04:07 94 100 05/05/16 04:00 100 05/05/16 04:00 97.9 100 16 97/53 96 05/05/16 04:00 100 05/05/16 02:00 103 05/05/16 01:01 96 100 05/05/16 00:00 100 05/05/16 00:00 103 05/05/16 00:00 97.9 103 16 98/52 94 05/04/16 22:00 96 05/04/16 20:00 97.9 103 16 89/47 93 05/04/16 20:00 100 05/04/16 20:00 97 05/04/16 19:38 92 100 05/04/16 18:00 95 05/04/16 16:04 90 100 05/04/16 16:00 98.8 106 16 94/46 92 05/04/16 16:00 100 05/04/16 16:00 106 05/04/16 14:00 98 05/04/16 12:00 100 05/04/16 12:00 99.1 96 16 89/53 91 05/04/16 12:00 96 05/04/16 11:13 91 100 05/04/16 10:00 89 I/O 05/04/16 05/04/16 05/04/16 05/05/16 05/05/16 05/05/16 07:00 15:00 23:00 07:00 15:00 23:00 Intake Total 995 ml 1033 ml 1002 ml 928 ml Output Total 230 ml 60 ml 60 ml 10 ml Balance 765 ml 973 ml 942 ml 918 ml IV Total 745 ml 783 ml 871 ml 791 ml Tube Feeding 0 ml 131 ml 137 ml Albumin 250 ml 250 ml Output Urine Total 30 ml 60 ml 60 ml 10 ml Stool Total 200 ml 0 ml 0 ml Laboratory Laboratory Tests Test 05/04/16 05/05/16 17:00 03:11 Stool C. difficile Toxin (PCR) NEGATIVE Stl C. difficile Toxin PRESUMPTIVE Epiderm 027 NEGATIVE White Blood Count 34.4 Red Blood Count 3.08 Hemoglobin 6.4 Hematocrit 21.4 Mean Corpuscular Volume 69.5 Mean Corpuscular Hemoglobin 20.6 Mean Corpuscular Hemoglobin 29.7 Concent Red Cell Distribution Width 23.1 Platelet Count 120 Mean Platelet Volume 9.1 Neutrophils (%) (Auto) 94.5 Lymphocytes (%) (Auto) 0.6 Monocytes (%) (Auto) 4.5 Eosinophils (%) (Auto) 0.3 Basophils (%) (Auto) 0.1 Neutrophils # (Auto) 32.5 Lymphocytes # (Auto) 0.2 Monocytes # (Auto) 1.6 Eosinophils # (Auto) 0.1 Basophils # (Auto) 0.0 CBC Comment AUTO DIFF Differential Total Cells 100 Counted Neutrophils % (Manual) 96 Lymphocytes % 1 Monocytes % 3 Neutrophils # (Manual) 33.0 Differential Comment FINAL DIFF MANUAL Platelet Estimate LOW Platelet Morphology Comment NORMAL Acanthocytes OCC Keratocytes OCC Sodium Level 145 Potassium Level 3.7 Chloride Level 110 Carbon Dioxide Level 21.3 Anion Gap 14 Blood Urea Nitrogen 43 Creatinine 3.11 Estimat Glomerular Filtration 15 Rate Random Glucose 175 Calcium Level 9.0 Vancomycin Level Trough 31.6 Date/Time Procedure Status Source Growth 05/02/16 20:52 Aerobic Blood Culture - Preliminary Resulted Blood Peripheral NO GROWTH IN 2 DAYS 05/02/16 20:52 Anaerobic Blood Culture - Preliminary Resulted Blood Peripheral NO GROWTH IN 2 DAYS 05/02/16 17:55 Gram Stain - Final Complete Sputum Endotracheal 05/02/16 17:55 Sputum Culture - Final Complete Sputum Endotracheal HEAVY GROWTH NORMAL RESPIRATORY EMIL 05/02/16 16:07 Aerobic Blood Culture Received Blood Peripheral Pending 05/02/16 16:07 Anaerobic Blood Culture Received Blood Peripheral Pending Imaging Last Impressions Chest X-Ray 05/04/16 0000 Signed Impressions: Service Date/Time: April 05:32 - CONCLUSION: Unchanged diffuse bilateral pulmonary infiltrates and tiny effusions. Bart Suarez Jr., MD Head CT 05/02/16 0000 Signed Impressions: Service Date/Time: Monday, May 02, 2016 12:49 - CONCLUSION: 1. Stable CT scan of the brain compared to the prior exam from 2013. 2. No focal or acute intracranial hemorrhage. Aureliano Rayo MD Abdomen X-Ray 1/2/17 0000 Signed Impressions: Service Date/Time: Sunday, May 01, 2016 10:49 - CONCLUSION: Catheter tips as described above. Akira Washington MD Renal Ultrasound 04/27/16 0000 Signed Impressions: Service Date/Time: March 10:35 - CONCLUSION: 1. Both kidneys are small in size. 2. No hydronephrosis. 3. There is some ascites in the abdomen. Aureliano Rayo MD Physical Exam HEENT: Normocephalic; atraumatic; no jaundice. CHEST: OETT to vent. Course breath sounds. Diminished bases. CARDIAC: RRR ABDOMEN: Soft, nondistended, hepatosplenomegaly; bowel sounds are present in all four quadrants. Some ascites EXTREMITIES: Generalized edema. SKIN: Normal; no rash; no jaundice. 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 She is requiring frequent paracentesis for recurrent ascites. She was last seen in our office back in January 2016 at which time she was referred back to tertiary for possible TIPS procedure. She is currently sedated and I am not sure if she has been seen, but there is no note regarding this in the outpatient EMR. She is on spironolactone 100 mg by mouth daily and Lasix 40 mg by mouth daily at home. S/P Bedside Paracentesis (04/28/16) with removal of 2.3 Liters of fluid removed. Peritoneal cx with no growth x 72 hours. Cytology negative for malignant cells, proteinaceous material only. SAAG 2.0, indicating portal hypertension. Bumex - Leukocytosis, worsening. WBC today 34.4. Yesterday's CXR with unchanged diffuse bilateral pulmonary infiltrates and tiny effusions. Having diarrhea, but CDiff was negative. Vanco, Zosyn, Levaquin - Diarrhea, CDiff negative. - Acute respiratory failure, PNA. Vanco, Zosyn, Levaquin, nebs, steroids. - Anemia with drop in Hgb to 6.4/21.4. No active blood loss. EGD/colonoscopy at [place] (06/10/15) revealed a regular Z line, gastritis, flattened mucosa was found in the duodenum, biopsies were taken to rule out celiac disease, examination was otherwise normal; examined portion of the ileum was normal, one 6 mm polyp in the sigmoid colon resected and retrieved, distal rectum and anal verge are normal on retroflexion view, examination was otherwise normal. Pathology with small bowel mucosa without diagnostic abnormality, erosive gastritis, tubular adenoma in the sigmoid colon. According to palliative care note, patient has a detailed living will stating her wishes for no cpr, no breathing machine, no artificial nutrition, no surgery unless for comfort, no icu admission, no medications that can prolong her dying such as antibiotics, no pacemaker or defibrillator, no HD, and YES to hospice care at the earliest opportunity. Plan is for sister and their mother to arrive from [place] this weekend and likely withdrawal after their visit. Will avoid endoscopic evaluation at this time. 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 Hepatitis panel negative, COURTNEY negative , AMA negative, asma negative, alpha 1 antitrypsin 226, Ceruloplasmin 25, Dx in November of 2014. She was previously evaluated a tertiary for possible liver transplant in May of 2015, but according to January 2016 office note, deemed not be a candidate. - HOME, Electrolyte abnormalities. PLAN: - Suplena at 35cc/hr - Cont. PPI - Cont. Abx per ID - Await final cultures - Monitor labs - Consider blood transfusion - Supportive care - According to palliative care note, patient has a detailed living will stating her wishes for no cpr, no breathing machine, no artificial nutrition, no surgery unless for comfort, no icu admission, no medications that can prolong her dying such as antibiotics, no pacemaker or defibrillator, no HD, and YES to hospice care at the earliest opportunity. Plan is for sister and their mother to arrive from [place] this weekend and likely withdrawal after their visit. Will avoid endoscopic evaluation at this time - GI will sign off, please reconsult as needed. - Pt seen and examined by Dr. Barger and myself and this note is written on his behalf (Kim Olea) Physician Comments Patient was seen and examined, agree with above note and plan, poor porgnosis, we will FU as needed, pls call us with any question (Noe Barger MD) Kim Olea May 05, 2016 08:45 Noe Barger MD May 06, 2016 07:22
[2016-05-05] MEDS: BUMETANIDE INJ 1 MG/4 ML VIAL IV PUSH SCH (09:07)
[2016-05-05] MEDS: FOLIC ACID 1 MG TAB PO SCH (09:07)
[2016-05-05] MEDS: methylPREDNISolone SOD SUCC 125 MG/2 ML VIAL IV PUSH SCH ×2 (09:07→22:28)
[2016-05-05] MEDS: SODIUM CHLORIDE 0.9% FLUSH 5 ML FLUSH IV FLUSH SCH ×2 (09:07→22:28)
[2016-05-05] MEDS: LACTULOSE SYRUP 20 GM/30 ML CUP PO SCH ×4 (09:07→21:00)
[2016-05-05] MEDS: SERTRALINE HCL 100 MG TAB PO SCH (09:07)
[2016-05-05] MEDS: DOCUSATE SODIUM 100 MG CAP PO SCH ×2 (09:07→21:00)
[2016-05-05] MEDS: PANTOPRAZOLE SODIUM 40 MG VIAL IV PUSH SCH (10:54)
--- NOTE | 2016-05-05 12:19 | HHI.HCPN ---
Reason for visit a. To assist with evaluation and management of symptoms including: debility and shortness of breath. b. To assist medical decision maker(s) with: better understanding of current medical conditions; weighing benefits/burdens of medical treatment options; making medical treatment decisions. . (Zuleyka Kasper) Subjective/Interval History Patient seen in ICU. Sister Allan at bedside. Patient remains sedated, intubated on mech ventilation, max oxygen support. Appears comfortable. Afebrile. SBP in the 90's. No new imaging. Hgb 6.4 with no obvious site of bleeding. Met with sister Allan at bedside. She verbalized her understanding of pt's very poor prognosis/irreversible state. Sister appropriately tearful. Asking questions regarding palliative extubation and comfort-direct care. Sister verbalized again that patient would of not want to extend her dying process with machines and expressed family's wishes of a palliative extubation once sister Svetlana and mother arrive this weekend. Allan does not know if family would be ready for withdraw on Sunday but feels that by Sunday they should. Sister asking palliative care to be present during extubation. Discussed that patient will continue receiving supportive care but made aware that patient may not survive until this weekend given her worsening critical condition. Sisters verbalized understanding. Family in agreement of honoring patient's wishes as expressed in her living will to include NO CPR, NO breathing machine, NO artificial nutrition, NO surgery unless for comfort, NO ICU admission, NO medications that can prolong her dying, such as antibiotics, NO pacemaker or defibrillator, NO HD and YES to hospice care at the earliest opportunity. Introduced hospice philosophy and services, family to discuss further. . Family/friend interactions See interval note. . (Zuleyka Kasper) Advance Directives Living Will: Copy in medical record Health Care Surrogate: Copy in medical record Durable Power of [employer]: Completed, but not made available (Zuleyka Kasper) Advance Directive Specifics Date completed: 05/29/2015. . Health Care Surrogate(s): HCS listed as Sister Svetlana Salazar. . Documented care wishes: Living will provided by sister Allan. Patient wishing that in the event of a terminal condition, end-stage condition or persistent vegetative state, she wishes for NO CPR, NO breathing machine, NO artificial nutrition, NO surgery unless for comfort, NO ICU admission, NO medications that can prolong her dying , such as antibiotics, NO pacemaker or defibrillator, NO HD and YES to hospice care at the earliest opportunity. . Significant change in goals: NO CODE. Supportive care with plan for palliative extubation/comfort-directed care this incoming Sunday or Sunday after sister and mother visit from ( Zuleyka Kasper) Objective Vital Signs Date Time Temp Pulse Resp B/P Pulse Ox O2 Delivery O2 Flow Rate FiO2 05/05/16 10:00 92 05/05/16 08:00 96 05/05/16 08:00 100 05/05/16 08:00 97.5 96 16 87/51 98 05/05/16 07:43 95 100 05/05/16 07:18 99 05/05/16 06:00 99 05/05/16 04:07 94 100 05/05/16 04:00 100 05/05/16 04:00 97.9 100 16 97/53 96 05/05/16 04:00 100 05/05/16 02:00 103 05/05/16 01:01 96 100 05/05/16 00:00 100 05/05/16 00:00 103 05/05/16 00:00 97.9 103 16 98/52 94 05/04/16 22:00 96 05/04/16 20:00 97.9 103 16 89/47 93 05/04/16 20:00 100 05/04/16 20:00 97 05/04/16 19:38 92 100 05/04/16 18:00 95 05/04/16 16:04 90 100 05/04/16 16:00 98.8 106 16 94/46 92 05/04/16 16:00 100 05/04/16 16:00 106 05/04/16 14:00 98 Intake & Output 05/05/16 05/05/16 07:00 19:00 Intake Total 1930 ml Output Total 70 ml Balance 1860 ml IV Total 1662 ml Tube Feeding 268 ml Output Urine Total 70 ml Stool Total 0 ml Physical Exam CONSTITUTIONAL/GENERAL: This is an adequately nourished patient, in no acute distress. TUBES/LINES/DRAINS: ETT, DH , Schultz cath, PIV's, SCD's. SKIN: No jaundice, rashes, or lesions. Ecchymoses on upper extremities and right side of neck. No wounds seen anteriorly. Skin temperature appropriate. Not diaphoretic. HEAD: Atraumatic. Normocephalic. EYES: Pupils equal and round and reactive. ENT: Unable to assess hearing. Nose without bleeding or purulent drainage. Unable to visualize throat due to ETT. NECK: Trachea midline. Supple. CARDIOVASCULAR: Tachycardic, HR in the 110's. Regular rate and rhythm without murmurs, gallops, or rubs. No JVD. Peripheral pulses symmetric. RESPIRATORY/CHEST: Symmetric, unlabored respirations. Breath sounds equal bilaterally. Coarse rhonchi bilaterally. GASTROINTESTINAL: Abdomen soft, mildly distended. Bowel sounds present. Umbilical hernia present. GENITOURINARY: Without palpable bladder distension. Schultz catheter in place. MUSCULOSKELETAL: Extremities without clubbing, cyanosis. No mottling or clubbing. NEUROLOGICAL: sedated. Not following commands. PSYCHIATRIC: calm. . (Zuleyka Kasper) Diagnostic Tests Laboratory Laboratory Tests Test 05/02/16 05/03/16 05/03/16 05/03/16 16:15 04:12 09:18 15:02 Urine Color YELLOW (YELLW/STRAW) Urine Turbidity CLEAR (CLEAR) Urine pH 5.5 (5.0-8.5) Urine Specific [place] 1.013 (1.002-1.035) Urine Protein 30 mg/dL (NEG-TRACE) Urine Glucose (UA) NEG mg/dL (NEG) Urine Ketones NEG mg/dL (NEG) Urine Occult Blood MOD (NEG) Urine Nitrite NEG (NEG) Urine Bilirubin NEG (NEG) Urine Urobilinogen LESS THAN 2.0 MG/DL (LESS THAN 2.0) Urine Leukocyte Esterase NEG (NEG) Urine RBC /hpf (0-3) Urine WBC 2 /hpf (0-5) Microscopic Urinalysis Comment CULT NOT INDICATED White Blood Count 26.8 TH/MM3 (4.0-11.0) Red Blood Count 3.47 MIL/MM3 (4.00-5.30) Hemoglobin 7.2 GM/DL (11.6-15.3) Hematocrit 23.1 % (35.0-46.0) Mean Corpuscular Volume 66.6 FL (80.0-100.0) Mean Corpuscular Hemoglobin 20.7 PG (27.0-34.0) Mean Corpuscular Hemoglobin 31.1 % Concent (32.0-36.0) Red Cell Distribution Width 21.8 % (11.6-17.2) Platelet Count 156 TH/MM3 (150-450) Mean Platelet Volume 8.8 FL (7.0-11.0) Prothrombin Time 14.0 SEC (9.8-11.6) Prothromb Time International 1.3 RATIO Ratio Sodium Level 149 MEQ/L (136-145) Potassium Level 3.6 MEQ/L (3.5-5.1) Chloride Level 110 MEQ/L (98-107) Carbon Dioxide Level 26.8 MEQ/L (21.0-32.0) Anion Gap 12 MEQ/L (5-15) Blood Urea Nitrogen 29 MG/DL (7-18) Creatinine 1.41 MG/DL (0.50-1.00) Estimat Glomerular Filtration 38 ML/MIN (>89) Rate Random Glucose 153 MG/DL (74-106) Calcium Level 9.0 MG/DL (8.5-10.1) Phosphorus Level 2.9 MG/DL (2.5-4.9) Magnesium Level 1.7 MG/DL (1.5-2.5) Ammonia 33 MCMOL/L (11-32) Lactic Acid Level 1.1 mmol/L 1.5 mmol/L (0.4-2.0) (0.4-2.0) Test 05/03/16 05/03/16 05/04/16 05/04/16 16:25 19:49 05:24 17:00 Blood Gas Puncture Site RT RADIAL RT RADIAL Blood Gas Patient Temperature 98.6 98.6 Blood Gas HCO3 26 mmol/L 24 mmol/L (22-26) (22-26) Blood Gas Base Excess 0.4 mmol/L -1.8 mmol/L (-2-2) (-2-2) Blood Gas Oxygen Saturation 73 % (90-100) 82 % (90-100) Arterial Blood pH 7.30 7.29 (7.380-7.420) (7.380-7.420) Arterial Blood Partial 54 mmHg (38-42) 52 mmHg (38-42) Pressure CO2 Arterial Blood Partial 49 mmHg 55 mmHg Pressure O2 (61-120) (61-120) Arterial Blood Oxygen Content 7.4 Vol % 7.8 Vol % (12.0-20.0) (12.0-20.0) Arterial Blood 2.3 % (0-4) 2.3 % (0-4) Carboxyhemoglobin Arterial Blood Methemoglobin 0.8 % (0-2) 0.9 % (0-2) Blood Gas Hemoglobin 7.1 G/DL 6.7 G/DL (12.0-16.0) (12.0-16.0) Oxygen Delivery Device VENTILATOR VENTILATOR Blood Gas Ventilator Setting PRVC/16/500/PEEP12/ Blood Gas Inspired Oxygen 100 % 100 % Lactic Acid Level 2.0 mmol/L (0.4-2.0) Stool C. difficile Toxin (PCR) NEGATIVE (NEGATIVE) Stl C. difficile Toxin PRESUMPTIVE Epiderm 027 NEGATIVE (NEGATIVE) Test 05/05/16 03:11 White Blood Count 34.4 TH/MM3 (4.0-11.0) Red Blood Count 3.08 MIL/MM3 (4.00-5.30) Hemoglobin 6.4 GM/DL (11.6-15.3) Hematocrit 21.4 % (35.0-46.0) Mean Corpuscular Volume 69.5 FL (80.0-100.0) Mean Corpuscular Hemoglobin 20.6 PG (27.0-34.0) Mean Corpuscular Hemoglobin 29.7 % Concent (32.0-36.0) Red Cell Distribution Width 23.1 % (11.6-17.2) Platelet Count 120 TH/MM3 (150-450) Mean Platelet Volume 9.1 FL (7.0-11.0) Neutrophils (%) (Auto) 94.5 % (16.0-70.0) Lymphocytes (%) (Auto) 0.6 % (9.0-44.0) Monocytes (%) (Auto) 4.5 % (0.0-8.0) Eosinophils (%) (Auto) 0.3 % (0.0-4.0) Basophils (%) (Auto) 0.1 % (0.0-2.0) Neutrophils # (Auto) 32.5 TH/MM3 (1.8-7.7) Lymphocytes # (Auto) 0.2 TH/MM3 (1.0-4.8) Monocytes # (Auto) 1.6 TH/MM3 (0-0.9) Eosinophils # (Auto) 0.1 TH/MM3 (0-0.4) Basophils # (Auto) 0.0 TH/MM3 (0-0.2) CBC Comment AUTO DIFF Differential Total Cells 100 Counted Neutrophils % (Manual) 96 % (16-70) Lymphocytes % 1 % (9-44) Monocytes % 3 % (0-8) Neutrophils # (Manual) 33.0 TH/MM3 (1.8-7.7) Differential Comment FINAL DIFF MANUAL Platelet Estimate LOW (NORMAL) Platelet Morphology Comment NORMAL (NORMAL) Acanthocytes OCC (NORMAL) Keratocytes OCC (NORMAL) Sodium Level 145 MEQ/L (136-145) Potassium Level 3.7 MEQ/L (3.5-5.1) Chloride Level 110 MEQ/L (98-107) Carbon Dioxide Level 21.3 MEQ/L (21.0-32.0) Anion Gap 14 MEQ/L (5-15) Blood Urea Nitrogen 43 MG/DL (7-18) Creatinine 3.11 MG/DL (0.50-1.00) Estimat Glomerular Filtration 15 ML/MIN (>89) Rate Random Glucose 175 MG/DL (74-106) Calcium Level 9.0 MG/DL (8.5-10.1) Vancomycin Level Trough 31.6 MCG/ML (5.0-10.0) (Zuleyka KasperP) Result Diagram: 05/05/161 05/05/16 0311 Microbiology Microbiology Date/Time Procedure Status Source Growth 05/02/16 16:07 Aerobic Blood Culture Received Blood Peripheral Pending 05/02/16 16:07 Anaerobic Blood Culture Received Blood Peripheral Pending 05/02/16 16:09 Aerobic Blood Culture - Preliminary Resulted Blood Peripheral NO GROWTH IN 3 DAYS 05/02/16 16:09 Anaerobic Blood Culture - Preliminary Resulted Blood Peripheral NO GROWTH IN 3 DAYS 05/02/16 16:15 Aerobic Blood Culture - Preliminary Resulted Blood Peripheral NO GROWTH IN 3 DAYS 05/02/16 16:15 Anaerobic Blood Culture - Preliminary Resulted Blood Peripheral NO GROWTH IN 3 DAYS 05/02/16 17:55 Gram Stain - Final Complete Sputum Endotracheal 05/02/16 17:55 Sputum Culture - Final Complete Sputum Endotracheal HEAVY GROWTH NORMAL RESPIRATORY EMIL 05/02/16 20:52 Aerobic Blood Culture - Preliminary Resulted Blood Peripheral NO GROWTH IN 3 DAYS 05/02/16 20:52 Anaerobic Blood Culture - Preliminary Resulted Blood Peripheral NO GROWTH IN 3 DAYS Imaging Last Impressions Chest X-Ray 05/04/16 0000 Signed Impressions: Service Date/Time: April 05:32 - CONCLUSION: Unchanged diffuse bilateral pulmonary infiltrates and tiny effusions. Bart Suarez Jr., MD Head CT 05/02/16 0000 Signed Impressions: Service Date/Time: Monday, May 02, 2016 12:49 - CONCLUSION: 1. Stable CT scan of the brain compared to the prior exam from 2013. 2. No focal or acute intracranial hemorrhage. Aureliano Rayo MD Abdomen X-Ray 05/01/16 0000 Signed Impressions: Service Date/Time: Sunday, May 01, 2016 10:49 - CONCLUSION: Catheter tips as described above. Akira Washington MD Renal Ultrasound 04/27/16 0000 Signed Impressions: Service Date/Time: March 10:35 - CONCLUSION: 1. Both kidneys are small in size. 2. No hydronephrosis. 3. There is some ascites in the abdomen. Aureliano Rayo MD Procedures * 05/02/16 - D/C of left IJ central line * 04/29/16 - paracentesis * 04/25/16 - Left IJ central line placement * 04/25/16 - Arterial line placement * 04/25/16 - Intubation (Zuleyka Kasper) Assessment and Plan Disease Oriented Problem List: (1) Severe sepsis (2) Acute respiratory failure with hypoxia (3) Pulmonary fibrosis (4) Cirrhosis (5) HOME (acute kidney injury) Symptom Scale: (1) Shortness of breath 0-10 Scale: Unable to quantify Comment: secondary to pulm fibrosis, sepsis. Patient intubated on mech vent. (2) Debility 0-10 Scale: Unable to quantify Comment: progressive debility for the past 3 years. (3) Pain 0-10 Scale: Unable to quantify Comment: History of chronic pain. On Fentanyl drip. Pertinent Non-Medical Issues Psychosocial: Retired. . No children. Resides with sister Allan. Spiritual: Taniya. Legal: Living will and HCS designation completed and in records. Ethical issues impacting care: None identified. . Important Contacts HCS Svetlana Salazar - and . Sister Allan Ge - . . Prognosis Mrs. Alfredo is a 65 y/o female with a medical history significant for alcoholic liver cirrhosis, pulmonary fibrosis, and breast cancer s/p lumpectomy, radiation and chemotherapy in 2008. Patient was previously evaluated for liver transplant at [facility] in May 2015, but was deemed not a candidate secondary to history of ETOH use/abuse and pulmonary fibrosis. Her baseline performance status prior to this hospitalization was poor and required assistance with ADL's. Her overall prognosis is poor given her pre-existing functional status, multiple chronic comorbidities and acute events. She is at high risk for further complications, continue decline and . In the setting of her multiorgan system failure and , increased oxygen demand and inability to wean off ventilator support, her life expectancy is of hours to days if illness runs its normal course. If family wishes for comfort-directed care, patient would be appropriate and eligible for hospice services in the setting of her terminal condition. . Code Status: No Code Plan * NO CODE/ NO TRACH/ NO HD. * Living will completed by patient, wishes for NO CPR, NO breathing machine, NO artificial nutrition, NO surgery unless for comfort, NO ICU admission, NO medications that can prolong her dying, such as antibiotics, NO pacemaker or defibrillator, NO HD and YES to hospice care at the earliest opportunity. * Patient lacks decision-making capacity secondary to clinical condition; encephalopathic, sedated, intubated on mech vent. Unlikely to regain. LW with designation of [facility] -sister Svetlana Salazar. * 05/05/15: NO CODE. Supportive care with plan for palliative extubation/comfort -directed care this incoming Sunday or Sunday after sister Svetlana ([facility]) and mother visit from [place]. Family in agreement of blood transfusion today for hgb 6.4. Met with sister Allan at bedside. She verbalized her understanding of pt's very poor prognosis/irreversible state. Sister appropriately tearful. Asking questions regarding palliative extubation and comfort-direct care. Sister verbalized again that patient would of not want to extend her dying process with machines and expressed family's wishes of a palliative extubation once sister Svetlana and mother arrive this weekend. Allan does not know if family would be ready for withdraw on Sunday but feels that by Sunday they should. Sister asking palliative care to be present during extubation. Discussed that patient will continue receiving supportive care but made aware that patient may not survive until this weekend given her worsening critical condition. Sisters verbalized understanding. Family in agreement of honoring patient's wishes as expressed in her living will. Introduced hospice philosophy and services, family to discuss further. * Both sisters made aware that patient may not survive to this weekend given her worsening, already critical condition. They both verbalized understanding. * Exhibit sign by Dr. Camargo. * Case discussed with Dr. Parnell. * Palliative care contact information provided to family. * Palliative care will continue to f/u with this patient and family for further clarification of goals and for emotional support. . (Zuleyka Kasper) Time Spent Total Floor Time (mins): 40 Face to Face Time (mins): 25 >50% Counseling/Coord of Care: Yes (Zuleyka Kasper) Attestation To help prompt me to consider important information that might be impacting today's encounter and assessment, information from prior notes written by myself or my colleagues may have been "brought forward" into today's note. My signature on this note, however, is an attestation that I personally performed the exam, history, and/or decision-making noted today, and, unless otherwise indicated, the interactions with patient, family, and staff as well as the review of records all occurred today. I also attest that the listed assessment and stated plan reflect my best clinical judgment today based on the combination of historical information, prior notes, and today's exam/ interactions. When time spent is documented, it refers only to time spent today by the signer, or if indicated, combined time spent today by collaborating physician/nurse practitioner. (Zuleyka Kasper) Collaborating MD Comments Chart reviewed. Patient examined personally by me. Case discussed with THEO Espinal. Above note reviewed and I concur. At time of my visit patient is intubated, mechanically ventilated, in an SICU bed. She is on 250 mcg/hr of fentanyl and 10 mg/hr of midazolam. Nurse reports that in spite of this level of sedation ,when disturbed she can stiffen up and fight ventilator. Patient does not stir to voice or exam for me. Afebrile. Tachycardic. Systolic BPs mostly in the 90s. RRR without murmur. Ronchi heard bilaterally though reasonable air movement on vent. Abdomen benign. Family has agreed to forego further aggressive care. They now feel patient's goals/preferences would best be honored by withdrawing life support and transitioning to "comfort measures only." Withdrawal is planned for either or 05/08 after patient's sister and mother arrive from [place]. Family is aware that patient may before family arrival. I have signed certification of terminal illness form. TIME: Combined DIRECTOR OF SPECIAL EDUCATION/physician time on floor over 50 minutes with chart review , patient exam, above referenced discussion with family, collaboration with primary nurse, and discussion with complex case manager. Over 50% of time spent on counseling/coordination of care. . (Jerry Camargo MD) Zuleyka Kasper May 05, 2016 12:19 Jerry Camargo MD May 05, 2016 19:55
[2016-05-05] MEDS ORDERED: diphenhydrAMINE HCL 25 MG CAP PO PRN (13:00)
[2016-05-05] MEDS ORDERED: ACETAMINOPHEN 325 MG TAB PO PRN (13:00)
--- NOTE | 2016-05-05 13:07 | HHI.NPPN ---
Subjective Renal Failure: Acute History of Present Illness 65 Year old female with breast cancer, Respiratory failure, cirrhosis Additional Remarks doing poorly FiO2 100% Objective Data Data 05/04/16 05/05/16 19:00 07:00 Intake Total 1033 ml 1930 ml Output Total 60 ml 70 ml Balance 973 ml 1860 ml IV Total 783 ml 1662 ml Tube Feeding 268 ml Albumin 250 ml Output Urine Total 60 ml 70 ml Stool Total 0 ml Vital Signs Date Time Temp Pulse Resp B/P Pulse Ox O2 Delivery O2 Flow Rate FiO2 05/05/16 12:30 99 100 05/05/16 10:00 92 05/05/16 08:00 96 05/05/16 08:00 100 05/05/16 08:00 97.5 96 16 87/51 98 05/05/16 07:43 95 100 05/05/16 07:18 99 05/05/16 06:00 99 05/05/16 04:07 94 100 05/05/16 04:00 100 05/05/16 04:00 97.9 100 16 97/53 96 05/05/16 04:00 100 05/05/16 02:00 103 05/05/16 01:01 96 100 05/05/16 00:00 100 05/05/16 00:00 103 05/05/16 00:00 97.9 103 16 98/52 94 05/04/16 22:00 96 05/04/16 20:00 97.9 103 16 89/47 93 05/04/16 20:00 100 05/04/16 20:00 97 05/04/16 19:38 92 100 05/04/16 18:00 95 05/04/16 16:04 90 100 05/04/16 16:00 98.8 106 16 94/46 92 05/04/16 16:00 100 05/04/16 16:00 106 05/04/16 14:00 98 -: 05/05/16 0311 05/05/16 0311 Physical Exam General Appearance: Well Developed Neck Neck Exam: Neck Supple Pulmonary Resp Exam: Decreased Bases Cardiology CV Exam: Tachycardia Gastrointestinal/Abdomen GI Exam: Soft, Distended Extremeties Extremities Exam: Moderate Edema Assessment/Plan Problem List: (1) HOME (acute kidney injury) Plan: Patient ARF anuric, Fio2 100 % doing poorly H/H Low give 2 units PRBC Give Bumex 1mg/he follow labs possible extubation on Sunday UOP dropped 0 cc comfort measures family refused Trach possible withdrawal by Sunday or Sunday due to Cirrhosis (2) Severe sepsis Plan: Due to possible pneumonia (3) Acute respiratory failure with hypoxia Plan: On ventilator Marilee Bazan MD May 05, 2016 13:07
--- NOTE | 2016-05-05 14:59 | HHI.CCPN ---
Subjective Remarks/Hospital Course 65 year old female with history of alcohol abuse, history of breast cancer status post lumpectomy radiation and chemotherapy presents with progressively worsening shortness of breath. EMS was called because she was short of breath at home, and was found to have pals oxygen at 70%. Patient is on a BiPAP, seems to be comfortable in no distress. She is able to follow commands in all 4 extremities. Her history is limited secondary to FM BiPAP. 04/26 The patient acutely had respiratory decompensation yesterday afternoon. Discussion with family, sister power of body straightener regarding intubation in patient 's current respiratory status, family requesting intubation. She required intubation, central line placement and an arterial line placement to monitor oxygenation levels. The patient became hypoxic and hypotensive requiring vasopressor support. Currently the patient is on levophed infusion at 5 mcgs. 04/27 Afebrile. The patient continues on mechanical ventilation, overnight FiO2 requirements were increased, currently attempting to wean back to 55%. Sodium bicarbonate infusion at 150 cc/hour. Ammonia level slightly increased, lactulose dosage increased. Pulmonology consulted. The patient's last therapeutic paracentesis was 02/21/16, WBC count elevated, patient is currently on Zosyn and azithromycin, will begin coverage for spontaneous bacterial peritonitis. 04/28 Tmax 98.6 Overnight patient required increasing oxygen requirements, currently FiO2 0.75, vasopressor Levophed has been off since 2 AM. Yesterday the patient had one episode of sinus tach heart rate in the 150s received metoprolol 2.5 mg with resolution. The patient has been maintained on a sodium bicarbonate drip which was discontinued this a.m.. GI was consulted the patient was planned to go to IR for diagnostic and therapeutic paracentesis this a.m., currently on hold secondary to respiratory compromise. Planned for later this afternoon, if respiratory status stabilizes. 04/29: Currently afebrile. Patient was placed on Nimbex drip yesterday secondary to multiple desaturations the 60s with any movement. Unable to properly sedate for vent synchrony. Flolan was initiated in this is currently being weaned down today. Repeat ABG after ventilator setting adjustments currently pending. 04/30: Flolan discontinued yesterday. Patient continues to be completely on muscle relaxation/paralytic to maintain ventilator synchrony. ABGs improved. 05/01: Patient was weaned off of the relaxation Nimbex last night. O2 saturation remained 98% on FiO2 of 4045%. Plan today for CPAP trials. 05/02: The patient continues on Precedex and fentanyl infusion for sedation with adequate ventilator synchrony. CPAP trials successful for approximately 6 hours yesterday .Patient still does not follow any commands, benzodiazepines or discontinued. Patient tolerating tube feeds today. Will continue CPAP trials today. 05/03: Tmax 102.6. The patient came hypotensive this a.m., received 1 L bolus. Yesterday the patient secondary to persistent leukocytosis central line was discontinued, repeat blood and sputum cultures were ordered. ID was consulted antibiotics were ordered per ID. The patient continues to be agitated on Precedex, received Haldol 1 dose, and was placed on a propofol infusion during the night. The patient continues to be agitated plan for Versed infusion with fentanyl, his continuation of Precedex. The patient has not been able to be weaned from ventilator, plans for discussion with family today regarding tracheostomy. 05/04: Afebrile. Patient's having increasing oxygen requirement, the majority of the day the patient remained on 90-100%, with PEEP ranging 12-15. Discussed with the family the need for tracheostomy at this time. The family expressed that the patient had a living will and did not want a tracheostomy nor any artificial means of feeding. The patient was made DNR yesterday afternoon. Per palliative medicine the family is deciding when to institute comfort care measures. Overnight the patient remained on FiO2 of 1.0, frequent suctioning and manipulations and bronchodilators, O2 sat remained in the 80s. Chest x-ray pending this a.m. healthcare surrogate notified last night of patient's pulmonary deterioration. Subjective 05/05: Resting in bed. Remains 100% FiO2. Comfort measures to be initiated on either on Sunday or Sunday. Been transfused 2 PRBCs today. Objective Vital Signs Date Time Temp Pulse Resp B/P Pulse Ox O2 Delivery O2 Flow Rate FiO2 05/05/16 14:00 95 05/05/16 12:30 99 100 05/05/16 12:00 98.1 16 109/58 Intake and Output 05/04/16 05/04/16 05/05/16 08:00 16:00 00:00 Intake Total 995 ml 1033 ml 1002 ml Output Total 230 ml 60 ml 60 ml Balance 765 ml 973 ml 942 ml Result Diagram: 05/05/16 0311 05/05/16 0311 Other Results Microbiology Date/Time Procedure Status Source Growth 05/02/16 20:52 Aerobic Blood Culture - Preliminary Resulted Blood Peripheral NO GROWTH IN 3 DAYS 05/02/16 20:52 Anaerobic Blood Culture - Preliminary Resulted Blood Peripheral NO GROWTH IN 3 DAYS 05/02/16 17:55 Gram Stain - Final Complete Sputum Endotracheal 05/02/16 17:55 Sputum Culture - Final Complete Sputum Endotracheal HEAVY GROWTH NORMAL RESPIRATORY EMIL 05/02/16 16:07 Aerobic Blood Culture Received Blood Peripheral Pending 05/02/16 16:07 Anaerobic Blood Culture Received Blood Peripheral Pending Imaging Last Impressions Chest X-Ray 05/04/16 0000 Signed Impressions: Service Date/Time: April 05:32 - CONCLUSION: Unchanged diffuse bilateral pulmonary infiltrates and tiny effusions. Bart Suarez Jr., MD Head CT 05/02/16 0000 Signed Impressions: Service Date/Time: Monday, May 02, 2016 12:49 - CONCLUSION: 1. Stable CT scan of the brain compared to the prior exam from 2013. 2. No focal or acute intracranial hemorrhage. Aureliano Rayo MD Abdomen X-Ray 05/01/16 0000 Signed Impressions: Service Date/Time: Sunday, May 01, 2016 10:49 - CONCLUSION: Catheter tips as described above. Akira Washington MD Renal Ultrasound 04/27/16 0000 Signed Impressions: Service Date/Time: March 10:35 - CONCLUSION: 1. Both kidneys are small in size. 2. No hydronephrosis. 3. There is some ascites in the abdomen. Aureliano Rayo MD Objective Remarks GENERAL: 65-year-old female, critically ill currently orotracheally intubated and sedated, not following commands. SKIN: Warm and dry. No rash HEAD: Normocephalic. EYES: No scleral icterus. No injection or drainage. NECK: Supple, trachea midline. No JVD or lymphadenopathy. Orotracheally intubated, NG tube in place CARDIOVASCULAR: Regular rate and rhythm S1, S2. No S4. Currently without murmurs, gallops, or rubs. RESPIRATORY: And crackles appreciated bilaterally. Symmetrical excursion. GASTROINTESTINAL: Abdomen soft, protuberant non-tender, umbilical hernia MUSCULOSKELETAL: No cyanosis, 1+ pitting edema noted bilateral upper and lower extremities BACK: Nontender without obvious deformity. No CVA tenderness. Urinary Catheter: Yes Assessment to: Continue Schultz insert reason: Pelvic Fractures Date of Insertion: Apr 25, 2016 Date of Insertion: Apr 25, 2016 Date of Removal: May 02, 2016 Side: Right Location: Internal, Jugular A/P Problem List: (1) Acute respiratory failure with hypoxia ICD Code: J96.01 Status: Acute (2) Tobacco use disorder ICD Code: F17.200 Status: Acute (3) HOME (acute kidney injury) ICD Code: N17.9 Status: Acute Assessment and Plan Neuro/Psych: Alcoholism H/O seizure Hepatic encephalopathy Anxiety disorder Hyperammonemia Patient is on Versed/fentanyl started for sedation/analgesia while intubated Goal of ZAYRA is -2 Daily sedation vacation when appropriate -Lactulose to QID, monitor ammonia level -Seroquel home med continued Respiratory Acute Hypoxic Respiratory failure COPD exacerbation Tobacco abuse Pulmonary fibrosis S/P radiation therapy-breast cancer Failure to wean -Current ventilator settings -PC 25/RR14/PEEP15/1.0-unable to wean PEEP, or decrease FiO2 - Pulmonology on board- follow-up recommendations -Continue Versed and fentanyl for ventilator dyssynchrony - Continue methylprednisolone 60 every 12hr - DuoNeb's scheduled every 4hr, every 2hr PRN -Patient does not want tracheostomy per her living will and family, plan for comfort care measures Cardiovascular: Hypotension -Maintain MAP greater than 65mmHg -Systolic blood pressure in the 80s-given albumin, no further vasopressors utilized per instructions of family and patient's living will -Levophed dc'd 05/01 am GI Moderate protein calorie malnutrition Ascites - Tubefeeds-Suplena 35 cc/hour per nutrition's recommendations@goal -Patient's last therapeutic paracentesis 02/21/2016, bedside US assessment of ascites approximated minimal - moderate,not significant amount for bedside paracentesis -GI on [id number] recommendations -Albumin level 3.0 - Bowel regimen -Diagnostic/therapeutic paracentesis , 04/29 Removal of 2.3 L. Clear yellow. 24 WBCs -Continue to monitor, abdomen for therapeutic paracentesis -Monitor hepatic panel -Hepatitis panel-negative, previous old records, one entry reveals diagnosis of hepatitis C Renal/FEN HOME Creatinine currently elevated at 3.11 - Monitor BMP - strict I&O - Bumex drip per Dr. Bazan ID: Pneumonia? Persistent Leukocytosis -Monitor CBC. - 04/25 urine Legionella, streptococcal antigen negative -04/25 Sputum -No growth -04/28 Peritoneal cultures- NGTD Continue Zosyn renal dose Heme Microcytic anemia Transfusing 2 units PRBCs. - status post lumpectomy radiation and chemotherapy - now in remission- left SC port (nonfunctional) per old records - supportive care -Monitor CBC History of right breast cancer - status post lumpectomy radiation and chemotherapy - now in remission - supportive care -MSK -PT evaluate and treat-functional maintenance DVT/GI prophylaxis - Heparin SubQ/Protonix Critical Care: The total critical care time was 35 minutes. Time to perform other separately billable procedures was not included in the critical care time. Rom Parnell MD May 05, 2016 14:59 -PT evaluate and treat-functional maintenance DVT/GI prophylaxis - Heparin SubQ/Protonix Critical Care: The total critical care time was 35 minutes. Time to perform other separately billable procedures was not included in the critical care time. Rom Parnell MD May 05, 2016 14:59
[2016-05-05] MEDS ORDERED: BUMETANIDE INJ 100 ML IV SCH (15:00)
[2016-05-05] MEDS: PIPERACIL-TAZO 3.375 GM PREMIX 50 ML IV SCH ×2 (17:31→22:27)
[2016-05-05] MEDS ORDERED: PHARMACY ORDERED LAB XX ONE (17:45)
--- NOTE | 2016-05-05 18:43 | HHI.PR ---
Subjective Remarks 65 YOWF with COPD, Cirhosis, renal failure, VDRF No fever On Fentanyl andVersed Does't follow commands on Zosyn, Levaquin per ID Has worsening of oxygenation On PRVC, Fi02 100% Objective Vital Signs Vital Signs Date Time Temp Pulse Resp B/P Pulse Ox O2 Delivery O2 Flow Rate FiO2 05/05/16 18:00 93 05/05/16 17:00 98.6 95 16 88/52 100 05/05/16 16:45 98.1 93 17 98/53 100 05/05/16 16:01 97 100 05/05/16 16:00 98.1 93 17 97/55 100 05/05/16 16:00 100 05/05/16 16:00 93 05/05/16 14:00 95 05/05/16 12:30 99 100 05/05/16 12:00 100 05/05/16 12:00 98.1 100 16 109/58 87 05/05/16 12:00 100 05/05/16 10:00 92 05/05/16 08:00 96 05/05/16 08:00 100 05/05/16 08:00 97.5 96 16 87/51 98 05/05/16 07:43 95 100 05/05/16 07:18 99 05/05/16 06:00 99 05/05/16 04:07 94 100 05/05/16 04:00 100 05/05/16 04:00 97.9 100 16 97/53 96 05/05/16 04:00 100 05/05/16 02:00 103 05/05/16 01:01 96 100 05/05/16 00:00 100 05/05/16 00:00 103 05/05/16 00:00 97.9 103 16 98/52 94 05/04/16 22:00 96 05/04/16 20:00 97.9 103 16 89/47 93 05/04/16 20:00 100 05/04/16 20:00 97 05/04/16 19:38 92 100 I/O 05/04/16 05/04/16 05/04/16 05/05/16 05/05/16 05/05/16 07:00 15:00 23:00 07:00 15:00 23:00 Intake Total 995 ml 1033 ml 1002 ml 928 ml 1055 ml Output Total 230 ml 60 ml 60 ml 10 ml 0 ml Balance 765 ml 973 ml 942 ml 918 ml 1055 ml IV Total 745 ml 783 ml 871 ml 791 ml 674 ml Tube Feeding 0 ml 131 ml 137 ml 261 ml Albumin 250 ml 250 ml Tube Irrigant 120 ml Output Urine Total 30 ml 60 ml 60 ml 10 ml 0 ml Stool Total 200 ml 0 ml 0 ml 0 ml Result Diagram: 05/05/1631005/05/16310 Objective Remarks GENERAL: MBMN WF on Vent, sedated SKIN: Warm and dry. HEAD: Normocephalic. EYES: No scleral icterus. No injection or drainage. NECK: Supple, trachea midline. No JVD or lymphadenopathy. CARDIOVASCULAR: Regular rate and rhythm without murmurs, gallops, or rubs. RESPIRATORY: Breath sounds equal bilaterally. No accessory muscle use. GASTROINTESTINAL: Abdomen soft, non-tender, nondistended. MUSCULOSKELETAL: No cyanosis, or edema. BACK: Nontender without obvious deformity. No CVA tenderness. A/P Assessment and Plan VDRF Metabolic acidosis improved Renal insuff COPD Cirrhosis of liver PLAN: PRVC, Fi02 100% Abx Zosyn, Levaquin and Zithro. Monitor lytes fentanyl and Versed Family considering palliative care Uli Ramos MD May 05, 2016 18:43
[2016-05-06] VITALS (18 sets, daily range): BP systolic 98–118; BP diastolic 53–57; PULSE 88–105; RESP 16; TEMP 97.1–98; O2SAT 94–100
[2016-05-06] MEDS: RESP: ALBUTEROL 2.5 MG/IPRATROPIUM 0.5 MG NEB (SCH) NEB ×7 (00:18→23:43)
[2016-05-06] MEDS: CHLORHEXIDINE GLUCONATE 2 % 1 PACK (2 CLOTHS) TOP SCH (04:00)
[2016-05-06 04:29] LABS: AUTOMATED NEUTROPHIL # 22.6 TH/MM3 (1.8-7.7); BASOPHIL % 0.1 % (0.0-2.0); EOSINOPHIL # 0.1 TH/MM3 (0-0.4); EOSINOPHIL % 0.6 % (0.0-4.0); HEMATOCRIT 28.8 % (35.0-46.0); LYMPH % 0.8 % (9.0-44.0); LYMPHOCYTE # 0.2 TH/MM3 (1.0-4.8); MEAN CELL VOLUME 73.2 FL (80.0-100.0); MEAN CORPUSCULAR HEMOGLOBIN 23.2 PG (27.0-34.0); MEAN CORPUSCULAR HGB CONC 31.7 % (32.0-36.0); MONO % 5.5 % (0.0-8.0); PLATELET COUNT 118 TH/MM3 (150-450); RED BLOOD COUNT 3.94 MIL/MM3 (4.00-5.30); RED CELL DISTRIBUTION WIDTH 25.1 % (11.6-17.2); WHITE BLOOD COUNT 24.3 TH/MM3 (4.0-11.0)
[2016-05-06 04:43] LABS: HEMO FLAGS AUTO DIFF
[2016-05-06] MEDS: PIPERACIL-TAZO 3.375 GM PREMIX 50 ML IV SCH ×2 (04:50→10:04)
[2016-05-06] MEDS: HEPARIN SODIUM - SQ 10,000 UNITS/ML VIAL SQ SCH ×2 (04:50→15:24)
[2016-05-06 04:52] LABS: ALT (GPT) 27 U/L (10-53); ANION GAP 15 MEQ/L (5-15); AST (GOT) 20 U/L (15-37); BICARBONATE 22.4 MEQ/L (21.0-32.0); BLOOD UREA NITROGEN 53 MG/DL (7-18); CHLORIDE 110 MEQ/L (98-107); GLOMERULAR FILTRATION RATE 12 ML/MIN (>89); POTASSIUM 3.5 MEQ/L (3.5-5.1); SODIUM (NA) 147 MEQ/L (136-145)
[2016-05-06 04:54] LABS: ALKALINE PHOSPHATASE 80 U/L (45-117); TOTAL BILIRUBIN ADULT 0.6 MG/DL (0.2-1.0)
[2016-05-06] MEDS ORDERED: PHARMACY ORDERED LAB XX ONE (06:00)
[2016-05-06] MEDS: fentaNYL DRIP 250 ML IV SCH ×2 (07:50→16:16)
[2016-05-06] MEDS: CHLORHEXIDINE 0.12% (ORAL KIT) 15 ML CUP MT SCH ×2 (08:00→20:00)
[2016-05-06] MEDS: MIDAZOLAM 100 MG/ML INJ 100 ML IV SCH ×2 (08:03→16:44)
[2016-05-06] MEDS: DOCUSATE SODIUM 100 MG CAP PO SCH ×2 (09:00→20:27)
[2016-05-06] MEDS: LACTULOSE SYRUP 20 GM/30 ML CUP PO SCH ×4 (09:00→20:27)
[2016-05-06] MEDS: SODIUM CHLORIDE 0.9% FLUSH 5 ML FLUSH IV FLUSH SCH ×2 (09:00→20:27)
[2016-05-06] MEDS: PANTOPRAZOLE SODIUM 40 MG VIAL IV PUSH SCH (10:03)
[2016-05-06] MEDS: SERTRALINE HCL 100 MG TAB PO SCH (10:04)
[2016-05-06] MEDS: FOLIC ACID 1 MG TAB PO SCH (10:04)
[2016-05-06] MEDS: methylPREDNISolone SOD SUCC 125 MG/2 ML VIAL IV PUSH SCH ×2 (10:04→20:28)
[2016-05-06 11:04] LABS: OVALOCYTES 1+ (NORMAL); PLATELET ESTIMATE SMEAR LOW (NORMAL); PLATELET MORPHOLOGY NORMAL (NORMAL); SCAN/DIFF AUTO DIFF CONFIRMED
--- NOTE | 2016-05-06 12:12 | HHI.NPPN ---
Subjective Renal Failure: Acute History of Present Illness 65 Year old female with breast cancer, Respiratory failure, cirrhosis Additional Remarks remains on the ventilator. Apparently her will says that she did not want any aggressive measures including dialysis. Awaiting family to arrive before withdrawal of life support. Objective Data Data 05/05/16 05/06/16 19:00 07:00 Intake Total 1055 ml 1963 ml Output Total 0 ml 10 ml Balance 1055 ml 1953 ml IV Total 674 ml 593 ml Tube Feeding 261 ml 465 ml Packed Cells 665 ml Tube Irrigant 120 ml 240 ml Output Urine Total 0 ml 10 ml Stool Total 0 ml # Bowel Movements 3 Vital Signs Date Time Temp Pulse Resp B/P Pulse Ox O2 Delivery O2 Flow Rate FiO2 05/06/16 11:22 100 100 05/06/16 07:34 100 100 05/06/16 06:00 96 05/06/16 04:00 98 05/06/16 04:00 100 05/06/16 04:00 97.1 98 16 113/53 100 05/06/16 04:00 100 100 05/06/16 02:00 90 05/06/16 01:01 100 100 05/06/16 00:00 100 05/06/16 00:00 88 05/06/16 00:00 98.0 88 16 98/55 100 05/05/16 23:20 98.4 88 16 105/56 100 05/05/16 22:20 98.8 92 16 102/59 100 05/05/16 22:00 102 05/05/16 21:20 99.0 94 16 98/54 100 05/05/16 21:05 99.5 93 16 90/54 100 05/05/16 20:00 100 05/05/16 20:00 94 05/05/16 20:00 99.5 84 16 98/55 100 05/05/16 19:21 100 100 05/05/16 18:00 93 05/05/16 17:00 98.6 95 16 88/52 100 05/05/16 16:45 98.1 93 17 98/53 100 05/05/16 16:01 97 100 05/05/16 16:00 98.1 93 17 97/55 100 05/05/16 16:00 100 05/05/16 16:00 93 05/05/16 14:00 95 05/05/16 12:30 99 100 -: 05/06/16 0324 05/06/16 0324 Physical Exam General Appearance: Well Developed Neck Neck Exam: Neck Supple Pulmonary Resp Exam: Decreased Bases Cardiology CV Exam: Tachycardia Gastrointestinal/Abdomen GI Exam: Soft, Distended Extremeties Extremities Exam: Moderate Edema Assessment/Plan Problem List: (1) HOME (acute kidney injury) Plan: worsening oliguric HOME No dialysis as per her/family wishes. I will sign off at this time. (2) Severe sepsis Plan: Due to possible pneumonia (3) Acute respiratory failure with hypoxia Plan: On ventilator Ayush Diaz MD May 06, 2016 12:12
[2016-05-06] MEDS: LEVOFLOXACIN 750 MG PREMIX INJ 150 ML IV SCH (16:17)
[2016-05-06] MEDS: PIPERACIL-TAZO 2.25 GM PREMIX 50 ML IV SCH ×2 (16:44→20:32)
[2016-05-06] MEDS ORDERED: PIPERACIL-TAZO 2.25 GM PREMIX 50 ML IV SCH (17:00)
--- NOTE | 2016-05-06 18:38 | HHI.CCPN ---
Subjective Remarks/Hospital Course 65 year old female with history of alcohol abuse, history of breast cancer status post lumpectomy radiation and chemotherapy presents with progressively worsening shortness of breath. EMS was called because she was short of breath at home, and was found to have pals oxygen at 70%. Patient is on a BiPAP, seems to be comfortable in no distress. She is able to follow commands in all 4 extremities. Her history is limited secondary to FM BiPAP. 04/26 The patient acutely had respiratory decompensation yesterday afternoon. Discussion with family, sister power of finance attorney regarding intubation in patient 's current respiratory status, family requesting intubation. She required intubation, central line placement and an arterial line placement to monitor oxygenation levels. The patient became hypoxic and hypotensive requiring vasopressor support. Currently the patient is on levophed infusion at 5 mcgs. 04/27 Afebrile. The patient continues on mechanical ventilation, overnight FiO2 requirements were increased, currently attempting to wean back to 55%. Sodium bicarbonate infusion at 150 cc/hour. Ammonia level slightly increased, lactulose dosage increased. Pulmonology consulted. The patient's last therapeutic paracentesis was 02/21/16, WBC count elevated, patient is currently on Zosyn and azithromycin, will begin coverage for spontaneous bacterial peritonitis. 04/28 Tmax 98.6 Overnight patient required increasing oxygen requirements, currently FiO2 0.75, vasopressor Levophed has been off since 2 AM. Yesterday the patient had one episode of sinus tach heart rate in the 150s received metoprolol 2.5 mg with resolution. The patient has been maintained on a sodium bicarbonate drip which was discontinued this a.m.. GI was consulted the patient was planned to go to IR for diagnostic and therapeutic paracentesis this a.m., currently on hold secondary to respiratory compromise. Planned for later this afternoon, if respiratory status stabilizes. 04/29: Currently afebrile. Patient was placed on Nimbex drip yesterday secondary to multiple desaturations the 60s with any movement. Unable to properly sedate for vent synchrony. Flolan was initiated in this is currently being weaned down today. Repeat ABG after ventilator setting adjustments currently pending. 04/30: Flolan discontinued yesterday. Patient continues to be completely on muscle relaxation/paralytic to maintain ventilator synchrony. ABGs improved. 05/01: Patient was weaned off of the relaxation Nimbex last night. O2 saturation remained 98% on FiO2 of 4045%. Plan today for CPAP trials. 05/02: The patient continues on Precedex and fentanyl infusion for sedation with adequate ventilator synchrony. CPAP trials successful for approximately 6 hours yesterday .Patient still does not follow any commands, benzodiazepines or discontinued. Patient tolerating tube feeds today. Will continue CPAP trials today. 05/03: Tmax 102.6. The patient came hypotensive this a.m., received 1 L bolus. Yesterday the patient secondary to persistent leukocytosis central line was discontinued, repeat blood and sputum cultures were ordered. ID was consulted antibiotics were ordered per ID. The patient continues to be agitated on Precedex, received Haldol 1 dose, and was placed on a propofol infusion during the night. The patient continues to be agitated plan for Versed infusion with fentanyl, his continuation of Precedex. The patient has not been able to be weaned from ventilator, plans for discussion with family today regarding tracheostomy. 05/04: Afebrile. Patient's having increasing oxygen requirement, the majority of the day the patient remained on 90-100%, with PEEP ranging 12-15. Discussed with the family the need for tracheostomy at this time. The family expressed that the patient had a living will and did not want a tracheostomy nor any artificial means of feeding. The patient was made DNR yesterday afternoon. Per palliative medicine the family is deciding when to institute comfort care measures. Overnight the patient remained on FiO2 of 1.0, frequent suctioning and manipulations and bronchodilators, O2 sat remained in the 80s. Chest x-ray pending this a.m. healthcare surrogate notified last night of patient's pulmonary deterioration. 05/05: Resting in bed. Remains 100% FiO2. Comfort measures to be initiated on either on Sunday or Sunday. Been transfused 2 PRBCs today. Subjective 05/06: Plan for withdrawal of care in a.m. Articles B&C signed. Hemoglobin stable at 9. Satting 100% on FiO2 100. Objective Vital Signs Date Time Temp Pulse Resp B/P Pulse Ox O2 Delivery O2 Flow Rate FiO2 05/06/16 16:00 92 05/06/16 16:00 97.5 16 118/56 100 05/06/16 16:00 100 Intake and Output 05/05/16 05/05/16 05/06/16 08:00 16:00 00:00 Intake Total 928 ml 1055 ml 889 ml Output Total 10 ml 0 ml 10 ml Balance 918 ml 1055 ml 879 ml Result Diagram: 05/06/16 0324 05/06/16 0324 Other Results Microbiology Date/Time Procedure Status Source Growth 05/02/16 20:52 Aerobic Blood Culture - Preliminary Resulted Blood Peripheral NO GROWTH IN 4 DAYS 05/02/16 20:52 Anaerobic Blood Culture - Preliminary Resulted Blood Peripheral NO GROWTH IN 4 DAYS 05/02/16 17:55 Gram Stain - Final Complete Sputum Endotracheal 05/02/16 17:55 Sputum Culture - Final Complete Sputum Endotracheal HEAVY GROWTH NORMAL RESPIRATORY EMIL 05/02/16 16:07 Aerobic Blood Culture Received Blood Peripheral Pending 05/02/16 16:07 Anaerobic Blood Culture Received Blood Peripheral Pending Imaging Last Impressions Chest X-Ray 05/04/16 0000 Signed Impressions: Service Date/Time: April 05:32 - CONCLUSION: Unchanged diffuse bilateral pulmonary infiltrates and tiny effusions. Bart Suarez Jr., MD Head CT 05/02/16 0000 Signed Impressions: Service Date/Time: Monday, May 02, 2016 12:49 - CONCLUSION: 1. Stable CT scan of the brain compared to the prior exam from 2013. 2. No focal or acute intracranial hemorrhage. Aureliano Rayo MD Abdomen X-Ray 05/01/16 0000 Signed Impressions: Service Date/Time: Sunday, May 01, 2016 10:49 - CONCLUSION: Catheter tips as described above. Akira Washington MD Renal Ultrasound 04/27/16 0000 Signed Impressions: Service Date/Time: March 10:35 - CONCLUSION: 1. Both kidneys are small in size. 2. No hydronephrosis. 3. There is some ascites in the abdomen. Aureliano Rayo MD Objective Remarks GENERAL: 65-year-old female, critically ill currently orotracheally intubated and sedated, not following commands. SKIN: Warm and dry. No rash HEAD: Normocephalic. EYES: No scleral icterus. No injection or drainage. NECK: Supple, trachea midline. No JVD or lymphadenopathy. Orotracheally intubated, NG tube in place CARDIOVASCULAR: Regular rate and rhythm S1, S2. No S4. Currently without murmurs, gallops, or rubs. RESPIRATORY: And crackles appreciated bilaterally. Symmetrical excursion. GASTROINTESTINAL: Abdomen soft, protuberant non-tender, umbilical hernia MUSCULOSKELETAL: No cyanosis, 1+ pitting edema noted bilateral upper and lower extremities BACK: Nontender without obvious deformity. No CVA tenderness. Urinary Catheter: Yes Assessment to: Continue Schultz insert reason: Prolonged Immobilization Date of Insertion: Apr 25, 2016 Vascular Central Line Catheter: No Assessment to: Continue Date of Insertion: Apr 25, 2016 Date of Removal: May 02, 2016 Side: Right Location: Internal, Jugular A/P Problem List: (1) Acute respiratory failure with hypoxia ICD Code: J96.01 Status: Acute (2) Tobacco use disorder ICD Code: F17.200 Status: Acute (3) HOME (acute kidney injury) ICD Code: N17.9 Status: Acute Assessment and Plan Neuro/Psych: Alcoholism H/O seizure Hepatic encephalopathy Anxiety disorder Hyperammonemia Patient is on Versed drip at 10 mg an hour/fentanyl at 100 per hour drips for sedation/analgesia while intubated Goal of RASS -2 Daily sedation vacation when appropriate -Lactulose to QID, monitor ammonia level -Seroquel home med continued Respiratory Acute Hypoxic Respiratory failure COPD exacerbation Tobacco abuse Pulmonary fibrosis S/P radiation therapy-breast cancer Failure to wean -Current ventilator settings -PC 25/RR14/PEEP15/1.0-unable to wean PEEP, or decrease FiO2 - Pulmonology on board- follow-up recommendations -Continue Versed and fentanyl for ventilator dyssynchrony - Continue methylprednisolone 60 every 12hr - DuoNeb's scheduled every 4hr, every 2hr PRN -Patient does not want tracheostomy per her living will and family, plan for comfort care measures Cardiovascular: Hypotension -Maintain MAP greater than 65mmHg -Systolic blood pressure in the 80s-given albumin, no further vasopressors utilized per instructions of family and patient's living will -Levophed dc'd 05/01 am GI Moderate protein calorie malnutrition Ascites - Tubefeeds-Suplena 35 cc/hour per nutrition's recommendations@goal -Patient's last therapeutic paracentesis 02/21/2016, bedside US assessment of ascites approximated minimal - moderate,not significant amount for bedside paracentesis -GI on [id number] recommendations -Albumin level 3.0 - Bowel regimen -Diagnostic/therapeutic paracentesis , 04/29 Removal of 2.3 L. Clear yellow. 24 WBCs -Continue to monitor, abdomen for therapeutic paracentesis -Monitor hepatic panel -Hepatitis panel-negative, previous old records, one entry reveals diagnosis of hepatitis C Renal/[facility] HOME Creatinine currently elevated at greater than 4 - Monitor BMP - strict I&O - Bumex drip will be discontinued ID: Pneumonia? Persistent Leukocytosis -Monitor CBC. - 04/25 urine Legionella, streptococcal antigen negative -04/25 Sputum -No growth -04/28 Peritoneal cultures- NGTD Continue Zosyn renal dose Heme Microcytic anemia History transfused 2 units PRBCs. He will currently none - status post lumpectomy radiation and chemotherapy - now in remission- left SC port (nonfunctional) per old records - supportive care History of right breast cancer - status post lumpectomy radiation and chemotherapy - now in remission - supportive care -[facility] -PT evaluate and treat-functional maintenance DVT/GI prophylaxis - Heparin SubQ/Protonix Critical Care: The total care time was 35 minutes. Time to perform other separately billable procedures was not included in the critical care time. Plan for withdrawal of care in a.m. 05/07. Patient is DNR no code. Rom Parnell MD May 06, 2016 18:38
[2016-05-07] VITALS (9 sets, daily range): BP systolic 108–122; BP diastolic 55–73; PULSE 42–107; RESP 16–19; TEMP 97.5–98.2; O2SAT 96–100
[2016-05-07] MEDS: HEPARIN SODIUM - SQ 10,000 UNITS/ML VIAL SQ SCH (03:00)
[2016-05-07] MEDS: RESP: ALBUTEROL 2.5 MG/IPRATROPIUM 0.5 MG NEB (SCH) NEB ×3 (03:35→12:00)
[2016-05-07] MEDS: CHLORHEXIDINE GLUCONATE 2 % 1 PACK (2 CLOTHS) TOP SCH (03:36)
[2016-05-07] MEDS: PIPERACIL-TAZO 2.25 GM PREMIX 50 ML IV SCH ×2 (05:00→11:00)
[2016-05-07] MEDS: CHLORHEXIDINE 0.12% (ORAL KIT) 15 ML CUP MT SCH (08:00)
[2016-05-07] MEDS: methylPREDNISolone SOD SUCC 125 MG/2 ML VIAL IV PUSH SCH (08:43)
[2016-05-07] MEDS: SERTRALINE HCL 100 MG TAB PO SCH (08:43)
[2016-05-07] MEDS: FOLIC ACID 1 MG TAB PO SCH (08:44)
[2016-05-07] MEDS: DOCUSATE SODIUM 100 MG CAP PO SCH (09:00)
[2016-05-07] MEDS: LACTULOSE SYRUP 20 GM/30 ML CUP PO SCH ×2 (09:00→12:08)
[2016-05-07] MEDS: SODIUM CHLORIDE 0.9% FLUSH 5 ML FLUSH IV FLUSH SCH (09:00)
[2016-05-07] MEDS ORDERED: LORazepam 2 MG/ML VIAL IV ONE ×2 (09:15→09:45)
[2016-05-07] MEDS ORDERED: HYDROmorphone HCL PF 1 MG/ML VIAL IV ONE ×2 (09:15→09:45)
[2016-05-07] MEDS ORDERED: HYOSCYAMINE 0.5 MG/ML AMP IV ONE (09:15)
--- NOTE | 2016-05-07 09:17 | HHI.CCPN ---
Subjective Remarks/Hospital Course 65 year old female with history of alcohol abuse, history of breast cancer status post lumpectomy radiation and chemotherapy presents with progressively worsening shortness of breath. EMS was called because she was short of breath at home, and was found to have pals oxygen at 70%. Patient is on a BiPAP, seems to be comfortable in no distress. She is able to follow commands in all 4 extremities. Her history is limited secondary to FM BiPAP. 04/26 The patient acutely had respiratory decompensation yesterday afternoon. Discussion with family, sister power of environmental technology professor regarding intubation in patient 's current respiratory status, family requesting intubation. She required intubation, central line placement and an arterial line placement to monitor oxygenation levels. The patient became hypoxic and hypotensive requiring vasopressor support. Currently the patient is on levophed infusion at 5 mcgs. 04/27 Afebrile. The patient continues on mechanical ventilation, overnight FiO2 requirements were increased, currently attempting to wean back to 55%. Sodium bicarbonate infusion at 150 cc/hour. Ammonia level slightly increased, lactulose dosage increased. Pulmonology consulted. The patient's last therapeutic paracentesis was 02/21/16, WBC count elevated, patient is currently on Zosyn and azithromycin, will begin coverage for spontaneous bacterial peritonitis. 04/28 Tmax 98.6 Overnight patient required increasing oxygen requirements, currently FiO2 0.75, vasopressor Levophed has been off since 2 AM. Yesterday the patient had one episode of sinus tach heart rate in the 150s received metoprolol 2.5 mg with resolution. The patient has been maintained on a sodium bicarbonate drip which was discontinued this a.m.. GI was consulted the patient was planned to go to IR for diagnostic and therapeutic paracentesis this a.m., currently on hold secondary to respiratory compromise. Planned for later this afternoon, if respiratory status stabilizes. 04/29: Currently afebrile. Patient was placed on Nimbex drip yesterday secondary to multiple desaturations the 60s with any movement. Unable to properly sedate for vent synchrony. Flolan was initiated in this is currently being weaned down today. Repeat ABG after ventilator setting adjustments currently pending. 04/30: Flolan discontinued yesterday. Patient continues to be completely on muscle relaxation/paralytic to maintain ventilator synchrony. ABGs improved. 05/01: Patient was weaned off of the relaxation Nimbex last night. O2 saturation remained 98% on FiO2 of 4045%. Plan today for CPAP trials. 05/02: The patient continues on Precedex and fentanyl infusion for sedation with adequate ventilator synchrony. CPAP trials successful for approximately 6 hours yesterday .Patient still does not follow any commands, benzodiazepines or discontinued. Patient tolerating tube feeds today. Will continue CPAP trials today. 05/03: Tmax 102.6. The patient came hypotensive this a.m., received 1 L bolus. Yesterday the patient secondary to persistent leukocytosis central line was discontinued, repeat blood and sputum cultures were ordered. ID was consulted antibiotics were ordered per ID. The patient continues to be agitated on Precedex, received Haldol 1 dose, and was placed on a propofol infusion during the night. The patient continues to be agitated plan for Versed infusion with fentanyl, his continuation of Precedex. The patient has not been able to be weaned from ventilator, plans for discussion with family today regarding tracheostomy. 05/04: Afebrile. Patient's having increasing oxygen requirement, the majority of the day the patient remained on 90-100%, with PEEP ranging 12-15. Discussed with the family the need for tracheostomy at this time. The family expressed that the patient had a living will and did not want a tracheostomy nor any artificial means of feeding. The patient was made DNR yesterday afternoon. Per palliative medicine the family is deciding when to institute comfort care measures. Overnight the patient remained on FiO2 of 1.0, frequent suctioning and manipulations and bronchodilators, O2 sat remained in the 80s. Chest x-ray pending this a.m. healthcare surrogate notified last night of patient's pulmonary deterioration. 05/05: Resting in bed. Remains 100% FiO2. Comfort measures to be initiated on either on Sunday or Sunday. Been transfused 2 PRBCs today. 05/06: Plan for withdrawal of care in a.m. Articles B&C signed. Hemoglobin stable at 9. Satting 100% on FiO2 100. Subjective 05/07: Plan for withdrawal this a.m. No labs been drawn. Satting 90% on FiO2 100%. Unresponsive on the ventilator. Objective Vital Signs Date Time Temp Pulse Resp B/P Pulse Ox O2 Delivery O2 Flow Rate FiO2 05/07/16 07:40 98 100 05/07/16 04:00 97.8 106 17 108/55 Intake and Output 05/06/16 05/06/16 05/07/16 08:00 16:00 00:00 Intake Total 1074 ml 696 ml 825 ml Output Total 0 ml 20 ml 22 ml Balance 1074 ml 676 ml 803 ml Result Diagram: 05/06/16 0324 05/07/16 0351 Imaging Last Impressions Chest X-Ray 05/04/16 0000 Signed Impressions: Service Date/Time: April 05:32 - CONCLUSION: Unchanged diffuse bilateral pulmonary infiltrates and tiny effusions. Bart Suarez Jr., MD Head CT 05/02/16 0000 Signed Impressions: Service Date/Time: Monday, May 02, 2016 12:49 - CONCLUSION: 1. Stable CT scan of the brain compared to the prior exam from 2013. 2. No focal or acute intracranial hemorrhage. Aureliano Rayo MD Abdomen X-Ray 05/01/16 0000 Signed Impressions: Service Date/Time: Sunday, May 01, 2016 10:49 - CONCLUSION: Catheter tips as described above. Akira Washington MD Renal Ultrasound 04/27/16 0000 Signed Impressions: Service Date/Time: March 10:35 - CONCLUSION: 1. Both kidneys are small in size. 2. No hydronephrosis. 3. There is some ascites in the abdomen. Aureliano Rayo MD Objective Remarks GENERAL: 65-year-old female, critically ill currently orotracheally intubated and sedated, not following commands. SKIN: Warm and dry. No rash HEAD: Normocephalic. EYES: No scleral icterus. No injection or drainage. NECK: Supple, trachea midline. No JVD or lymphadenopathy. Orotracheally intubated, NG tube in place CARDIOVASCULAR: Regular rate and rhythm S1, S2. No S4. Currently without murmurs, gallops, or rubs. RESPIRATORY: And crackles appreciated bilaterally. Symmetrical excursion. GASTROINTESTINAL: Abdomen soft, protuberant non-tender, umbilical hernia MUSCULOSKELETAL: No cyanosis, 1+ pitting edema noted bilateral upper and lower extremities BACK: Nontender without obvious deformity. No CVA tenderness. Urinary Catheter: Yes Assessment to: Continue Schultz insert reason: Prolonged Immobilization Date of Insertion: Apr 25, 2016 Vascular Central Line Catheter: No Date of Insertion: Apr 25, 2016 Date of Removal: May 02, 2016 Side: Right Location: Internal, Jugular A/P Problem List: (1) Acute respiratory failure with hypoxia ICD Code: J96.01 Status: Acute (2) Tobacco use disorder ICD Code: F17.200 Status: Acute (3) HOME (acute kidney injury) ICD Code: N17.9 Status: Acute Assessment and Plan Neuro/Psych: Alcoholism H/O seizure Hepatic encephalopathy Anxiety disorder Hyperammonemia Patient is on Versed drip at 10 mg an hour/fentanyl at 100 per hour drips for sedation/analgesia while intubated Goal of RASS -2 Daily sedation vacation when appropriate -Lactulose to QID, monitor ammonia level -Seroquel home med continued Respiratory Acute Hypoxic Respiratory failure COPD exacerbation Tobacco abuse Pulmonary fibrosis S/P radiation therapy-breast cancer Failure to wean -Current ventilator settings -PC 25/RR14/PEEP15/1.0-unable to wean PEEP, or decrease FiO2 - Pulmonology on board- follow-up recommendations -Continue Versed and fentanyl for ventilator dyssynchrony - Continue methylprednisolone 60 every 12hr - DuoNeb's scheduled every 4hr, every 2hr PRN -Patient does not want tracheostomy per her living will and family, plan for comfort care measures Cardiovascular: Hypotension -Maintain MAP greater than 65mmHg -Systolic blood pressure in the 80s-given albumin, no further vasopressors utilized per instructions of family and patient's living will -Levophed dc'd 05/01 am GI Moderate protein calorie malnutrition Ascites - Tubefeeds-Suplena 35 cc/hour per nutrition's recommendations@goal -Patient's last therapeutic paracentesis 02/21/2016, bedside US assessment of ascites approximated minimal - moderate,not significant amount for bedside paracentesis -GI on [id number] recommendations -Albumin level 3.0 - Bowel regimen -Diagnostic/therapeutic paracentesis , 04/29 Removal of 2.3 L. Clear yellow. 24 WBCs -Continue to monitor, abdomen for therapeutic paracentesis -Monitor hepatic panel -Hepatitis panel-negative, previous old records, one entry reveals diagnosis of hepatitis C Renal/[facility] HOME Creatinine currently elevated at greater than 4. No further checking planned - Monitor BMP - strict I&O - Bumex drip will be discontinued as of 05/06 ID: Pneumonia? Persistent Leukocytosis -Monitor CBC. - 04/25 urine Legionella, streptococcal antigen negative -04/25 Sputum -No growth -04/28 Peritoneal cultures- NGTD Continue Zosyn renal dose. Vancomycin discontinued Heme Microcytic anemia History transfused 2 units PRBCs. He will currently none - status post lumpectomy radiation and chemotherapy - now in remission- left SC port (nonfunctional) per old records - supportive care History of right breast cancer - status post lumpectomy radiation and chemotherapy - now in remission - supportive care -[facility] -PT evaluate and treat-functional maintenance DVT/GI prophylaxis - Heparin SubQ/Protonix Critical Care: The total care time was 35 minutes. Time to perform other separately billable procedures was not included in the critical care time. Plan for withdrawal of care in a.m. 05/07. Patient is DNR no code. Ventilator withdrawal orders provided including Dilaudid/Ativan and Rom Scales MD May 07, 2016 09:17
[2016-05-07] MEDS ORDERED: ACETAMINOPHEN 650 MG SUPP PR PRN (09:45)
[2016-05-07] MEDS ORDERED: HYDROmorphone HCL PF 1 MG/ML VIAL IV PRN ×2 (09:45)
[2016-05-07] MEDS ORDERED: LORazepam 2 MG/ML VIAL IVS PRN (09:45)
[2016-05-07] MEDS ORDERED: BISACODYL 10 MG SUPP PR PRN (09:45)
[2016-05-07] MEDS ORDERED: HYOSCYAMINE 0.5 MG/ML AMP IV PRN (09:45)
[2016-05-07] MEDS ORDERED: LORazepam 2 MG/ML VIAL IV PRN ×2 (09:45)
[2016-05-07] MEDS ORDERED: FUROSEMIDE 20 MG/2 ML VIAL IV PRN (09:45)
[2016-05-07] MEDS: PANTOPRAZOLE SODIUM 40 MG VIAL IV PUSH SCH (11:00)
[2016-05-07] MEDS ORDERED: LORazepam 2 MG/ML VIAL IV SCH (12:00)
[2016-05-07] MEDS ORDERED: HYDROmorphone HCL PF 1 MG/ML VIAL IV SCH (12:00)
--- NOTE | 2016-05-07 14:02 | HHI.DS ---
Summary Note Date of : May 07, 2016 Time Of : 1221 Admission Date Apr 25, 2016 at 01:27 Admitting Diagnosis Hypoxic Respiratory Failure Diagnosis at Time of : (1) Acute respiratory failure with hypoxia ICD Code: J96.01 Diagnosis: Principal (2) Multi-organ failure with heart failure ICD Code: I50.9 Diagnosis: Principal (3) Pulmonary fibrosis ICD Code: J84.10 Diagnosis: Principal (4) Encephalopathy ICD Code: G93.40 Diagnosis: Principal (5) Moderate protein-calorie malnutrition ICD Code: E44.0 Diagnosis: Principal (6) Weakness ICD Code: R53.1 Diagnosis: Principal (7) Debility ICD Code: R53.81 Diagnosis: Principal Procedures None Brief History 65 year old female with history of alcohol abuse, history of breast cancer status post lumpectomy radiation and chemotherapy presents with progressively worsening shortness of breath. EMS was called because she was short of breath at home, and was found to have pals oxygen at 70%. Patient is on a BiPAP, seems to be comfortable in no distress. She is able to follow commands in all 4 extremities. Her history is limited secondary to FM BiPAP. CBC/BMP: 05/06/16 0324 05/07/16 0351 Significant Findings Laboratory Tests Test 05/05/16 05/06/16 05/07/16 03:11 03:24 03:51 White Blood Count 34.4 TH/MM3 24.3 TH/MM3 (4.0-11.0) (4.0-11.0) Red Blood Count 3.08 MIL/MM3 3.94 MIL/MM3 (4.00-5.30) (4.00-5.30) Hemoglobin 6.4 GM/DL 9.1 GM/DL (11.6-15.3) (11.6-15.3) Hematocrit 21.4 % 28.8 % (35.0-46.0) (35.0-46.0) Mean Corpuscular Volume 69.5 FL 73.2 FL (80.0-100.0) (80.0-100.0) Mean Corpuscular Hemoglobin 20.6 PG 23.2 PG (27.0-34.0) (27.0-34.0) Mean Corpuscular Hemoglobin 29.7 % 31.7 % Concent (32.0-36.0) (32.0-36.0) Red Cell Distribution Width 23.1 % 25.1 % (11.6-17.2) (11.6-17.2) Platelet Count 120 TH/MM3 118 TH/MM3 (150-450) (150-450) Neutrophils (%) (Auto) 94.5 % 93.0 % (16.0-70.0) (16.0-70.0) Lymphocytes (%) (Auto) 0.6 % 0.8 % (9.0-44.0) (9.0-44.0) Neutrophils # (Auto) 32.5 TH/MM3 22.6 TH/MM3 (1.8-7.7) (1.8-7.7) Lymphocytes # (Auto) 0.2 TH/MM3 0.2 TH/MM3 (1.0-4.8) (1.0-4.8) Monocytes # (Auto) 1.6 TH/MM3 1.3 TH/MM3 (0-0.9) (0-0.9) Neutrophils % (Manual) 96 % (16-70) Lymphocytes % 1 % (9-44) Neutrophils # (Manual) 33.0 TH/MM3 (1.8-7.7) Platelet Estimate LOW (NORMAL) LOW (NORMAL) Acanthocytes OCC (NORMAL) Keratocytes OCC (NORMAL) Chloride Level 110 MEQ/L 110 MEQ/L (98-107) (98-107) Blood Urea Nitrogen 43 MG/DL (7-18) 53 MG/DL (7-18) Creatinine 3.11 MG/DL 3.91 MG/DL 4.60 MG/DL (0.50-1.00) (0.50-1.00) (0.50-1.00) Estimat Glomerular Filtration 15 ML/MIN (>89) 12 ML/MIN (>89) 10 ML/MIN (>89) Rate Random Glucose 175 MG/DL 148 MG/DL (74-106) (74-106) Vancomycin Level Trough 31.6 MCG/ML (5.0-10.0) Basophilic Stippling MOD (NORMAL) Ovalocytes 1+ (NORMAL) Sodium Level 147 MEQ/L (136-145) Total Protein 6.1 GM/DL (6.4-8.2) Albumin 2.7 GM/DL (3.4-5.0) Imaging Last Impressions Chest X-Ray 05/04/16 0000 Signed Impressions: Service Date/Time: April 05:32 - CONCLUSION: Unchanged diffuse bilateral pulmonary infiltrates and tiny effusions. Bart Suarez Jr., MD Head CT 05/02/16 0000 Signed Impressions: Service Date/Time: Monday, May 02, 2016 12:49 - CONCLUSION: 1. Stable CT scan of the brain compared to the prior exam from 2013. 2. No focal or acute intracranial hemorrhage. Aureliano Rayo MD Abdomen X-Ray 05/01/16 0000 Signed Impressions: Service Date/Time: Sunday, May 01, 2016 10:49 - CONCLUSION: Catheter tips as described above. Akira Washington MD Renal Ultrasound 04/27/16 0000 Signed Impressions: Service Date/Time: March 10:35 - CONCLUSION: 1. Both kidneys are small in size. 2. No hydronephrosis. 3. There is some ascites in the abdomen. Aureliano Rayo MD Hospital Course Neuro/Psych: Alcoholism H/O seizure Hepatic encephalopathy Anxiety disorder Hyperammonemia Patient is on Versed drip at 10 mg an hour/fentanyl at 100 per hour drips for sedation/analgesia while intubated Goal of RASS -2 Daily sedation vacation when appropriate -Lactulose to QID, monitor ammonia level -Seroquel home med continued Respiratory Acute Hypoxic Respiratory failure COPD exacerbation Tobacco abuse Pulmonary fibrosis S/P radiation therapy-breast cancer Failure to wean -Current ventilator settings -PC 25/RR14/PEEP15/1.0-unable to wean PEEP, or decrease FiO2 - Pulmonology on board- follow-up recommendations -Continue Versed and fentanyl for ventilator dyssynchrony - Continue methylprednisolone 60 every 12hr - DuoNeb's scheduled every 4hr, every 2hr PRN -Patient does not want tracheostomy per her living will and family, plan for comfort care measures Cardiovascular: Hypotension -Maintain MAP greater than 65mmHg -Systolic blood pressure in the 80s-given albumin, no further vasopressors utilized per instructions of family and patient's living will -Levophed dc'd 05/01 am GI Moderate protein calorie malnutrition Ascites - Tubefeeds-Suplena 35 cc/hour per nutrition's recommendations@goal -Patient's last therapeutic paracentesis 02/21/2016, bedside US assessment of ascites approximated minimal - moderate,not significant amount for bedside paracentesis -GI on [id number]-[id number] recommendations -Albumin level 3.0 - Bowel regimen -Diagnostic/therapeutic paracentesis , 04/29 Removal of 2.3 L. Clear yellow. 24 WBCs -Continue to monitor, abdomen for therapeutic paracentesis -Monitor hepatic panel -Hepatitis panel-negative, previous old records, one entry reveals diagnosis of hepatitis C Renal/[facility] HOME Creatinine currently elevated at greater than 4. No further checking planned - Monitor BMP - strict I&O - Bumex drip will be discontinued as of 05/06 ID: Pneumonia? Persistent Leukocytosis -Monitor CBC. - 04/25 urine Legionella, streptococcal antigen negative -04/25 Sputum -No growth -04/28 Peritoneal cultures- NGTD Continue Zosyn renal dose. Vancomycin discontinued Heme Microcytic anemia History transfused 2 units PRBCs. He will currently none - status post lumpectomy radiation and chemotherapy - now in remission- left SC port (nonfunctional) per old records - supportive care History of right breast cancer - status post lumpectomy radiation and chemotherapy - now in remission - supportive care -MSK -PT evaluate and treat-functional maintenance DVT/GI prophylaxis - Heparin SubQ/Protonix Critical Care: The total care time was 35 minutes. Time to perform other separately billable procedures was not included in the critical care time. Plan for withdrawal of care in a.m. 05/07. Patient is DNR no code. Ventilator withdrawal orders provided including Dilaudid/Ativan and Rom Scales MD May 07, 2016 14:02
[2016-05-13 23:54] LABS: STAT NO
[2016-05-16 09:05] LABS: FIO2 50 %
== END 2016-05-07 13:55 | disposition expired | DRG 870 ==
LOC: NEPE 23:00 → NEDA 04-25 01:27 → N03B 04-25 03:48
PROVIDERS: ADMIT Internal Medicine Critical Care Medicine; ATTEND Internal Medicine Critical Care Medicine
PROC: 5A09357 Assistance with Respiratory Ventilation, Less than 24 Consecutive Hours, Continuous Positive Airway Pressure (ICD-10-PCS; principal; 2016-04-25)
PROC: 5A1955Z Respiratory Ventilation, Greater than 96 Consecutive Hours (ICD-10-PCS; 2016-04-25)
PROC: 03HY32Z Insertion of Monitoring Device into Upper Artery, Percutaneous Approach (ICD-10-PCS; 2016-04-25)
PROC: 0BH17EZ Insertion of Endotracheal Airway into Trachea, Via Natural or Artificial Opening (ICD-10-PCS; 2016-04-25)
PROC: 4A133B1 Monitoring of Arterial Pressure, Peripheral, Percutaneous Approach (ICD-10-PCS; 2016-04-25)
PROC: 4A133J1 Monitoring of Arterial Pulse, Peripheral, Percutaneous Approach (ICD-10-PCS; 2016-04-25)
PROC: 05HN33Z Insertion of Infusion Device into Left Internal Jugular Vein, Percutaneous Approach (ICD-10-PCS; 2016-04-25)
PROC: 0W9G3ZZ Drainage of Peritoneal Cavity, Percutaneous Approach (ICD-10-PCS; 2016-04-25)
PROC: 0W9G3ZZ Drainage of Peritoneal Cavity, Percutaneous Approach (ICD-10-PCS; 2016-04-28)
DX: A41.9 Sepsis, unspecified organism (principal); J96.01 Acute respiratory failure with hypoxia; G93.40 Encephalopathy, unspecified; J18.9 Pneumonia, unspecified organism; Z99.11 Dependence on respirator [ventilator] status; N17.9 Acute kidney failure, unspecified; E87.2 Acidosis; E87.0 Hyperosmolality and hypernatremia; K76.6 Portal hypertension; E44.0 Moderate protein-calorie malnutrition; J44.1 Chronic obstructive pulmonary disease with (acute) exacerbation; I50.9 Heart failure, unspecified; J84.10 Pulmonary fibrosis, unspecified; R65.20 Severe sepsis without septic shock; H91.90 Unspecified hearing loss, unspecified ear; F17.200 Nicotine dependence, unspecified, uncomplicated; F10.20 Alcohol dependence, uncomplicated; F41.9 Anxiety disorder, unspecified; E86.9 Volume depletion, unspecified; K70.31 Alcoholic cirrhosis of liver with ascites; G62.9 Polyneuropathy, unspecified; E87.5 Hyperkalemia; Z51.5 Encounter for palliative care; K72.10 Chronic hepatic failure without coma; G89.29 Other chronic pain; B19.20 Unspecified viral hepatitis C without hepatic coma; E83.39 Other disorders of phosphorus metabolism; D50.9 Iron deficiency anemia, unspecified; Z66 Do not resuscitate; Z85.3 Personal history of malignant neoplasm of breast; Z92.21 Personal history of antineoplastic chemotherapy; Z92.3 Personal history of irradiation; Z88.5 Allergy status to narcotic agent; Z86.010 Personal history of colon polyps; K42.9 Umbilical hernia without obstruction or gangrene
CPT/HCPCS: 31500; 36430; 36556; 36600; 70450; 71010; 74000; 76775; 76937; 80048; 80053; 80074; 80076; 80202; 81001; 82042; 82140; 82150; 82565; 82570; 82805; 82945; 83605; 83615; 83690; 83735; 83880; 83935; 84100; 84155; 84157; 84300; 84484; 85007; 85025; 85027; 85384; 85610; 85730; 86850; 86900; 86901; 86920; 87040; 87070; 87205; 87449; 87493; 87641; 88112; 89051; 93005; 94002; 94003; 94640; 94664; C9113; C9399; J0456; J0692; J1170; J1630; J1644; J1956; J1980; J2060; J2250; J2543; J2765; J2930; J3010; J3370; J3475; J3480; J7030; J7050; J7070; J7120; J7608; P9016; P9045; P9047